=== PATIENT | female | born 1990 | race Caucasian/White ===

== ENCOUNTER → 2019-12-14 07:24 | Outpatient (CLI) | payer OTHER, SELFPAY ==
--- NOTE | ~2019-12-14 | MR_ITS ---
EXAMINATION: MR knee RT wo con DATE: 12/14/2019 08:23 INDICATION: Right knee pain. TECHNIQUE: Magnetic resonance imaging (MRI) of the right knee was performed without intravenous contr ast. Sequences included axial PD-weighted FS FSE, coronal PD-weighted FSE and PD-weighted FS FSE, sag ittal PD-weighted FSE, and sagittal T2-weighted FS FSE. COMPARISON: None. FINDINGS: Medial compartment: Medial meniscus is normal. Medial compartment cartilage is normal. Lateral compartment: Lateral meniscus is discoid. Lateral compartment cartilage is normal. Patellofemoral compartment: The patellar cartilage is normal. Trochlear cartilage is normal. Ligaments and tendons: The anterior and posterior cruciate ligaments are normal. Medial collateral ligament is normal. There is edema between the iliotibial band and the lateral femoral condyle, consistent with iliotibial ban d friction syndrome. The extensor mechanism is normal. Fluid: There is no knee joint effusion. IMPRESSION: 1. Iliotibial band friction syndrome. Reviewed, dictated and finalized at location A. 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
--- NOTE | ~2019-12-14 | MR_ITS ---
EXAMINATION: MR knee LT wo con DATE: 12/14/2019 08:23 INDICATION: Left knee pain. TECHNIQUE: Magnetic resonance imaging (MRI) of the left knee was performed without intravenous contra st. Sequences included axial PD-weighted FS FSE, coronal PD-weighted FSE and PD-weighted FS FSE, sagi ttal PD-weighted FSE, and sagittal T2-weighted FS FSE. COMPARISON: None. FINDINGS: Medial compartment: Medial meniscus is normal. Medial compartment cartilage is normal. Lateral compartment: Lateral meniscus is discoid. Lateral compartment cartilage is normal. Patellofemoral compartment: Patellar cartilage is normal. Trochlear cartilage is normal. Ligaments and tendons: The anterior and posterior cruciate ligaments are normal. Medial collateral ligament is normal. There is thickening of the iliotibial band with edema between the iliotibial band and lateral femoral cond yle, consistent with iliotibial band friction syndrome. The patellar tendon is normal. Fluid: There is no knee joint effusion. IMPRESSION: 1. Iliotibial band friction syndrome. Reviewed, dictated and finalized at location A. YIST
== END ==
PROVIDERS: PCP Orthopaedic Surgery; Visit Provider Orthopaedic Surgery
DX: M25.562 Pain in left knee (principal); M25.561 Pain in right knee; M76.31 Iliotibial band syndrome, right leg; M76.32 Iliotibial band syndrome, left leg
CPT/HCPCS: 73721

== ENCOUNTER 2020-01-17 13:55 | Outpatient (CLI) | payer OTHER, SELFPAY ==
--- NOTE | ~2020-01-17 | XR_ITS ---
EXAMINATION: XR chest 2V DATE: 01/17/2020 14:10 INDICATION: Fever, chills, and cough. TECHNIQUE: Frontal and lateral views of the chest were obtained. COMPARISON: Chest single view 02/26/2017 FINDINGS: There is mild scarring at the lung apices. No pleural effusion or pneumothorax. The heart s ize is normal. IMPRESSION: 1. Mild scarring at the lung apices. Reviewed, dictated and finalized at location A. 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
[2020-01-17 14:08] LABS: Basophils Absolute Auto 0.01 K/mm3 (0.00-0.10); Basophils Percent Auto 0.1 % (0.0-1.0); Eosinophils Absolute Auto 0.18 K/mm3 (0.02-0.50); Eosinophils Percent Auto 2.5 % (1.0-6.0); Hematocrit 34.8 % (35.0-49.0); Hemoglobin 11.4 g/dL (12.0-15.0); Immature Granulocyte Absolute 0.04 K/mm3 (0.00-0.00); Immature Granulocyte Percent A 0.6 % (0.0-0.0); Lymphocytes Absolute Auto 0.87 K/mm3 (1.10-4.50); Lymphocytes Percent Auto 12.2 % (18.0-42.0); Mean Corpuscular HGB Conc 32.8 g/dL (32.0-36.0); Mean Corpuscular Hemoglobin 29.8 pg (27.0-31.0); Mean Corpuscular Volume 91.1 fL (78.0-102.0); Mean Platelet Volume 8.5 fl (9.2-11.8); Monocytes Absolute Auto 0.57 K/mm3 (0.10-0.90); Neutrophils Absolute Auto 5.4 K/mm3 (1.7-7.2); Neutrophils Percent Auto 76.6 % (50.0-70.0); Platelet Count Result 306 K/mm3 (150-420); Red Blood Count 3.82 M/mm3 (4.20-5.40); Red Cell Distribution Width 14.5 % (11.6-14.4); White Blood Count 7.1 K/mm3 (4.8-10.8)
[2020-01-17 14:24] LABS: Alanine Aminotransferase 24 U/L (14-59); Albumin Level 3.5 g/dL (3.4-5.0); Alkaline Phosphatase 46 U/L (46-116); Anion Gap 16.1 mmol/L (7-16); Aspartate Amino Transferase 17 U/L (15-37); Bilirubin,Total 0.3 mg/dL (0.00-1.00); Blood Urea Nitrogen 9 mg/dL (7-18); Calcium 8.7 mg/dL (8.5-10.1); Carbon Dioxide 25 mmol/L (21-32); Chloride 104 mmol/L (98-108); Estimated Glomerular Filt Rate > 60; Glucose 127 mg/dL (70-99); Osmolality Calculated 292 mOsm/kg (285-295); Potassium 4.1 mmol/L (3.5-5.1); Sodium 141 mmol/L (136-145); Total Protein 7.2 g/dL (6.4-8.2)
[2020-01-17 14:28] LABS: Influenza Control Valid (Valid)
== END 2020-01-17 13:56 | disposition home or self-care (01) ==
LOC: CHSLAB 13:56
PROVIDERS: PCP Internal Medicine; Visit Provider Internal Medicine
DX: R50.9 Fever, unspecified (principal); R05 Cough
CPT/HCPCS: 36415; 71046; 80053; 85025; 87081; 87804; 87880

== ENCOUNTER 2020-01-21 16:39 | Outpatient (CLI) | payer OTHER, SELFPAY ==
[2020-01-21 16:50] LABS: Basophils Absolute Auto 0.03 K/mm3 (0.00-0.10); Basophils Percent Auto 0.4 % (0.0-1.0); Eosinophils Absolute Auto 0.12 K/mm3 (0.02-0.50); Eosinophils Percent Auto 1.7 % (1.0-6.0); Hematocrit 37.7 % (35.0-49.0); Hemoglobin 12.5 g/dL (12.0-15.0); Immature Granulocyte Absolute 0.03 K/mm3 (0.00-0.00); Immature Granulocyte Percent A 0.4 % (0.0-0.0); Lymphocytes Percent Auto 18.7 % (18.0-42.0); Mean Corpuscular HGB Conc 33.2 g/dL (32.0-36.0); Mean Corpuscular Hemoglobin 29.8 pg (27.0-31.0); Mean Platelet Volume 8.3 fl (9.2-11.8); Monocytes Absolute Auto 0.61 K/mm3 (0.10-0.90); Monocytes Percent Auto 8.8 % (2.0-11.0); Neutrophils Absolute Auto 4.9 K/mm3 (1.7-7.2); Platelet Count Result 400 K/mm3 (150-420); Red Blood Count 4.19 M/mm3 (4.20-5.40)
== END 2020-01-21 16:40 | disposition home or self-care (01) ==
LOC: CHSLAB 16:41
PROVIDERS: PCP Internal Medicine; Visit Provider Internal Medicine
DX: J02.9 Acute pharyngitis, unspecified (principal)
CPT/HCPCS: 36415; 85025

== ENCOUNTER 2020-02-04 11:46 | Outpatient (CLI) | payer OTHER, SELFPAY ==
--- NOTE | ~2020-02-04 | XR_ITS ---
EXAMINATION: XR chest 2V DATE: 02/04/2020 12:04 INDICATION: Cough TECHNIQUE: PA and lateral views of the chest were obtained. COMPARISON: Chest radiograph dated 01/17/2020 FINDINGS: Mild biapical pleural-parenchymal scarring. No other airspace opacities, pulmonary edema, pleural eff usion or pneumothorax. The cardiomediastinal silhouette is normal. Visualized bones and soft tissues are unremarkable. IMPRESSION: 1. No acute cardiopulmonary disease. Reviewed, dictated and finalized at location A.
== END 2020-02-04 11:47 | disposition home or self-care (01) ==
LOC: ANHIMG 11:52
PROVIDERS: PCP Internal Medicine; Visit Provider Internal Medicine
DX: R05 Cough (principal)
CPT/HCPCS: 71046

== ENCOUNTER 2020-02-04 14:29 | Outpatient (CLI) | payer OTHER, SELFPAY ==
--- NOTE | ~2020-02-04 | CT_ITS ---
EXAMINATION: CT soft tissue neck w con DATE: 02/04/2020 15:29 INDICATION: Lymphadenopathy with left-sided neck swelling TECHNIQUE: Computed tomography (CT) of the neck was performed with 100 mL Omnipaque-350 intravenous c ontrast. Automated exposure control and iterative reconstruction technique were employed. The dose-le ngth product was 376.89 mGy-cm. COMPARISON: 05/22/2019 FINDINGS: A benign 4 mm hypoenhancing nodule in the deep right thyroid. Submandibular and parotid glands are sy mmetric. There are scattered normal-sized lymph nodes in the neck, no lymphadenopathy. The 2 largest are seen deep to the left sternocleidomastoid muscle measuring 10 x 5 mm and 14 x 7 mm which are not clearly changed since earlier cervical spine MR dated 05/22/2019 at which time they measured 14 x 6 mm and 14 x 6 mm respectively. No abscess or abnormal masses identified. The vasculature is patent and normal in caliber with mixing artifact within the bilateral jugular veins. Airway and superior medias tinum are unremarkable. Mild biapical pleural-parenchymal scarring. Minimal cervical spondylosis with mild disc height loss and mild bilateral uncovertebral osteoarthritis at C5-C6. Orbits are unremark able. The callosal thickening the bilateral maxillary sinuses with prominent mucous retention cyst in the right maxillary sinus. IMPRESSION: 1. No abscess, masses or pathologically enlarged cervical lymphadenopathy. Reviewed, dictated and finalized at location A.
[2020-02-04 14:46] LABS: Basophils Absolute Auto 0.02 K/mm3 (0.00-0.10); Basophils Percent Auto 0.3 % (0.0-1.0); Eosinophils Absolute Auto 0.02 K/mm3 (0.02-0.50); Eosinophils Percent Auto 0.3 % (1.0-6.0); Hematocrit 32.5 % (35.0-49.0); Hemoglobin 10.5 g/dL (12.0-15.0); Immature Granulocyte Absolute 0.02 K/mm3 (0.00-0.00); Immature Granulocyte Percent A 0.3 % (0.0-0.0); Lymphocytes Absolute Auto 1.55 K/mm3 (1.10-4.50); Lymphocytes Percent Auto 22.7 % (18.0-42.0); Mean Corpuscular HGB Conc 32.3 g/dL (32.0-36.0); Mean Corpuscular Hemoglobin 29.2 pg (27.0-31.0); Mean Corpuscular Volume 90.5 fL (78.0-102.0); Mean Platelet Volume 8.4 fl (9.2-11.8); Monocytes Absolute Auto 0.44 K/mm3 (0.10-0.90); Monocytes Percent Auto 6.4 % (2.0-11.0); Neutrophils Absolute Auto 4.8 K/mm3 (1.7-7.2); Platelet Count Result 356 K/mm3 (150-420); Red Blood Count 3.59 M/mm3 (4.20-5.40); Red Cell Distribution Width 13.6 % (11.6-14.4); White Blood Count 6.8 K/mm3 (4.8-10.8)
[2020-02-04 15:20] LABS: Alanine Aminotransferase 23 U/L (14-59); Albumin Level 3.7 g/dL (3.4-5.0); Alkaline Phosphatase 46 U/L (46-116); Anion Gap 16.9 mmol/L (7-16); Aspartate Amino Transferase 21 U/L (15-37); Bilirubin,Total 0.3 mg/dL (0.00-1.00); Blood Urea Nitrogen 9 mg/dL (7-18); CRP 3.2 mg/dL (0.0-0.9); Calcium 9.3 mg/dL (8.5-10.1); Carbon Dioxide 25 mmol/L (21-32); Chloride 101 mmol/L (98-108); Estimated Glomerular Filt Rate > 60; Free T3 3.21 pg/mL (2.18-3.98); Free T4 Free Thyroxine 0.99 ng/dL (0.76-1.46); Glucose 84 mg/dL (70-99); Osmolality Calculated 285 mOsm/kg (285-295); Potassium 3.9 mmol/L (3.5-5.1); Sodium 139 mmol/L (136-145); Thyroid Stimulating Hormone 0.65 uIU/mL (0.36-3.74); Total Protein 7.2 g/dL (6.4-8.2)
[2020-02-04 16:01] LABS: Erythrocyte Sedimentation Rate 33 mm/hr (0-15)
[2020-02-04 16:40] LABS: Immature Reticulocyte Fraction 12.5 % (2.0-16.52); Reticulocyte Hemoglobin Conten 33.4 pg (28.0-35.0); Reticulocyte Percent 1.43 % (0.50-1.50); Reticulocytes Absolute 0.05 M/mm3 (0.02-0.1)
[2020-02-04 17:14] LABS: Ferritin 62 ng/mL (8-252); Iron 53 ug/dL (50-170); Percent Iron Saturation 11 % (12-57); Vitamin B12 817 pg/mL (193-986)
[2020-02-08 03:32] LABS: Red Blood Cell Folate 733 ng/mL RBC (>280)
== END 2020-02-04 14:30 | disposition home or self-care (01) ==
LOC: CHSLAB 14:32
PROVIDERS: PCP Internal Medicine; Visit Provider Internal Medicine
DX: R59.1 Generalized enlarged lymph nodes (principal); R53.83 Other fatigue; J02.9 Acute pharyngitis, unspecified; D84.9 Immunodeficiency, unspecified; D64.9 Anemia, unspecified
CPT/HCPCS: 36415; 70491; 80053; 82607; 82728; 82747; 83540; 83550; 84439; 84443; 84481; 85025; 85046; 85652; 86140; Q9965

== ENCOUNTER 2020-02-05 10:43 | Emergency (ER) | payer OTHER, SELFPAY ==
--- NOTE | ~2020-02-05 | CT_ITS ---
EXAMINATION: CTA chest PE protocol DATE: 02/05/2020 12:12 CDT INDICATION: Pleuritic chest pain and dyspnea TECHNIQUE: Computed tomographic angiography (CTA) of the chest was performed with 100 mL Omnipaque-35 0 intravenous contrast. The dose-length product was 183.91 mGy-cm. Maximum intensity projection 3D-re constructions of the aorta and other arteries were constructed by the technologist on a separate work station. Automated exposure control and iterative reconstruction technique were employed. COMPARISON: No prior studies for comparison. . FINDINGS: Study is technically adequate without evidence for pulmonary embolism. No significant pleur al or pericardial effusion. No thoracic lymphadenopathy. Heart size normal. Visualized aspects of the upper abdomen are unremarkable. No evidence for aortic aneurysm or dissection. No pneumothorax. 4 mm right lower lobe perifissural nodule, likely benign. No focal airspace consolidation. There is a 3 m m groundglass nodule right upper lobe, image 68. There are small left upper lobe nodules adjacent to the fissure measuring 3 mm. No focal airspace consolidation. IMPRESSION: 1. No evidence for pulmonary embolism. No acute cardiopulmonary disease. 2: Multiple small bilateral pulmonary nodules measuring 4 mm or less, likely benign. Reviewed, dictated and finalized at location A. IMPRESSION: 1. No evidence for pulmonary embolism. No acute cardiopulmonary disease. 2: Multiple small bilateral pulmonary nodules measuring 4 mm or less, likely b enign.
--- NOTE | 2020-02-05 10:54 | ECG_ITS ---
Measurements Intervals [place] Rate: 67 P: 51 UT: 128 QRS: 81 QRSD: 89 T: 63 QT: 381 QTc: 405 Interpretive Statements SINUS RHYTHM DELAYED PRECORDIAL R/S TRANSITION BASELINE ARTIFACT- II, III, AVL, AVF BORDERLINE ECG Electronically Signed On 02-05-2020 15:30:33 CDT by Vamsi Ramírez D.O.
[2020-02-05 11:11] VITALS: BP 111/65; PULSE 84; RESP 16; TEMP 36.7; O2SAT 98
--- NOTE | 2020-02-05 11:50 | ED.GENADULT ---
HPI - General Adult General Chief complaint: Upper Respiratory Infection Stated complaint: chest and back pain History of Present Illness HPI narrative: Lizy is a 29-year-old woman with a past medical history of RA /psoriatic arthritis that was referred to the emergency department for a CTA by her PCP. she has had 3 weeks of fever, sore throat, URI type symptoms and eye pain. She has undergone 3 courses of antibiotics and is not feeling any better. She saw an hand tube winder who reported she might have uveitis, started on steroid eyedrops. 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 She also had some lightheadedness and nausea. No syncope or near syncope. Because of this her PCP referred her to the emergency department. No vomiting or other GI symptoms or dysuria. Related Data Home Medications Medication Instructions Recorded Confirmed escitalopram oxalate 20 mg tablet 20 mg PO DAILY 10/21/19 02/05/20 methotrexate (PF) 25 mg/0.5 mL 25 mg SUB-Q WEEKLY 10/21/19 02/05/20 subcutaneous auto-injector montelukast 10 mg tablet 10 mg PO DAILY 10/21/19 02/05/20 tofacitinib 5 mg tablet 5 mg PO BID 10/21/19 02/05/20 pantoprazole 40 mg PO QAM 02/05/20 02/05/20 Allergies Allergy/AdvReac Type Severity Reaction Status Date / Time ciprofloxacin Allergy Unknown HIVES Verified 12/03/19 07:47 metronidazole Allergy Unknown HIVES Verified 12/03/19 07:47 Review of Systems Constitutional: Constitutional: Reports no additional constitutional complaints Eyes: Eyes: Reports as per HPI ENT: Reports as per HPI Cardiovascular: Cardiovascular: Reports chest pain and Denies radiating jaw, neck or arm pain Respiratory: Respiratory: Reports as per HPI Gastrointestinal: Gastrointestinal: Reports as per HPI Genitourinary: Genitourinary: Reports no additional female genitourinary complaints Musculoskeletal: Musculoskeletal: Reports no additional musculoskeletal complaints Integumentary/Breasts: Skin/Breast: Reports system reviewed and no additional complaints, except as docu Neurologic: Reports system reviewed and no additional complaints, except as documented Psychiatric: Psychiatric: Reports no additional psychiatric complaints Endocrine: Endocrine: Reports no additional endocrine complaints Hematologic/Lymphatic: Hematologic/Lymphatic: Reports no additional hematologic/lymphatic complaints Allergic/Immunologic: Allergic/Immunologic: Reports no additional allergic/immunologic complaints [facility] Past Medical History Medical History Anxiety Asthma Depression Endometriosis GERD (gastroesophageal reflux disease) Intrauterine adhesions Irritable bowel Panic disorder Rheumatoid arteritis Surgical History Surgical History H/O dilation and curettage H/O myringotomy Hx of cholecystectomy Hx of tonsillectomy Social History Social History Smoking status: Never smoker Alcohol intake: never Substance use: never Gender identity (if verbalized by the patient): Female Exam Const: General: no acute distress and alert Orientation/consciousness: patient oriented x3 Limitations: No altered mental status HENMT: Other: Normocephalic, atraumatic Eyes: Conjunctivae: conjunctivae normal Pupils: Equal, round and reactive pupils present Neck: Neck: normal visual inspection Chest: Chest palpation & inspection: normal inspection of the chest Other: tenderness palpation on the posterior side of the left upper back Resp: Effort & Inspection: normal respiratory effort, not labored, no retractions and no use of accessory muscles Auscultation: clear to auscultation bilaterally, no crackles, no wheezes and lung sounds not diminished Cardio: Rate: regular rate Rhyth
[2020-02-05 11:57] LABS: BNP 15.6 pg/mL (0-100); Troponin I < 0.02 ng/mL (0.00-0.056)
[2020-02-05 12:44] VITALS: BP 102/62; PULSE 68; O2SAT 100
== END 2020-02-05 12:45 | disposition home or self-care (01) ==
PROVIDERS: Emergency Provider Family Medicine; PCP Internal Medicine
DX: R07.81 Pleurodynia (principal); R06.02 Shortness of breath
CPT/HCPCS: 36415; 71275; 83880; 84484; 93005; 99284; Q9965

== ENCOUNTER 2020-04-03 11:16 | Outpatient (CLI) | payer OTHER, SELFPAY ==
--- NOTE | ~2020-04-03 | CT_ITS ---
EXAMINATION: CT abdomen w con DATE: 04/03/2020 15:44 INDICATION: Acute right upper quadrant abdominal pain. Nausea and vomiting. TECHNIQUE: Computed tomography (CT) of the abdomen was performed with 100 cc Omnipaque 350 intravenou s contrast. Automated exposure control and iterative reconstruction technique were employed. Exam dos e: 163.36 mGy-cm total exam DLP. COMPARISON: 11/08/2019 CT abdomen pelvis FINDINGS: The lung bases are clear. Normal heart size. No pericardial or pleural effusion. Right foramen of Bochdalek hernia containing fat and a little bit of the posterior aspect of the uppe r pole of the right kidney. The gallbladder is reportedly surgically absent. No bile duct or pancreatic duct dilatation. No hepat ic, splenic, pancreatic, adrenal space-occupying mass lesion. No left renal space occupying mass lesi on. There is an 8 mm cyst of the upper pole of the right kidney. At least one pinpoint lower pole rig ht renal calculus may be present. Noncontrast CT examination would be more accurate for detection of urinary tract calculi. The right kidney is otherwise unremarkable. No hydronephrosis or scarring of e ither kidney. Normal caliber of the abdominal aorta. No intraperitoneal or retroperitoneal mass lesion or adenopath y or ascites. There are several nonenlarged right lower quadrant mesenteric lymph nodes. No evidence of bowel obstr uction, bowel wall thickening, pneumatosis or intraperitoneal free air. Small fat-containing umbilical hernia. Included skeletal structures are unremarkable. IMPRESSION: History of cholecystectomy Reviewed, dictated and finalized at Location A. Reviewed, dictated and finalized at location A. IMPRESSION: History of cholecystectomy
[2020-04-03 11:27] LABS: Appearance Urine Clear (Clear); Bilirubin Urine Negative (Negative); Color Urine Yellow (Yellow); Glucose Urine UA Negative (Negative); Ketones Urine Negative (Negative); Leukocyte Esterase Ur Negative LEU/UL (Negative); Nitrate Urine Negative (Negative); Protein Urine Negative (Negative); Specific Grav Ur <= 1.005 (1.010-1.020); Urobilinogen Urine 0.2 mg/dL (0.2-1.0)
[2020-04-03 11:36] LABS: Add Urine Microscopic? YES; Bacteria Urine None seen /hpf; Blood Urine Trace-Intact (Negative); RBC Urine 0-2 /hpf (0-2); Squamous Epithelial Cell Urine Few /hpf (Few); WBC Urine 0-3 /hpf (0-3)
[2020-04-03 11:38] LABS: Alanine Aminotransferase 19 U/L (14-59); Alkaline Phosphatase 50 U/L (46-116); Amylase 58 U/L (25-115); Anion Gap 15.7 mmol/L (7-16); Aspartate Amino Transferase 15 U/L (15-37); Bilirubin,Total 0.3 mg/dL (0.00-1.00); Blood Urea Nitrogen 9 mg/dL (7-18); Calcium 8.8 mg/dL (8.5-10.1); Carbon Dioxide 24 mmol/L (21-32); Chloride 102 mmol/L (98-108); Estimated Glomerular Filt Rate > 60; Glucose 199 mg/dL (70-99); Lipase 173 U/L (73-393); Osmolality Calculated 290 mOsm/kg (285-295); Potassium 3.7 mmol/L (3.5-5.1); Sodium 138 mmol/L (136-145); Total Protein 6.8 g/dL (6.4-8.2)
[2020-04-03 11:47] LABS: Albumin Level 3.3 g/dL (3.4-5.0)
[2020-04-03 15:17] LABS: Basophils Absolute Auto 0.02 K/mm3 (0.00-0.10); Basophils Percent Auto 0.3 % (0.0-1.0); Eosinophils Absolute Auto 0.05 K/mm3 (0.02-0.50); Eosinophils Percent Auto 0.7 % (1.0-6.0); Hematocrit 33.8 % (35.0-49.0); Immature Granulocyte Absolute 0.03 K/mm3 (0.00-0.00); Immature Granulocyte Percent A 0.4 % (0.0-0.0); Lymphocytes Absolute Auto 1.55 K/mm3 (1.10-4.50); Lymphocytes Percent Auto 20.5 % (18.0-42.0); Mean Corpuscular HGB Conc 32.5 g/dL (32.0-36.0); Mean Corpuscular Hemoglobin 29.1 pg (27.0-31.0); Mean Corpuscular Volume 89.4 fL (78.0-102.0); Mean Platelet Volume 9.1 fl (9.2-11.8); Monocytes Absolute Auto 0.41 K/mm3 (0.10-0.90); Monocytes Percent Auto 5.4 % (2.0-11.0); Neutrophils Absolute Auto 5.5 K/mm3 (1.7-7.2); Neutrophils Percent Auto 72.7 % (50.0-70.0); Platelet Count Result 352 K/mm3 (150-420); Red Blood Count 3.78 M/mm3 (4.20-5.40); Red Cell Distribution Width 13.8 % (11.6-14.4); White Blood Count 7.6 K/mm3 (4.8-10.8)
== END 2020-04-03 11:17 | disposition home or self-care (01) ==
PROVIDERS: PCP Internal Medicine; Visit Provider Internal Medicine
DX: R10.11 Right upper quadrant pain (principal); R11.2 Nausea with vomiting, unspecified; Z90.49 Acquired absence of other specified parts of digestive tract
CPT/HCPCS: 36415; 74160; 80053; 81001; 82150; 83690; 85025; Q9965

== ENCOUNTER 2020-04-07 08:39 | Outpatient (CLI) | payer OTHER, SELFPAY ==
--- NOTE | ~2020-04-07 | MR_ITS ---
EXAMINATION: MR MRCP wo/w con/w 3D wo ind DATE: 04/07/2020 10:30 INDICATION: Right upper quadrant abdominal pain similar to prior biliary pain. TECHNIQUE: Magnetic resonance imaging (MRI) of the abdomen was performed without and with 13 mL Multi rafat intravenous contrast. Sequences included coronal T2-weighted SS-FSE, coronal T2-weighted FS SS- FSE, coronal T2-weighted FS FIESTA, axial T2-weighted FS FIESTA, axial T2-weighted FIESTA, sagittal T 2-weighted SS-FSE, axial T1-weighted dual-echo FSPGR, axial T2-weighted SS-FSE, axial T1-weighted LAV A, axial T2-weighted STIR FSE. Thick-slab T2-weighted FRFSE-XL images were obtained for magnetic reso nance cholangiopancreatography (MRCP). Rotating maximum intensity projection 3-D reconstructions of t he volumetric data were created by the technologist. Postcontrast sequences included a time course of axial T1-weighted LAVA. COMPARISON: None. FINDINGS: ABDOMEN MRI: Heart size is normal. No pericardial or pleural effusion. Ex millimeters T2 hyperintense nonenhancing cyst at the posterior right hepatic lobe. Spleen, pancreas, bilateral adrenal glands an d left kidney are normal. 8 mm T2 hyperintense nonenhancing cyst at the upper pole of the right kidne y. Gallbladder is not visualized consistent with provided history of prior cholecystectomy. Visualize d portion of the bowels appear normal. No pathologically enlarged abdominal lymphadenopathy. The abdo steve aorta, inferior vena cava and major branch vessels appear normal as does the portal venous syst em. Bones are unremarkable with normal marrow signal throughout. ABDOMEN MRCP: The MRCP portion of the study is limited by some motion artifact. There is however good visualization of the common bile duct and biliary tree on the axial, sagittal and coronal T2-weighted images. Norm al caliber common bile duct measuring up to 4 mm in maximal diameter with no strictures or intralumin al filling defects to suggest choledocholithiasis. Intrahepatic biliary tree is normal. The main panc reatic duct is also normal. IMPRESSION: 1. Status post cholecystectomy. No evident choledocholithiasis or intra or extra hepatic biliary duct al dilation. 2. No acute intra-abdominal/pelvic process. Reviewed, dictated and finalized at location A. IMPRESSION: 1. Status post cholecystectomy. No evident choledocholithiasis or intra or extr a hepatic biliary ductal dilation. 2. No acute intra-abdominal/pelvic process.
== END 2020-04-07 08:40 | disposition home or self-care (01) ==
LOC: ANHIMG 08:41
PROVIDERS: PCP Internal Medicine; Visit Provider Internal Medicine Gastroenterology
DX: R10.13 Epigastric pain (principal); R11.2 Nausea with vomiting, unspecified; R63.4 Abnormal weight loss; Z90.49 Acquired absence of other specified parts of digestive tract
CPT/HCPCS: 74183; 76376; A9577

== ENCOUNTER 2020-04-17 00:25 | Outpatient (CLI) | payer OTHER, SELFPAY ==
[2020-04-17 16:41] LABS: SARS-CoV-2 RNA PCR Negative
== END 2020-04-17 00:26 | disposition home or self-care (01) ==
LOC: ANHCOVIDDT 00:25
PROVIDERS: PCP Internal Medicine; Visit Provider Internal Medicine Gastroenterology
DX: Z01.818 Encounter for other preprocedural examination (principal); Z11.59 Encounter for screening for other viral diseases
CPT/HCPCS: 87635; C9803; U0003

== ENCOUNTER 2020-04-18 01:06 | Day surgery (SDC) | payer OTHER, SELFPAY ==
[2020-04-12 15:03] VITALS: BMI 24.2
[2020-04-18 07:20] VITALS: BP 96/69; PULSE 94; RESP 16; TEMP 37; O2SAT 100
[2020-04-18] MEDS: LACTATED RINGERS 1,000 ML 150 ML IV CONT (07:47)
--- NOTE | 2020-04-18 08:00 | WPDANESEPPF ---
Anes - Initial Pre Proc Eval Procedure: Operation Date: 04/18/20 08:30 Proposed Procedures p Esophagogastroduodenoscopy - Jonny Reynolds MD Date/Time: 04/18/20 08:00 Surgeon: Jonny Reynolds MD Pre Op Diagnosis: abd pain, vomiting Patient Data Age: 29 Gender: F Height: 5 ft 4 in Weight: 64.2 kg Last Vital Signs Temp 37.0 C 04/18/20 07:20 Pulse 94 04/18/20 07:20 Resp 16 04/18/20 07:20 BP 96/69 L 04/18/20 07:20 Pulse Ox 100 04/18/20 07:20 Allergies Allergy/AdvReac Type Severity Reaction Status Date / Time ciprofloxacin Allergy Unknown HIVES Verified 04/18/20 07:26 metronidazole Allergy Unknown HIVES Verified 04/18/20 07:26 Home Medications Medication Instructions Recorded Confirmed Type escitalopram oxalate 20 mg tablet 20 mg PO DAILY 10/21/19 04/18/20 History methotrexate (PF) 25 mg/0.5 mL 25 mg SUB-Q WEEKLY 10/21/19 04/18/20 History subcutaneous auto-injector montelukast 10 mg tablet 10 mg PO DAILY 10/21/19 04/18/20 History vits,calcium no.78-iron 1 tablet PO DAILY #90 tablet 10/21/19 04/18/20 Rx fumarate-folic acid 29 mg-1 mg tablet pantoprazole 40 mg PO QAM 02/05/20 04/18/20 History apremilast [Otezla Starter] 30 ea PO BID 04/12/20 04/18/20 History lifitegrast [Xiidra] 5 % OPHTHALMIC (EYE) BID 04/12/20 04/18/20 History norgestimate-ethinyl estradiol 1 tablet PO DAILY 04/12/20 04/18/20 History [Tri-Sprintec (28)] Patient hx anesthesia problems: none Family hx anesthesia problems: none PMFSH Past Medical History Medical History Anxiety Asthma Depression Endometriosis Epigastric pain GERD (gastroesophageal reflux disease) Intrauterine adhesions Irritable bowel Nausea & vomiting Panic disorder Rheumatoid arthritis Weight loss Surgical History Surgical History H/O dilation and curettage H/O myringotomy Hx of cholecystectomy Hx of tonsillectomy Social History Social History Smoking status: Never smoker Alcohol intake: never Substance use: never Gender identity (if verbalized by the patient): Female Anes - Eval Final PreProcedure Day of Procedure 04/18/20 08:00 Patient weight: normal Heart: regular rate and rhythm Lungs: clear to auscultation Airway: Mallampati scale class 1 Neurological: alert and oriented Last oral intake: >/= 8 hours ASA classification: II Emergent: no Anesthetic plan: proceed Anesthesia type and monitoring: general GIVS and standard monitoring Informed Consent: The patient's anesthetic plan and its attendant risks and benefits were discussed with the patient/family/POA. Questions were solicited and answers provided to the satisfaction of the patient/family/POA.
--- NOTE | 2020-04-18 08:37 | WPDHPUPDATE1 ---
History and Physical Update Update Date/Time: 04/18/20 08:37 History and Physical has been reviewed, including an updated exam of the patient. There are NO changes in the patient's condition. Risks, benefits, and alternatives have been discussed and questions answered. Patient agrees to proceed with procedure.
[2020-04-18 08:42] VITALS: BP 98/66; PULSE 65; RESP 20; O2SAT 96
[2020-04-18 08:52] VITALS: BP 113/79; PULSE 63; RESP 15; O2SAT 100
[2020-04-18 09:02] VITALS: BP 110/75; PULSE 68; RESP 20; O2SAT 100
== END 2020-04-18 09:19 | disposition home or self-care (01) ==
PROVIDERS: PCP Internal Medicine; Visit Provider Internal Medicine Gastroenterology
PROC: 0DJ08ZZ Inspection of Upper Intestinal Tract, Via Natural or Artificial Opening Endoscopic (ICD-10-PCS; CPT 43235; principal; 2020-04-18 08:30)
DX: K29.70 Gastritis, unspecified, without bleeding (principal); K44.9 Diaphragmatic hernia without obstruction or gangrene; K21.9 Gastro-esophageal reflux disease without esophagitis; J45.909 Unspecified asthma, uncomplicated; F41.8 Other specified anxiety disorders; M06.9 Rheumatoid arthritis, unspecified
CPT/HCPCS: 43239; 88305; J2704; J7120

== ENCOUNTER 2020-04-28 07:15 | Outpatient (CLI) | payer OTHER, SELFPAY ==
--- NOTE | ~2020-04-28 | NM_ITS ---
EXAM: NM gastric emptying study DATE: 04/28/2020 12:22 INDICATION: Abnormal weight loss. TECHNIQUE: A gastric emptying study was performed using the methodology of Manolo CAMP, et al. J Nucl Med 2007; 48:568-572. The patient was given a meal consisting of 2 scrambled eggs labeled with 1 mCi Tc-99m sulfur colloid, 2 slices of toast, two packages of jam, and approximately 120 mL of water. Si multaneous anterior and posterior 1-min images of the abdomen were obtained with the patient supine a t multiple time points over a total period of 4 hours. The geometric mean of anterior and posterior v iews was determined, and the percentage retention was calculated for each time point. COMPARISON: CT abdomen 04/03/2020 FINDINGS: Gastric retention of the radiotracer-labeled meal was 61%, 34%, and 8% at the 1-hour, 2-ho ur, and 4-hour time points, respectively. With this technique, apparent rapid gastric emptying is sug gested by <30% gastric retention at 1 hour. Delayed gastric emptying is defined by gastric retention of >90% at 1 hour, >60% retention at 2 hours, or >10% retention at 4 hours. IMPRESSION: 1. Normal gastric emptying. Reviewed, dictated and finalized at location E. IMPRESSION: 1. Normal gastric emptying.
== END 2020-04-28 07:16 | disposition home or self-care (01) ==
LOC: ANHIMG 07:18
PROVIDERS: PCP Internal Medicine; Visit Provider Internal Medicine Gastroenterology
DX: R63.4 Abnormal weight loss (principal); R11.2 Nausea with vomiting, unspecified; R10.13 Epigastric pain
CPT/HCPCS: 78264; A9541

== ENCOUNTER 2020-05-09 15:23 | Outpatient (RCR) | payer OTHER, SELFPAY ==
[2020-03-21 15:14] LABS: Add Urine Microscopic? NO; Appearance Urine Clear (Clear); Basophils Percent Auto 0.4 % (0.2-1.2); Bilirubin Urine Negative (Negative); Blood Urine Negative (Negative); Color Urine Yellow (Yellow); Eosinophils Absolute Auto 0.1 K/mm3 (0-0.3); Eosinophils Percent Auto 0.6 % (0-4.4); Glucose Urine UA Negative (Negative); Hematocrit 36.8 % (37.0-47.0); Hemoglobin 11.6 g/dL (12.0-15.0); Immature Granulocyte Absolute 0.04 K/mm3 (0.00-0.031); Immature Granulocyte Percent A 0.5 % (0-0.5); Ketones Urine Negative (Negative); Leukocyte Esterase Ur Negative LEU/UL (Negative); Lymphocytes Absolute Auto 1.51 K/mm3 (0.9-3.2); Lymphocytes Percent Auto 19.3 % (18.3-44.2); Mean Corpuscular HGB Conc 31.5 g/dl (32-36); Mean Corpuscular Hemoglobin 28.3 pg (26-34); Mean Corpuscular Volume 89.8 fl (80-100); Mean Platelet Volume 8.6 fl (7.4-10.4); Monocytes Absolute Auto 0.6 K/mm3 (0.1-0.6); Monocytes Percent Auto 7.3 % (2.6-8.5); Mucus Urine Rare /lpf; Neutrophils Absolute Auto 5.6 K/mm3 (1.3-6.7); Neutrophils Percent Auto 71.9 % (45.5-73.1); Nitrate Urine Negative (Negative); Platelet Count Result 393 k/mm3 (150-375); Protein Urine Negative (Negative); RBC Urine 0-2 /hpf (0-2); Red Cell Distribution Width 13.7 % (11.5-14.5); Specific Grav Ur 1.009 (1.001-1.035); Squamous Epithelial Cell Urine Occasional /hpf (Few); Urobilinogen Urine Negative mg/dL (<2.0); WBC Urine 0-3 /hpf; White Blood Count 7.8 K/mm3 (4.5-10.0)
[2020-03-21 15:23] LABS: Alanine Aminotransferase 16 U/L (4-35); Albumin Level 4.3 g/dL (3.5-5.1); Alkaline Phosphatase 51 U/L (38-126); Aspartate Amino Transferase 19 U/L (14-36); Bilirubin,Total 0.3 mg/dL (0.2-1.3); Blood Urea Nitrogen 15 mg/dL (7-17); CRP 1.6 mg/dL (<1.0); Calcium 9.5 mg/dL (8.4-10.2); Carbon Dioxide 28 mmol/L (22-30); Chloride 100 mmol/L (98-107); Estimated Glomerular Filt Rate > 60; Glucose 157 mg/dL (65-105); Potassium 3.6 mmol/L (3.4-5.0); Sodium 138 mmol/L (137-145)
[2020-03-21 15:38] LABS: Erythrocyte Sedimentation Rate 20 mm/hr (0-20)
[2020-05-09 16:17] LABS: Basophils Percent Auto 0.3 % (0.2-1.2); Eosinophils Absolute Auto 0.1 K/mm3 (0-0.3); Eosinophils Percent Auto 0.8 % (0-4.4); Hematocrit 36.3 % (37.0-47.0); Hemoglobin 11.4 g/dL (12.0-15.0); Immature Granulocyte Absolute 0.03 K/mm3 (0.00-0.031); Immature Granulocyte Percent A 0.4 % (0-0.5); Lymphocytes Absolute Auto 1.99 K/mm3 (0.9-3.2); Lymphocytes Percent Auto 27.1 % (18.3-44.2); Mean Corpuscular HGB Conc 31.4 g/dl (32-36); Mean Corpuscular Hemoglobin 27.5 pg (26-34); Mean Corpuscular Volume 87.5 fl (80-100); Mean Platelet Volume 9.2 fl (7.4-10.4); Monocytes Absolute Auto 0.5 K/mm3 (0.1-0.6); Monocytes Percent Auto 6.4 % (2.6-8.5); Neutrophils Absolute Auto 4.8 K/mm3 (1.3-6.7); Platelet Count Result 377 k/mm3 (150-375); Red Blood Count 4.15 M/mm3 (4.2-5.4); Red Cell Distribution Width 14.4 % (11.5-14.5); White Blood Count 7.4 K/mm3 (4.5-10.0)
[2020-05-09 16:30] LABS: Alanine Aminotransferase 17 U/L (4-35); Albumin Level 4.6 g/dL (3.5-5.1); Alkaline Phosphatase 54 U/L (38-126); Aspartate Amino Transferase 23 U/L (14-36); Bilirubin,Total < 0.1 mg/dL (0.2-1.3); Blood Urea Nitrogen 11 mg/dL (7-17); CRP 1.2 mg/dL (<1.0); Calcium 9.5 mg/dL (8.4-10.2); Carbon Dioxide 28 mmol/L (22-30); Chloride 100 mmol/L (98-107); Estimated Glomerular Filt Rate > 60; Glucose 113 mg/dL (65-105); Potassium 4.1 mmol/L (3.4-5.0); Sodium 138 mmol/L (137-145)
[2020-05-09 17:06] LABS: Erythrocyte Sedimentation Rate 20 mm/hr (0-20)
== END 2020-06-19 23:59 | disposition home or self-care (01) ==
LOC: ANHLAB 15:23
PROVIDERS: PCP Internal Medicine
DX: Z51.81 Encounter for therapeutic drug level monitoring (principal); M13.0 Polyarthritis, unspecified; Z79.899 Other long term (current) drug therapy
CPT/HCPCS: 36415; 80053; 81003; 85025; 85652; 86140

== ENCOUNTER 2020-08-01 12:53 | Outpatient (CLI) | payer OTHER, SELFPAY ==
[2020-08-01 14:17] LABS: Free T4 Free Thyroxine 0.99 ng/mL (0.78-2.19)
[2020-08-01 14:25] LABS: Thyroid Stimulating Hormone 0.404 uIU/mL (0.465-4.680)
== END 2020-08-01 12:54 | disposition home or self-care (01) ==
PROVIDERS: PCP Internal Medicine; Visit Provider Obstetrics & Gynecology
DX: N92.6 Irregular menstruation, unspecified (principal)
CPT/HCPCS: 36415; 84439; 84443

== ENCOUNTER 2020-08-01 12:55 | Outpatient (RCR) | payer OTHER, SELFPAY ==
[2020-06-23 07:40] LABS: Basophils Percent Auto 0.5 % (0.2-1.2); Eosinophils Absolute Auto 0.1 K/mm3 (0-0.3); Eosinophils Percent Auto 1.1 % (0-4.4); Hematocrit 34.2 % (37.0-47.0); Hemoglobin 11.1 g/dL (12.0-15.0); Immature Granulocyte Absolute 0.02 K/mm3 (0.00-0.031); Immature Granulocyte Percent A 0.3 % (0-0.5); Lymphocytes Absolute Auto 1.62 K/mm3 (0.9-3.2); Lymphocytes Percent Auto 25.6 % (18.3-44.2); Mean Corpuscular HGB Conc 32.5 g/dl (32-36); Mean Corpuscular Volume 86.4 fl (80-100); Mean Platelet Volume 8.7 fl (7.4-10.4); Monocytes Absolute Auto 0.5 K/mm3 (0.1-0.6); Monocytes Percent Auto 7.6 % (2.6-8.5); Neutrophils Absolute Auto 4.1 K/mm3 (1.3-6.7); Neutrophils Percent Auto 64.9 % (45.5-73.1); Platelet Count Result 381 k/mm3 (150-375); Red Blood Count 3.96 M/mm3 (4.2-5.4); Red Cell Distribution Width 14.8 % (11.5-14.5); White Blood Count 6.3 K/mm3 (4.5-10.0)
[2020-06-23 07:59] LABS: Alanine Aminotransferase 15 U/L (4-35); Albumin Level 4.4 g/dL (3.5-5.1); Alkaline Phosphatase 51 U/L (38-126); Anion Gap 12.1 mmol/L (7-16); Aspartate Amino Transferase 24 U/L (14-36); Bilirubin,Total < 0.1 mg/dL (0.2-1.3); Blood Urea Nitrogen 11 mg/dL (7-17); CRP 1.4 mg/dL (<1.0); Calcium 9.6 mg/dL (8.4-10.2); Carbon Dioxide 26 mmol/L (22-30); Chloride 103 mmol/L (98-107); Estimated Glomerular Filt Rate > 60; Glucose 89 mg/dL (65-105); Potassium 4.1 mmol/L (3.4-5.0); Sodium 137 mmol/L (137-145)
[2020-06-23 08:00] LABS: Add Urine Microscopic? YES; Appearance Urine Clear (Clear); Bacteria Urine Trace /hpf; Bilirubin Urine Negative (Negative); Blood Urine 1+ (Negative); Color Urine Straw (Yellow); Glucose Urine UA Negative (Negative); Ketones Urine Negative (Negative); Leukocyte Esterase Ur Negative LEU/UL (Negative); Mucus Urine Rare /lpf; Nitrate Urine Negative (Negative); Protein Urine Negative (Negative); RBC Urine 0-2 /hpf (0-2); Specific Grav Ur 1.015 (1.001-1.035); Squamous Epithelial Cell Urine Rare /hpf (Few); Urobilinogen Urine Negative mg/dL (<2.0); WBC Urine 0-3 /hpf
[2020-06-23 08:03] LABS: Hemoglobin A1C 5.1 % (<5.7)
[2020-06-23 08:34] LABS: Erythrocyte Sedimentation Rate 22 mm/hr (0-20)
[2020-08-01 13:38] LABS: Basophils Percent Auto 0.2 % (0.2-1.2); Eosinophils Percent Auto 0.3 % (0-4.4); Hemoglobin 11.2 g/dL (12.0-15.0); Immature Granulocyte Absolute 0.02 K/mm3 (0.00-0.031); Immature Granulocyte Percent A 0.3 % (0-0.5); Lymphocytes Absolute Auto 1.42 K/mm3 (0.9-3.2); Lymphocytes Percent Auto 24.5 % (18.3-44.2); Mean Corpuscular Hemoglobin 27.8 pg (26-34); Mean Corpuscular Volume 86.8 fl (80-100); Monocytes Absolute Auto 0.4 K/mm3 (0.1-0.6); Monocytes Percent Auto 6.6 % (2.6-8.5); Neutrophils Absolute Auto 3.9 K/mm3 (1.3-6.7); Neutrophils Percent Auto 68.1 % (45.5-73.1); Platelet Count Result 415 k/mm3 (150-375); Red Blood Count 4.03 M/mm3 (4.2-5.4); Red Cell Distribution Width 14.6 % (11.5-14.5); White Blood Count 5.8 K/mm3 (4.5-10.0)
[2020-08-01 13:43] LABS: Add Urine Microscopic? NO; Appearance Urine Clear (Clear); Bilirubin Urine Negative (Negative); Blood Urine Negative (Negative); Color Urine Straw (Yellow); Glucose Urine UA Negative (Negative); Ketones Urine Negative (Negative); Leukocyte Esterase Ur Negative LEU/UL (Negative); Nitrate Urine Negative (Negative); Protein Urine Negative (Negative); Specific Grav Ur 1.005 (1.001-1.035); Squamous Epithelial Cell Urine Rare /hpf (Few); Urobilinogen Urine Negative mg/dL (<2.0); WBC Urine 0-3 /hpf
[2020-08-01 13:57] LABS: Alanine Aminotransferase 19 U/L (4-35); Albumin Level 4.4 g/dL (3.5-5.1); Alkaline Phosphatase 50 U/L (38-126); Anion Gap 10 mmol/L (8-16); Aspartate Amino Transferase 29 U/L (14-36); Bilirubin,Total 0.3 mg/dL (0.2-1.3); Blood Urea Nitrogen 11 mg/dL (7-17); CRP 1.5 mg/dL (<1.0); Calcium 9.4 mg/dL (8.4-10.2); Carbon Dioxide 26 mmol/L (22-30); Chloride 102 mmol/L (98-107); Estimated Glomerular Filt Rate > 60; Glucose 153 mg/dL (65-105); Potassium 3.8 mmol/L (3.4-5.0); Sodium 138 mmol/L (137-145)
[2020-08-01 14:35] LABS: Erythrocyte Sedimentation Rate 22 mm/hr (0-20)
== END 2020-09-21 23:59 | disposition home or self-care (01) ==
LOC: ANHLAB 12:55
PROVIDERS: PCP Internal Medicine; Referring Provider Internal Medicine; Visit Provider Internal Medicine Rheumatology
DX: Z51.81 Encounter for therapeutic drug level monitoring (principal); M13.0 Polyarthritis, unspecified; R73.01 Impaired fasting glucose; Z79.899 Other long term (current) drug therapy
CPT/HCPCS: 36415; 80053; 81001; 81003; 83036; 85025; 85652; 86140

== ENCOUNTER 2020-09-12 10:08 | Outpatient (CLI) | payer OTHER, SELFPAY ==
[2020-09-12 10:24] LABS: Add Urine Microscopic? YES; Appearance Urine Clear (Clear); Basophils Absolute Auto 0.03 K/mm3 (0.00-0.10); Basophils Percent Auto 0.4 % (0.0-1.0); Bilirubin Urine Negative (Negative); Blood Urine Negative (Negative); Color Urine Yellow (Yellow); Eosinophils Absolute Auto 0.12 K/mm3 (0.02-0.50); Eosinophils Percent Auto 1.7 % (1.0-6.0); Glucose Urine UA 1+ (Negative); Hematocrit 35.7 % (35.0-49.0); Hemoglobin 11.5 g/dL (12.0-15.0); Immature Granulocyte Absolute 0.02 K/mm3 (0.00-0.00); Immature Granulocyte Percent A 0.3 % (0.0-0.0); Ketones Urine Trace (Negative); Leukocyte Esterase Ur Negative LEU/UL (Negative); Lymphocytes Absolute Auto 0.93 K/mm3 (1.10-4.50); Lymphocytes Percent Auto 13.5 % (18.0-42.0); Mean Corpuscular HGB Conc 32.2 g/dL (32.0-36.0); Mean Corpuscular Hemoglobin 28.3 pg (27.0-31.0); Mean Corpuscular Volume 87.7 fL (78.0-102.0); Monocytes Absolute Auto 0.51 K/mm3 (0.10-0.90); Monocytes Percent Auto 7.4 % (2.0-11.0); Neutrophils Absolute Auto 5.3 K/mm3 (1.7-7.2); Neutrophils Percent Auto 76.7 % (50.0-70.0); Nitrate Urine Negative (Negative); Platelet Count Result 349 K/mm3 (150-420); Protein Urine Negative (Negative); Red Blood Count 4.07 M/mm3 (4.20-5.40); Red Cell Distribution Width 13.7 % (11.6-14.4); Specific Grav Ur >= 1.030 (1.010-1.020); Urobilinogen Urine 0.2 mg/dL (0.2-1.0); White Blood Count 6.9 K/mm3 (4.8-10.8)
[2020-09-12 10:35] LABS: Bacteria Urine 1+ /hpf; RBC Urine 0-2 /hpf (0-2); Squamous Epithelial Cell Urine Moderate /hpf (Few); WBC Urine 0-3 /hpf (0-3)
[2020-09-12 10:36] LABS: Mucus Urine Moderate /lpf
[2020-09-12 11:25] LABS: Rheumatoid Factor Screen Negative (Negative)
[2020-09-12 11:27] LABS: Erythrocyte Sedimentation Rate 36 mm/hr (0-15)
[2020-09-12 12:03] LABS: Alanine Aminotransferase 73 U/L (14-59); Alkaline Phosphatase 55 U/L (46-116); Anion Gap 10 mmol/L (8-16); Aspartate Amino Transferase 46 U/L (15-37); Bilirubin,Total 0.2 mg/dL (0.00-1.00); Blood Urea Nitrogen 19 mg/dL (7-18); CRP 1.8 mg/dL (0.0-0.9); Calcium 9.4 mg/dL (8.5-10.1); Carbon Dioxide 27 mmol/L (21-32); Chloride 102 mmol/L (98-108); Estimated Glomerular Filt Rate > 60; Ferritin 99 ng/mL (8-252); Free T3 2.19 pg/mL (2.18-3.98); Free T4 Free Thyroxine 0.85 ng/dL (0.76-1.46); Glucose 152 mg/dL (70-99); Iron 71 ug/dL (50-170); Osmolality Calculated 293 mOsm/kg (285-295); Percent Iron Saturation 15 % (12-57); Potassium 4.3 mmol/L (3.5-5.1); Sodium 139 mmol/L (136-145); Thyroid Stimulating Hormone 0.43 uIU/mL (0.36-3.74); Total Protein 7.4 g/dL (6.4-8.2); Vitamin B12 1065 pg/mL (193-986)
[2020-09-15 14:37] LABS: Red Blood Cell Folate 817 ng/mL RBC (>280)
[2020-09-17 11:49] LABS: Anti Cyclic Citrullinated Pept <16 Units (<20)
== END 2020-09-12 10:09 | disposition home or self-care (01) ==
PROVIDERS: PCP Internal Medicine; Visit Provider Internal Medicine Rheumatology
DX: E05.90 Thyrotoxicosis, unspecified without thyrotoxic crisis or storm (principal); R63.4 Abnormal weight loss; D64.9 Anemia, unspecified; M06.9 Rheumatoid arthritis, unspecified; M13.0 Polyarthritis, unspecified
CPT/HCPCS: 36415; 80053; 81001; 82607; 82728; 82747; 83540; 83550; 84439; 84443; 84481; 85025; 85652; 86140; 86200; 86430

== ENCOUNTER 2020-09-19 12:03 | Outpatient (CLI) | payer OTHER, SELFPAY ==
--- NOTE | ~2020-09-19 | XR_ITS ---
EXAMINATION: XR chest 2V EXAM DATE: 09/19/2020 12:22 INDICATION: Medication monitoring. TECHNIQUE: Frontal and lateral projections of the chest obtained and reviewed. Comparison is made to prior examination from 02/04/2020. FINDINGS: The lungs are clear. There are no pleural effusions. The cardiomediastinal silhouette is within normal limits. There is no pneumothorax suspected. The bones and soft tissues are unremarkab le. IMPRESSION: Normal chest x-ray exam. Reviewed, dictated and finalized at location B. 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
[2020-09-19 12:19] LABS: Appearance Urine Clear (Clear); Basophils Absolute Auto 0.05 K/mm3 (0.00-0.10); Basophils Percent Auto 0.7 % (0.0-1.0); Bilirubin Urine Negative (Negative); Color Urine Yellow (Yellow); Eosinophils Percent Auto 1.4 % (1.0-6.0); Glucose Urine UA Negative (Negative); Hemoglobin 11.2 g/dL (12.0-15.0); Immature Granulocyte Absolute 0.02 K/mm3 (0.00-0.00); Immature Granulocyte Percent A 0.3 % (0.0-0.0); Ketones Urine Negative (Negative); Leukocyte Esterase Ur Negative (Negative); Lymphocytes Absolute Auto 1.88 K/mm3 (1.10-4.50); Lymphocytes Percent Auto 27.2 % (18.0-42.0); Mean Corpuscular Hemoglobin 27.9 pg (27.0-31.0); Mean Corpuscular Volume 87.1 fL (78.0-102.0); Mean Platelet Volume 8.6 fl (9.2-11.8); Monocytes Absolute Auto 0.58 K/mm3 (0.10-0.90); Monocytes Percent Auto 8.4 % (2.0-11.0); Neutrophils Absolute Auto 4.3 K/mm3 (1.7-7.2); Nitrate Urine Negative (Negative); Platelet Count Result 451 K/mm3 (150-420); Protein Urine Negative (Negative); Red Blood Count 4.02 M/mm3 (4.20-5.40); Red Cell Distribution Width 13.8 % (11.6-14.4); Specific Grav Ur <= 1.005 (1.010-1.020); Urobilinogen Urine 0.2 mg/dL (0.2-1.0); White Blood Count 6.9 K/mm3 (4.8-10.8); pH Urine 6.5 (5.0-8.0)
[2020-09-19 12:30] LABS: Add Urine Microscopic? YES; Bacteria Urine Trace /hpf; Blood Urine Trace-Intact (Negative); RBC Urine 0-2 /hpf (0-2); Squamous Epithelial Cell Urine Moderate /hpf (Few); WBC Urine None seen /hpf (0-3)
[2020-09-19 12:54] LABS: Alanine Aminotransferase 55 U/L (14-59); Albumin Level 3.8 g/dL (3.4-5.0); Alkaline Phosphatase 44 U/L (46-116); Anion Gap 11 mmol/L (8-16); Aspartate Amino Transferase 27 U/L (15-37); Bilirubin,Total 0.3 mg/dL (0.00-1.00); Blood Urea Nitrogen 15 mg/dL (7-18); CRP 1.1 mg/dL (0.0-0.9); Calcium 9.5 mg/dL (8.5-10.1); Carbon Dioxide 25 mmol/L (21-32); Chloride 103 mmol/L (98-108); Estimated Glomerular Filt Rate > 60; Glucose 80 mg/dL (70-99); Osmolality Calculated 287 mOsm/kg (285-295); Potassium 4.4 mmol/L (3.5-5.1); Sodium 139 mmol/L (136-145); Total Protein 7.1 g/dL (6.4-8.2)
[2020-09-19 13:18] LABS: Erythrocyte Sedimentation Rate 20 mm/hr (0-15)
[2020-09-25 16:41] LABS: NIL 0.02
[2020-09-25 16:43] LABS: Quantiferon TB Plus, 1T NEGATIVE
== END 2020-09-19 12:04 | disposition home or self-care (01) ==
LOC: CHSLAB 12:05
PROVIDERS: PCP Internal Medicine; Visit Provider Internal Medicine Rheumatology
DX: L40.50 Arthropathic psoriasis, unspecified (principal); Z51.81 Encounter for therapeutic drug level monitoring
CPT/HCPCS: 36415; 71046; 80053; 81001; 85025; 85652; 86140; 86480

== ENCOUNTER 2020-10-23 12:34 | Outpatient (CLI) | payer OTHER, SELFPAY ==
[2020-10-23 13:48] LABS: Influenza Control Valid (Valid); SARS-CoV-2 Ag Negative (Negative)
== END 2020-10-23 12:35 | disposition home or self-care (01) ==
LOC: CHSLAB 12:37
PROVIDERS: PCP Internal Medicine; Visit Provider Internal Medicine
DX: R51.9 Headache, unspecified (principal); Z20.828 Contact with and (suspected) exposure to other viral communicable diseases
CPT/HCPCS: 36415; 87426; 87804

== ENCOUNTER 2020-10-24 14:08 | Outpatient (CLI) | payer OTHER, SELFPAY ==
[2020-10-24 14:24] LABS: Basophils Absolute Auto 0.02 K/mm3 (0.00-0.10); Basophils Percent Auto 0.4 % (0.0-1.0); Eosinophils Absolute Auto 0.04 K/mm3 (0.02-0.50); Eosinophils Percent Auto 0.8 % (1.0-6.0); Hematocrit 38.6 % (35.0-49.0); Hemoglobin 12.1 g/dL (12.0-15.0); Immature Granulocyte Absolute 0.02 K/mm3 (0.00-0.00); Immature Granulocyte Percent A 0.4 % (0.0-0.0); Lymphocytes Absolute Auto 1.53 K/mm3 (1.10-4.50); Mean Corpuscular HGB Conc 31.3 g/dL (32.0-36.0); Mean Corpuscular Volume 89.4 fL (78.0-102.0); Mean Platelet Volume 8.7 fl (9.2-11.8); Monocytes Percent Auto 10.1 % (2.0-11.0); Neutrophils Absolute Auto 2.8 K/mm3 (1.7-7.2); Neutrophils Percent Auto 57.3 % (50.0-70.0); Platelet Count Result 346 K/mm3 (150-420); Red Blood Count 4.32 M/mm3 (4.20-5.40); Red Cell Distribution Width 14.4 % (11.6-14.4); White Blood Count 4.9 K/mm3 (4.8-10.8)
[2020-10-24 14:32] LABS: Add Urine Microscopic? YES; Appearance Urine Clear (Clear); Bilirubin Urine Negative (Negative); Blood Urine 3+ (Negative); Color Urine Yellow (Yellow); Glucose Urine UA Negative (Negative); Ketones Urine Negative (Negative); Leukocyte Esterase Ur Negative (Negative); Nitrate Urine Negative (Negative); Protein Urine Negative (Negative); Specific Grav Ur <= 1.005 (1.010-1.020); Urobilinogen Urine 0.2 mg/dL (0.2-1.0)
[2020-10-24 14:39] LABS: Bacteria Urine None seen /hpf; Transitional Epi Cells Urine Rare /hpf; WBC Urine None seen /hpf (0-3)
[2020-10-24 15:36] LABS: Erythrocyte Sedimentation Rate 16 mm/hr (0-15)
[2020-10-24 16:00] LABS: Alanine Aminotransferase 24 U/L (14-59); Alkaline Phosphatase 44 U/L (46-116); Anion Gap 9 mmol/L (8-16); Aspartate Amino Transferase 28 U/L (15-37); Bilirubin,Total 0.2 mg/dL (0.00-1.00); Blood Urea Nitrogen 8 mg/dL (7-18); CRP < 0.5 mg/dL (0.0-0.9); Calcium 9.4 mg/dL (8.5-10.1); Carbon Dioxide 28 mmol/L (21-32); Chloride 104 mmol/L (98-108); Estimated Glomerular Filt Rate > 60; Glucose 79 mg/dL (70-99); Osmolality Calculated 289 mOsm/kg (285-295); Potassium 4.2 mmol/L (3.5-5.1); Sodium 141 mmol/L (136-145); Total Protein 7.3 g/dL (6.4-8.2)
== END 2020-10-24 14:09 | disposition home or self-care (01) ==
LOC: CHSLAB 14:13
PROVIDERS: PCP Internal Medicine; Visit Provider Internal Medicine Rheumatology
DX: M06.9 Rheumatoid arthritis, unspecified (principal); L40.50 Arthropathic psoriasis, unspecified; Z51.81 Encounter for therapeutic drug level monitoring
CPT/HCPCS: 36415; 80053; 81001; 85025; 85380; 85652; 86140

== ENCOUNTER 2020-11-20 13:09 | Outpatient (CLI) | payer OTHER, SELFPAY ==
[2020-11-20 14:02] LABS: SARS-CoV-2 Ag Negative (Negative)
== END 2020-11-20 13:10 | disposition home or self-care (01) ==
LOC: CHSLAB 13:11
PROVIDERS: PCP Internal Medicine; Visit Provider Internal Medicine
DX: Z20.828 Contact with and (suspected) exposure to other viral communicable diseases (principal)
CPT/HCPCS: 87426; C9803

== ENCOUNTER 2020-11-29 10:26 | Outpatient (CLI) | payer OTHER, SELFPAY ==
[2020-11-29 11:13] LABS: SARS-CoV-2 Ag Positive (Negative)
== END 2020-11-29 10:27 | disposition home or self-care (01) ==
LOC: CHSLAB 10:28
PROVIDERS: PCP Internal Medicine; Visit Provider Internal Medicine
DX: U07.1 COVID-19 (principal)
CPT/HCPCS: 87426; C9803

== ENCOUNTER 2020-11-30 13:30 | Outpatient (RCR) | payer OTHER, SELFPAY ==
[2020-11-30] MEDS: FAMOTIDINE 20 MG TABLET PO (13:48)
[2020-11-30] MEDS: ACETAMINOPHEN 325 MG TABLET 650 MG PO (13:48)
[2020-11-30] MEDS: diphenhydrAMINE HCl CAP 25 MG CAPSULE PO (13:48)
[2020-11-30 14:09] VITALS: BP 109/70; PULSE 85; RESP 16; TEMP 37.1; O2SAT 100
[2020-11-30 15:25] VITALS: BP 121/71; PULSE 84; O2SAT 100
--- NOTE | 2020-12-01 12:40 | PC.NURSE ---
Spoke with patient. She states she feels about the same as she did yesterday. She stated she is fatigued. t
--- NOTE | 2020-12-04 11:53 | PHAR ---
Dr. Anaya is covering for Dr Edwin Siu and overseeing the patient?s treatment.
== END 2020-12-11 11:21 ==
LOC: AMCINF 13:30
PROVIDERS: PCP Internal Medicine; Visit Provider Internal Medicine
DX: Z23 Encounter for immunization (principal); U07.1 COVID-19; D89.9 Disorder involving the immune mechanism, unspecified
CPT/HCPCS: A9270; J7050; M0239; Q0239

== ENCOUNTER 2021-02-01 14:59 | Outpatient (CLI) | payer OTHER, SELFPAY ==
--- NOTE | ~2021-02-01 | XR_ITS ---
XR chest 2V DATE: 02/01/2021 15:51 INDICATION: Cough TECHNIQUE: PA and lateral views COMPARISON: 09/19/2020 PA and lateral chest FINDINGS: Normal heart size. No hilar or mediastinal enlargement. Mild bilateral apical scarring. No pulmonary infiltrate or consolidation, pleural effusion or pulmonary vascular congestion or pneumotho rax. Included skeletal structures are unremarkable. IMPRESSION: No active cardiopulmonary disease Reviewed, dictated and finalized at location A.
--- NOTE | ~2021-02-01 | US_ITS ---
EXAMINATION: US thyroid DATE: 02/01/2021 15:51 INDICATION: Thyromegaly TECHNIQUE: Multiple ultrasound images of the thyroid were obtained. COMPARISON: None. FINDINGS: The right thyroid lobe measures 5.1 x 1.7 x 1.3 cm. The left thyroid lobe measures 5.0 x 1.2 x 1.1 c m. The thyroid isthmus measures 2 mm in thickness. 7 mm predominantly anechoic cystic lesion in the r ight thyroid lobe. (TI-RADS 1, benign, no FNA recommended). There is normal echotexture, echogenicity and vascular flow throughout the remainder of the thyroid gland. IMPRESSION: 1. 7 mm TI RADS 1 cystic right thyroid nodule which requires no further follow-up. Otherwise normal t hyroid ultrasound. Reviewed, dictated and finalized at location B. IMPRESSION: 1. 7 mm TI RADS 1 cystic right thyroid nodule which requires no further follow- up. Otherwise normal thyroid ultrasound.
[2021-02-01 15:26] LABS: Basophils Absolute Auto 0.03 K/mm3 (0.00-0.10); Basophils Percent Auto 0.5 % (0.0-1.0); Eosinophils Absolute Auto 0.04 K/mm3 (0.02-0.50); Eosinophils Percent Auto 0.7 % (1.0-6.0); Hematocrit 37.6 % (35.0-49.0); Hemoglobin 12.2 g/dL (12.0-15.0); Immature Granulocyte Absolute 0.02 K/mm3 (0.00-0.00); Immature Granulocyte Percent A 0.3 % (0.0-0.0); Lymphocytes Absolute Auto 1.97 K/mm3 (1.10-4.50); Lymphocytes Percent Auto 32.7 % (18.0-42.0); Mean Corpuscular HGB Conc 32.4 g/dL (32.0-36.0); Mean Corpuscular Hemoglobin 28.7 pg (27.0-31.0); Mean Corpuscular Volume 88.5 fL (78.0-102.0); Mean Platelet Volume 9.1 fl (9.2-11.8); Monocytes Absolute Auto 0.72 K/mm3 (0.10-0.90); Monocytes Percent Auto 11.9 % (2.0-11.0); Neutrophils Absolute Auto 3.3 K/mm3 (1.7-7.2); Neutrophils Percent Auto 53.9 % (50.0-70.0); Platelet Count Result 320 K/mm3 (150-420); Red Blood Count 4.25 M/mm3 (4.20-5.40)
[2021-02-01 15:50] LABS: D Dimer 0.19 mg/L (0.19-0.50)
[2021-02-01 15:55] LABS: Alanine Aminotransferase 32 U/L (14-59); Albumin Level 3.7 g/dL (3.4-5.0); Alkaline Phosphatase 36 U/L (46-116); Anion Gap 8 mmol/L (8-16); Aspartate Amino Transferase 20 U/L (15-37); Bilirubin,Total 0.4 mg/dL (0.00-1.00); Blood Urea Nitrogen 13 mg/dL (7-18); Carbon Dioxide 28 mmol/L (21-32); Chloride 101 mmol/L (98-108); Estimated Glomerular Filt Rate > 60; Free T4 Free Thyroxine 0.97 ng/dL (0.76-1.46); Glucose 139 mg/dL (70-99); Osmolality Calculated 286 mOsm/kg (285-295); Sodium 137 mmol/L (136-145); Thyroid Stimulating Hormone 1.02 uIU/mL (0.36-3.74); Total Protein 7.3 g/dL (6.4-8.2)
[2021-02-01 16:01] LABS: Influenza Control Valid (Valid)
== END 2021-02-01 15:00 | disposition home or self-care (01) ==
LOC: CHSLAB 15:01
PROVIDERS: PCP Internal Medicine; Visit Provider Internal Medicine
DX: R06.00 Dyspnea, unspecified (principal); R05 Cough; R00.0 Tachycardia, unspecified; E01.0 Iodine-deficiency related diffuse (endemic) goiter
CPT/HCPCS: 36415; 71046; 76536; 80053; 84439; 84443; 84481; 85025; 85380; 87804

== ENCOUNTER 2021-02-06 16:02 | Outpatient (CLI) | payer OTHER, SELFPAY ==
[2021-02-06 16:46] LABS: D Dimer 0.19 mg/L (0.19-0.50)
--- NOTE | 2021-02-14 11:53 | WPDHOLTEREM ---
Holter/Event Monitor Holter/Event Monitor Date of procedure: 02/06/21 Procedure Type: event monitor Indications: Palpitations Conclusion: 1. 6 days event monitor between 02/06/21-02/14/21. There are 57 available transmissions for analysis. 2. Underlying rhythm is sinus rhythm. HR range 50-165 bpm; average HR 83 bpm. 3. There are occasional premature supraventricular complexes with total burden <1%. No supraventricular tachycardia. 4. Unable to calculate number of premature ventricular complexes due to excessive artifact. 5. No significant pauses greater than 2 seconds. 6. Patient reports 51 episodes of symptoms of shortness of breath, heart racing, lightheadedness, dizziness, chest pain and skipped beats which demonstrate sinus rhythm, HR range 65-165 bpm.
== END 2021-02-06 16:03 | disposition home or self-care (01) ==
LOC: CHSLAB 16:04
PROVIDERS: PCP Internal Medicine; Visit Provider Internal Medicine
DX: R06.00 Dyspnea, unspecified (principal); Z86.16 Personal history of COVID-19; R00.2 Palpitations
CPT/HCPCS: 36415; 85380

== ENCOUNTER 2021-02-20 10:03 | Outpatient (CLI) | payer OTHER, SELFPAY ==
[2021-02-20 16:18] LABS: INR 0.9; Prothrombin Time 10.1 Seconds (9.50-12.10)
[2021-02-20 17:28] LABS: Vitamin B12 768 pg/mL (193-986)
[2021-02-20 17:30] LABS: Folic Acid > 20.0 ng/mL (8.6->20)
[2021-02-23 11:59] LABS: Vitamin D 25 Hydroxy 36 ng/mL (30-100)
[2021-02-24 20:29] LABS: Prealbumin 33 mg/dL (17-34)
[2021-02-24 21:29] LABS: Adrenocorticotropic Hormone <5 pg/mL (6-50)
[2021-02-26 11:45] LABS: Metanephrine, Free 37 pg/mL (<=57); Normetanephrine, Free 68 pg/mL (<=148); Total, Free (MN + NMN) 105 pg/mL (<=205)
[2021-02-28 19:48] LABS: Gliadin AB, IgG 3 Units (<20); Reticulin IgA Negative (Negative); TTG IGA AB 1 U/mL (<4)
== END 2021-02-20 10:04 | disposition home or self-care (01) ==
PROVIDERS: PCP Internal Medicine; Visit Provider Internal Medicine
DX: E04.1 Nontoxic single thyroid nodule (principal); R63.4 Abnormal weight loss; R00.0 Tachycardia, unspecified; R61 Generalized hyperhidrosis; R06.00 Dyspnea, unspecified; Z86.16 Personal history of COVID-19; R00.2 Palpitations
CPT/HCPCS: 36415; 82024; 82306; 82533; 82607; 82746; 83516; 83835; 84134; 85610; 86255; 94060; 94726; 94729

== ENCOUNTER 2021-03-14 15:59 | Outpatient (RCR) | payer OTHER, SELFPAY ==
[2021-01-09 09:03] LABS: Appearance Urine Clear (Clear); Basophils Absolute Auto 0.03 K/mm3 (0.00-0.10); Basophils Percent Auto 0.5 % (0.0-1.0); Bilirubin Urine Negative (Negative); Color Urine Yellow (Yellow); Eosinophils Absolute Auto 0.12 K/mm3 (0.02-0.50); Eosinophils Percent Auto 2.2 % (1.0-6.0); Glucose Urine UA Negative (Negative); Hematocrit 36.4 % (35.0-49.0); Hemoglobin 11.7 g/dL (12.0-15.0); Immature Granulocyte Absolute 0.01 K/mm3 (0.00-0.00); Immature Granulocyte Percent A 0.2 % (0.0-0.0); Ketones Urine Negative (Negative); Leukocyte Esterase Ur Negative (Negative); Lymphocytes Absolute Auto 2.03 K/mm3 (1.10-4.50); Lymphocytes Percent Auto 36.5 % (18.0-42.0); Mean Corpuscular HGB Conc 32.1 g/dL (32.0-36.0); Mean Corpuscular Hemoglobin 28.3 pg (27.0-31.0); Mean Corpuscular Volume 88.1 fL (78.0-102.0); Mean Platelet Volume 8.7 fl (9.2-11.8); Monocytes Absolute Auto 0.54 K/mm3 (0.10-0.90); Monocytes Percent Auto 9.7 % (2.0-11.0); Neutrophils Absolute Auto 2.8 K/mm3 (1.7-7.2); Neutrophils Percent Auto 50.9 % (50.0-70.0); Nitrate Urine Negative (Negative); Platelet Count Result 385 K/mm3 (150-420); Protein Urine Negative (Negative); Red Blood Count 4.13 M/mm3 (4.20-5.40); Red Cell Distribution Width 14.6 % (11.6-14.4); Specific Grav Ur 1.025 (1.010-1.020); Urobilinogen Urine 0.2 mg/dL (0.2-1.0); White Blood Count 5.6 K/mm3 (4.8-10.8); pH Urine 5.5 (5.0-8.0)
[2021-01-09 09:09] LABS: Add Urine Microscopic? YES; Blood Urine Trace-Intact (Negative); RBC Urine 0-2 /hpf (0-2)
[2021-01-09 09:10] LABS: Bacteria Urine 1+ /hpf; Mucus Urine Few /lpf; Squamous Epithelial Cell Urine Few /hpf (Few); WBC Urine 0-3 /hpf (0-3)
[2021-01-09 09:38] LABS: Alanine Aminotransferase 25 U/L (14-59); Albumin Level 3.7 g/dL (3.4-5.0); Alkaline Phosphatase 32 U/L (46-116); Anion Gap 10 mmol/L (8-16); Aspartate Amino Transferase 14 U/L (15-37); Bilirubin,Total 0.3 mg/dL (0.00-1.00); Blood Urea Nitrogen 16 mg/dL (7-18); CRP < 0.5 mg/dL (0.0-0.9); Calcium 9.2 mg/dL (8.5-10.1); Carbon Dioxide 27 mmol/L (21-32); Chloride 102 mmol/L (98-108); Estimated Glomerular Filt Rate > 60; Glucose 88 mg/dL (70-99); Osmolality Calculated 288 mOsm/kg (285-295); Potassium 4.9 mmol/L (3.5-5.1); Sodium 139 mmol/L (136-145); Total Protein 6.7 g/dL (6.4-8.2)
[2021-01-09 10:03] LABS: Erythrocyte Sedimentation Rate 12 mm/hr (0-15)
[2021-03-14 16:13] LABS: Basophils Absolute Auto 0.03 K/mm3 (0.00-0.10); Basophils Percent Auto 0.6 % (0.0-1.0); Eosinophils Absolute Auto 0.07 K/mm3 (0.02-0.50); Eosinophils Percent Auto 1.3 % (1.0-6.0); Hemoglobin 11.5 g/dL (12.0-15.0); Immature Granulocyte Absolute 0.01 K/mm3 (0.00-0.00); Immature Granulocyte Percent A 0.2 % (0.0-0.0); Lymphocytes Absolute Auto 2.74 K/mm3 (1.10-4.50); Lymphocytes Percent Auto 50.8 % (18.0-42.0); Mean Corpuscular HGB Conc 31.9 g/dL (32.0-36.0); Mean Corpuscular Hemoglobin 28.8 pg (27.0-31.0); Mean Corpuscular Volume 90.2 fL (78.0-102.0); Mean Platelet Volume 8.8 fl (9.2-11.8); Monocytes Absolute Auto 0.48 K/mm3 (0.10-0.90); Monocytes Percent Auto 8.9 % (2.0-11.0); Neutrophils Absolute Auto 2.1 K/mm3 (1.7-7.2); Neutrophils Percent Auto 38.2 % (50.0-70.0); Platelet Count Result 328 K/mm3 (150-420); Red Blood Count 3.99 M/mm3 (4.20-5.40); Red Cell Distribution Width 13.2 % (11.6-14.4); White Blood Count 5.4 K/mm3 (4.8-10.8)
[2021-03-14 16:14] LABS: Add Urine Microscopic? YES; Appearance Urine Clear (Clear); Bilirubin Urine Negative (Negative); Blood Urine 2+ (Negative); Color Urine Yellow (Yellow); Glucose Urine UA Negative (Negative); Ketones Urine Negative (Negative); Leukocyte Esterase Ur Negative (Negative); Nitrate Urine Negative (Negative); Protein Urine Negative (Negative); Urobilinogen Urine 0.2 mg/dL (0.2-1.0)
[2021-03-14 16:20] LABS: Bacteria Urine Trace /hpf; RBC Urine 0-2 /hpf (0-2); Squamous Epithelial Cell Urine Rare /hpf (Few); WBC Urine 0-3 /hpf (0-3)
[2021-03-14 16:59] LABS: Alanine Aminotransferase 40 U/L (14-59); Albumin Level 3.8 g/dL (3.4-5.0); Alkaline Phosphatase 35 U/L (46-116); Anion Gap 7 mmol/L (8-16); Aspartate Amino Transferase 20 U/L (15-37); Bilirubin,Total 0.3 mg/dL (0.00-1.00); Blood Urea Nitrogen 17 mg/dL (7-18); CRP < 0.5 mg/dL (0.0-0.9); Calcium 9.2 mg/dL (8.5-10.1); Carbon Dioxide 29 mmol/L (21-32); Chloride 101 mmol/L (98-108); Estimated Glomerular Filt Rate > 60; Glucose 94 mg/dL (70-99); Osmolality Calculated 285 mOsm/kg (285-295); Sodium 137 mmol/L (136-145); Total Protein 6.9 g/dL (6.4-8.2)
[2021-03-14 17:24] LABS: Erythrocyte Sedimentation Rate 11 mm/hr (0-15)
== END 2021-04-09 23:59 | disposition home or self-care (01) ==
LOC: CHSLAB 15:59
PROVIDERS: PCP Internal Medicine; Visit Provider Internal Medicine Rheumatology
DX: L40.50 Arthropathic psoriasis, unspecified (principal); Z51.81 Encounter for therapeutic drug level monitoring
CPT/HCPCS: 36415; 80053; 81001; 85025; 85652; 86140

== ENCOUNTER 2021-05-02 13:32 | Outpatient (RCR) | payer OTHER, SELFPAY ==
[2021-05-02 13:44] LABS: Basophils Absolute Auto 0.04 K/mm3 (0.00-0.10); Basophils Percent Auto 0.5 % (0.0-1.0); Eosinophils Absolute Auto 0.09 K/mm3 (0.02-0.50); Eosinophils Percent Auto 1.2 % (1.0-6.0); Hematocrit 35.2 % (35.0-49.0); Hemoglobin 11.2 g/dL (12.0-15.0); Immature Granulocyte Absolute 0.02 K/mm3 (0.00-0.00); Immature Granulocyte Percent A 0.3 % (0.0-0.0); Lymphocytes Absolute Auto 2.72 K/mm3 (1.10-4.50); Lymphocytes Percent Auto 35.8 % (18.0-42.0); Mean Corpuscular HGB Conc 31.8 g/dL (32.0-36.0); Mean Corpuscular Hemoglobin 28.4 pg (27.0-31.0); Mean Corpuscular Volume 89.1 fL (78.0-102.0); Mean Platelet Volume 8.9 fl (9.2-11.8); Monocytes Absolute Auto 0.47 K/mm3 (0.10-0.90); Monocytes Percent Auto 6.2 % (2.0-11.0); Neutrophils Absolute Auto 4.3 K/mm3 (1.7-7.2); Platelet Count Result 296 K/mm3 (150-420); Red Blood Count 3.95 M/mm3 (4.20-5.40); Red Cell Distribution Width 13.1 % (11.6-14.4); White Blood Count 7.6 K/mm3 (4.8-10.8)
[2021-05-02 13:45] LABS: Appearance Urine Clear (Clear); Bilirubin Urine Negative (Negative); Color Urine Light Yellow (Yellow); Glucose Urine UA Negative (Negative); Ketones Urine Negative (Negative); Leukocyte Esterase Ur Negative (Negative); Nitrate Urine Negative (Negative); Protein Urine Negative (Negative); Urobilinogen Urine 0.2 mg/dL (0.2-1.0)
[2021-05-02 14:29] LABS: Alanine Aminotransferase 26 U/L (14-59); Albumin Level 3.5 g/dL (3.4-5.0); Alkaline Phosphatase 33 U/L (46-116); Anion Gap 10 mmol/L (8-16); Aspartate Amino Transferase 16 U/L (15-37); Bilirubin,Total 0.3 mg/dL (0.00-1.00); Blood Urea Nitrogen 16 mg/dL (7-18); CRP < 0.5 mg/dL (0.0-0.9); Calcium 8.7 mg/dL (8.5-10.1); Carbon Dioxide 25 mmol/L (21-32); Chloride 103 mmol/L (98-108); Estimated Glomerular Filt Rate > 60; Glucose 140 mg/dL (70-99); Osmolality Calculated 289 mOsm/kg (285-295); Potassium 4.1 mmol/L (3.5-5.1); Sodium 138 mmol/L (136-145); Total Protein 6.6 g/dL (6.4-8.2)
[2021-05-02 14:39] LABS: Add Urine Microscopic? YES; Blood Urine Trace (Negative); RBC Urine 0-2 /hpf (0-2); WBC Urine 0-3 /hpf (0-3)
[2021-05-02 14:54] LABS: Erythrocyte Sedimentation Rate 14 mm/hr (0-15)
== END 2021-07-31 23:59 | disposition home or self-care (01) ==
LOC: CHSLAB 13:32
PROVIDERS: PCP Internal Medicine; Visit Provider Internal Medicine Rheumatology
DX: L40.50 Arthropathic psoriasis, unspecified (principal); Z51.81 Encounter for therapeutic drug level monitoring
CPT/HCPCS: 36415; 80053; 81001; 85025; 85652; 86140

== ENCOUNTER 2021-06-15 15:42 | Outpatient (CLI) | payer OTHER, SELFPAY ==
[2021-06-15 16:01] LABS: Basophils Absolute Auto 0.03 K/mm3 (0.00-0.10); Basophils Percent Auto 0.5 % (0.0-1.0); Eosinophils Absolute Auto 0.04 K/mm3 (0.02-0.50); Eosinophils Percent Auto 0.6 % (1.0-6.0); Hematocrit 34.8 % (35.0-49.0); Hemoglobin 11.3 g/dL (12.0-15.0); Immature Granulocyte Absolute 0.02 K/mm3 (0.00-0.00); Immature Granulocyte Percent A 0.3 % (0.0-0.0); Lymphocytes Absolute Auto 2.49 K/mm3 (1.10-4.50); Lymphocytes Percent Auto 39.2 % (18.0-42.0); Mean Corpuscular HGB Conc 32.5 g/dL (32.0-36.0); Mean Corpuscular Hemoglobin 28.5 pg (27.0-31.0); Mean Corpuscular Volume 87.9 fL (78.0-102.0); Mean Platelet Volume 9.7 fl (9.2-11.8); Monocytes Absolute Auto 0.63 K/mm3 (0.10-0.90); Monocytes Percent Auto 9.9 % (2.0-11.0); Neutrophils Absolute Auto 3.2 K/mm3 (1.7-7.2); Neutrophils Percent Auto 49.5 % (50.0-70.0); Platelet Count Result 252 K/mm3 (150-420); Red Blood Count 3.96 M/mm3 (4.20-5.40); Red Cell Distribution Width 12.8 % (11.6-14.4); White Blood Count 6.4 K/mm3 (4.8-10.8)
[2021-06-15 16:21] LABS: Appearance Urine Clear (Clear); Bilirubin Urine Negative (Negative); Color Urine Light Yellow (Yellow); Glucose Urine UA Negative (Negative); Ketones Urine 1+ (Negative); Leukocyte Esterase Ur Negative (Negative); Nitrate Urine Negative (Negative); Protein Urine Negative (Negative); Specific Grav Ur >= 1.030 (1.010-1.020); Urobilinogen Urine 0.2 mg/dL (0.2-1.0)
[2021-06-15 16:45] LABS: Alanine Aminotransferase 20 U/L (14-59); Albumin Level 3.4 g/dL (3.4-5.0); Alkaline Phosphatase 28 U/L (46-116); Anion Gap 11 mmol/L (8-16); Aspartate Amino Transferase 14 U/L (15-37); Bilirubin,Total 0.2 mg/dL (0.00-1.00); Blood Urea Nitrogen 20 mg/dL (7-18); Calcium 8.9 mg/dL (8.5-10.1); Carbon Dioxide 27 mmol/L (21-32); Chloride 105 mmol/L (98-108); Estimated Glomerular Filt Rate > 60; Glucose 134 mg/dL (70-99); Osmolality Calculated 300 mOsm/kg (285-295); Potassium 3.9 mmol/L (3.5-5.1); Sodium 143 mmol/L (136-145); Total Protein 6.4 g/dL (6.4-8.2)
[2021-06-15 16:46] LABS: CRP < 0.2 mg/dL (0.0-0.9)
[2021-06-15 16:57] LABS: Add Urine Microscopic? YES; Blood Urine Trace-Intact (Negative); Erythrocyte Sedimentation Rate 7 mm/hr (0-15); RBC Urine 0-2 /hpf (0-2); WBC Urine None seen /hpf (0-3)
[2021-06-15 16:58] LABS: Bacteria Urine Trace /hpf; Mucus Urine Few /lpf; Squamous Epithelial Cell Urine Few /hpf (Few)
[2021-06-18 05:50] LABS: Valproic Acid 66.3 mg/L (50.0-100.0)
== END 2021-06-15 15:43 | disposition home or self-care (01) ==
LOC: CHSLAB 15:47
PROVIDERS: PCP Internal Medicine
DX: Z79.899 Other long term (current) drug therapy (principal); L40.50 Arthropathic psoriasis, unspecified; Z51.81 Encounter for therapeutic drug level monitoring
CPT/HCPCS: 36415; 80053; 80164; 81001; 85025; 85652; 86140

== ENCOUNTER 2021-07-05 08:07 | Outpatient (CLI) | payer OTHER, SELFPAY ==
[2021-07-05 08:20] LABS: Add Urine Microscopic? YES; Appearance Urine Clear (Clear); Bilirubin Urine Negative (Negative); Blood Urine 2+ (Negative); Color Urine Light Yellow (Yellow); Glucose Urine UA Negative (Negative); Ketones Urine Negative (Negative); Leukocyte Esterase Ur Negative (Negative); Nitrate Urine Negative (Negative); Protein Urine Negative (Negative); pH Urine 7.5 (5.0-8.0)
[2021-07-05 08:25] LABS: Squamous Epithelial Cell Urine Few /hpf (Few); WBC Urine 0-3 /hpf (0-3)
[2021-07-05 08:26] LABS: Bacteria Urine Trace /hpf
[2021-07-05 09:04] LABS: Anion Gap 13 mmol/L (8-16); Blood Urea Nitrogen 14 mg/dL (7-18); Calcium 9.2 mg/dL (8.5-10.1); Carbon Dioxide 25 mmol/L (21-32); Chloride 103 mmol/L (98-108); Estimated Glomerular Filt Rate > 60; Glucose 85 mg/dL (70-99); Osmolality Calculated 291 mOsm/kg (285-295); Potassium 4.8 mmol/L (3.5-5.1); Sodium 141 mmol/L (136-145)
== END 2021-07-05 08:08 | disposition home or self-care (01) ==
LOC: CHSLAB 08:10
PROVIDERS: PCP Internal Medicine; Visit Provider Internal Medicine
DX: R73.01 Impaired fasting glucose (principal)
CPT/HCPCS: 36415; 80048; 81001; 83036

== ENCOUNTER 2021-07-17 18:36 | Outpatient (CLI) | payer OTHER, SELFPAY ==
--- NOTE | ~2021-07-17 | XR_ITS ---
EXAMINATION: XR lumbar spine min 4V DATE: 07/17/2021 19:19 INDICATION: Low back pain radiating down both legs. TECHNIQUE: 5 views of lumbar spine were obtained. COMPARISON: Chest 2 views 02/01/2021 FINDINGS: There are hypoplastic ribs at L1. S1 is lumbarized. There is 3 degrees levocurvature of tho racolumbar spine. Vertebral body heights are normal. Intervertebral disc heights are normal. There ar e endplate osteophytes at multiple levels. The facet joints are normal. IMPRESSION: 1. Mild lumbar spondylosis. Reviewed, dictated and finalized at location A. IMPRESSION: 1. Mild lumbar spondylosis.
--- NOTE | ~2021-07-17 | XR_ITS ---
EXAMINATION: XR sacroiliac joints min 3V DATE: 07/17/2021 19:19 INDICATION: Low back pain radiating down both legs. TECHNIQUE: 3 views of the sacroiliac joints were obtained. COMPARISON: None. FINDINGS: Bone alignment is normal. No fracture. Joint spaces are well maintained. IMPRESSION: 1. Normal sacroiliac joints. Reviewed, dictated and finalized at location A.
[2021-07-17 19:00] LABS: Basophils Absolute Auto 0.03 K/mm3 (0.00-0.10); Basophils Percent Auto 0.4 % (0.0-1.0); Eosinophils Absolute Auto 0.11 K/mm3 (0.02-0.50); Eosinophils Percent Auto 1.4 % (1.0-6.0); Hematocrit 38.3 % (35.0-49.0); Hemoglobin 12.4 g/dL (12.0-15.0); Immature Granulocyte Absolute 0.02 K/mm3 (0.00-0.00); Immature Granulocyte Percent A 0.2 % (0.0-0.0); Lymphocytes Absolute Auto 3.53 K/mm3 (1.10-4.50); Lymphocytes Percent Auto 43.4 % (18.0-42.0); Mean Corpuscular HGB Conc 32.4 g/dL (32.0-36.0); Mean Corpuscular Hemoglobin 28.3 pg (27.0-31.0); Mean Corpuscular Volume 87.4 fL (78.0-102.0); Mean Platelet Volume 8.9 fl (9.2-11.8); Monocytes Absolute Auto 0.56 K/mm3 (0.10-0.90); Monocytes Percent Auto 6.9 % (2.0-11.0); Neutrophils Absolute Auto 3.9 K/mm3 (1.7-7.2); Neutrophils Percent Auto 47.7 % (50.0-70.0); Platelet Count Result 305 K/mm3 (150-420); Red Blood Count 4.38 M/mm3 (4.20-5.40); White Blood Count 8.1 K/mm3 (4.8-10.8)
[2021-07-17 19:07] LABS: Add Urine Microscopic? NO; Appearance Urine Clear (Clear); Bilirubin Urine Negative (Negative); Blood Urine Negative (Negative); Color Urine Light Yellow (Yellow); Glucose Urine UA Negative (Negative); Ketones Urine Negative (Negative); Leukocyte Esterase Ur Negative (Negative); Nitrate Urine Negative (Negative); Protein Urine Negative (Negative); Urobilinogen Urine 0.2 mg/dL (0.2-1.0)
[2021-07-17 19:47] LABS: Alanine Aminotransferase 26 U/L (14-59); Albumin Level 3.8 g/dL (3.4-5.0); Alkaline Phosphatase 34 U/L (46-116); Anion Gap 10 mmol/L (8-16); Aspartate Amino Transferase 14 U/L (15-37); Bilirubin,Total 0.3 mg/dL (0.00-1.00); Blood Urea Nitrogen 13 mg/dL (7-18); CRP < 0.5 mg/dL (0.0-0.9); Calcium 8.9 mg/dL (8.5-10.1); Carbon Dioxide 27 mmol/L (21-32); Chloride 101 mmol/L (98-108); Estimated Glomerular Filt Rate > 60; Glucose 95 mg/dL (70-99); Osmolality Calculated 286 mOsm/kg (285-295); Potassium 3.6 mmol/L (3.5-5.1); Sodium 138 mmol/L (136-145); Total Protein 7.3 g/dL (6.4-8.2)
[2021-07-17 20:00] LABS: Erythrocyte Sedimentation Rate 10 mm/hr (0-15)
== END 2021-07-17 18:37 | disposition home or self-care (01) ==
LOC: CHSLAB 18:38
PROVIDERS: PCP Internal Medicine Rheumatology; Visit Provider Internal Medicine Rheumatology
DX: L40.50 Arthropathic psoriasis, unspecified (principal); Z79.899 Other long term (current) drug therapy; M54.5 Low back pain
CPT/HCPCS: 36415; 72110; 72202; 80053; 81003; 85025; 85652; 86140; 86480

== ENCOUNTER 2021-07-24 11:15 | Outpatient (CLI) | payer OTHER, SELFPAY ==
--- NOTE | ~2021-07-24 | XR_ITS ---
EXAMINATION: XR chest 2V DATE: 07/24/2021 11:43 INDICATION: Shortness of breath, TB check TECHNIQUE: PA and lateral views of the chest are obtained. COMPARISON: 02/01/2021 FINDINGS: The lungs are free of acute opacities. There is mild scarring at the lung apices. There is no pleural effusion or pneumothorax. The cardiomediastinal silhouette is normal. The visualized bones and soft tissues are unremarkable. IMPRESSION: 1. No acute cardiopulmonary abnormality. Reviewed, dictated and finalized at location B.
[2021-07-27 09:27] LABS: NIL 0.02 IU/mL
[2021-07-27 09:29] LABS: Quantiferon TB Plus, 1T NEGATIVE
== END 2021-07-24 11:16 | disposition home or self-care (01) ==
LOC: CHSLAB 11:17
PROVIDERS: PCP Internal Medicine; Visit Provider Internal Medicine Rheumatology
DX: L40.50 Arthropathic psoriasis, unspecified (principal); M54.5 Low back pain
CPT/HCPCS: 36415; 71046; 86480

== ENCOUNTER 2021-08-02 08:06 | Outpatient (CLI) | payer OTHER, SELFPAY ==
--- NOTE | ~2021-08-02 | MR_ITS ---
EXAMINATION: MR orbits face neck wo/w con EXAM DATE: 08/02/2021 09:26 INDICATION: Optic neuritis. Bilateral pleural vision. Dry eyes. TECHNIQUE: Magnetic resonance imaging (MRI) of the brain/brain stem obtained without contrast. Sagit marcelino T1, axial diffusion, gradient echo (T2*), T1, T2, FLAIR sequences obtained. High resolution orbit al coronal T1, coronal T2 fat saturation, axial T1, axial T2 fat saturation sequences. Patient was th en injected with 12 cc intravenous Multihance contrast. Axial and coronal whole brain postcontrast T1 weighted sequences obtained. Axial and coronal orbital sequences obtained. There is no prior study f or comparison. FINDINGS: The optic nerves, tracts, chiasm symmetric and normal in signal intensity. The globes and o rbits are unremarkable, extraocular muscles are symmetric. There are no areas of restricted diffusion to suggest acute infarction. There is no acute hemorrhage seen on the T2*, a hemosiderin sensitive sequence. No intraparenchymal brain mass. The ventricles a re normal in size. There are no extra-axial collections. Flow voids are seen in the cerebral arteri es on the T2-weighted sequences consistent with their expected patency. Soft tissue is unremarkable. Right maxillary sinus mucous retention cyst filling the sinus. Incidental note made of nodule within the superficial lobe of the left parotid gland measuring 6 mm i n diameter. This is just anterior to the left ear, differential diagnosis including primary parotid n eoplasm and intraparotid lymph node. This appears to be enhancing. Recommend neck soft tissue ultraso und exam, may be able to distinguish morphologically normal lymph node from other histology. IMPRESSION: 1. Incidental left parotid superficial lobe nodule, intraparotid lymph node versus primary parotid m ass; recommend soft tissue neck ultrasound. 2. Unremarkable orbits, optic nerves and tracts. 3. Right maxillary sinus mucous retention cysts. Reviewed, dictated and finalized at location G. IMPRESSION: 1. Incidental left parotid superficial lobe nodule, intraparotid lymph node ve rsus primary parotid mass; recommend soft tissue neck ultrasound. 2. Unremarkable orbits, optic nerves and tracts. 3. Right maxillary sinus mucous retention cysts.
== END 2021-08-02 08:07 | disposition home or self-care (01) ==
PROVIDERS: PCP Internal Medicine; Visit Provider Ophthalmology
DX: H46.9 Unspecified optic neuritis (principal); J34.1 Cyst and mucocele of nose and nasal sinus
CPT/HCPCS: 70543; A9577

== ENCOUNTER 2021-08-03 14:43 | Outpatient (CLI) | payer OTHER, SELFPAY ==
--- NOTE | ~2021-08-03 | US_ITS ---
US soft tissue head and neck 08/03/2021 15:05 Indication: Parotid nodule seen on prior examination. Procedure: High-resolution ultrasound of the left parotid gland Comparison: MRI dated 08/02/2021 Findings: There is a small intraparotid lymph node measuring 8 mm in the left parotid gland respondin g to the finding seen on MRI. There is a similar-appearing right intraparotid lymph node measuring 6 mm. Impression: 1: Bilateral intraparotid lymph nodes corresponding to the MRI findings. Reviewed, dictated and finalized at location A. Impression: 1: Bilateral intraparotid lymph nodes corresponding to the MRI findings.
== END 2021-08-03 14:44 | disposition home or self-care (01) ==
LOC: CHSIMG 14:44
PROVIDERS: PCP Internal Medicine; Visit Provider Internal Medicine
DX: K11.9 Disease of salivary gland, unspecified (principal)
CPT/HCPCS: 76536

== ENCOUNTER 2021-08-22 10:48 | Outpatient (CLI) | payer OTHER, SELFPAY ==
[2021-08-22 11:52] LABS: SARS-CoV-2 RNA PCR Negative (Negative)
== END 2021-08-22 10:49 | disposition home or self-care (01) ==
LOC: CHSLAB 10:51
PROVIDERS: PCP Internal Medicine; Visit Provider Internal Medicine
DX: J06.9 Acute upper respiratory infection, unspecified (principal); Z20.822 Contact with and (suspected) exposure to COVID-19
CPT/HCPCS: C9803; U0003; U0005

== ENCOUNTER 2021-09-13 08:15 | Outpatient (RCR) | payer OTHER, SELFPAY ==
[2021-09-13 08:33] LABS: Basophils Absolute Auto 0.02 K/mm3 (0.00-0.10); Basophils Percent Auto 0.4 % (0.0-1.0); Eosinophils Absolute Auto 0.08 K/mm3 (0.02-0.50); Eosinophils Percent Auto 1.4 % (1.0-6.0); Hematocrit 37.1 % (35.0-49.0); Hemoglobin 12.2 g/dL (12.0-15.0); Immature Granulocyte Absolute 0.01 K/mm3 (0.00-0.00); Immature Granulocyte Percent A 0.2 % (0.0-0.0); Lymphocytes Absolute Auto 2.39 K/mm3 (1.10-4.50); Lymphocytes Percent Auto 42.8 % (18.0-42.0); Mean Corpuscular HGB Conc 32.9 g/dL (32.0-36.0); Mean Corpuscular Hemoglobin 28.6 pg (27.0-31.0); Mean Corpuscular Volume 86.9 fL (78.0-102.0); Monocytes Absolute Auto 0.49 K/mm3 (0.10-0.90); Monocytes Percent Auto 8.8 % (2.0-11.0); Neutrophils Absolute Auto 2.6 K/mm3 (1.7-7.2); Neutrophils Percent Auto 46.4 % (50.0-70.0); Platelet Count Result 321 K/mm3 (150-420); Red Blood Count 4.27 M/mm3 (4.20-5.40); Red Cell Distribution Width 12.8 % (11.6-14.4); White Blood Count 5.6 K/mm3 (4.8-10.8)
[2021-09-13 08:34] LABS: Appearance Urine Clear (Clear); Bilirubin Urine Negative (Negative); Color Urine Yellow (Yellow); Glucose Urine UA Negative (Negative); Ketones Urine Negative (Negative); Leukocyte Esterase Ur Negative (Negative); Nitrate Urine Negative (Negative); Protein Urine Negative (Negative); pH Urine 6.5 (5.0-8.0)
[2021-09-13 08:40] LABS: Add Urine Microscopic? YES; Blood Urine Trace-Intact (Negative); RBC Urine 0-2 /hpf (0-2)
[2021-09-13 08:41] LABS: Bacteria Urine 1+ /hpf; Mucus Urine Moderate /lpf; Squamous Epithelial Cell Urine Moderate /hpf (Few); WBC Urine None seen /hpf (0-3)
[2021-09-13 09:22] LABS: Alanine Aminotransferase 28 U/L (14-59); Albumin Level 3.7 g/dL (3.4-5.0); Alkaline Phosphatase 33 U/L (46-116); Anion Gap 11 mmol/L (8-16); Aspartate Amino Transferase 17 U/L (15-37); Bilirubin,Total 0.3 mg/dL (0.00-1.00); Blood Urea Nitrogen 17 mg/dL (7-18); CRP < 0.5 mg/dL (0.0-0.9); Calcium 8.8 mg/dL (8.5-10.1); Carbon Dioxide 26 mmol/L (21-32); Chloride 104 mmol/L (98-108); Estimated Glomerular Filt Rate > 60; Glucose 83 mg/dL (70-99); Osmolality Calculated 292 mOsm/kg (285-295); Potassium 4.6 mmol/L (3.5-5.1); Sodium 141 mmol/L (136-145); Total Protein 6.8 g/dL (6.4-8.2)
[2021-09-13 09:40] LABS: Erythrocyte Sedimentation Rate 12 mm/hr (0-15)
== END 2021-12-12 23:59 | disposition home or self-care (01) ==
LOC: CHSLAB 08:15
PROVIDERS: PCP Internal Medicine; Visit Provider Internal Medicine Rheumatology
DX: L40.50 Arthropathic psoriasis, unspecified (principal); Z51.81 Encounter for therapeutic drug level monitoring
CPT/HCPCS: 36415; 80053; 81001; 85025; 85652; 86140

== ENCOUNTER 2021-09-19 13:44 | Outpatient (CLI) | payer OTHER, SELFPAY ==
--- NOTE | ~2021-09-19 | XR_ITS ---
XR abdomen/kub 1V DATE: 09/19/2021 14:01 INDICATION: Left lower quadrant abdominal pain, constipation. Hematuria. TECHNIQUE: AP view COMPARISON: 04/03/2020 CT abdomen FINDINGS: The lower pelvic area is excluded. The lung bases appear clear. Impression no evidence of bowel obstruction. No visceromegaly or significant abnormal calcification i s detected. Included skeletal structures are unremarkable. IMPRESSION: Nonspecific abdomen Reviewed, dictated and finalized at Location A. Reviewed, dictated and finalized at location A. Impression no evidence of bowel obstruction. No visceromegaly or significant ab normal calcification is detected. Included skeletal structures are unremarkable . IMPRESSION: Nonspecific abdomen
== END 2021-09-19 13:45 | disposition home or self-care (01) ==
LOC: CHSIMG 13:46
PROVIDERS: PCP Internal Medicine; Visit Provider Internal Medicine
DX: R10.9 Unspecified abdominal pain (principal); K59.00 Constipation, unspecified
CPT/HCPCS: 74018

== ENCOUNTER 2021-10-02 16:01 | Outpatient (CLI) | payer OTHER, SELFPAY ==
--- NOTE | ~2021-10-02 | XR_ITS ---
EXAMINATION: XR TMJ BI DATE: 10/02/2021 16:48 INDICATION: Psoriatic arthritis. Bilateral jaw pain. TECHNIQUE: Open and closed mouth views of the bilateral temporomandibular joints for a total of 4 vie ws on 5 radiographs were obtained. COMPARISON: Neck CT 02/04/2020 FINDINGS: The mandibular condyles are normal in morphology. The temporomandibular joint spaces are no rmal on the closed mouth view. There is no anterior translation of mandibular condyles on the open mo uth view. IMPRESSION: 1. Lack of normal anterior translation of the mandibular condyles on the open-mouth view. Reviewed, dictated and finalized at location A. OSIVE TECHNICIAN IMPRESSION: 1. Lack of normal anterior translation of the mandibular condyles on the open-m outh view.
[2021-10-02 16:28] LABS: Basophils Absolute Auto 0.04 K/mm3 (0.00-0.10); Basophils Percent Auto 0.5 % (0.0-1.0); Eosinophils Absolute Auto 0.03 K/mm3 (0.02-0.50); Eosinophils Percent Auto 0.4 % (1.0-6.0); Hematocrit 36.8 % (35.0-49.0); Hemoglobin 12.2 g/dL (12.0-15.0); Immature Granulocyte Absolute 0.01 K/mm3 (0.00-0.00); Immature Granulocyte Percent A 0.1 % (0.0-0.0); Lymphocytes Absolute Auto 2.87 K/mm3 (1.10-4.50); Lymphocytes Percent Auto 38.5 % (18.0-42.0); Mean Corpuscular HGB Conc 33.2 g/dL (32.0-36.0); Mean Corpuscular Hemoglobin 28.9 pg (27.0-31.0); Mean Corpuscular Volume 87.2 fL (78.0-102.0); Mean Platelet Volume 9.2 fl (9.2-11.8); Neutrophils Absolute Auto 3.9 K/mm3 (1.7-7.2); Neutrophils Percent Auto 52.5 % (50.0-70.0); Platelet Count Result 314 K/mm3 (150-420); Red Blood Count 4.22 M/mm3 (4.20-5.40); Red Cell Distribution Width 12.1 % (11.6-14.4); White Blood Count 7.5 K/mm3 (4.8-10.8)
[2021-10-02 16:55] LABS: Appearance Urine Clear (Clear); Bilirubin Urine Negative (Negative); Color Urine Light Yellow (Yellow); Glucose Urine UA Negative (Negative); Ketones Urine Negative (Negative); Leukocyte Esterase Ur Negative LEU/UL (Negative); Nitrate Urine Negative (Negative); Protein Urine Negative (Negative); Urobilinogen Urine 0.2 mg/dL (0.2-1.0)
[2021-10-02 17:02] LABS: Add Urine Microscopic? YES; Bacteria Urine 1+ /hpf; Blood Urine Trace-Intact (Negative); Mucus Urine Few /lpf; Squamous Epithelial Cell Urine Occasional /hpf (Few); WBC Urine 0-3 /hpf (0-3)
[2021-10-02 17:31] LABS: Alanine Aminotransferase 26 U/L (14-59); Alkaline Phosphatase 37 U/L (46-116); Anion Gap 9 mmol/L (8-16); Aspartate Amino Transferase 17 U/L (15-37); Bilirubin,Total 0.3 mg/dL (0.00-1.00); Blood Urea Nitrogen 18 mg/dL (7-18); CRP < 0.5 mg/dL (0.0-0.9); Calcium 9.1 mg/dL (8.5-10.1); Carbon Dioxide 28 mmol/L (21-32); Chloride 97 mmol/L (98-108); Estimated Glomerular Filt Rate > 60; Glucose 93 mg/dL (70-99); Osmolality Calculated 279 mOsm/kg (285-295); Potassium 4.4 mmol/L (3.5-5.1); Sodium 134 mmol/L (136-145); Uric Acid 4.1 mg/dL (2.6-6.0)
[2021-10-02 17:51] LABS: Erythrocyte Sedimentation Rate 12 mm/hr (0-15)
[2021-10-04 23:24] LABS: HLA B27 Negative (Negative)
== END 2021-10-02 16:02 | disposition home or self-care (01) ==
LOC: CHSLAB 16:06
PROVIDERS: PCP Internal Medicine; Visit Provider Internal Medicine Rheumatology
DX: L40.50 Arthropathic psoriasis, unspecified (principal); Z51.81 Encounter for therapeutic drug level monitoring
CPT/HCPCS: 36415; 70330; 80053; 81001; 84550; 85025; 85652; 86140; 86812

== ENCOUNTER 2021-10-13 08:01 | Outpatient (CLI) | payer OTHER, SELFPAY ==
--- NOTE | ~2021-10-13 | MR_ITS ---
EXAMINATION: Lizy Hammer DATE: 10/13/2021 09:26 INDICATION: Bilateral temporomandibular joint pain. TECHNIQUE: Magnetic resonance imaging (MRI) of the temporomandibular joints was performed without int ravenous contrast. Sequences included closed-mouth sagittal T2-weighted FSE and PD-weighted FSE and c oronal T1-weighted SE and open-mouth sagittal T2-weighted FSE and PD-weighted FSE and coronal T1-weig hted SE. COMPARISON: Temporomandibular joint radiographs 10/02/2021, neck CT 02/04/2020 FINDINGS: The right temporomandibular joint demonstrates normal morphology of the mandibular condyle. The disc is normal in morphology. There is normal positioning of the disc with mouth closed. There is decreas ed anterior translation of the mandibular condyle with the mouth open. There is normal positioning of the disc with mouth open. The left temporomandibular joint demonstrates normal morphology of the mandibular condyle. The disc i s normal in morphology. There is normal positioning the disc with mouth closed. There is decreased an terior translation of the mandibular condyle with the mouth open. There is normal positioning of the disc with mouth open. IMPRESSION: 1. Decreased anterior translation of the mandibular condyles with the mouth open, but normal position ing of the discs with mouth closed and open. Reviewed, dictated and finalized at location A. TECHNICIAN IMPRESSION: 1. Decreased anterior translation of the mandibular condyles with the mouth ope n, but normal positioning of the discs with mouth closed and open.
[2021-10-13 08:27] LABS: Estimated Glomerular Filt Rate > 60
== END 2021-10-13 08:02 | disposition home or self-care (01) ==
PROVIDERS: PCP Internal Medicine; Visit Provider Internal Medicine Rheumatology
DX: L40.50 Arthropathic psoriasis, unspecified (principal)
CPT/HCPCS: 70336; A9577

== ENCOUNTER 2021-10-23 18:03 | Outpatient (CLI) | payer OTHER, SELFPAY ==
[2021-10-23 19:12] LABS: SARS-CoV-2 RNA PCR Negative (Negative)
== END 2021-10-23 18:04 | disposition home or self-care (01) ==
LOC: CHSLAB 18:05
PROVIDERS: PCP Internal Medicine; Visit Provider Internal Medicine
DX: J06.9 Acute upper respiratory infection, unspecified (principal); Z20.822 Contact with and (suspected) exposure to COVID-19
CPT/HCPCS: C9803; U0003; U0005

== ENCOUNTER 2021-11-15 16:58 | Outpatient (CLI) | payer OTHER, SELFPAY ==
[2021-11-15 19:30] LABS: Influenza A QL RT-PCR Negative (Negative); Influenza B QL RT-PCR Negative (Negative); SARS-CoV-2 RNA PCR Negative (Negative)
== END 2021-11-15 16:59 | disposition home or self-care (01) ==
LOC: CHSLAB 17:02
PROVIDERS: PCP Internal Medicine; Visit Provider Internal Medicine
DX: Z20.822 Contact with and (suspected) exposure to COVID-19 (principal)
CPT/HCPCS: 87502; C9803; U0003; U0005

== ENCOUNTER 2021-11-20 09:53 | Outpatient (CLI) | payer OTHER, SELFPAY ==
[2021-11-20 10:41] LABS: Influenza Control Valid (Valid)
[2021-11-20 10:57] LABS: SARS-CoV-2 Ag Negative (Negative)
== END 2021-11-20 09:54 | disposition home or self-care (01) ==
LOC: CHSLAB 09:56
PROVIDERS: PCP Internal Medicine; Visit Provider Internal Medicine
DX: J06.9 Acute upper respiratory infection, unspecified (principal); Z20.822 Contact with and (suspected) exposure to COVID-19
CPT/HCPCS: 36415; 87081; 87426; 87804; 87880; C9803

== ENCOUNTER 2021-12-14 09:19 | Outpatient (CLI) | payer OTHER, SELFPAY ==
--- NOTE | ~2021-12-14 | XR_ITS ---
EXAMINATION: XR chest 2V 12/14/2021 09:38 INDICATION: Upper respiratory symptoms PROCEDURE: 2 view chest COMPARISON: Comparison to multiple prior studies sequentially, with oldest reviewed study dated 02/03. FINDINGS: The lungs are clear. The cardiomediastinal silhouette is within normal limits. There are no pleural effusions. There is no pneumothorax suspected. IMPRESSION: 1: NO ACUTE CARDIOPULMONARY DISEASE. Reviewed, dictated and finalized at location B. HANGER
[2021-12-14 10:13] LABS: Basophils Absolute Auto 0.04 K/mm3 (0.00-0.10); Basophils Percent Auto 0.6 % (0.0-1.0); Eosinophils Absolute Auto 0.06 K/mm3 (0.02-0.50); Eosinophils Percent Auto 0.8 % (1.0-6.0); Hematocrit 36.9 % (35.0-49.0); Hemoglobin 11.9 g/dL (12.0-15.0); Immature Granulocyte Absolute 0.02 K/mm3 (0.00-0.00); Immature Granulocyte Percent A 0.3 % (0.0-0.0); Lymphocytes Absolute Auto 3.01 K/mm3 (1.10-4.50); Lymphocytes Percent Auto 41.5 % (18.0-42.0); Mean Corpuscular HGB Conc 32.2 g/dL (32.0-36.0); Mean Corpuscular Hemoglobin 27.7 pg (27.0-31.0); Monocytes Absolute Auto 0.49 K/mm3 (0.10-0.90); Monocytes Percent Auto 6.8 % (2.0-11.0); Neutrophils Absolute Auto 3.6 K/mm3 (1.7-7.2); Platelet Count Result 384 K/mm3 (150-420); Red Blood Count 4.29 M/mm3 (4.20-5.40); Red Cell Distribution Width 13.7 % (11.6-14.4); White Blood Count 7.3 K/mm3 (4.8-10.8)
[2021-12-14 10:39] LABS: Alanine Aminotransferase 16 U/L (14-59); Albumin Level 3.5 g/dL (3.4-5.0); Alkaline Phosphatase 34 U/L (46-116); Anion Gap 11 mmol/L (8-16); Aspartate Amino Transferase 13 U/L (15-37); Bilirubin,Total 0.4 mg/dL (0.00-1.00); Blood Urea Nitrogen 10 mg/dL (7-18); Calcium 8.7 mg/dL (8.5-10.1); Carbon Dioxide 24 mmol/L (21-32); Chloride 102 mmol/L (98-108); Estimated Glomerular Filt Rate > 60; Glucose 82 mg/dL (70-99); Osmolality Calculated 282 mOsm/kg (285-295); Potassium 3.9 mmol/L (3.5-5.1); Sodium 137 mmol/L (136-145); Total Protein 6.9 g/dL (6.4-8.2)
[2021-12-14 10:40] LABS: Influenza Control Valid (Valid); SARS-CoV-2 Ag Negative (Negative)
[2021-12-14 11:20] LABS: SARS-CoV-2 RNA PCR Negative (Negative)
== END 2021-12-14 09:20 | disposition home or self-care (01) ==
LOC: CHSLAB 09:21
PROVIDERS: PCP Internal Medicine; Visit Provider Internal Medicine
DX: J06.9 Acute upper respiratory infection, unspecified (principal); Z20.822 Contact with and (suspected) exposure to COVID-19
CPT/HCPCS: 71046; 80053; 85025; 87081; 87426; 87804; 87880; C9803; U0003; U0005

== ENCOUNTER 2021-12-24 14:19 | Outpatient (CLI) | payer OTHER, SELFPAY ==
[2021-12-24 15:15] LABS: SARS-CoV-2 Ag Negative (Negative)
[2021-12-24 15:52] LABS: SARS-CoV-2 RNA PCR Negative (Negative)
== END 2021-12-24 14:20 | disposition home or self-care (01) ==
LOC: CHSLAB 14:21
PROVIDERS: PCP Internal Medicine; Visit Provider Nurse Practitioner Family
DX: J02.9 Acute pharyngitis, unspecified (principal); Z20.822 Contact with and (suspected) exposure to COVID-19
CPT/HCPCS: 87081; 87426; 87880; C9803; U0003; U0005

== ENCOUNTER 2021-12-26 12:46 | Outpatient (CLI) | payer OTHER, SELFPAY ==
[2021-12-26 13:10] LABS: Basophils Absolute Auto 0.02 K/mm3 (0.00-0.10); Basophils Percent Auto 0.2 % (0.0-1.0); Eosinophils Absolute Auto 0.02 K/mm3 (0.02-0.50); Eosinophils Percent Auto 0.2 % (1.0-6.0); Hematocrit 38.4 % (35.0-49.0); Hemoglobin 12.5 g/dL (12.0-15.0); Immature Granulocyte Absolute 0.05 K/mm3 (0.00-0.00); Immature Granulocyte Percent A 0.6 % (0.0-0.0); Lymphocytes Absolute Auto 2.54 K/mm3 (1.10-4.50); Lymphocytes Percent Auto 27.9 % (18.0-42.0); Mean Corpuscular HGB Conc 32.6 g/dL (32.0-36.0); Mean Corpuscular Hemoglobin 28.1 pg (27.0-31.0); Mean Corpuscular Volume 86.3 fL (78.0-102.0); Monocytes Absolute Auto 0.47 K/mm3 (0.10-0.90); Monocytes Percent Auto 5.2 % (2.0-11.0); Neutrophils Percent Auto 65.9 % (50.0-70.0); Platelet Count Result 380 K/mm3 (150-420); Red Blood Count 4.45 M/mm3 (4.20-5.40); Red Cell Distribution Width 13.9 % (11.6-14.4); White Blood Count 9.1 K/mm3 (4.8-10.8)
[2021-12-26 13:14] LABS: Strep Group A RT-PCR Negative (Negative)
[2021-12-26 13:27] LABS: CRP 0.8 mg/dL (0.0-0.9)
[2021-12-26 14:11] LABS: Erythrocyte Sedimentation Rate 14 mm/hr (0-15)
[2022-01-01 11:18] LABS: ANCA Screen Negative (Negative)
== END 2021-12-26 12:47 | disposition home or self-care (01) ==
LOC: CHSLAB 12:48
PROVIDERS: PCP Internal Medicine; Visit Provider Internal Medicine
DX: J32.9 Chronic sinusitis, unspecified (principal); J02.9 Acute pharyngitis, unspecified
CPT/HCPCS: 36415; 85025; 85652; 86036; 86140; 87070; 87651

== ENCOUNTER 2021-12-31 10:37 | Outpatient (CLI) | payer OTHER, SELFPAY ==
--- NOTE | ~2021-12-31 | XR_ITS ---
XR hip RT min 2V DATE: 12/31/2021 11:20 INDICATION: Right hip pain for 2 months, leading to low back pain. No known injury. History of rheuma toid arthritis. TECHNIQUE: AP and lateral views COMPARISON: None FINDINGS: No fracture or dislocation, avascular necrosis or bone destruction. The right hip joint spa ce is well preserved. The pubic symphysis and right sacroiliac joint are intact. IMPRESSION: Negative right hip Reviewed, dictated and finalized at location B. NE DESIGN ENGINEER IMPRESSION: Negative right hip
--- NOTE | ~2021-12-31 | XR_ITS ---
XR lumbar spine 2-3V DATE: 12/31/2021 11:20 INDICATION: Right hip pain for 2 months, with associated low back pain. History of rheumatoid arthrit is. TECHNIQUE: AP, lateral, coned lateral lumbosacral views COMPARISON: None FINDINGS: Mild thoracolumbar levoscoliosis. There is normal alignment of the lumbar spine without rashad dence of fracture, bone destruction or spondylolisthesis. There is minimal degenerative disc disease. The lumbar pedicles are intact. The sacroiliac joints appear normal. IMPRESSION: Mild thoracolumbar levoscoliosis Minimal degenerative disc disease of the lumbar spine Reviewed, dictated and finalized at location B. STANT THERAPY AIDE
--- NOTE | ~2021-12-31 | CT_ITS ---
EXAMINATION: CT sinus wo con DATE: 12/31/2021 11:23 INDICATION: Chronic sinusitis. Right maxillary pressure/soreness TECHNIQUE: Computed tomography (CT) of the paranasal sinuses was performed without contrast. Iterativ e reconstruction technique was employed. Exam dose: 295.93 mGy-cm total exam DLP. COMPARISON: 02/19/2014 CT sinuses FINDINGS: There is leftward bowing of the nasal septum. The nasal turbinates are prominent but symmet corey in size. The ostiomeatal units are patent bilaterally. There is absence of a portion of the upper medial wall of the right maxillary sinus, apparently a tim gical nasal antral window. There is a very prominent soft tissue mass density in the right maxillary sinus, occupying the majori ty of the right maxillary sinus, measuring up to 2.7 cm vertical dimension and 2.3 cm transverse dime nsion. There is mild mucoperiosteal thickening of the lower left maxillary sinus. The paranasal sinuses are otherwise normally aerated. The mastoid air cells are normally developed and aerated bilaterally. Middle and inner ear apparatus appear normal bilaterally. IMPRESSION: Leftward bowing of nasal septum Symmetric but prominent nasal turbinates Right nasal antral window Large polypoid soft tissue mass in the right maxillary sinus Mildly comparison thickening of the lower left maxillary sinus Reviewed, dictated and finalized at Location A. Reviewed, dictated and finalized at location B. L SECRETARY RECEPTIONIST
== END 2021-12-31 10:38 | disposition home or self-care (01) ==
PROVIDERS: PCP Internal Medicine; Visit Provider Nurse Practitioner Family
DX: M25.551 Pain in right hip (principal); M54.50 Low back pain, unspecified; J32.9 Chronic sinusitis, unspecified
CPT/HCPCS: 70486; 72100; 73502

== ENCOUNTER 2022-01-02 10:37 | Outpatient (CLI) | payer OTHER, SELFPAY ==
[2022-01-02 11:42] LABS: SARS-CoV-2 RNA PCR Positive (Negative)
== END 2022-01-02 10:38 | disposition home or self-care (01) ==
LOC: CHSLAB 10:39
PROVIDERS: PCP Internal Medicine; Visit Provider Internal Medicine
DX: U07.1 COVID-19 (principal); J06.9 Acute upper respiratory infection, unspecified
CPT/HCPCS: C9803; U0003; U0005

== ENCOUNTER 2022-01-04 07:05 | Emergency (ER) | payer OTHER, SELFPAY ==
--- NOTE | ~2022-01-04 | XR_ITS ---
EXAMINATION: XR chest 1V portable INDICATION: Worsening shortness of breath, COVID 19 positive TECHNIQUE: Portable AP chest at 0746 hours COMPARISON: 12/14/2021 FINDINGS: There are minimal airspace opacities of the lung bases. No pleural effusion or pneumothorax is identified. The cardiomediastinal silhouette is normal. The visualized osseous structures are unr emarkable. IMPRESSION: 1. Minimal bibasilar airspace opacity, consistent with atelectasis versus pneumonia. Reviewed, dictated and finalized at location A. UNICATION ELECTRONIC TECHNICIAN IMPRESSION: 1. Minimal bibasilar airspace opacity, consistent with atelectasis versus pneum onia.
--- NOTE | 2022-01-04 07:19 | ECG_ITS ---
Measurements Intervals [place] Rate: 82 P: 46 TN: 112 QRS: 85 QRSD: 90 T: 13 QT: 375 QTc: 438 Interpretive Statements SINUS RHYTHM WITH SHORT TN INTERVAL DELAYED PRECORDIAL R/S TRANSITION MINIMAL Q WAVES- INFERIOR LEADS BORDERLINE T WAVE ABNORMALITY- INF/LAT LEADS BASELINE ARTIFACT- I, V4-V5 BORDERLINE ECG Electronically Signed On 01-04-2022 8:01:31 SOIL TECHNOLOGIST by Vamsi Ramírez D.O.
[2022-01-04 07:36] VITALS: BP 125/82; PULSE 74; RESP 20; TEMP 36.8; O2SAT 98
[2022-01-04 07:40] VITALS: PULSE 74
[2022-01-04 07:47] LABS: Basophils Absolute Auto 0.01 K/mm3 (0.00-0.10); Basophils Percent Auto 0.2 % (0.0-1.0); Hematocrit 37.2 % (35.0-49.0); Immature Granulocyte Absolute 0.03 K/mm3 (0.00-0.00); Immature Granulocyte Percent A 0.5 % (0.0-0.0); Lymphocytes Absolute Auto 1.69 K/mm3 (1.10-4.50); Lymphocytes Percent Auto 26.7 % (18.0-42.0); Mean Corpuscular HGB Conc 32.3 g/dL (32.0-36.0); Mean Corpuscular Hemoglobin 28.1 pg (27.0-31.0); Mean Corpuscular Volume 87.1 fL (78.0-102.0); Mean Platelet Volume 8.9 fl (9.2-11.8); Monocytes Absolute Auto 0.63 K/mm3 (0.10-0.90); Neutrophils Percent Auto 62.6 % (50.0-70.0); Platelet Count Result 386 K/mm3 (150-420); Red Blood Count 4.27 M/mm3 (4.20-5.40); Red Cell Distribution Width 14.3 % (11.6-14.4); White Blood Count 6.3 K/mm3 (4.8-10.8)
--- NOTE | 2022-01-04 07:53 | ED.GENADULT ---
HPI - General Adult General Chief complaint: Arrhythmia/Palpitations Stated complaint: COVID COUGH SOB Source: patient and family Mode of arrival: ambulatory History of Present Illness HPI narrative: Lizy is a 31F with a complex PMH of RA, GERD, anxiety, asthma, depression, and current covid infection that presented to the ED with palpitations and SOB. She started to feel ill a few days ago and developed body aches and a fever up to 101. Later she started to have some SOB and her HR went from 120 to 140. She has had inappropriate tachycardia since her last episode of COVID last year. She admits nausea but no vomiting. No lightheadedness or CP but there are palpitations. Related Data Home Medications Medication Instructions Recorded Confirmed methotrexate (PF) 25 mg/0.5 mL 25 mg SUB-Q WEEKLY 10/21/19 11/30/20 subcutaneous auto-injector montelukast 10 mg tablet 10 mg PO DAILY 10/21/19 11/30/20 duloxetine 60 mg capsule,delayed 60 mg PO DAILY 11/01/20 11/30/20 release adalimumab [Humira Pen] See Rx Instructions .ROUTE .COMPLEX 11/30/20 11/30/20 celecoxib 100 mg PO BID 01/04/22 01/04/22 hyoscyamine sulfate 0.375 mg PO BID 01/04/22 01/04/22 lamotrigine 100 mg PO DAILY 01/04/22 01/04/22 lorazepam 1 mg PO BID PRN 01/04/22 01/04/22 metoprolol succinate 25 mg PO DAILY 01/04/22 01/04/22 pantoprazole 40 mg PO BID 01/04/22 01/04/22 paroxetine HCl 30 mg PO BID 01/04/22 01/04/22 trazodone 150 mg PO DAILY 01/04/22 01/04/22 Allergies Allergy/AdvReac Type Severity Reaction Status Date / Time ciprofloxacin Allergy Unknown HIVES Verified 01/04/22 07:42 metronidazole Allergy Unknown HIVES Verified 01/04/22 07:42 Review of Systems Constitutional: Constitutional: Reports no additional constitutional complaints Eyes: Eyes: Reports no additional eye complaints ENT: Reports system reviewed and no additional complaints, except as documented Cardiovascular: Cardiovascular: Reports no additional cardiovascular complaints Respiratory: Respiratory: Reports no additional respiratory complaints Gastrointestinal: Gastrointestinal: Reports no additional gastrointestinal complaints Genitourinary: Genitourinary: Reports no additional female genitourinary complaints Musculoskeletal: Musculoskeletal: Reports no additional musculoskeletal complaints Integumentary/Breasts: Skin/Breast: Reports system reviewed and no additional complaints, except as docu Neurologic: Reports system reviewed and no additional complaints, except as documented Psychiatric: Psychiatric: Reports no additional psychiatric complaints Endocrine: Endocrine: Reports no additional endocrine complaints Hematologic/Lymphatic: Hematologic/Lymphatic: Reports no additional hematologic/lymphatic complaints Allergic/Immunologic: Allergic/Immunologic: Reports no additional allergic/immunologic complaints [facility] Past Medical History Medical History Anxiety Asthma Depression Endometriosis Epigastric pain GERD (gastroesophageal reflux disease) Intrauterine adhesions Irritable bowel Miscarriage Nausea & vomiting Panic disorder Rheumatoid arthritis Weight loss Surgical History Surgical History H/O dilation and curettage H/O myringotomy Hx of cholecystectomy Hx of tonsillectomy Previous section Social History Social History Smoking status: Never smoker Alcohol intake: never Substance use: never Gender identity (if verbalized by the patient): Female Spiritual care concerns: No Exam Const: General: no acute distress and alert Orientation/consciousness: patient oriented x3 Limitations: No altered mental status HENMT: Head: normal to inspection Other: dry mucous membranes Eyes: Conjunctivae: conjunctivae normal Pupils: Equal, round and reactive pupils present Neck: Neck: norm
[2022-01-04 08:01] LABS: D Dimer 0.19 mg/L (0.19-0.50)
[2022-01-04 08:07] LABS: Lactic Acid Reflex 2.3 mmol/L (0.4-2.0)
[2022-01-04 08:08] LABS: Pregnancy On Board Control Positive; Urine Pregnancy Test Negative
[2022-01-04 08:09] LABS: Alanine Aminotransferase 18 U/L (14-59); Albumin Level 3.7 g/dL (3.4-5.0); Alkaline Phosphatase 42 U/L (46-116); Anion Gap 12 mmol/L (8-16); Aspartate Amino Transferase 10 U/L (15-37); Bilirubin,Total 0.2 mg/dL (0.00-1.00); Blood Urea Nitrogen 9 mg/dL (7-18); Carbon Dioxide 23 mmol/L (21-32); Chloride 99 mmol/L (98-108); Estimated CRCL calculation 73 ml/min; Estimated Glomerular Filt Rate > 60; Glucose 131 mg/dL (70-99); Osmolality Calculated 278 mOsm/kg (285-295); Potassium 3.7 mmol/L (3.5-5.1); Sodium 134 mmol/L (136-145); Total Protein 7.7 g/dL (6.4-8.2)
[2022-01-04 08:10] LABS: CRP 1.1 mg/dL (0.0-0.9); Magnesium 2.2 mg/dL (1.8-2.4); Troponin I < 4.0 ng/L (0.00-60.4)
[2022-01-04] MEDS: SODIUM CHLORIDE 0.9% IV 1,000 ML 999 ML IV CONT (08:28)
[2022-01-04 09:35] VITALS: BP 119/80; PULSE 55; RESP 20; TEMP 37.1; O2SAT 98
[2022-01-04 10:43] LABS: Reflex Lactic Acid Yes or No Add Lactic
== END 2022-01-04 09:38 | disposition home or self-care (01) ==
PROVIDERS: Emergency Provider Family Medicine; PCP Internal Medicine
DX: U07.1 COVID-19 (principal)
CPT/HCPCS: 36415; 71045; 80053; 81025; 83605; 83735; 84484; 85025; 85380; 86140; 93005; 96360; 99284; J7030

== ENCOUNTER 2022-01-07 11:18 | Outpatient (CLI) | payer OTHER, SELFPAY ==
--- NOTE | ~2022-01-07 | XR_ITS ---
EXAMINATION: XR chest 2V 01/07/2022 12:18 INDICATION: Chest congestion. PROCEDURE: 2 view chest COMPARISON: Comparison to multiple prior studies sequentially, with oldest reviewed study dated 02/01. FINDINGS: The lungs are clear. The cardiomediastinal silhouette is within normal limits. There are no pleural effusions. There is no pneumothorax suspected. IMPRESSION: 1: NO ACUTE CARDIOPULMONARY DISEASE. Reviewed, dictated and finalized at location B. LE LOOM WEAVER
[2022-01-07 12:08] LABS: Basophils Absolute Auto 0.04 K/mm3 (0.00-0.10); Basophils Percent Auto 0.2 % (0.0-1.0); Hemoglobin 11.9 g/dL (12.0-15.0); Immature Granulocyte Absolute 0.55 K/mm3 (0.00-0.00); Immature Granulocyte Percent A 2.9 % (0.0-0.0); Lymphocytes Absolute Auto 3.09 K/mm3 (1.10-4.50); Lymphocytes Percent Auto 16.2 % (18.0-42.0); Mean Corpuscular HGB Conc 32.2 g/dL (32.0-36.0); Mean Corpuscular Hemoglobin 27.6 pg (27.0-31.0); Mean Corpuscular Volume 85.8 fL (78.0-102.0); Mean Platelet Volume 8.9 fl (9.2-11.8); Monocytes Absolute Auto 1.09 K/mm3 (0.10-0.90); Monocytes Percent Auto 5.7 % (2.0-11.0); Neutrophils Absolute Auto 14.3 K/mm3 (1.7-7.2); Platelet Count Result 470 K/mm3 (150-420); Red Blood Count 4.31 M/mm3 (4.20-5.40); Red Cell Distribution Width 14.3 % (11.6-14.4); White Blood Count 19.1 K/mm3 (4.8-10.8)
== END 2022-01-07 11:19 | disposition home or self-care (01) ==
LOC: CHSIMG 11:20
PROVIDERS: PCP Internal Medicine; Visit Provider Internal Medicine
DX: R09.89 Other specified symptoms and signs involving the circulatory and respiratory systems (principal); Z86.16 Personal history of COVID-19
CPT/HCPCS: 36415; 71046; 85025

== ENCOUNTER 2022-01-18 14:50 | Outpatient (CLI) | payer OTHER, SELFPAY ==
[2022-01-18 15:02] LABS: Basophils Absolute Auto 0.02 K/mm3 (0.00-0.10); Basophils Percent Auto 0.3 % (0.0-1.0); Eosinophils Absolute Auto 0.03 K/mm3 (0.02-0.50); Eosinophils Percent Auto 0.4 % (1.0-6.0); Hematocrit 37.5 % (35.0-49.0); Hemoglobin 11.9 g/dL (12.0-15.0); Immature Granulocyte Absolute 0.05 K/mm3 (0.00-0.00); Immature Granulocyte Percent A 0.7 % (0.0-0.0); Lymphocytes Absolute Auto 1.94 K/mm3 (1.10-4.50); Lymphocytes Percent Auto 28.4 % (18.0-42.0); Mean Corpuscular HGB Conc 31.7 g/dL (32.0-36.0); Mean Corpuscular Hemoglobin 27.9 pg (27.0-31.0); Mean Platelet Volume 8.3 fl (9.2-11.8); Monocytes Absolute Auto 0.71 K/mm3 (0.10-0.90); Monocytes Percent Auto 10.4 % (2.0-11.0); Neutrophils Absolute Auto 4.1 K/mm3 (1.7-7.2); Neutrophils Percent Auto 59.8 % (50.0-70.0); Platelet Count Result 326 K/mm3 (150-420); Red Blood Count 4.26 M/mm3 (4.20-5.40); Red Cell Distribution Width 14.1 % (11.6-14.4); White Blood Count 6.8 K/mm3 (4.8-10.8)
== END 2022-01-18 14:51 | disposition home or self-care (01) ==
LOC: CHSLAB 14:51
PROVIDERS: PCP Internal Medicine; Visit Provider Internal Medicine
DX: R21 Rash and other nonspecific skin eruption (principal)
CPT/HCPCS: 36415; 85025

== ENCOUNTER 2022-01-31 08:26 | Outpatient (CLI) | payer OTHER, SELFPAY ==
[2022-01-31 08:47] LABS: Hematocrit 35.9 % (35.0-49.0); Hemoglobin 11.6 g/dL (12.0-15.0); Mean Corpuscular HGB Conc 32.3 g/dL (32.0-36.0); Mean Corpuscular Hemoglobin 28.4 pg (27.0-31.0); Mean Platelet Volume 8.6 fl (9.2-11.8); Platelet Count Result 370 K/mm3 (150-420); Red Blood Count 4.08 M/mm3 (4.20-5.40); Red Cell Distribution Width 14.3 % (11.6-14.4); White Blood Count 5.7 K/mm3 (4.8-10.8)
[2022-01-31 09:46] LABS: Alanine Aminotransferase 22 U/L (14-59); Albumin Level 3.5 g/dL (3.4-5.0); Alkaline Phosphatase 34 U/L (46-116); Anion Gap 11 mmol/L (8-16); Aspartate Amino Transferase 15 U/L (15-37); Bilirubin,Total 0.2 mg/dL (0.00-1.00); Blood Urea Nitrogen 19 mg/dL (7-18); CRP < 0.5 mg/dL (0.0-0.9); Calcium 8.8 mg/dL (8.5-10.1); Carbon Dioxide 25 mmol/L (21-32); Chloride 104 mmol/L (98-108); Estimated Glomerular Filt Rate > 60; Glucose 87 mg/dL (70-99); Lactate Dehydrogenase 127 U/L (81-234); Osmolality Calculated 291 mOsm/kg (285-295); Potassium 4.4 mmol/L (3.5-5.1); Sodium 140 mmol/L (136-145); Total Protein 6.8 g/dL (6.4-8.2)
[2022-01-31 09:59] LABS: Erythrocyte Sedimentation Rate 18 mm/hr (0-15)
[2022-02-05 20:05] LABS: Aldolase 1.9 U/L (<=8.1)
== END 2022-01-31 08:27 | disposition home or self-care (01) ==
LOC: CHSLAB 08:28
PROVIDERS: PCP Internal Medicine; Visit Provider Internal Medicine Rheumatology
DX: M79.10 Myalgia, unspecified site (principal); L40.50 Arthropathic psoriasis, unspecified
CPT/HCPCS: 36415; 80053; 82085; 83615; 85027; 85652; 86140

== ENCOUNTER 2022-02-07 15:20 | Outpatient (CLI) | payer OTHER, SELFPAY ==
[2022-02-07 16:16] LABS: Thyroid Stimulating Hormone 0.96 uIU/mL (0.36-3.74)
== END 2022-02-07 15:21 | disposition home or self-care (01) ==
LOC: CHSLAB 15:23
PROVIDERS: PCP Internal Medicine
DX: E04.1 Nontoxic single thyroid nodule (principal)
CPT/HCPCS: 36415; 84443

== ENCOUNTER 2022-04-24 18:02 | Outpatient (CLI) | payer OTHER, SELFPAY ==
[2022-04-24 18:42] LABS: Influenza Control Valid (Valid)
[2022-04-24 18:49] LABS: SARS-CoV-2 Ag Negative (Negative)
[2022-04-24 19:28] LABS: SARS-CoV-2 RNA PCR Negative (Negative)
== END 2022-04-24 18:03 | disposition home or self-care (01) ==
LOC: CHSLAB 18:04
PROVIDERS: PCP Internal Medicine; Visit Provider Internal Medicine
DX: J06.9 Acute upper respiratory infection, unspecified (principal); Z20.822 Contact with and (suspected) exposure to COVID-19
CPT/HCPCS: 87081; 87426; 87804; 87880; C9803; U0003; U0005

== ENCOUNTER 2022-04-27 14:18 | Outpatient (CLI) | payer OTHER, SELFPAY ==
[2022-04-27 14:36] LABS: Appearance Urine Clear (Clear); Basophils Absolute Auto 0.04 K/mm3 (0.00-0.10); Basophils Percent Auto 0.4 % (0.0-1.0); Bilirubin Urine Negative (Negative); Color Urine Light Yellow (Yellow); Eosinophils Absolute Auto 0.05 K/mm3 (0.02-0.50); Eosinophils Percent Auto 0.6 % (1.0-6.0); Glucose Urine UA Negative (Negative); Hematocrit 36.4 % (35.0-49.0); Hemoglobin 11.5 g/dL (12.0-15.0); Immature Granulocyte Absolute 0.03 K/mm3 (0.00-0.00); Immature Granulocyte Percent A 0.3 % (0.0-0.0); Ketones Urine Negative (Negative); Leukocyte Esterase Ur Negative LEU/UL (Negative); Lymphocytes Absolute Auto 3.25 K/mm3 (1.10-4.50); Lymphocytes Percent Auto 36.4 % (18.0-42.0); Mean Corpuscular HGB Conc 31.6 g/dL (32.0-36.0); Mean Corpuscular Hemoglobin 27.5 pg (27.0-31.0); Mean Corpuscular Volume 87.1 fL (78.0-102.0); Mean Platelet Volume 8.8 fl (9.2-11.8); Monocytes Absolute Auto 0.56 K/mm3 (0.10-0.90); Monocytes Percent Auto 6.3 % (2.0-11.0); Nitrate Urine Negative (Negative); Platelet Count Result 385 K/mm3 (150-420); Protein Urine Negative (Negative); Red Blood Count 4.18 M/mm3 (4.20-5.40); Red Cell Distribution Width 13.3 % (11.6-14.4); Urobilinogen Urine 0.2 mg/dL (0.2-1.0); White Blood Count 8.9 K/mm3 (4.8-10.8); pH Urine 6.5 (5.0-8.0)
[2022-04-27 14:39] LABS: Add Urine Microscopic? YES; Bacteria Urine Trace /hpf; Blood Urine Trace (Negative); RBC Urine 0-2 /hpf (0-2); Squamous Epithelial Cell Urine Occasional /hpf (Few); WBC Urine 0-3 /hpf (0-3)
[2022-04-27 14:57] LABS: Alanine Aminotransferase 28 U/L (14-59); Albumin Level 3.5 g/dL (3.4-5.0); Alkaline Phosphatase 44 U/L (46-116); Anion Gap 11 mmol/L (8-16); Aspartate Amino Transferase 22 U/L (15-37); Bilirubin,Total 0.3 mg/dL (0.00-1.00); Blood Urea Nitrogen 13 mg/dL (7-18); CRP 1.6 mg/dL (0.0-0.9); Carbon Dioxide 22 mmol/L (21-32); Chloride 104 mmol/L (98-108); Estimated Glomerular Filt Rate > 60; Glucose 115 mg/dL (70-99); Osmolality Calculated 285 mOsm/kg (285-295); Potassium 4.1 mmol/L (3.5-5.1); Sodium 137 mmol/L (136-145); Total Protein 6.9 g/dL (6.4-8.2)
[2022-04-27 15:48] LABS: Erythrocyte Sedimentation Rate 15 mm/hr (0-15)
== END 2022-04-27 14:19 | disposition home or self-care (01) ==
LOC: CHSLAB 14:20
PROVIDERS: PCP Internal Medicine; Visit Provider Internal Medicine Rheumatology
DX: L40.50 Arthropathic psoriasis, unspecified (principal)
CPT/HCPCS: 36415; 80053; 81001; 85025; 85652; 86140

== ENCOUNTER 2022-06-07 10:29 | Outpatient (CLI) | payer OTHER, SELFPAY ==
[2022-06-07 10:43] LABS: Add Urine Microscopic? YES; Appearance Urine Clear (Clear); Basophils Absolute Auto 0.02 K/mm3 (0.00-0.10); Basophils Percent Auto 0.4 % (0.0-1.0); Bilirubin Urine Negative (Negative); Blood Urine 3+ (Negative); Color Urine Light Yellow (Yellow); Eosinophils Absolute Auto 0.08 K/mm3 (0.02-0.50); Eosinophils Percent Auto 1.5 % (1.0-6.0); Glucose Urine UA Negative (Negative); Hematocrit 35.6 % (35.0-49.0); Hemoglobin 11.4 g/dL (12.0-15.0); Immature Granulocyte Absolute 0.01 K/mm3 (0.00-0.00); Immature Granulocyte Percent A 0.2 % (0.0-0.0); Ketones Urine Negative (Negative); Leukocyte Esterase Ur Negative (Negative); Lymphocytes Absolute Auto 2.84 K/mm3 (1.10-4.50); Lymphocytes Percent Auto 54.9 % (18.0-42.0); Mean Corpuscular Hemoglobin 27.6 pg (27.0-31.0); Mean Corpuscular Volume 86.2 fL (78.0-102.0); Monocytes Percent Auto 7.7 % (2.0-11.0); Neutrophils Absolute Auto 1.8 K/mm3 (1.7-7.2); Neutrophils Percent Auto 35.3 % (50.0-70.0); Nitrate Urine Negative (Negative); Platelet Count Result 364 K/mm3 (150-420); Protein Urine Negative (Negative); Red Blood Count 4.13 M/mm3 (4.20-5.40); Red Cell Distribution Width 13.8 % (11.6-14.4); Specific Grav Ur >= 1.030 (1.010-1.020); Urobilinogen Urine 0.2 mg/dL (0.2-1.0); White Blood Count 5.2 K/mm3 (4.8-10.8)
[2022-06-07 10:49] LABS: Squamous Epithelial Cell Urine Few /hpf (Few); WBC Urine 0-3 /hpf (0-3)
[2022-06-07 10:50] LABS: Bacteria Urine None seen /hpf
[2022-06-07 11:12] LABS: Alanine Aminotransferase 27 U/L (14-59); Albumin Level 3.4 g/dL (3.4-5.0); Alkaline Phosphatase 45 U/L (46-116); Anion Gap 9 mmol/L (8-16); Aspartate Amino Transferase 16 U/L (15-37); Bilirubin,Total 0.2 mg/dL (0.00-1.00); Blood Urea Nitrogen 20 mg/dL (7-18); CRP 1.4 mg/dL (0.0-0.9); Calcium 9.5 mg/dL (8.5-10.1); Carbon Dioxide 26 mmol/L (21-32); Chloride 104 mmol/L (98-108); Estimated Glomerular Filt Rate > 60; Glucose 105 mg/dL (70-99); Osmolality Calculated 290 mOsm/kg (285-295); Potassium 4.3 mmol/L (3.5-5.1); Sodium 139 mmol/L (136-145); Total Protein 6.6 g/dL (6.4-8.2)
[2022-06-07 11:46] LABS: Erythrocyte Sedimentation Rate 14 mm/hr (0-15)
== END 2022-06-07 10:30 | disposition home or self-care (01) ==
LOC: CHSLAB 10:31
PROVIDERS: PCP Internal Medicine; Visit Provider Internal Medicine Rheumatology
DX: L40.50 Arthropathic psoriasis, unspecified (principal); Z51.81 Encounter for therapeutic drug level monitoring
CPT/HCPCS: 36415; 80053; 81001; 85025; 85652; 86140

== ENCOUNTER 2022-06-13 09:55 | Outpatient (CLI) | payer OTHER, SELFPAY | END 2022-06-13 09:56 | disposition home or self-care (01) | LOC: ANHAUDIO 09:57 | PROVIDERS: PCP Internal Medicine; Visit Provider Internal Medicine | DX: H91.93 Unspecified hearing loss, bilateral (principal) | CPT/HCPCS: 92557; 92567 ==

== ENCOUNTER 2022-07-08 13:22 | Outpatient (CLI) | payer OTHER, SELFPAY ==
[2022-07-08 14:28] LABS: Influenza A QL RT-PCR Negative (Negative); Influenza B QL RT-PCR Negative (Negative); SARS-CoV-2 RNA PCR Negative (Negative)
[2022-07-08 18:21] LABS: Hematocrit 38.3 % (35.0-49.0); Hemoglobin 12.2 g/dL (12.0-15.0); Mean Corpuscular HGB Conc 31.9 g/dL (32.0-36.0); Mean Corpuscular Hemoglobin 27.5 pg (27.0-31.0); Mean Corpuscular Volume 86.5 fL (78.0-102.0); Platelet Count Result 359 K/mm3 (150-420); Red Blood Count 4.43 M/mm3 (4.20-5.40); Red Cell Distribution Width 13.3 % (11.6-14.4); White Blood Count 8.2 K/mm3 (4.8-10.8)
[2022-07-08 18:31] LABS: Add Urine Microscopic? NO; Appearance Urine Clear (Clear); Bilirubin Urine Negative (Negative); Blood Urine Negative (Negative); Color Urine Light Yellow (Yellow); Glucose Urine UA Negative (Negative); Ketones Urine Negative (Negative); Leukocyte Esterase Ur Negative LEU/UL (Negative); Nitrate Urine Negative (Negative); Protein Urine Negative (Negative); Urobilinogen Urine 0.2 mg/dL (0.2-1.0); pH Urine 6.5 (5.0-8.0)
[2022-07-08 18:38] LABS: Alanine Aminotransferase 32 U/L (14-59); Albumin Level 3.6 g/dL (3.4-5.0); Alkaline Phosphatase 50 U/L (46-116); Anion Gap 7 mmol/L (8-16); Aspartate Amino Transferase 16 U/L (15-37); Bilirubin,Total 0.2 mg/dL (0.00-1.00); Blood Urea Nitrogen 14 mg/dL (7-18); CRP 0.5 mg/dL (0.0-0.9); Calcium 8.7 mg/dL (8.5-10.1); Carbon Dioxide 25 mmol/L (21-32); Chloride 104 mmol/L (98-108); Estimated Glomerular Filt Rate > 60; Glucose 93 mg/dL (70-99); Osmolality Calculated 282 mOsm/kg (285-295); Potassium 3.7 mmol/L (3.5-5.1); Sodium 136 mmol/L (136-145); Total Protein 7.1 g/dL (6.4-8.2)
[2022-07-08 19:22] LABS: Erythrocyte Sedimentation Rate 18 mm/hr (0-15)
== END 2022-07-08 13:23 | disposition home or self-care (01) ==
LOC: CHSLAB 13:26
PROVIDERS: PCP Internal Medicine; Visit Provider Nurse Practitioner Family
DX: Z20.822 Contact with and (suspected) exposure to COVID-19 (principal); J06.9 Acute upper respiratory infection, unspecified; R50.9 Fever, unspecified
CPT/HCPCS: 36415; 80053; 81003; 85027; 85652; 86140; 87502; C9803; U0003; U0005

== ENCOUNTER 2022-07-16 17:22 | Outpatient (CLI) | payer OTHER, SELFPAY ==
--- NOTE | ~2022-07-16 | XR_ITS ---
EXAM: XR hand RT 2V, XR hand LT 2V DATE: 07/16/2022 17:56 (accession [id number]), 07/16/2022 17:55 (accession [id number]) HISTORY: psoriatic arthritis . COMPARISON: None available. FINDINGS: Normal mineralization. No fracture or dislocation. No lytic or blastic lesion. Joint space s and physes are maintained. No erosion or periosteal change. Soft tissues within normal limits. IMPRESSION: Normal bilateral hand radiograph findings. Reviewed, dictated and finalized at location K. IMPRESSION: Normal bilateral hand radiograph findings.
--- NOTE | ~2022-07-16 | XR_ITS ---
EXAM: XR sacrum coccyx min 2V DATE: 07/16/2022 17:56 HISTORY: psoriatic arthritis . COMPARISON: 07/17/2021. FINDINGS: Normal mineralization. No fracture or dislocation. No lytic or blastic lesion. Joint space s and physes are maintained. No erosion or periosteal change. Soft tissues within normal limits. IMPRESSION: Normal sacrum and coccyx radiograph findings. Reviewed, dictated and finalized at location K.
--- NOTE | ~2022-07-16 | XR_ITS ---
EXAM: XR lumbar spine 2-3V DATE: 07/16/2022 17:56 HISTORY: psoriatic arthritis . COMPARISON: 12/31/2021. FINDINGS: Mild scoliosis. Vertebral body alignment intact. Vertebral body heights preserved. Mild mul tilevel disc space narrowing and marginal osteophytosis in the lower lumbar spine. No traumatic malal ignment or fracture. Visualized lung parenchyma is clear. IMPRESSION: Mild scoliosis and lower lumbar degenerative disc disease, unchanged. Reviewed, dictated and finalized at location K. IMPRESSION: Mild scoliosis and lower lumbar degenerative disc disease, unchange d.
--- NOTE | ~2022-07-16 | XR_ITS ---
EXAM: XR knee RT 2V, XR knee LT 2V DATE: 07/16/2022 17:56 HISTORY: psoriatic arthritis . COMPARISON: None available. FINDINGS: Normal mineralization. No fracture or dislocation. No lytic or blastic lesion. Joint space s and physes are maintained. No erosion or periosteal change. Soft tissues within normal limits. IMPRESSION: Bilateral knee radiograph findings. Reviewed, dictated and finalized at location K. IMPRESSION: Bilateral knee radiograph findings.
== END 2022-07-16 17:23 | disposition home or self-care (01) ==
PROVIDERS: PCP Internal Medicine; Visit Provider Internal Medicine Rheumatology
DX: L40.50 Arthropathic psoriasis, unspecified (principal)
CPT/HCPCS: 72100; 72220; 73120; 73560

== ENCOUNTER 2022-08-23 14:30 | Outpatient (RCR) | payer OTHER, SELFPAY | END 2022-08-23 23:59 | disposition home or self-care (01) | LOC: ANHAUDIO 14:30 | PROVIDERS: PCP Internal Medicine; Visit Provider Internal Medicine | DX: Z46.1 Encounter for fitting and adjustment of hearing aid (principal) | CPT/HCPCS: 99199; V5260; V5267 ==

== ENCOUNTER 2022-09-09 10:52 | Outpatient (NON) | payer OTHER, SELFPAY | END 2022-09-09 10:53 | disposition home or self-care (01) | PROVIDERS: PCP Internal Medicine; Visit Provider Obstetrics & Gynecology | DX: R39.9 Unspecified symptoms and signs involving the genitourinary system (principal) | CPT/HCPCS: 87086; 87088 ==

== ENCOUNTER 2022-09-11 16:01 | Outpatient (CLI) | payer OTHER, SELFPAY ==
[2022-09-11 16:27] LABS: Add Urine Microscopic? NO; Appearance Urine Clear (Clear); Bilirubin Urine Negative (Negative); Blood Urine Negative (Negative); Color Urine Yellow (Yellow); Glucose Urine UA Negative (Negative); Ketones Urine Negative (Negative); Leukocyte Esterase Ur Negative (Negative); Nitrate Urine Negative (Negative); Protein Urine Negative (Negative); Specific Grav Ur 1.015 (1.010-1.020); Urobilinogen Urine 0.2 mg/dL (0.2-1.0); pH Urine 6.5 (5.0-8.0)
[2022-09-11 16:56] LABS: Thyroid Stimulating Hormone 1.23 uIU/mL (0.36-3.74)
== END 2022-09-11 16:02 | disposition home or self-care (01) ==
LOC: CHSLAB 16:05
PROVIDERS: PCP Internal Medicine; Visit Provider Obstetrics & Gynecology
DX: E04.1 Nontoxic single thyroid nodule (principal); R39.9 Unspecified symptoms and signs involving the genitourinary system
CPT/HCPCS: 36415; 81003; 84443; 87077; 87086; 87088; 87186

== ENCOUNTER 2022-09-20 15:29 | Outpatient (RCR) | payer OTHER, SELFPAY ==
[2022-06-23 11:53] LABS: Appearance Urine Clear (Clear); Bilirubin Urine Negative (Negative); Color Urine Light Yellow (Yellow); Glucose Urine UA Negative (Negative); Ketones Urine Negative (Negative); Leukocyte Esterase Ur Negative (Negative); Nitrate Urine Negative (Negative); Protein Urine Negative (Negative); Urobilinogen Urine 0.2 mg/dL (0.2-1.0)
[2022-06-23 11:54] LABS: Hematocrit 35.7 % (35.0-49.0); Hemoglobin 11.4 g/dL (12.0-15.0); Mean Corpuscular HGB Conc 31.9 g/dL (32.0-36.0); Mean Corpuscular Hemoglobin 27.5 pg (27.0-31.0); Mean Corpuscular Volume 86.2 fL (78.0-102.0); Mean Platelet Volume 8.9 fl (9.2-11.8); Platelet Count Result 370 K/mm3 (150-420); Red Blood Count 4.14 M/mm3 (4.20-5.40); Red Cell Distribution Width 13.4 % (11.6-14.4); White Blood Count 9.7 K/mm3 (4.8-10.8)
[2022-06-23 12:13] LABS: Add Urine Microscopic? YES; Blood Urine Trace-Intact (Negative); RBC Urine 0-2 /hpf (0-2); Squamous Epithelial Cell Urine Few /hpf (Few)
[2022-06-23 12:22] LABS: Alanine Aminotransferase 26 U/L (14-59); Albumin Level 3.7 g/dL (3.4-5.0); Alkaline Phosphatase 41 U/L (46-116); Anion Gap 10 mmol/L (8-16); Aspartate Amino Transferase 20 U/L (15-37); Bilirubin,Total 0.5 mg/dL (0.00-1.00); Blood Urea Nitrogen 14 mg/dL (7-18); CRP 1.6 mg/dL (0.0-0.9); Calcium 9.5 mg/dL (8.5-10.1); Carbon Dioxide 27 mmol/L (21-32); Chloride 101 mmol/L (98-108); Estimated Glomerular Filt Rate > 60; Glucose 84 mg/dL (70-99); Osmolality Calculated 285 mOsm/kg (285-295); Potassium 3.9 mmol/L (3.5-5.1); Sodium 138 mmol/L (136-145); Total Protein 7.3 g/dL (6.4-8.2)
[2022-06-23 13:24] LABS: Erythrocyte Sedimentation Rate 17 mm/hr (0-15)
[2022-07-30 13:57] LABS: Basophils Absolute Auto 0.02 K/mm3 (0.00-0.10); Basophils Percent Auto 0.3 % (0.0-1.0); Eosinophils Absolute Auto 0.08 K/mm3 (0.02-0.50); Eosinophils Percent Auto 1.3 % (1.0-6.0); Hematocrit 37.1 % (35.0-49.0); Hemoglobin 11.8 g/dL (12.0-15.0); Immature Granulocyte Absolute 0.02 K/mm3 (0.00-0.00); Immature Granulocyte Percent A 0.3 % (0.0-0.0); Lymphocytes Absolute Auto 1.61 K/mm3 (1.10-4.50); Lymphocytes Percent Auto 26.9 % (18.0-42.0); Mean Corpuscular HGB Conc 31.8 g/dL (32.0-36.0); Mean Corpuscular Hemoglobin 27.8 pg (27.0-31.0); Mean Corpuscular Volume 87.3 fL (78.0-102.0); Mean Platelet Volume 9.4 fl (9.2-11.8); Monocytes Absolute Auto 0.67 K/mm3 (0.10-0.90); Monocytes Percent Auto 11.2 % (2.0-11.0); Neutrophils Absolute Auto 3.6 K/mm3 (1.7-7.2); Platelet Count Result 347 K/mm3 (150-420); Red Blood Count 4.25 M/mm3 (4.20-5.40); Red Cell Distribution Width 13.5 % (11.6-14.4)
[2022-07-30 13:58] LABS: Add Urine Microscopic? NO; Appearance Urine Clear (Clear); Bilirubin Urine Negative (Negative); Blood Urine Negative (Negative); Color Urine Light Yellow (Yellow); Glucose Urine UA Negative (Negative); Ketones Urine Negative (Negative); Leukocyte Esterase Ur Negative (Negative); Nitrate Urine Negative (Negative); Protein Urine Negative (Negative); Specific Grav Ur <= 1.005 (1.010-1.020); Urobilinogen Urine 0.2 mg/dL (0.2-1.0)
[2022-07-30 14:20] LABS: Alanine Aminotransferase 27 U/L (14-59); Albumin Level 3.6 g/dL (3.4-5.0); Alkaline Phosphatase 50 U/L (46-116); Anion Gap 9 mmol/L (8-16); Aspartate Amino Transferase 24 U/L (15-37); Bilirubin,Total 0.3 mg/dL (0.00-1.00); Blood Urea Nitrogen 13 mg/dL (7-18); CRP 1.3 mg/dL (0.0-0.9); Calcium 8.8 mg/dL (8.5-10.1); Carbon Dioxide 23 mmol/L (21-32); Chloride 104 mmol/L (98-108); Estimated Glomerular Filt Rate > 60; Glucose 104 mg/dL (70-99); Osmolality Calculated 282 mOsm/kg (285-295); Potassium 3.9 mmol/L (3.5-5.1); Sodium 136 mmol/L (136-145); Total Protein 6.9 g/dL (6.4-8.2)
[2022-07-30 15:00] LABS: Erythrocyte Sedimentation Rate 15 mm/hr (0-15)
[2022-08-26 16:03] LABS: Appearance Urine Clear (Clear); Basophils Absolute Auto 0.03 K/mm3 (0.00-0.10); Basophils Percent Auto 0.5 % (0.0-1.0); Bilirubin Urine Negative (Negative); Color Urine Yellow (Yellow); Eosinophils Absolute Auto 0.06 K/mm3 (0.02-0.50); Glucose Urine UA Negative (Negative); Hematocrit 36.1 % (35.0-49.0); Hemoglobin 11.5 g/dL (12.0-15.0); Immature Granulocyte Absolute 0.02 K/mm3 (0.00-0.00); Immature Granulocyte Percent A 0.3 % (0.0-0.0); Ketones Urine Negative (Negative); Leukocyte Esterase Ur Negative (Negative); Lymphocytes Absolute Auto 2.63 K/mm3 (1.10-4.50); Lymphocytes Percent Auto 43.1 % (18.0-42.0); Mean Corpuscular HGB Conc 31.9 g/dL (32.0-36.0); Mean Corpuscular Hemoglobin 27.2 pg (27.0-31.0); Mean Corpuscular Volume 85.3 fL (78.0-102.0); Mean Platelet Volume 9.7 fl (9.2-11.8); Monocytes Absolute Auto 0.75 K/mm3 (0.10-0.90); Monocytes Percent Auto 12.3 % (2.0-11.0); Neutrophils Absolute Auto 2.6 K/mm3 (1.7-7.2); Neutrophils Percent Auto 42.8 % (50.0-70.0); Nitrate Urine Negative (Negative); Platelet Count Result 338 K/mm3 (150-420); Protein Urine Negative (Negative); Red Blood Count 4.23 M/mm3 (4.20-5.40); Red Cell Distribution Width 13.2 % (11.6-14.4); Specific Grav Ur >= 1.030 (1.010-1.020); Urobilinogen Urine 0.2 mg/dL (0.2-1.0); White Blood Count 6.1 K/mm3 (4.8-10.8)
[2022-08-26 16:06] LABS: Add Urine Microscopic? YES; Blood Urine Trace-Intact (Negative); RBC Urine 0-2 /hpf (0-2); Squamous Epithelial Cell Urine Few /hpf (Few); WBC Urine None seen /hpf (0-3)
[2022-08-26 16:07] LABS: Bacteria Urine Trace /hpf; Mucus Urine Moderate /lpf
[2022-08-26 16:11] LABS: Alanine Aminotransferase 24 U/L (14-59); Albumin Level 3.5 g/dL (3.4-5.0); Alkaline Phosphatase 43 U/L (46-116); Anion Gap 6 mmol/L (8-16); Aspartate Amino Transferase 18 U/L (15-37); Bilirubin,Total 0.2 mg/dL (0.00-1.00); Blood Urea Nitrogen 15 mg/dL (7-18); CRP 0.6 mg/dL (0.0-0.9); Calcium 8.7 mg/dL (8.5-10.1); Carbon Dioxide 27 mmol/L (21-32); Chloride 105 mmol/L (98-108); Estimated Glomerular Filt Rate > 60; Glucose 77 mg/dL (70-99); Osmolality Calculated 285 mOsm/kg (285-295); Sodium 138 mmol/L (136-145); Total Protein 7.1 g/dL (6.4-8.2)
[2022-08-26 16:57] LABS: Erythrocyte Sedimentation Rate 16 mm/hr (0-15)
[2022-09-20 15:43] LABS: Appearance Urine Clear (Clear); Basophils Absolute Auto 0.03 K/mm3 (0.00-0.10); Basophils Percent Auto 0.5 % (0.0-1.0); Bilirubin Urine Negative (Negative); Blood Urine 1+ (Negative); Eosinophils Absolute Auto 0.06 K/mm3 (0.02-0.50); Eosinophils Percent Auto 0.9 % (1.0-6.0); Glucose Urine UA Negative (Negative); Hematocrit 33.9 % (35.0-49.0); Hemoglobin 10.9 g/dL (12.0-15.0); Immature Granulocyte Absolute 0.02 K/mm3 (0.00-0.00); Immature Granulocyte Percent A 0.3 % (0.0-0.0); Ketones Urine Negative (Negative); Leukocyte Esterase Ur Negative (Negative); Lymphocytes Percent Auto 39.5 % (18.0-42.0); Mean Corpuscular HGB Conc 32.2 g/dL (32.0-36.0); Mean Corpuscular Hemoglobin 27.1 pg (27.0-31.0); Mean Corpuscular Volume 84.3 fL (78.0-102.0); Mean Platelet Volume 9.5 fl (9.2-11.8); Monocytes Absolute Auto 0.64 K/mm3 (0.10-0.90); Monocytes Percent Auto 10.1 % (2.0-11.0); Neutrophils Absolute Auto 3.1 K/mm3 (1.7-7.2); Neutrophils Percent Auto 48.7 % (50.0-70.0); Nitrate Urine Negative (Negative); Platelet Count Result 328 K/mm3 (150-420); Protein Urine Negative (Negative); Red Blood Count 4.02 M/mm3 (4.20-5.40); Red Cell Distribution Width 13.2 % (11.6-14.4); Specific Grav Ur <= 1.005 (1.010-1.020); Urobilinogen Urine 0.2 mg/dL (0.2-1.0); White Blood Count 6.3 K/mm3 (4.8-10.8)
[2022-09-20 15:58] LABS: Add Urine Microscopic? YES; Color Urine Light Yellow (Yellow); RBC Urine 0-2 /hpf (0-2); Squamous Epithelial Cell Urine Few /hpf (Few); WBC Urine None seen /hpf (0-3)
[2022-09-20 15:59] LABS: Bacteria Urine Trace /hpf
[2022-09-20 16:06] LABS: Alanine Aminotransferase 24 U/L (14-59); Albumin Level 3.4 g/dL (3.4-5.0); Alkaline Phosphatase 42 U/L (46-116); Anion Gap 7 mmol/L (8-16); Aspartate Amino Transferase 16 U/L (15-37); Bilirubin,Total 0.2 mg/dL (0.00-1.00); Blood Urea Nitrogen 16 mg/dL (7-18); Calcium 8.6 mg/dL (8.5-10.1); Carbon Dioxide 25 mmol/L (21-32); Chloride 107 mmol/L (98-108); Estimated Glomerular Filt Rate > 60; Glucose 152 mg/dL (70-99); Osmolality Calculated 292 mOsm/kg (285-295); Potassium 3.7 mmol/L (3.5-5.1); Sodium 139 mmol/L (136-145); Total Protein 7.1 g/dL (6.4-8.2)
[2022-09-20 16:44] LABS: Erythrocyte Sedimentation Rate 17 mm/hr (0-15)
== END 2022-09-21 23:59 | disposition home or self-care (01) ==
LOC: CHSLAB 15:29
PROVIDERS: PCP Internal Medicine; Visit Provider Internal Medicine Rheumatology
DX: L40.50 Arthropathic psoriasis, unspecified (principal); Z51.81 Encounter for therapeutic drug level monitoring
CPT/HCPCS: 36415; 80053; 81001; 81003; 85025; 85027; 85652; 86140

== ENCOUNTER → 2022-10-22 08:55 | Outpatient (CLI) | payer OTHER, SELFPAY ==
--- NOTE | ~2022-10-22 | US_ITS ---
EXAMINATION: US pelvic complete w TV DATE: 10/22/2022 09:22 INDICATION: Excessive and frequent menstruation Comparison:Ultrasound dated 07/20/2020 sixth TECHNIQUE: Multiple transabdominal and endovaginal sonographic images of the pelvis performed. FINDINGS: The uterus measures 6.7 x 4 x 4.9 cm. Uterine myometrium is somewhat heterogeneous, althoug h mass identified. The endometrial complex measures 5 mm. Possible septate uterus. The endometrium ap pears to divide on axial images. The right ovary measures 2.8 x 2.1 x 1.9 cm and the left ovary measures 2.4 x 1.6 x 1.3 cm. There ar e small follicles in each ovary. Normal doppler signal in both ovaries. There is no free fluid in the pelvis. There are no abnormal masses seen on either side. IMPRESSION: 1. Possible septate uterus. Otherwise, unremarkable pelvic ultrasound. Myometrium slightly heterogene ous, although no discrete fibroids are identified. Reviewed, dictated and finalized at location A. NG AND WINDING SUPERVISOR IMPRESSION: 1. Possible septate uterus. Otherwise, unremarkable pelvic ultrasound. Myometri um slightly heterogeneous, although no discrete fibroids are identified.
== END ==
PROVIDERS: PCP Obstetrics & Gynecology; Visit Provider Obstetrics & Gynecology
DX: N92.0 Excessive and frequent menstruation with regular cycle (principal)
CPT/HCPCS: 76830; 76856

== ENCOUNTER 2022-11-05 16:31 | Outpatient (CLI) | payer OTHER, SELFPAY ==
[2022-11-05 16:45] LABS: Add Urine Microscopic? NO; Appearance Urine Clear (Clear); Bilirubin Urine Negative (Negative); Blood Urine Negative (Negative); Color Urine Yellow (Yellow); Glucose Urine UA Negative (Negative); Ketones Urine Negative (Negative); Leukocyte Esterase Ur Negative LEU/UL (NEGATIVE); Nitrate Urine Negative (Negative); Protein Urine Negative (Negative); Specific Grav Ur >= 1.030 (1.001-1.035); Urobilinogen Urine 0.2 mg/dL (<2.0); pH Urine 5.5 (5.0-9.0)
[2022-11-05 16:57] LABS: Mucus Urine Rare /lpf; RBC Urine 0-2 /hpf (0-2); Squamous Epithelial Cell Urine Rare /hpf (Few); WBC Urine 0-3 /hpf (0-3)
== END 2022-11-05 16:32 | disposition home or self-care (01) ==
PROVIDERS: PCP Internal Medicine; Visit Provider Obstetrics & Gynecology
DX: R39.9 Unspecified symptoms and signs involving the genitourinary system (principal)
CPT/HCPCS: 81003; 87086

== ENCOUNTER 2022-11-08 12:48 | Outpatient (CLI) | payer OTHER, SELFPAY ==
--- NOTE | ~2022-11-08 | US_ITS ---
EXAMINATION: US renal BI DATE: 11/08/2022 14:58 INDICATION: Recurrent urinary tract infection TECHNIQUE: Multiple ultrasound grayscale images of the kidneys were obtained. COMPARISON: None. FINDINGS: The right kidney measures 11.3 x 6.6 x 4.3 cm. The left kidney measures 13.4 x 4.6 x 5.2 cm. The kidn eys demonstrate normal echogenicity. There is no hydronephrosis in either kidney. No stones identif ied. The bladder is normal with bilateral ureteral jets visualized on color Doppler. IMPRESSION: 1. Normal kidneys without hydronephrosis. Reviewed, dictated and finalized at location A. ECTIONAL TREATMENT SPECIALIST
== END 2022-11-08 12:49 | disposition home or self-care (01) ==
LOC: ANHIMG 12:52
PROVIDERS: PCP Internal Medicine; Visit Provider Urology
DX: N39.0 Urinary tract infection, site not specified (principal)
CPT/HCPCS: 76775

== ENCOUNTER 2022-11-15 12:46 | Outpatient (CLI) | payer OTHER, SELFPAY ==
--- NOTE | ~2022-11-15 | XR_ITS ---
EXAMINATION: XR abdomen/kub 1V INDICATION: Flank pain TECHNIQUE: Supine views of the abdomen were obtained on 2 radiographs. COMPARISON: 09/19/2021 FINDINGS: The bowel gas pattern is normal. No urolithiasis is identified. The visualized osseous stru ctures are unremarkable. IMPRESSION: 1. No urolithiasis identified. Reviewed, dictated and finalized at location B. INE DYER
== END 2022-11-15 12:47 | disposition home or self-care (01) ==
LOC: ANHIMG 12:50
PROVIDERS: PCP Internal Medicine; Visit Provider Urology
DX: R10.9 Unspecified abdominal pain (principal)
CPT/HCPCS: 74018

== ENCOUNTER 2023-01-14 15:58 | Outpatient (RCR) | payer OTHER, SELFPAY ==
[2022-10-22 17:49] LABS: Basophils Absolute Auto 0.03 K/mm3 (0.00-0.10); Basophils Percent Auto 0.6 % (0.0-1.0); Eosinophils Absolute Auto 0.11 K/mm3 (0.02-0.50); Hematocrit 35.5 % (35.0-49.0); Hemoglobin 11.2 g/dL (12.0-15.0); Immature Granulocyte Absolute 0.02 K/mm3 (0.00-0.00); Immature Granulocyte Percent A 0.4 % (0.0-0.0); Lymphocytes Absolute Auto 2.24 K/mm3 (1.10-4.50); Lymphocytes Percent Auto 41.6 % (18.0-42.0); Mean Corpuscular HGB Conc 31.5 g/dL (32.0-36.0); Mean Corpuscular Hemoglobin 27.1 pg (27.0-31.0); Mean Platelet Volume 9.6 fl (9.2-11.8); Monocytes Absolute Auto 0.66 K/mm3 (0.10-0.90); Monocytes Percent Auto 12.2 % (2.0-11.0); Neutrophils Absolute Auto 2.3 K/mm3 (1.7-7.2); Neutrophils Percent Auto 43.2 % (50.0-70.0); Platelet Count Result 304 K/mm3 (150-420); Red Blood Count 4.13 M/mm3 (4.20-5.40); Red Cell Distribution Width 13.3 % (11.6-14.4); White Blood Count 5.4 K/mm3 (4.8-10.8)
[2022-10-22 17:53] LABS: Appearance Urine Clear (Clear); Bilirubin Urine Negative (Negative); Blood Urine 3+ (Negative); Glucose Urine UA Negative (Negative); Ketones Urine Negative (Negative); Leukocyte Esterase Ur Negative (Negative); Nitrate Urine Negative (Negative); Protein Urine Negative (Negative); Urobilinogen Urine 0.2 mg/dL (0.2-1.0)
[2022-10-22 17:58] LABS: Add Urine Microscopic? YES; Color Urine Light Yellow (Yellow); Squamous Epithelial Cell Urine Rare /hpf (Few); WBC Urine 0-3 /hpf (0-3)
[2022-10-22 17:59] LABS: Bacteria Urine Trace /hpf; RBC Urine 51-75 /hpf (0-2)
[2022-10-22 18:05] LABS: Alanine Aminotransferase 20 U/L (14-59); Albumin Level 3.3 g/dL (3.4-5.0); Alkaline Phosphatase 46 U/L (46-116); Anion Gap 9 mmol/L (8-16); Aspartate Amino Transferase 20 U/L (15-37); Bilirubin,Total 0.1 mg/dL (0.00-1.00); Blood Urea Nitrogen 11 mg/dL (7-18); CRP 0.9 mg/dL (0.0-0.9); Calcium 8.4 mg/dL (8.5-10.1); Carbon Dioxide 25 mmol/L (21-32); Chloride 107 mmol/L (98-108); Estimated Glomerular Filt Rate > 60; Glucose 109 mg/dL (70-99); Osmolality Calculated 292 mOsm/kg (285-295); Potassium 3.9 mmol/L (3.5-5.1); Sodium 141 mmol/L (136-145); Total Protein 6.9 g/dL (6.4-8.2)
[2022-10-22 18:52] LABS: Erythrocyte Sedimentation Rate 20 mm/hr (0-15)
[2022-11-14 14:41] LABS: Hematocrit 36.5 % (35.0-49.0); Hemoglobin 11.8 g/dL (12.0-15.0); Mean Corpuscular HGB Conc 32.3 g/dL (32.0-36.0); Mean Corpuscular Hemoglobin 26.9 pg (27.0-31.0); Mean Corpuscular Volume 83.1 fL (78.0-102.0); Mean Platelet Volume 9.3 fl (9.2-11.8); Platelet Count Result 368 K/mm3 (150-420); Red Blood Count 4.39 M/mm3 (4.20-5.40); Red Cell Distribution Width 13.2 % (11.6-14.4); White Blood Count 7.6 K/mm3 (4.8-10.8)
[2022-11-14 14:43] LABS: Add Urine Microscopic? YES; Appearance Urine Clear (Clear); Bilirubin Urine Negative (Negative); Blood Urine Trace-Intact (Negative); Color Urine Yellow (Yellow); Glucose Urine UA Negative (Negative); Ketones Urine Negative (Negative); Leukocyte Esterase Ur Negative (Negative); Nitrate Urine Negative (Negative); Protein Urine Negative (Negative); Urobilinogen Urine 0.2 mg/dL (0.2-1.0)
[2022-11-14 15:12] LABS: Alanine Aminotransferase 18 U/L (14-59); Albumin Level 3.6 g/dL (3.4-5.0); Alkaline Phosphatase 45 U/L (46-116); Anion Gap 10 mmol/L (8-16); Aspartate Amino Transferase 14 U/L (15-37); Bilirubin,Total 0.4 mg/dL (0.00-1.00); Blood Urea Nitrogen 17 mg/dL (7-18); CRP 1.2 mg/dL (0.0-0.9); Carbon Dioxide 25 mmol/L (21-32); Chloride 102 mmol/L (98-108); Estimated Glomerular Filt Rate > 60; Glucose 101 mg/dL (70-99); Osmolality Calculated 285 mOsm/kg (285-295); Potassium 4.3 mmol/L (3.5-5.1); Sodium 137 mmol/L (136-145); Total Protein 7.2 g/dL (6.4-8.2)
[2022-11-14 15:45] LABS: RBC Urine 0-2 /hpf (0-2); WBC Urine None seen /hpf (0-3)
[2022-11-14 15:46] LABS: Bacteria Urine Trace /hpf; Squamous Epithelial Cell Urine Moderate /hpf (Few)
[2022-11-14 16:09] LABS: Erythrocyte Sedimentation Rate 19 mm/hr (0-15)
[2022-12-13 16:09] LABS: Basophils Absolute Auto 0.02 K/mm3 (0.00-0.10); Basophils Percent Auto 0.4 % (0.0-1.0); Eosinophils Absolute Auto 0.07 K/mm3 (0.02-0.50); Eosinophils Percent Auto 1.3 % (1.0-6.0); Hematocrit 32.1 % (35.0-49.0); Hemoglobin 10.2 g/dL (12.0-15.0); Immature Granulocyte Absolute 0.01 K/mm3 (0.00-0.00); Immature Granulocyte Percent A 0.2 % (0.0-0.0); Lymphocytes Absolute Auto 2.11 K/mm3 (1.10-4.50); Lymphocytes Percent Auto 37.9 % (18.0-42.0); Mean Corpuscular HGB Conc 31.8 g/dL (32.0-36.0); Mean Corpuscular Hemoglobin 26.5 pg (27.0-31.0); Mean Corpuscular Volume 83.4 fL (78.0-102.0); Mean Platelet Volume 9.5 fl (9.2-11.8); Monocytes Absolute Auto 0.64 K/mm3 (0.10-0.90); Monocytes Percent Auto 11.5 % (2.0-11.0); Neutrophils Absolute Auto 2.7 K/mm3 (1.7-7.2); Neutrophils Percent Auto 48.7 % (50.0-70.0); Platelet Count Result 330 K/mm3 (150-420); Red Blood Count 3.85 M/mm3 (4.20-5.40); Red Cell Distribution Width 12.6 % (11.6-14.4); White Blood Count 5.6 K/mm3 (4.8-10.8)
[2022-12-13 16:10] LABS: Add Urine Microscopic? NO; Appearance Urine Clear (Clear); Bilirubin Urine Negative (Negative); Blood Urine Negative (Negative); Color Urine Light Yellow (Yellow); Glucose Urine UA Negative (Negative); Ketones Urine Negative (Negative); Leukocyte Esterase Ur Negative (Negative); Nitrate Urine Negative (Negative); Protein Urine Negative (Negative); Urobilinogen Urine 0.2 mg/dL (0.2-1.0); pH Urine 5.5 (5.0-8.0)
[2022-12-13 16:23] LABS: Alanine Aminotransferase 15 U/L (14-59); Albumin Level 3.4 g/dL (3.4-5.0); Alkaline Phosphatase 44 U/L (46-116); Anion Gap 11 mmol/L (8-16); Aspartate Amino Transferase 12 U/L (15-37); Bilirubin,Total 0.1 mg/dL (0.00-1.00); Blood Urea Nitrogen 13 mg/dL (7-18); CRP 1.4 mg/dL (0.0-0.9); Calcium 8.3 mg/dL (8.5-10.1); Carbon Dioxide 25 mmol/L (21-32); Chloride 104 mmol/L (98-108); Estimated Glomerular Filt Rate > 60; Glucose 86 mg/dL (70-99); Osmolality Calculated 289 mOsm/kg (285-295); Potassium 4.1 mmol/L (3.5-5.1); Sodium 140 mmol/L (136-145); Total Protein 6.7 g/dL (6.4-8.2)
[2022-12-13 17:06] LABS: Erythrocyte Sedimentation Rate 22 mm/hr (0-15)
[2023-01-14 16:12] LABS: Appearance Urine Clear (Clear); Basophils Absolute Auto 0.03 K/mm3 (0.00-0.10); Basophils Percent Auto 0.5 % (0.0-1.0); Bilirubin Urine Negative (Negative); Blood Urine 3+ (Negative); Color Urine Light Yellow (Yellow); Eosinophils Absolute Auto 0.06 K/mm3 (0.02-0.50); Eosinophils Percent Auto 0.9 % (1.0-6.0); Glucose Urine UA Negative (Negative); Hematocrit 33.8 % (35.0-49.0); Hemoglobin 10.7 g/dL (12.0-15.0); Immature Granulocyte Absolute 0.03 K/mm3 (0.00-0.00); Immature Granulocyte Percent A 0.5 % (0.0-0.0); Ketones Urine Negative (Negative); Leukocyte Esterase Ur Negative (Negative); Lymphocytes Absolute Auto 2.42 K/mm3 (1.10-4.50); Lymphocytes Percent Auto 37.6 % (18.0-42.0); Mean Corpuscular HGB Conc 31.7 g/dL (32.0-36.0); Mean Corpuscular Hemoglobin 26.3 pg (27.0-31.0); Mean Platelet Volume 9.4 fl (9.2-11.8); Monocytes Absolute Auto 0.64 K/mm3 (0.10-0.90); Neutrophils Absolute Auto 3.3 K/mm3 (1.7-7.2); Neutrophils Percent Auto 50.5 % (50.0-70.0); Nitrate Urine Negative (Negative); Platelet Count Result 358 K/mm3 (150-420); Protein Urine Negative (Negative); Red Blood Count 4.07 M/mm3 (4.20-5.40); Red Cell Distribution Width 13.1 % (11.6-14.4); Specific Grav Ur 1.015 (1.010-1.020); Urobilinogen Urine 0.2 mg/dL (0.2-1.0); White Blood Count 6.4 K/mm3 (4.8-10.8)
[2023-01-14 16:21] LABS: Add Urine Microscopic? YES; RBC Urine >75 /hpf (0-2); WBC Urine None seen /hpf (0-3)
[2023-01-14 16:22] LABS: Bacteria Urine Trace /hpf; Squamous Epithelial Cell Urine Rare /hpf (Few)
[2023-01-14 16:35] LABS: Alanine Aminotransferase 19 U/L (14-59); Albumin Level 3.5 g/dL (3.4-5.0); Alkaline Phosphatase 50 U/L (46-116); Anion Gap 9 mmol/L (8-16); Aspartate Amino Transferase 17 U/L (15-37); Bilirubin,Total 0.2 mg/dL (0.00-1.00); Blood Urea Nitrogen 18 mg/dL (7-18); CRP 1.2 mg/dL (0.0-0.9); Calcium 9.1 mg/dL (8.5-10.1); Carbon Dioxide 28 mmol/L (21-32); Chloride 102 mmol/L (98-108); Estimated Glomerular Filt Rate > 60; Glucose 81 mg/dL (70-99); Osmolality Calculated 288 mOsm/kg (285-295); Potassium 4.1 mmol/L (3.5-5.1); Sodium 139 mmol/L (136-145); Total Protein 6.8 g/dL (6.4-8.2)
[2023-01-14 17:08] LABS: Erythrocyte Sedimentation Rate 14 mm/hr (0-15)
== END 2023-01-20 23:59 | disposition home or self-care (01) ==
LOC: CHSLAB 15:58
PROVIDERS: PCP Internal Medicine; Visit Provider Internal Medicine Rheumatology
DX: Z51.81 Encounter for therapeutic drug level monitoring (principal); L40.50 Arthropathic psoriasis, unspecified; Z79.899 Other long term (current) drug therapy
CPT/HCPCS: 36415; 80053; 81001; 81003; 85025; 85027; 85652; 86140

== ENCOUNTER 2023-01-31 14:44 | Outpatient (CLI) | payer OTHER, SELFPAY ==
--- NOTE | ~2023-01-31 | XR_ITS ---
EXAMINATION: XR sacroiliac joints min 3V DATE: 01/31/2023 15:13 INDICATION: Low back and pelvic pain. TECHNIQUE: AP and left and right oblique views of the sacroiliac joints were obtained. COMPARISON: 07/17/2021 FINDINGS: Bone alignment is normal. Sacral arches are intact. No fracture. Bilateral hip and sacroiliac joint s paces are normal. No joint space widening, erosions or subarticular sclerosis to suggest inflammatory sacroiliitis. IMPRESSION: 1. Negative bilateral sacroiliac joint radiographs. Reviewed, dictated and finalized at location B.
== END 2023-01-31 14:45 | disposition home or self-care (01) ==
LOC: CHSIMG 14:46
PROVIDERS: PCP Internal Medicine; Visit Provider Internal Medicine Rheumatology
DX: L40.50 Arthropathic psoriasis, unspecified (principal); M54.50 Low back pain, unspecified; G89.29 Other chronic pain
CPT/HCPCS: 72202

== ENCOUNTER 2023-02-25 14:52 | Outpatient (CLI) | payer OTHER, SELFPAY ==
[2023-02-25 15:12] LABS: Basophils Absolute Auto 0.03 K/mm3 (0.00-0.10); Basophils Percent Auto 0.5 % (0.0-1.0); Eosinophils Absolute Auto 0.06 K/mm3 (0.02-0.50); Eosinophils Percent Auto 0.9 % (1.0-6.0); Hematocrit 32.7 % (35.0-49.0); Hemoglobin 10.3 g/dL (12.0-15.0); Immature Granulocyte Absolute 0.01 K/mm3 (0.00-0.00); Immature Granulocyte Percent A 0.2 % (0.0-0.0); Lymphocytes Absolute Auto 1.77 K/mm3 (1.10-4.50); Lymphocytes Percent Auto 27.2 % (18.0-42.0); Mean Corpuscular HGB Conc 31.5 g/dL (32.0-36.0); Mean Corpuscular Hemoglobin 26.2 pg (27.0-31.0); Mean Corpuscular Volume 83.2 fL (78.0-102.0); Mean Platelet Volume 9.1 fl (9.2-11.8); Monocytes Absolute Auto 0.54 K/mm3 (0.10-0.90); Monocytes Percent Auto 8.3 % (2.0-11.0); Neutrophils Absolute Auto 4.1 K/mm3 (1.7-7.2); Neutrophils Percent Auto 62.9 % (50.0-70.0); Platelet Count Result 295 K/mm3 (150-420); Red Blood Count 3.93 M/mm3 (4.20-5.40); Red Cell Distribution Width 13.8 % (11.6-14.4); White Blood Count 6.5 K/mm3 (4.8-10.8)
[2023-02-25 15:34] LABS: Alanine Aminotransferase 18 U/L (14-59); Albumin Level 3.3 g/dL (3.4-5.0); Alkaline Phosphatase 45 U/L (46-116); Anion Gap 8 mmol/L (8-16); Aspartate Amino Transferase 14 U/L (15-37); Bilirubin,Total 0.2 mg/dL (0.00-1.00); Blood Urea Nitrogen 14 mg/dL (7-18); CRP 0.9 mg/dL (0.0-0.9); Calcium 8.6 mg/dL (8.5-10.1); Carbon Dioxide 27 mmol/L (21-32); Chloride 106 mmol/L (98-108); Estimated Glomerular Filt Rate > 60; Glucose 104 mg/dL (70-99); Osmolality Calculated 292 mOsm/kg (285-295); Sodium 141 mmol/L (136-145); Total Protein 6.7 g/dL (6.4-8.2)
[2023-02-25 16:16] LABS: Erythrocyte Sedimentation Rate 20 mm/hr (0-15)
[2023-02-27 18:03] LABS: NIL 0.01 IU/mL; Quantiferon TB Plus, 1T NEGATIVE (NEGATIVE)
[2023-02-28 12:04] LABS: Hepatitis B Core Ab Total Nonreactive (Nonreactive)
[2023-02-28 12:06] LABS: Hepatitis B Core Antibody Nonreactive (Nonreactive); Hepatitis B Surface Antibody Reactive (Nonreactive); Hepatitis B Surface Antigen Nonreactive (Nonreactive); Hepatitis C Signal to Cutoff 0.01 ratio (<1.00); Hepatitis C Virus Antibody Nonreactive (Nonreactive)
== END 2023-02-25 14:53 | disposition home or self-care (01) ==
LOC: CHSLAB 14:55
PROVIDERS: PCP Internal Medicine; Visit Provider Internal Medicine Rheumatology
DX: D84.9 Immunodeficiency, unspecified (principal)
CPT/HCPCS: 36415; 80053; 85025; 85652; 86140; 86480; 86704; 86705; 86706; 86803; 87340

== ENCOUNTER 2023-03-03 13:38 | Outpatient (CLI) | payer OTHER, SELFPAY ==
[2023-03-03 14:06] LABS: Basophils Absolute Auto 0.03 K/mm3 (0.00-0.10); Basophils Percent Auto 0.5 % (0.0-1.0); Eosinophils Absolute Auto 0.05 K/mm3 (0.02-0.50); Eosinophils Percent Auto 0.8 % (1.0-6.0); Hematocrit 32.7 % (35.0-49.0); Hemoglobin 10.2 g/dL (12.0-15.0); Immature Granulocyte Absolute 0.02 K/mm3 (0.00-0.00); Immature Granulocyte Percent A 0.3 % (0.0-0.0); Lymphocytes Absolute Auto 1.55 K/mm3 (1.10-4.50); Lymphocytes Percent Auto 23.5 % (18.0-42.0); Mean Corpuscular HGB Conc 31.2 g/dL (32.0-36.0); Mean Corpuscular Volume 83.2 fL (78.0-102.0); Mean Platelet Volume 9.3 fl (9.2-11.8); Monocytes Absolute Auto 0.59 K/mm3 (0.10-0.90); Monocytes Percent Auto 8.9 % (2.0-11.0); Neutrophils Absolute Auto 4.4 K/mm3 (1.7-7.2); Platelet Count Result 347 K/mm3 (150-420); Red Blood Count 3.93 M/mm3 (4.20-5.40); Red Cell Distribution Width 13.8 % (11.6-14.4); White Blood Count 6.6 K/mm3 (4.8-10.8)
[2023-03-03 14:50] LABS: Ferritin 12 ng/mL (8-252); Free T3 2.52 pg/mL (2.18-3.98); Free T4 Free Thyroxine 0.98 ng/dL (0.76-1.46); Iron 48 ug/dL (50-170); Percent Iron Saturation 8 % (12-57); Thyroid Stimulating Hormone 0.85 uIU/mL (0.36-3.74); Vitamin B12 446 pg/mL (193-986)
[2023-03-06 11:32] LABS: Red Blood Cell Folate 720 ng/mL RBC (>280)
[2023-03-08 12:57] LABS: ANCA Screen Negative (Negative); Myeloperoxidase Ab <1.0 AI (<1.0); Proteinase-3 Ab <1.0 AI (<1.0); S cerevisiae Ab (IgA) 3.3 U (<=20.0); S cerevisiae Ab (IgG) 4.9 U (<=20.0)
[2023-03-08 16:10] LABS: Gliadin AB, IgG <1.0 U/mL (<15.0); TTG IGA AB <1.0 U/mL (<15.0)
== END 2023-03-03 13:39 | disposition home or self-care (01) ==
PROVIDERS: PCP Internal Medicine; Visit Provider Internal Medicine Rheumatology
DX: D64.9 Anemia, unspecified (principal); K52.9 Noninfective gastroenteritis and colitis, unspecified; D84.9 Immunodeficiency, unspecified; Z79.899 Other long term (current) drug therapy
CPT/HCPCS: 36415; 82607; 82728; 82747; 83516; 83540; 83550; 84439; 84443; 84481; 85025; 86036; 86255; 86671; 86753

== ENCOUNTER 2023-03-05 15:51 | Outpatient (CLI) | payer OTHER, SELFPAY ==
[2023-03-14 11:15] LABS: Fecal Fat, Ql Normal
== END 2023-03-05 15:52 | disposition home or self-care (01) ==
LOC: CHSLAB 15:53
PROVIDERS: PCP Internal Medicine; Visit Provider Internal Medicine
DX: R19.7 Diarrhea, unspecified (principal); D64.9 Anemia, unspecified
CPT/HCPCS: 36415; 82705; 87045; 87269; 87272; 87324; 87337; 87427

== ENCOUNTER 2023-03-12 08:29 | Outpatient (CLI) | payer OTHER, SELFPAY ==
--- NOTE | ~2023-03-12 | MR_ITS ---
EXAMINATION: 1. MR sacroiliac jts wo/w con, MR pelvis wo/w con DATE: 03/12/2023 10:25 INDICATION: Psoriatic arthritis with chronic bilateral low back and pelvic pain. TECHNIQUE: 1. Magnetic resonance imaging (MRI) of the pelvis hip was performed without and with 14 mL Multihance intravenous contrast. Sequences included axial, sagittal and coronal T1-weighted FSE and T2-weighted FS FSE, axial T1-weighted FS FSE and postcontrast axial, sagittal and coronal T2-weighted FS FSE. 2. MRI of the bilateral sacroiliac joints was performed without and with 14 mL Multihance Intravenous contrast utilizing the same contrast bolus. Sequences included sagittal PD-weighted FS FSE, and obli que coronal T2-weighted FS FSE, T1-weighted FSE and T2-weighted FSE and oblique axial T2-weighted FS FSE, T1-weighted FSE and T1-weighted FS FSE and postcontrast oblique axial and oblique coronal T1-mary ghted FS FSE. COMPARISON: None FINDINGS: Bone alignment is normal. No fracture or pathologic marrow replacing process. There is a region of o steonecrosis characterized by peripheral double line sign underlying the articular cortex at the apex of the right humeral head. The region of necrosis measures 2.2 cm anteroposteriorly and 1.7 cm media l to lateral. The overlying articular cortex appears intact with no evident collapse or findings to s uggest an unstable fragment. Similar region of osteonecrosis at the apex of the left femoral head ext ending 3.6 cm AP and 1.7 cm medial to lateral also without evident collapse or instability. Hip joint space, cartilage and labrum appears normal on both the left and right low sensitivity is lower than for a small [id number] dedicated hip MRI. No hip joint effusions or abnormal enhancing synovitis. Bilateral sacroiliac joint spaces also appear normal with no erosions or enhancing synovitis. Small S chmorl's node along the superior endplate of L5. Minimal lumbar spondylosis with annular fissure and minimal disc bulge without associated central canal stenosis at L4-L5. Minimal bilateral lower lumbar facet osteoarthritis. Cleft extending anteriorly from the endometrial canal and the anterior wall of the lower uterine segment consistent with sequela of prior section. Bladder and bilateral a dnexa are unremarkable. Visualized portions of the bowels are unremarkable. Postoperative changes wit h small foci of susceptibility artifact at the umbilicus which could represent either prior trocar ac cess site or sequela of umbilical hernia repair. No pathologically enlarged pelvic or inguinal lympha denopathy. IMPRESSION: 1. 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 2. Joint spaces appear normal at the bilateral hip and sacral iliac joints with no erosions or enhanc ing synovitis to suggest an inflammatory arthritis. Reviewed, dictated and finalized at location A. IMPRESSION: 1. Relatively symmetric osteonecrosis at the apices of the bilateral femoral he ads without evident articular surface collapse or findings to suggest unstable fragments. 2. Joint spaces appear normal at the bilateral hip and sacral iliac joints with no erosions or enhancing synovitis to suggest an inflammatory arthritis.
== END 2023-03-12 08:30 | disposition home or self-care (01) ==
PROVIDERS: PCP Internal Medicine; Visit Provider Internal Medicine Rheumatology
DX: L40.50 Arthropathic psoriasis, unspecified (principal); M54.50 Low back pain, unspecified; G89.29 Other chronic pain; M87.9 Osteonecrosis, unspecified
CPT/HCPCS: 72197; A9577

== ENCOUNTER 2023-03-27 17:40 | Outpatient (CLI) | payer OTHER, SELFPAY ==
[2023-04-02 20:52] LABS: Lupus dRVVT Screen 33 sec (<=45); PTT-LA Screen 32 sec (<=40)
== END 2023-03-27 17:41 | disposition home or self-care (01) ==
LOC: CHSLAB 17:43
PROVIDERS: PCP Internal Medicine; Visit Provider Internal Medicine Rheumatology
DX: M87.059 Idiopathic aseptic necrosis of unspecified femur (principal)
CPT/HCPCS: 36415; 85613; 85730; 86146; 86147

== ENCOUNTER 2023-04-05 11:52 | Outpatient (RCR) | payer OTHER, SELFPAY ==
[2023-04-05 12:20] LABS: Appearance Urine Cloudy (Clear); Basophils Absolute Auto 0.04 K/mm3 (0.00-0.10); Basophils Percent Auto 0.6 % (0.0-1.0); Bilirubin Urine Negative (Negative); Blood Urine 1+ (Negative); Color Urine Light Yellow (Yellow); Eosinophils Absolute Auto 0.07 K/mm3 (0.02-0.50); Glucose Urine UA Negative (Negative); Hematocrit 34.2 % (35.0-49.0); Hemoglobin 10.7 g/dL (12.0-15.0); Immature Granulocyte Absolute 0.03 K/mm3 (0.00-0.00); Immature Granulocyte Percent A 0.4 % (0.0-0.0); Ketones Urine Negative (Negative); Leukocyte Esterase Ur Negative (Negative); Lymphocytes Absolute Auto 1.99 K/mm3 (1.10-4.50); Mean Corpuscular HGB Conc 31.3 g/dL (32.0-36.0); Mean Platelet Volume 9.6 fl (9.2-11.8); Monocytes Absolute Auto 0.59 K/mm3 (0.10-0.90); Monocytes Percent Auto 8.3 % (2.0-11.0); Neutrophils Absolute Auto 4.4 K/mm3 (1.7-7.2); Neutrophils Percent Auto 61.7 % (50.0-70.0); Nitrate Urine Negative (Negative); Platelet Count Result 363 K/mm3 (150-420); Protein Urine Negative (Negative); Red Blood Count 4.12 M/mm3 (4.20-5.40); Red Cell Distribution Width 14.2 % (11.6-14.4); Specific Grav Ur <= 1.005 (1.010-1.020); Urobilinogen Urine 0.2 mg/dL (0.2-1.0); White Blood Count 7.1 K/mm3 (4.8-10.8); pH Urine 5.5 (5.0-8.0)
[2023-04-05 12:23] LABS: Add Urine Microscopic? YES; Squamous Epithelial Cell Urine Moderate /hpf (Few); WBC Urine None seen /hpf (0-3)
[2023-04-05 12:24] LABS: Bacteria Urine 1+ /hpf
[2023-04-05 12:29] LABS: Alanine Aminotransferase 21 U/L (14-59); Albumin Level 3.5 g/dL (3.4-5.0); Alkaline Phosphatase 46 U/L (46-116); Anion Gap 11 mmol/L (8-16); Aspartate Amino Transferase 16 U/L (15-37); Bilirubin,Total 0.5 mg/dL (0.00-1.00); Blood Urea Nitrogen 13 mg/dL (7-18); CRP 1.5 mg/dL (0.0-0.9); Calcium 9.1 mg/dL (8.5-10.1); Carbon Dioxide 24 mmol/L (21-32); Chloride 100 mmol/L (98-108); Estimated Glomerular Filt Rate > 60; Glucose 91 mg/dL (70-99); Osmolality Calculated 280 mOsm/kg (285-295); Potassium 4.2 mmol/L (3.5-5.1); Sodium 135 mmol/L (136-145)
[2023-04-05 13:13] LABS: Erythrocyte Sedimentation Rate 19 mm/hr (0-15)
== END 2023-07-04 23:59 | disposition home or self-care (01) ==
LOC: CHSLAB 11:52
PROVIDERS: PCP Internal Medicine; Visit Provider Internal Medicine Rheumatology
DX: Z51.81 Encounter for therapeutic drug level monitoring (principal); L40.50 Arthropathic psoriasis, unspecified; Z79.899 Other long term (current) drug therapy
CPT/HCPCS: 36415; 80053; 81001; 85025; 85652; 86140

== ENCOUNTER 2023-04-10 18:04 | Emergency (ER) | payer OTHER, SELFPAY ==
[2023-04-10 18:10] VITALS: BP 108/76; PULSE 57; TEMP 36.6; O2SAT 100
--- NOTE | 2023-04-10 18:31 | ED.CHESTPAIN ---
HPI - Chest Pain General Chief Complaint: Chest Pain Stated Complaint: iron reaction Time Seen by Provider: 04/10/23 18:16 Source: patient Mode of arrival: ambulatory Limitations: no limitations History of Present Illness HPI narrative: Patient having some chest tightness and itchy rash on lower extremities after she had an iron infusion earlier today otherwise there is no shortness of breath no audible wheezing no fever chills. complaint: chest discomfort Related Data Home Medications Medication Instructions Recorded Confirmed celecoxib 100 mg capsule 100 mg PO BID 01/04/22 04/08/23 lamotrigine 100 mg tablet 100 mg PO DAILY 01/04/22 04/08/23 metoprolol succinate 25 mg 25 mg PO DAILY 01/04/22 04/08/23 tablet,extended release 24 hr pantoprazole 40 mg tablet,delayed 40 mg PO BID 01/04/22 04/08/23 release paroxetine HCl 30 mg tablet 30 mg PO BID 01/04/22 04/08/23 trazodone 150 mg tablet 150 mg PO DAILY 01/04/22 04/08/23 ustekinumab 45 mg/0.5 mL 45 mg subcut ONCE 03/19/22 04/08/23 subcutaneous syringe (Impulsivlara) hyoscyamine sulfate 0.125 mg tablet 0.125 mg PO QID 04/08/23 04/08/23 leflunomide 10 mg tablet 10 mg PO DAILY 04/08/23 04/08/23 Allergies Allergy/AdvReac Type Severity Reaction Status Date / Time ciprofloxacin Allergy Unknown HIVES Verified 04/10/23 18:15 metronidazole Allergy Unknown HIVES Verified 04/10/23 18:15 Review of Systems Review of Systems: All systems reviewed & are unremarkable except as noted in HPI and below PMFSH Past Medical History Medical History Anxiety Asthma Depression Endometriosis Epigastric pain GERD (gastroesophageal reflux disease) Intrauterine adhesions Irritable bowel Miscarriage Nausea & vomiting Panic disorder Rheumatoid arthritis Weight loss Surgical History Surgical History H/O dilation and curettage H/O myringotomy Hx of cholecystectomy Hx of tonsillectomy Previous section S/P Adama fundoplication (with gastrostomy tube placement) Social History Social History Smoking status: Never smoker Alcohol intake: never Substance use: never Lack of Transportation: No Lack of Food: Never True Current Housing: I Have Housing Concerned About Future Housing: No Difficulty Paying Gas/Electric Bills: No Difficulty Paying for Meds: No Currently Unemployed: No Education: Bachelor's Degree Difficulty w/ Childcare or Family Care: No Gender identity (if verbalized by the patient): Female Spiritual care concerns: No Exam Const: General: cooperative, healthy appearing and comfortable HENMT: Head: normal to inspection Ears: hearing grossly normal bilaterally Face/Nose/Sinus: Normal external nose present Face and sinus: normal facial exam Mouth: Yes Normal oral and palatal mucosa present Throat: posterior oropharynx normal Eyes: General: appearance normal, both eyes and all related structures Visual Cooley: normal visual cooley by confrontation Neck: Neck: normal visual inspection Chest: Chest palpation & inspection: normal inspection of the chest Resp: Effort & Inspection: normal respiratory effort and able to speak in complete sentences Auscultation: clear to auscultation bilaterally Cardio: Jugular venous distension: no JVD Palpation: normal PMI Rate: regular rate Rhythm: regular rhythm GI: Inspection: normal to inspection : General: Yes bimanual renal exam normal bilaterally Back/Spine/Pelvis: Back: no CVA tenderness Cervical Spine: normal cervical lordosis Skin: General skin exam: normal color and no rashes or lesions noted Lesions: no lesions Rashes: no rashes Neuro: General: oriented to person, oriented to place and oriented to time Extrem: General: normal to inspection, full ROM and capillary refill normal Right lower extremity: lalo
[2023-04-10] MEDS: methylPREDNISolone ACETATE 40 MG/ML VIAL 80 MG IM (18:32)
== END 2023-04-10 18:51 | disposition home or self-care (01) ==
PROVIDERS: Emergency Provider Emergency Medicine; PCP Internal Medicine
DX: T78.40XA Allergy, unspecified, initial encounter (principal); M06.9 Rheumatoid arthritis, unspecified; K21.9 Gastro-esophageal reflux disease without esophagitis; F41.9 Anxiety disorder, unspecified; F32.A Depression, unspecified
CPT/HCPCS: 96372; 99283; J1030

== ENCOUNTER 2023-05-10 12:37 | Outpatient (CLI) | payer OTHER, SELFPAY ==
[2023-05-10 12:54] LABS: Hematocrit 38.2 % (35.0-49.0); Hemoglobin 12.1 g/dL (12.0-15.0); Mean Corpuscular HGB Conc 31.7 g/dL (32.0-36.0); Mean Corpuscular Hemoglobin 26.7 pg (27.0-31.0); Mean Corpuscular Volume 84.3 fL (78.0-102.0); Platelet Count Result 357 K/mm3 (150-420); Red Blood Count 4.53 M/mm3 (4.20-5.40); Red Cell Distribution Width 14.9 % (11.6-14.4)
[2023-05-10 13:41] LABS: Ferritin 221 ng/mL (8-252); Iron 72 ug/dL (50-170); Percent Iron Saturation 14 % (12-57)
== END 2023-05-10 12:38 | disposition home or self-care (01) ==
LOC: CHSLAB 12:39
PROVIDERS: PCP Internal Medicine; Visit Provider Internal Medicine Rheumatology
DX: D50.0 Iron deficiency anemia secondary to blood loss (chronic) (principal)
CPT/HCPCS: 36415; 82728; 83540; 83550; 85027

== ENCOUNTER 2023-05-12 10:55 | Outpatient (CLI) | payer OTHER, SELFPAY ==
[2023-05-12 11:29] LABS: Basophils Absolute Auto 0.04 K/mm3 (0.00-0.10); Basophils Percent Auto 0.8 % (0.0-1.0); Eosinophils Absolute Auto 0.08 K/mm3 (0.02-0.50); Eosinophils Percent Auto 1.6 % (1.0-6.0); Hematocrit 38.8 % (35.0-49.0); Hemoglobin 12.3 g/dL (12.0-15.0); Immature Granulocyte Absolute 0.02 K/mm3 (0.00-0.00); Immature Granulocyte Percent A 0.4 % (0.0-0.0); Lymphocytes Absolute Auto 1.54 K/mm3 (1.10-4.50); Lymphocytes Percent Auto 29.9 % (18.0-42.0); Mean Corpuscular HGB Conc 31.7 g/dL (32.0-36.0); Mean Corpuscular Hemoglobin 26.9 pg (27.0-31.0); Mean Corpuscular Volume 84.7 fL (78.0-102.0); Mean Platelet Volume 9.1 fl (9.2-11.8); Monocytes Absolute Auto 0.47 K/mm3 (0.10-0.90); Monocytes Percent Auto 9.1 % (2.0-11.0); Neutrophils Percent Auto 58.2 % (50.0-70.0); Platelet Count Result 373 K/mm3 (150-420); Red Blood Count 4.58 M/mm3 (4.20-5.40); Red Cell Distribution Width 14.9 % (11.6-14.4); White Blood Count 5.2 K/mm3 (4.8-10.8)
[2023-05-12 11:30] LABS: Appearance Urine Clear (Clear); Bilirubin Urine Negative (Negative); Blood Urine Negative (Negative); Color Urine Light Yellow (Yellow); Glucose Urine UA Negative (Negative); Ketones Urine Negative (Negative); Leukocyte Esterase Ur Negative (Negative); Nitrate Urine Negative (Negative); Protein Urine Negative (Negative); Specific Grav Ur <= 1.005 (1.010-1.020); Urobilinogen Urine 0.2 mg/dL (0.2-1.0)
[2023-05-12 11:53] LABS: Add Urine Microscopic? NO
[2023-05-12 12:27] LABS: Alanine Aminotransferase 24 U/L (14-59); Albumin Level 3.9 g/dL (3.4-5.0); Alkaline Phosphatase 59 U/L (46-116); Anion Gap 10 mmol/L (8-16); Aspartate Amino Transferase 12 U/L (15-37); Bilirubin,Total 0.2 mg/dL (0.00-1.00); Blood Urea Nitrogen 14 mg/dL (7-18); Calcium 9.5 mg/dL (8.5-10.1); Carbon Dioxide 27 mmol/L (21-32); Chloride 101 mmol/L (98-108); Estimated Glomerular Filt Rate > 60; Glucose 87 mg/dL (70-99); Osmolality Calculated 285 mOsm/kg (285-295); Potassium 4.6 mmol/L (3.5-5.1); Sodium 138 mmol/L (136-145); Total Protein 7.4 g/dL (6.4-8.2)
[2023-05-12 12:30] LABS: Erythrocyte Sedimentation Rate 10 mm/hr (0-15)
[2023-05-14 18:12] LABS: Complement Total CH50 >60 U/mL (31-60)
[2023-05-15 11:00] LABS: Complement C3 178 mg/dL (83-193)
[2023-05-15 21:42] LABS: Immunoglobulin E 28 kU/L (<=114)
[2023-05-16 09:36] LABS: Reference Lab Test Name TRYPTASE
[2023-05-16 10:29] LABS: Immunoglobulin A 84 mg/dL (47-310)
[2023-05-16 10:38] LABS: Immunoglobulin A 84 mg/dL (47-310); TTG IGA AB <1.0 U/mL (<15.0)
== END 2023-05-12 10:56 | disposition home or self-care (01) ==
LOC: CHSLAB 10:58
PROVIDERS: PCP Internal Medicine; Visit Provider Internal Medicine
DX: R21 Rash and other nonspecific skin eruption (principal); R09.89 Other specified symptoms and signs involving the circulatory and respiratory systems; N39.0 Urinary tract infection, site not specified; R82.90 Unspecified abnormal findings in urine
CPT/HCPCS: 36415; 80053; 81003; 82784; 82785; 83516; 83520; 85025; 85652; 86140; 86160; 86162; 87086

== ENCOUNTER 2023-05-14 18:35 | Outpatient (CLI) | payer OTHER, SELFPAY ==
[2023-05-14 19:32] LABS: Basophils Absolute Auto 0.02 K/mm3 (0.00-0.10); Basophils Percent Auto 0.1 % (0.0-1.0); Hematocrit 36.8 % (35.0-49.0); Hemoglobin 11.6 g/dL (12.0-15.0); Immature Granulocyte Percent A 0.7 % (0.0-0.0); Lymphocytes Absolute Auto 0.89 K/mm3 (1.10-4.50); Lymphocytes Percent Auto 6.1 % (18.0-42.0); Mean Corpuscular HGB Conc 31.5 g/dL (32.0-36.0); Mean Corpuscular Hemoglobin 26.7 pg (27.0-31.0); Mean Corpuscular Volume 84.8 fL (78.0-102.0); Mean Platelet Volume 9.3 fl (9.2-11.8); Monocytes Absolute Auto 0.18 K/mm3 (0.10-0.90); Monocytes Percent Auto 1.2 % (2.0-11.0); Neutrophils Absolute Auto 13.3 K/mm3 (1.7-7.2); Neutrophils Percent Auto 91.9 % (50.0-70.0); Platelet Count Result 410 K/mm3 (150-420); Red Blood Count 4.34 M/mm3 (4.20-5.40); Red Cell Distribution Width 15.1 % (11.6-14.4); White Blood Count 14.5 K/mm3 (4.8-10.8)
[2023-05-14 19:50] LABS: Alanine Aminotransferase 19 U/L (14-59); Albumin Level 3.6 g/dL (3.4-5.0); Alkaline Phosphatase 60 U/L (46-116); Anion Gap 12 mmol/L (8-16); Aspartate Amino Transferase 13 U/L (15-37); Bilirubin,Total 0.2 mg/dL (0.00-1.00); Blood Urea Nitrogen 18 mg/dL (7-18); Calcium 9.1 mg/dL (8.5-10.1); Carbon Dioxide 25 mmol/L (21-32); Chloride 99 mmol/L (98-108); Estimated Glomerular Filt Rate > 60; Free T3 1.39 pg/mL (2.18-3.98); Free T4 Free Thyroxine 0.81 ng/dL (0.76-1.46); Glucose 125 mg/dL (70-99); Osmolality Calculated 284 mOsm/kg (285-295); Potassium 4.5 mmol/L (3.5-5.1); Sodium 136 mmol/L (136-145); Thyroid Stimulating Hormone 0.16 uIU/mL (0.36-3.74); Total Protein 7.1 g/dL (6.4-8.2)
[2023-05-14 19:51] LABS: Appearance Urine Clear (Clear); Bilirubin Urine Negative (Negative); Blood Urine Negative (Negative); Color Urine Light Yellow (Yellow); Glucose Urine UA Negative (Negative); Ketones Urine Negative (Negative); Leukocyte Esterase Ur Negative (Negative); Nitrate Urine Negative (Negative); Protein Urine Negative (Negative); Specific Grav Ur <= 1.005 (1.010-1.020); Urobilinogen Urine 0.2 mg/dL (0.2-1.0)
[2023-05-14 19:52] LABS: CRP 12.8 mg/dL (0.0-0.9)
[2023-05-14 19:59] LABS: Add Urine Microscopic? NO
[2023-05-14 20:34] LABS: Erythrocyte Sedimentation Rate 26 mm/hr (0-15)
[2023-05-19 15:53] LABS: Immunoglobulin G 624 mg/dL (600-1640); Immunoglobulin M 33 mg/dL (50-300)
[2023-05-22 14:04] LABS: ANCA Screen Negative (Negative)
== END 2023-05-14 18:36 | disposition home or self-care (01) ==
LOC: CHSLAB 18:37
PROVIDERS: PCP Internal Medicine; Visit Provider Internal Medicine
DX: R21 Rash and other nonspecific skin eruption (principal); R50.9 Fever, unspecified
CPT/HCPCS: 36415; 80053; 81003; 82784; 84439; 84443; 84481; 85025; 85652; 86036; 86038; 86140; 87040; 87086

== ENCOUNTER 2023-05-15 13:27 | Outpatient (CLI) | payer OTHER, SELFPAY ==
[2023-05-15 14:13] LABS: Strep Group A RT-PCR NOT DETECTED (Negative)
[2023-05-15 14:14] LABS: Influenza A QL RT-PCR Negative (Negative); Influenza B QL RT-PCR Negative (Negative); SARS-CoV-2 RNA PCR Negative (Negative)
[2023-05-15 14:17] LABS: RSV RNA, RT-PCR Negative (Negative)
== END 2023-05-15 13:28 | disposition home or self-care (01) ==
LOC: CHSLAB 13:27
PROVIDERS: PCP Internal Medicine; Visit Provider Internal Medicine
DX: R50.9 Fever, unspecified (principal); Z20.822 Contact with and (suspected) exposure to COVID-19
CPT/HCPCS: 87637; 87651

== ENCOUNTER 2023-06-08 09:05 | Outpatient (CLI) | payer OTHER, SELFPAY ==
[2023-06-08 10:54] LABS: Basophils Absolute Auto 0.02 K/mm3 (0.00-0.10); Basophils Percent Auto 0.4 % (0.0-1.0); Eosinophils Absolute Auto 0.07 K/mm3 (0.02-0.50); Eosinophils Percent Auto 1.4 % (1.0-6.0); Hematocrit 35.7 % (35.0-49.0); Hemoglobin 11.4 g/dL (12.0-15.0); Immature Granulocyte Absolute 0.02 K/mm3 (0.00-0.00); Immature Granulocyte Percent A 0.4 % (0.0-0.0); Lymphocytes Absolute Auto 1.64 K/mm3 (1.10-4.50); Lymphocytes Percent Auto 33.3 % (18.0-42.0); Mean Corpuscular HGB Conc 31.9 g/dL (32.0-36.0); Mean Corpuscular Hemoglobin 27.3 pg (27.0-31.0); Mean Corpuscular Volume 85.6 fL (78.0-102.0); Mean Platelet Volume 8.5 fl (9.2-11.8); Monocytes Absolute Auto 0.57 K/mm3 (0.10-0.90); Monocytes Percent Auto 11.6 % (2.0-11.0); Neutrophils Absolute Auto 2.6 K/mm3 (1.7-7.2); Neutrophils Percent Auto 52.9 % (50.0-70.0); Platelet Count Result 341 K/mm3 (150-420); Red Blood Count 4.17 M/mm3 (4.20-5.40); White Blood Count 4.9 K/mm3 (4.8-10.8)
[2023-06-08 11:19] LABS: Ferritin 200 ng/mL (8-252); Iron 81 ug/dL (50-170); Thyroid Stimulating Hormone 0.93 uIU/mL (0.36-3.74)
== END 2023-06-08 09:06 | disposition home or self-care (01) ==
LOC: CHSLAB 09:09
PROVIDERS: PCP Internal Medicine
DX: E04.1 Nontoxic single thyroid nodule (principal); D50.9 Iron deficiency anemia, unspecified
CPT/HCPCS: 36415; 82728; 83540; 84443; 85025

== ENCOUNTER 2023-06-12 15:03 | Outpatient (CLI) | payer OTHER, SELFPAY ==
[2023-06-12 15:20] LABS: Hematocrit 29.4 % (35.0-49.0); Hemoglobin 9.4 g/dL (12.0-15.0); Mean Corpuscular Hemoglobin 27.6 pg (27.0-31.0); Mean Corpuscular Volume 86.5 fL (78.0-102.0); Mean Platelet Volume 8.7 fl (9.2-11.8); Platelet Count Result 345 K/mm3 (150-420); Red Cell Distribution Width 14.3 % (11.6-14.4); White Blood Count 7.9 K/mm3 (4.8-10.8)
== END 2023-06-12 15:04 | disposition home or self-care (01) ==
LOC: CHSLAB 15:04
PROVIDERS: PCP Internal Medicine; Visit Provider Obstetrics & Gynecology
DX: N92.0 Excessive and frequent menstruation with regular cycle (principal)
CPT/HCPCS: 36415; 85027

== ENCOUNTER 2023-06-24 15:35 | Outpatient (CLI) | payer OTHER, SELFPAY ==
[2023-06-24 15:52] LABS: Basophils Absolute Auto 0.09 K/mm3 (0.00-0.10); Eosinophils Absolute Auto 0.26 K/mm3 (0.02-0.50); Eosinophils Percent Auto 2.9 % (1.0-6.0); Hemoglobin 10.7 g/dL (12.0-15.0); Immature Granulocyte Absolute 0.06 K/mm3 (0.00-0.00); Immature Granulocyte Percent A 0.7 % (0.0-0.0); Lymphocytes Absolute Auto 2.35 K/mm3 (1.10-4.50); Lymphocytes Percent Auto 26.2 % (18.0-42.0); Mean Corpuscular HGB Conc 31.5 g/dL (32.0-36.0); Mean Corpuscular Hemoglobin 27.8 pg (27.0-31.0); Mean Corpuscular Volume 88.3 fL (78.0-102.0); Mean Platelet Volume 8.5 fl (9.2-11.8); Monocytes Percent Auto 7.8 % (2.0-11.0); Neutrophils Absolute Auto 5.5 K/mm3 (1.7-7.2); Neutrophils Percent Auto 61.4 % (50.0-70.0); Platelet Count Result 456 K/mm3 (150-420); Red Blood Count 3.85 M/mm3 (4.20-5.40); Red Cell Distribution Width 14.8 % (11.6-14.4)
== END 2023-06-24 15:36 | disposition home or self-care (01) ==
LOC: CHSIMG 15:38 → CHSLAB 15:42
PROVIDERS: PCP Internal Medicine; Visit Provider Internal Medicine
DX: D64.9 Anemia, unspecified (principal)
CPT/HCPCS: 36415; 85025

== ENCOUNTER 2023-08-11 15:01 | Outpatient (CLI) | payer OTHER, SELFPAY ==
[2023-08-11 15:44] LABS: Appearance Urine Clear (Clear); Bilirubin Urine Negative (Negative); Blood Urine Negative (Negative); Color Urine Yellow (Yellow); Glucose Urine UA Negative (Negative); Ketones Urine Negative (Negative); Leukocyte Esterase Ur Negative LEU/UL (NEGATIVE); Nitrate Urine Negative (Negative); Protein Urine Negative (Negative); Specific Grav Ur 1.008 (1.001-1.035); Urobilinogen Urine 0.2 mg/dL (<2.0); pH Urine 5.5 (5.0-9.0)
[2023-08-11 15:52] LABS: Add Urine Microscopic? NO
== END 2023-08-11 15:02 | disposition home or self-care (01) ==
LOC: ANHLAB 15:03
PROVIDERS: PCP Internal Medicine; Visit Provider Urology
DX: R82.90 Unspecified abnormal findings in urine (principal)
CPT/HCPCS: 81003; 87086

== ENCOUNTER 2023-10-02 17:23 | Emergency (ER) | payer OTHER, SELFPAY ==
[2023-10-02 17:32] VITALS: BP 101/59; PULSE 61; RESP 18; TEMP 36.3; O2SAT 98
--- NOTE | 2023-10-02 17:38 | ED.URI ---
HPI - URI/Sore Throat General Chief Complaint: Upper Respiratory Infection Stated Complaint: bilateral ear pain,congestion Time Seen by Provider: 10/02/23 17:35 Source: patient Mode of arrival: ambulatory Limitations: no limitations History of Present Illness HPI Narrative: Lizy is a 32-year-old female patient presenting to the clinic today with complaints of nasal congestion, postnasal drip, and bilateral ear pain. She denies sore throat. Reports symptoms started about 5 days ago. Denies any fever or chills. States she is concerned as she takes medicines for rheumatoid arthritis and states she is immunocompromised MD elicited complaint: sore throat and nasal congestion Related Data Home Medications Medication Instructions Recorded Confirmed celecoxib 100 mg capsule 100 mg PO BID 01/04/22 10/02/23 lamotrigine 100 mg tablet 100 mg PO DAILY 01/04/22 10/02/23 metoprolol succinate 25 mg 25 mg PO DAILY 01/04/22 10/02/23 tablet,extended release 24 hr pantoprazole 40 mg tablet,delayed 40 mg PO BID 01/04/22 10/02/23 release trazodone 150 mg tablet 150 mg PO DAILY 01/04/22 10/02/23 ustekinumab 45 mg/0.5 mL 45 mg subcut ONCE 03/19/22 10/02/23 subcutaneous syringe (Stelara) hyoscyamine sulfate 0.125 mg tablet 0.125 mg PO QID 04/08/23 10/02/23 leflunomide 10 mg tablet 10 mg PO DAILY 04/08/23 10/02/23 levonorgestrel 21 mcg/24 hours (8 1 device intrauterine ONCE 07/10/23 10/02/23 yrs) 52 mg intrauterine device (Mirena) Allergies Allergy/AdvReac Type Severity Reaction Status Date / Time ciprofloxacin Allergy Unknown HIVES Verified 07/10/23 13:41 metronidazole Allergy Unknown HIVES Verified 07/10/23 13:41 Review of Systems Review of Systems: Pertinent positives per HPI. Patient denies any fever, chills, rash, headache, visual changes, dizziness, shortness of breath, chest pain, palpitations, nausea, vomiting, diarrhea, constipation, abdominal pain, or any urinary issues. PMFSH Past Medical History Medical History Anxiety Asthma Depression Endometriosis Epigastric pain GERD (gastroesophageal reflux disease) Intrauterine adhesions Irritable bowel Miscarriage Nausea & vomiting Panic disorder Rheumatoid arthritis Weight loss Surgical History Surgical History H/O dilation and curettage H/O myringotomy Hx of cholecystectomy Hx of tonsillectomy Previous section S/P Adama fundoplication (with gastrostomy tube placement) Social History Social History Smoking status: Never smoker Alcohol intake: never Substance use: never Lack of Transportation: No Lack of Food: Never True Current Housing: I Have Housing Concerned About Future Housing: No Difficulty Paying Gas/Electric Bills: No Difficulty Paying for Meds: No Currently Unemployed: No Education: Bachelor's Degree Difficulty w/ Childcare or Family Care: No Gender identity (if verbalized by the patient): Female Spiritual care concerns: No Comments At the time of my signature, I reviewed and agree with the nursing past medical, surgical, social, and family history. There is no relevant family history pertinent to the patient complaint. Exam Narrative: General: Well-developed, well nourished, in no apparent distress Head: Normocephalic, atraumatic Eyes: Pupils equally round and reactive to light bilaterally, EOM intact, sclera and conjunctive clear, no discharge, lids normal Ears: TMs intact and congested with fluids noted behind bilateral TM, ear canals clear, no drainage, grossly hearing normal. Nose: Nares patent, clear nasal discharge, moderate inflammation, no sinus tenderness. Mouth: Oral pharynx without lesions or masses, good dentition, MMM. PND Neck: Supple, trachea midline, no enlargement of anterior or posterior cervical nodes, no
== END 2023-10-02 17:49 | disposition home or self-care (01) ==
PROVIDERS: Emergency Provider Nurse Practitioner Family; PCP Internal Medicine
DX: H65.93 Unspecified nonsuppurative otitis media, bilateral (principal); J06.9 Acute upper respiratory infection, unspecified; R09.82 Postnasal drip; N80.9 Endometriosis, unspecified; K21.9 Gastro-esophageal reflux disease without esophagitis; M06.9 Rheumatoid arthritis, unspecified; F41.9 Anxiety disorder, unspecified; F32.A Depression, unspecified
CPT/HCPCS: 99213; G0463

== ENCOUNTER 2023-10-14 10:39 | Outpatient (CLI) | payer OTHER, SELFPAY ==
--- NOTE | ~2023-10-14 | XR_ITS ---
EXAMINATION: XR chest 2V DATE: 12/05/2023 10:46 INDICATION: Worsening cough. Influenza. TECHNIQUE: PA and lateral views of the chest were obtained. COMPARISON: Chest radiograph dated 01/07/2022 FINDINGS: The lungs remain clear with no focal airspace opacities, pulmonary edema, pleural effusion or pneumot horax. The cardiomediastinal silhouette is normal. Visualized bones and soft tissues are unremarkable . IMPRESSION: 1. No acute cardiopulmonary disease. Reviewed, dictated and finalized at location A. GHT FORWARDER
[2023-10-14 11:27] LABS: Basophils Absolute Auto 0.03 K/mm3 (0.00-0.10); Basophils Percent Auto 0.5 % (0.0-1.0); Eosinophils Absolute Auto 0.09 K/mm3 (0.02-0.50); Eosinophils Percent Auto 1.4 % (1.0-6.0); Hematocrit 37.1 % (35.0-49.0); Hemoglobin 11.5 g/dL (12.0-15.0); Immature Granulocyte Absolute 0.02 K/mm3 (0.00-0.00); Immature Granulocyte Percent A 0.3 % (0.0-0.0); Lymphocytes Absolute Auto 1.91 K/mm3 (1.10-4.50); Lymphocytes Percent Auto 29.1 % (18.0-42.0); Mean Corpuscular Hemoglobin 24.7 pg (27.0-31.0); Mean Corpuscular Volume 79.6 fL (78.0-102.0); Monocytes Absolute Auto 0.48 K/mm3 (0.10-0.90); Monocytes Percent Auto 7.3 % (2.0-11.0); Neutrophils Percent Auto 61.4 % (50.0-70.0); Platelet Count Result 336 K/mm3 (150-420); Red Blood Count 4.66 M/mm3 (4.20-5.40); Red Cell Distribution Width 15.9 % (11.6-14.4); White Blood Count 6.6 K/mm3 (4.8-10.8)
[2023-10-14 11:31] LABS: Add Urine Microscopic? NO; Appearance Urine Clear (Clear); Bilirubin Urine Negative (Negative); Blood Urine Negative (Negative); Color Urine Light Yellow (Yellow); Glucose Urine UA Negative (Negative); Ketones Urine Negative (Negative); Leukocyte Esterase Ur Negative LEU/UL (Negative); Nitrate Urine Negative (Negative); Protein Urine Negative (Negative); Urobilinogen Urine 0.2 mg/dL (0.2-1.0); pH Urine 6.5 (5.0-8.0)
[2023-10-14 12:12] LABS: Alanine Aminotransferase 32 U/L (14-59); Albumin Level 3.7 g/dL (3.4-5.0); Alkaline Phosphatase 74 U/L (46-116); Anion Gap 9 mmol/L (8-16); Aspartate Amino Transferase 18 U/L (15-37); Bilirubin,Total 0.4 mg/dL (0.00-1.00); Blood Urea Nitrogen 19 mg/dL (7-18); Calcium 9.1 mg/dL (8.5-10.1); Carbon Dioxide 29 mmol/L (21-32); Chloride 101 mmol/L (98-108); Cholesterol 212 mg/dL (0-200); Estimated Glomerular Filt Rate > 60; Free T4 Free Thyroxine 0.85 ng/dL (0.76-1.46); Glucose 85 mg/dL (70-99); HDL Direct 63 mg/dL (40-60); LDL Cholesterol Calculated 119 mg/dL (<130); Osmolality Calculated 289 mOsm/kg (285-295); Potassium 4.5 mmol/L (3.5-5.1); Sodium 139 mmol/L (136-145); Thyroid Stimulating Hormone 1.03 uIU/mL (0.36-3.74); Total Protein 7.6 g/dL (6.4-8.2); Triglycerides 149 mg/dL (0-150)
[2023-10-15 12:16] LABS: Bilirubin Direct 0.1 mg/dL (0-0.2); Ferritin 35 ng/mL (8-252); Iron 124 ug/dL (50-170); Percent Iron Saturation 27 % (12-57)
== END 2023-10-14 10:40 | disposition home or self-care (01) ==
PROVIDERS: PCP Nurse Practitioner Family; Visit Provider Internal Medicine Rheumatology
DX: Z00.00 Encounter for general adult medical examination without abnormal findings (principal); F34.1 Dysthymic disorder; Z79.899 Other long term (current) drug therapy; D50.0 Iron deficiency anemia secondary to blood loss (chronic)
CPT/HCPCS: 36415; 80053; 80061; 81003; 82248; 82728; 83036; 83540; 83550; 84439; 84443; 85025

== ENCOUNTER 2023-11-05 08:42 | Outpatient (CLI) | payer OTHER, SELFPAY ==
--- NOTE | ~2023-11-05 | MR_ITS ---
MRI of the right hip Clinical history: Pain Technique: Coronal T1-weighted, T2-weighted, and proton-density fat-sat images, and axial T1-weighted and proton-density fat-sat images were acquired through the pelvis. Coronal T2-weighted images and c oronal, axial, and sagittal proton-density fat-sat images were acquired through the right hip. Findings: There is no fracture or transient suppresses of either hip. There is geographic signal real ity of the right femoral head, compatible small to very small area of avascular necrosis. There is tr act from prior screw placement in the right femoral neck. There is also small area of avascular necro sis at the superior left femoral head, with orthopedic screw versus tract in the left femoral neck. N o evidence of subchondral fracture articular surface collapse. No significant degenerative change of either hip joint. No joint effusion. No acetabular labral tear evident. Visualized musculature about the pelvis and right hip is unremarkable. No muscle atrophy or edema. Vi sualized tendons are intact. No bursitis. No soft tissue mass or fluid collection. 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 Evidence of prior presumed core decompr ession surgery bilaterally. Correlate with cervical history. No secondary osteoarthritis or subchondr al fracture. Reviewed, dictated and finalized at location M. 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 Evidence of prior presumed core decompression surgery bilaterally. Correlate with cervical histo ry. No secondary osteoarthritis or subchondral fracture.
--- NOTE | ~2023-11-05 | MR_ITS ---
MRI of the left hip Clinical history: Pain Technique: Coronal T1-weighted, T2-weighted, and proton-density fat-sat images, and axial T1-weighted and proton-density fat-sat images were acquired through the pelvis. Coronal T2-weighted images and c oronal, axial, and sagittal proton-density fat-sat images were acquired through the left hip. Findings: There is no fracture or transient suppresses of either hip. There is geographic signal abno rmality of the right femoral head, compatible small to very small area of avascular necrosis. There i s tract from prior screw placement in the right femoral neck. There is also small area of avascular n ecrosis at the superior left femoral head, with orthopedic screw versus tract in the left femoral nec k. No evidence of subchondral fracture articular surface collapse. No significant degenerative change of either hip joint. No joint effusion. No acetabular labral tear evident. Visualized musculature about the pelvis and left hip is unremarkable. No muscle atrophy or edema. Vis ualized tendons are intact. No bursitis. No soft tissue mass or fluid collection. 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 Evidence of prior presumed core decompr ession surgery bilaterally. Correlate with cervical history. No secondary osteoarthritis or subchondr al fracture. Reviewed, dictated and finalized at location M. 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 Evidence of prior presumed core decompression surgery bilaterally. Correlate with cervical histo ry. No secondary osteoarthritis or subchondral fracture.
== END 2023-11-05 08:43 | disposition home or self-care (01) ==
PROVIDERS: PCP Internal Medicine
DX: M87.051 Idiopathic aseptic necrosis of right femur (principal); M87.052 Idiopathic aseptic necrosis of left femur; Z47.89 Encounter for other orthopedic aftercare
CPT/HCPCS: 73721

== ENCOUNTER 2023-11-06 06:59 | Observation (INO) | payer OTHER, SELFPAY ==
[2023-11-06] VITALS (37 sets, daily range): BP systolic 100–130; BP diastolic 60–89; PULSE 45–115; RESP 11–20; TEMP 36.6–36.9; O2SAT 96–100; BMI 29.0
--- NOTE | ~2023-11-06 | MR_ITS ---
EXAMINATION: MR brain/brain stem wo/w con DATE: 11/06/2023 14:16 INDICATION: Vertigo TECHNIQUE: Magnetic resonance imaging (MRI) of the brain and brainstem was performed without and with 15 mL Multihance intravenous contrast. Sequences included sagittal and axial T1-weighted SE, axial d iffusion-weighted FS SE, axial 3D SWAN, axial T2-weighted FLAIR, and axial T2-weighted FSE. Postcontr ast axial and coronal T1-weighted SE was obtained. Apparent diffusion coefficient (ADC) maps were cre ated. COMPARISON: 11/06/2023 FINDINGS: There are no areas of restricted diffusion to suggest acute infarction. No intracranial hemorrhage or abnormal intracranial mass lesion. There are no intraparenchymal signal abnormalities seen on the ot her pulse sequences. The ventricles are symmetric and normal in size. There are no abnormal extra-axi al fluid collections. Flow voids are seen in the cerebral arteries on the T2-weighted sequences consi stent with their expected patency. Mild mucosal thickening bilateral ethmoid sinuses and mucous reten tion cyst at the base of the bilateral maxillary sinuses. Visualized orbits and soft tissues are unre markable. There are no areas of abnormal enhancement on the post contrast images. IMPRESSION: 1. Normal brain. No acute intracranial process. Reviewed, dictated and finalized at location A. 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
--- NOTE | ~2023-11-06 | CT_ITS ---
CT ANGIOGRAM NECK AND HEAD History: Dizziness, gait irregularity. Technique: Axial noncontrast imaging of the brain was performed. Serial spiral axial images through t he head and neck were then obtained during arterial phase IV injection of 100 cc of Omnipaque 350. 3- D postprocessing and MIP images were then reconstructed on the remote workstation. Dose reduction bettina hnique was used on this scan by utilizing automated exposure control and iterative reconstruction bettina hnique. The dose-length product (DLP) was 1638.14 mGy-cm. CTA neck findings: Bilateral vertebral arteries are patent. Bilateral common carotid, internal carot id, and external carotid arteries are patent. No large vessel occlusion. No stenosis or aneurysm. The proximal right internal carotid artery demonstrates 0% stenosis relative to the normal distal artery lumen diameter. The proximal left internal carotid artery demonstrates 0% stenosis relative to the n ormal distal artery lumen diameter. CTA head findings: Distal vertebral arteries, basilar artery, and posterior cerebral arteries are pat ent. Distal internal carotid arteries, middle cerebral arteries, and anterior cerebral arteries are p atent. No large vessel occlusion. No stenosis or aneurysm. Axial noncontrast imaging of the brain is unremarkable. No acute infarct, intracranial hemorrhage, ma ss lesion identified. Barragan-white differential preserved. Ventricles and subarachnoid spaces are unrem arkable. No midline shift. Paranasal sinuses and mastoid air cells are clear. Impression: Unremarkable exam. Reviewed, dictated and finalized at location . CIL MAKER Impression: Unremarkable exam.
--- NOTE | 2023-11-06 07:07 | ECG_ITS ---
Measurements Intervals [place] Rate: 72 P: 48 MO: 148 QRS: 36 QRSD: 87 T: 38 QT: 417 QTc: 458 Interpretive Statements SINUS RHYTHM LOW QRS VOLTAGE IN THE LIMB LEADS BORDERLINE ECG COMPARED TO ECG 01/04/2022 07:49:27 NO SIGNIFICANT CHANGES Electronically Signed On 11-06-2023 17:41:27 [employer] by Duy Del Rosario M.D.
--- NOTE | 2023-11-06 07:13 | ED.DIZZY ---
HPI - Dizziness General Chief Complaint: Dizziness Stated Complaint: dizzy Time Seen by Provider: 11/06/23 07:10 Source: patient Mode of arrival: ambulatory Limitations: no limitations History of Present Illness HPI Narrative: 33 yo presents with dizziness and lightheadedness. 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 Her chest was tight and she had blurred vision. She called her sister and let her know she was not feeling well but thought she could make the drive. Upon arrival to work, she felt very unsteady on her feet, with an abnormal gait causing her to nearly run into garcia. She felt like she was drunk; denies alcohol last night or this morning. Near syncope, chest pain/tightness, palpitations, and some slight shortness of breath as well as a headache. No tinnitus. [place] clammy. She feels dehydrated. She states intermittently she has been feeling strangely for the past several days with nausea but no vomiting. She notes she had a Gi Bug a few weeks ago. She underwent a cardiac work up previously. Has an IUD in place. Related Data Home Medications Medication Instructions Recorded Confirmed celecoxib 100 mg capsule 200 mg PO BID 01/04/22 11/06/23 metoprolol succinate 25 mg 12.5 mg PO DAILY 01/04/22 11/06/23 tablet,extended release 24 hr pantoprazole 40 mg tablet,delayed 40 mg PO BID 01/04/22 11/06/23 release trazodone 150 mg tablet 300 mg PO HS 01/04/22 11/06/23 ustekinumab 45 mg/0.5 mL 45 mg subcut ONCE 03/19/22 11/06/23 subcutaneous syringe (Stelara) leflunomide 10 mg tablet 10 mg PO DAILY 04/08/23 11/06/23 levonorgestrel 21 mcg/24 hours (8 1 device intrauterine ONCE 07/10/23 11/06/23 yrs) 52 mg intrauterine device (Mirena) cetirizine 10 mg tablet (Zyrtec) 10 mg PO DAILY 11/06/23 11/06/23 clonazepam 1 mg tablet 1 mg PO BID 11/06/23 11/06/23 lamotrigine 200 mg tablet 200 mg PO DAILY 11/06/23 11/06/23 sertraline 100 mg tablet 100 mg PO DAILY 11/06/23 11/06/23 Allergies Allergy/AdvReac Type Severity Reaction Status Date / Time ciprofloxacin Allergy Unknown HIVES Verified 11/06/23 07:15 metronidazole Allergy Unknown HIVES Verified 11/06/23 07:15 [facility] Past Medical History Medical History (Updated 11/17/23 @ 20:55 by Abigail Guillen MD) Anxiety Asthma Depression Endometriosis Epigastric pain GERD (gastroesophageal reflux disease) Inappropriate sinus tachycardia Intrauterine adhesions Irritable bowel Miscarriage Nausea & vomiting Panic disorder Rheumatoid arthritis Weight loss Surgical History Surgical History H/O dilation and curettage H/O myringotomy Hx of cholecystectomy Hx of tonsillectomy Previous section S/P Adama fundoplication (with gastrostomy tube placement) Social History Social History (Updated 11/17/23 @ 20:46 by Abigail Guillen MD) Smoking status: Never smoker Alcohol intake: never Substance use: never Substance use type: does not use Do You Feel Safe in your Home?: Yes Lack of Transportation: No Lack of Food: Never True Current Housing: I Have Housing Concerned About Future Housing: No Difficulty Paying Gas/Electric Bills: No Difficulty Paying for Meds: No Currently Unemployed: No Education: Bachelor's Degree Difficulty w/ Childcare or Family Care: No Living arrangements: with family Additional living arrangements comments: Occupation/Education: occupation 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 Gender identity (if verbalized by the patient): Female Spiritual care concerns: No Exam Const: General: healthy appearing, no acute distress and alert; No diaphoretic Nutritional Appearance: well nourished Orientation/consciousness: patient oriented x3 Limitations: no limitations HENMT: Head: normal to inspection and no contusions Ears: TM abnormal with fluid beh
[2023-11-06 07:31] LABS: Basophils Percent Auto 0.4 % (0.2-1.2); Eosinophils Absolute Auto 0.1 K/mm3 (0-0.3); Eosinophils Percent Auto 1.5 % (0-4.4); Hematocrit 38.1 % (37.0-47.0); Hemoglobin 11.4 g/dL (12.0-15.0); Immature Granulocyte Absolute 0.01 K/mm3 (0.00-0.031); Immature Granulocyte Percent A 0.1 % (0-0.5); Lymphocytes Absolute Auto 2.51 K/mm3 (0.9-3.2); Lymphocytes Percent Auto 37.3 % (18.3-44.2); Mean Corpuscular HGB Conc 29.9 g/dl (32-36); Mean Corpuscular Hemoglobin 24.7 pg (26-34); Mean Corpuscular Volume 82.5 fl (80-100); Mean Platelet Volume 9.6 fl (7.4-10.4); Monocytes Absolute Auto 0.6 K/mm3 (0.1-0.6); Monocytes Percent Auto 9.2 % (2.6-8.5); Neutrophils Absolute Auto 3.5 K/mm3 (1.3-6.7); Neutrophils Percent Auto 51.5 % (45.5-73.1); Platelet Count Result 390 k/mm3 (150-375); Red Blood Count 4.62 M/mm3 (4.2-5.4); Red Cell Distribution Width 16.9 % (11.5-14.5); White Blood Count 6.7 K/mm3 (4.5-10.0)
[2023-11-06 07:39] LABS: Alanine Aminotransferase 20 U/L (6-35); Albumin Level 4.6 g/dL (3.5-5.1); Alkaline Phosphatase 71 U/L (38-126); Anion Gap 10 mmol/L (8-16); Aspartate Amino Transferase 23 U/L (14-36); Bilirubin,Total 0.5 mg/dL (0.2-1.3); Blood Urea Nitrogen 12 mg/dL (7-17); Calcium 9.7 mg/dL (8.4-10.2); Carbon Dioxide 23 mmol/L (22-30); Chloride 105 mmol/L (98-107); Estimated CRCL calculation 114 ml/min; Estimated Glomerular Filt Rate > 60; Glucose 102 mg/dL (65-110); Potassium 3.9 mmol/L (3.4-5.0); Sodium 138 mmol/L (137-145)
[2023-11-06 08:04] LABS: Anisocytosis 1+ (NORMAL); Hypochromasia 1+ (NORMAL); Ovalocytes 1+ (NORMAL); Platelet Estimate Increased (Adequate); Schistocytes None Seen (NORMAL)
[2023-11-06] MEDS: SODIUM CHLORIDE 0.9% IV 1,000 ML 999 ML IV CONT (08:24)
[2023-11-06 09:38] LABS: Add Urine Microscopic? YES; Appearance Urine Clear (Clear); Bacteria Urine None Seen /hpf; Bilirubin Urine Negative (Negative); Blood Urine 1+ (Negative); Color Urine Yellow (Yellow); Glucose Urine UA Negative (Negative); Ketones Urine Negative (Negative); Leukocyte Esterase Ur Negative LEU/UL (Negative); Nitrate Urine Negative (Negative); Non Pathogenic Casts 0-2; Protein Urine Negative (Negative); RBC Urine 0-2 /hpf (0-2); Specific Grav Ur 1.017 (1.001-1.035); Squamous Epithelial Cell Urine None seen /hpf (Few); Urobilinogen Urine 0.2 mg/dL (<2.0); WBC Urine 0-5 /hpf; pH Urine 7.5 (5.0-9.0)
[2023-11-06 10:25] LABS: Influenza A QL RT-PCR Negative (Negative); Influenza B QL RT-PCR Negative (Negative); SARS-CoV-2 RNA PCR Negative (Negative)
--- NOTE | 2023-11-06 11:28 | PC.NURSE ---
pt tolerating po fluids and crackers.
[2023-11-06] MEDS: LACTATED RINGERS 1,000 ML 125 ML IV CONT ×2 (11:45→20:21)
--- NOTE | 2023-11-06 12:20 | PM.CNCAR ---
Assessment and Plan Assessment and plan (1) Bradycardia: Code(s): R00.1 - Bradycardia, unspecified Status: Acute Assessment and Plan: While intermittent bradycardia may potentially contribute to her symptoms given variability and the fact that her symptoms are persistent and affect made worse with turning her head or looking up in light of her description for having congestion and left ear fullness for least the past 2 weeks for which she was taking antihistamines more likely inner ear/vestibular dysfunction explanation for her symptoms. In other words, it is more likely her intermittent bradycardia is incidental and a function of metoprolol 12.5 mg twice daily utilized to treat her highly symptomatic inappropriate sinus tachycardia. Thus far other secondary treatable or reversible causes have not identified side from potential sinus/vestibular contribution. Given her intolerance off beta-josseline therapy plan to discontinue metoprolol moving forward is not likely to be reasonable or relevant to her presentation. However, given her presentation with near syncope while driving the prudent thing would be hold her evening dose to observe response and her symptom complex and to ensure she does not have symptomatic Bradycardiac and/or pathologic pauses that have yet to be identified. Continue telemetry monitoring for now. 2D echocardiogram to assess LV function, valve pathology, pulmonary pressures, chamber size LV wall thickness. I do not strongly feel that her current medical therapy is additionally contributing to symptomatic bradycardia and or arrhythmias which prompted her presentation. Nonetheless, ongoing observation is warranted. I would recommend a 30 day groundwater monitoring technician as an outpatient upon discharge for more complete evaluation in this regard nonetheless. If she is stable without prolonged pauses, high-grade AV blocks or pathologic/symptomatic bradycardia and her echocardiogram is unremarkable disposition will be per hospitalist service. She will follow-up with us in the office in the next 2-4 weeks with a 30 day groundwater monitoring technician in the interval. Patient verbalized understanding of the above recommendations and agreed with plan of care. (2) Near syncope: Code(s): R55 - Syncope and collapse Status: Acute Assessment and Plan: As above, symptoms most likely secondary to inner ear/vestibular dysfunction and/or inflammation as opposed to symptomatic bradycardia with pathologic pauses and/or high-grade AV block. She did not lose consciousness yet concerning as she was seated while driving with near-syncope yet given exacerbation of these symptoms with head movement more suggestion of inner ear process particular as she is hemodynamically stable and her symptoms unchanged despite fluctuations in her heart rate. (3) Vestibular dysfunction: Qualifiers: Laterality: unspecified laterality Qualified Code(s): H81.90 - Unspecified disorder of vestibular function, unspecified ear Code(s): H81.90 - Unspecified disorder of vestibular function, unspecified ear Status: Acute Assessment and Plan: As above. Most likely explanation for her presentation. defer further workup per primary service and or Neurology. MRI brain pending. CTA head and neck unremarkable thus far. (4) Inappropriate sinus tachycardia: Code(s): I47.11 - Inappropriate sinus tachycardia, so stated Status: Acute Assessment and Plan: She has a history of inappropriate sinus tachycardia necessitating use of beta-josseline therapy albeit low dose for control of her symptoms. This has been working well and recently she has noted with discontinuation metoprolol within 2 days her tachycardia became intolerable necessitating resumption of metoprolol 12.5 mg twice daily. Per discussion above, may hold this evening's dose to observe changes and tolerance yet I highly suspect this will need to be restarted. Discussed at l
--- NOTE | 2023-11-06 12:42 | ECHO_ITS ---
Patient Info Name: Lizy Hammer Age: 32 years : 1990 Gender: Female Ht: 64 in Wt: 169 lbs BSA: 1.88 m2 HR: 49 bpm BP: 118 / 74 mmHg Heart Rhythm: Bradycardia, Sinus Rhythm Technical Quality: Good Exam Date: 11/06/2023 2:47 PM Exam Location: Echo Lab Patient Status: Inpatient Admit Date: 11/06/2023 Staff Ordering Physician: Karthik Gastelum MD Attending Provider: Maurilio Titus MD Referring Physician: Nirav KIM; Exam Type: CA echo doppler color flow Study Info Indications R55 - Syncope and collapse R00.1 - Bradycardia, unspecified Complete two-dimensional, color flow and Doppler transthoracic echocardiogram is performed. Summary 1. Complete two-dimensional, color flow and Doppler transthoracic echocardiogram is performed. 2. Unremarkable 2D/Doppler echocardiogram. 3. Trivial amount of tricuspid regurgitation is within physiologic normal limits. Left Ventricle Left ventricular chamber dimension is normal. Left ventricular systolic function is normal, estimated at 55-60%. The left ventricular diastolic function is normal. Right Ventricle Right ventricular chamber dimension is normal. Left Atria Left atrial chamber dimension is normal. Right Atria Right atrial chamber dimension is normal. Aortic Valve The aortic valve is normal. Pulmonic Valve The pulmonic valve is normal. Mitral Valve The mitral valve has normal leaflets. Tricuspid Valve The tricuspid valve leaflets are normal. There is trace tricuspid valve regurgitation. Pericardium/Pleural The pericardium appears normal. Aorta The aortic root size at the sinus of Valsalva is normal. Left Ventricular Outflow Tract Name Value Normal LVOT 2D LVOT Diameter 2.0 cm LVOT Doppler LVOT Peak Gradient 5 mmHg LVOT Mean Gradient 2 mmHg LVOT VTI 27 cm LVOT VTI/AV VTI Ratio 0.6 LVOT Stroke Volume 84 ml LVOT CO 5.0 l/min LVOT CI 2.7 l/min/m2 Pulmonic Valve Name Value Normal PV Doppler PV Peak Gradient 4 mmHg Mitral Valve Name Value Normal MV Doppler MV Peak Gradient 3 mmHg MV Mean Gradient 1 mmHg MV Decel [place] 446 cm/s2 MV PHT 58 ms MV Area (PHT) 3.8 cm2 4.0-5.0 MV Area (Cont Eq VTI) 2.7 cm2 MV Diastolic Function MV E Peak Ed
--- NOTE | 2023-11-06 14:01 | PM.IMHP ---
H&P: HPI History of Present Illness Date/Time: 11/06/23 14:01 Chief Complaint: Dizziness, Pre-syncope Narrative: 32 y/o F presents here with dizziness and pre-syncope with PMH of inappropriate sinus tachycardia post-COVID, myringotomy placement (most recent in [facility]), avascular necrosis of bilateral hips, RA, endometriosis, anx/depression, and GERD. Patient reports ear fullness/pressure w/o pain intermittently for the last month. Was seen on 10/02 for these symptoms and diagnosed with URI and bilateral serous otitis media bilaterally. Given prednisone script, unable to take due to RA. Also recently treated with Augmentin BID x10 days which was completed. Has been taking Zyrtec at home for these symptoms without resolution ofg symptoms. Today while driving into work patient became acutely dizzy and had pre-syncopal feeling. Described it as self-spinning v room spinning, generalized weakness, and unsteadiness. Dizziness reproducible with far lateral gaze and then bringing gaze back to midline or changes in head position. Newly bradycardiac, currently on metoprolol for inappropriate sinus tachycardia (symptomatic). Recent titration of medication from 25 mg to 12.5, takes once daily, and has been on script since 2020. She currently denies focal weakness, changes in speech, current chest pain/pressure, or SOB. After arrival, HR was noted to be in the 40-70's. Lab work showed stable anemia (hgb 11.4), no electrolyte disturbances, no UTI, and viral PCR negative for COVID/flu/RSV. Head CT was unremarkable. Reported improvement with 1L of IVF. Review of Systems Review of Systems: All systems reviewed & are unremarkable except as noted in HPI and below PMFSH Past Medical History Medical History Anxiety Asthma Depression Endometriosis Epigastric pain GERD (gastroesophageal reflux disease) Inappropriate sinus tachycardia Intrauterine adhesions Irritable bowel Miscarriage Nausea & vomiting Panic disorder Rheumatoid arthritis Weight loss Surgical History Surgical History H/O dilation and curettage H/O myringotomy Hx of cholecystectomy Hx of tonsillectomy Previous section S/P Adama fundoplication (with gastrostomy tube placement) Social History Social History Smoking status: Never smoker Alcohol intake: never Substance use: never Substance use type: does not use Do You Feel Safe in your Home?: Yes Lack of Transportation: No Lack of Food: Never True Current Housing: I Have Housing Concerned About Future Housing: No Difficulty Paying Gas/Electric Bills: No Difficulty Paying for Meds: No Currently Unemployed: No Education: Bachelor's Degree Difficulty w/ Childcare or Family Care: No Gender identity (if verbalized by the patient): Female Spiritual care concerns: No Meds Home Medications and Allergies Home Medications Medication Instructions Recorded Confirmed Type celecoxib 100 mg capsule 200 mg PO BID 01/04/22 11/06/23 History metoprolol succinate 25 mg 12.5 mg PO DAILY 01/04/22 11/06/23 History tablet,extended release 24 hr pantoprazole 40 mg tablet,delayed 40 mg PO BID 01/04/22 11/06/23 History release trazodone 150 mg tablet 300 mg PO HS 01/04/22 11/06/23 History ustekinumab 45 mg/0.5 mL 45 mg subcut ONCE 03/19/22 11/06/23 History subcutaneous syringe (Stelara) leflunomide 10 mg tablet 10 mg PO DAILY 04/08/23 11/06/23 History levonorgestrel 21 mcg/24 hours (8 1 device intrauterine ONCE 07/10/23 11/06/23 History yrs) 52 mg intrauterine device (Mirena) cetirizine 10 mg tablet (Zyrtec) 10 mg PO DAILY 11/06/23 11/06/23 History clonazepam 1 mg tablet 1 mg PO BID 11/06/23 11/06/23 History lamotrigine 200 mg tablet 200 mg PO DAILY 11/06/23 11/06/23 History sertraline 100 mg tablet 100 mg PO DAILY
[2023-11-06 17:04] LABS: Magnesium 2.1 mg/dL (1.6-2.3); Phosphorus 3.5 mg/dL (2.5-4.5)
[2023-11-06] MEDS: PANTOPRAZOLE 40 MG TABLET PO (17:33)
[2023-11-06] MEDS: CELECOXIB 100 MG CAPSULE 200 MG PO (17:33)
[2023-11-06] MEDS: clonazePAM (*CRX) 0.5 MG TABLET 1 MG PO (17:33)
[2023-11-06] MEDS: PHARMACIST COMMUNICATION ORDER 1 EACH XX (20:21)
[2023-11-06] MEDS: lamoTRIgine 100 MG TABLET 200 MG PO (20:21)
[2023-11-06] MEDS: traZODone HCL 50 MG TABLET 300 MG PO (20:22)
[2023-11-06] MEDS: FLUTICASONE PROPIONATE 0.05% NA SPR 16 GM BTL (*BKC) 2 SPRAY NASAL (20:23)
[2023-11-07] VITALS (7 sets, daily range): BP systolic 117–121; BP diastolic 69–78; PULSE 50–96; RESP 16–20; TEMP 36.4; O2SAT 99–100
[2023-11-07] MEDS: LACTATED RINGERS 1,000 ML 125 ML IV CONT (03:57)
--- NOTE | 2023-11-07 09:20 | WPDNEURCNPN ---
Assessment and Plan Assessment and plan (1) Vestibular dysfunction: Qualifiers: Laterality: unspecified laterality Qualified Code(s): H81.90 - Unspecified disorder of vestibular function, unspecified ear Code(s): H81.90 - Unspecified disorder of vestibular function, unspecified ear Status: Acute Plan Ms. Hammer is a 32 year old female presenting with acute dizziness/vertigo in the setting of one month history of ear fullness. MRI brain negative for central cause of vertigo. Seems likely related to vestibular dysfunction. No further neurological work-up needed at this point. Recommend vestibular therapy as outpatient if symptoms recur. Consult date: 11/07/23 Reason for consult: Dizziness HPI: Lizy Hammer is a 32 year old female with a history of rheumatoid arthritis, endometritis, inappropriate sinus tachycardia presenting due to dizziness. Patient initially developed ear fullness/pressure about a month ago. She was given prednisone but was unable to take it. She was treated with Augmentin and Zyrtec, but this did not help her symptoms. Yesterday while driving to work she because acutely dizzy and felt lightheaded well. She described symptoms as room spinning, generalized weakness, and unsteadiness. The dizziness is worse with lateral gaze and changing head position. Patient was found to be bradycardic at [facility]. She is on metoprolol for inappropriate sinus tachycardia. Cardiology has been consulted for the bradycardia. MRI brain already done which was normal. CTA brain/carotid normal as well. Review of Systems Review of Systems: All systems reviewed & are unremarkable except as noted in HPI and below PMFSH Past Medical History Medical History Anxiety Asthma Depression Endometriosis Epigastric pain GERD (gastroesophageal reflux disease) Inappropriate sinus tachycardia Intrauterine adhesions Irritable bowel Miscarriage Nausea & vomiting Panic disorder Rheumatoid arthritis Weight loss Surgical History Surgical History H/O dilation and curettage H/O myringotomy Hx of cholecystectomy Hx of tonsillectomy Previous section S/P Adama fundoplication (with gastrostomy tube placement) Social History Social History Smoking status: Never smoker Alcohol intake: never Substance use: never Substance use type: does not use Do You Feel Safe in your Home?: Yes Lack of Transportation: No Lack of Food: Never True Current Housing: I Have Housing Concerned About Future Housing: No Difficulty Paying Gas/Electric Bills: No Difficulty Paying for Meds: No Currently Unemployed: No Education: Bachelor's Degree Difficulty w/ Childcare or Family Care: No Gender identity (if verbalized by the patient): Female Spiritual care concerns: No Meds Home Medications and Allergies Home Medications Medication Instructions Recorded Confirmed Type celecoxib 100 mg capsule 200 mg PO BID 01/04/22 11/06/23 History metoprolol succinate 25 mg 12.5 mg PO DAILY 01/04/22 11/06/23 History tablet,extended release 24 hr pantoprazole 40 mg tablet,delayed 40 mg PO BID 01/04/22 11/06/23 History release trazodone 150 mg tablet 300 mg PO HS 01/04/22 11/06/23 History ustekinumab 45 mg/0.5 mL 45 mg subcut ONCE 03/19/22 11/06/23 History subcutaneous syringe (Stelara) leflunomide 10 mg tablet 10 mg PO DAILY 04/08/23 11/06/23 History levonorgestrel 21 mcg/24 hours (8 1 device intrauterine ONCE 07/10/23 11/06/23 History yrs) 52 mg intrauterine device (Mirena) cetirizine 10 mg tablet (Zyrtec) 10 mg PO DAILY 11/06/23 11/06/23 History clonazepam 1 mg tablet 1 mg PO BID 11/06/23 11/06/23 History lamotrigine 200 mg tablet 200 mg PO DAILY 11/06/23 11/06/23 History sertraline 100 mg tablet 100 mg PO DAILY 11/06/23 11/06/23 History
[2023-11-07] MEDS: LORATADINE 10 MG TABLET PO (09:43)
[2023-11-07] MEDS: PANTOPRAZOLE 40 MG TABLET PO (09:43)
[2023-11-07] MEDS: LEFLUNOMIDE 10 MG TABLET PO (09:43)
[2023-11-07] MEDS: SERTRALINE HCL 50 MG TABLET 100 MG PO (09:43)
[2023-11-07] MEDS: clonazePAM (*CRX) 0.5 MG TABLET 1 MG PO (09:43)
[2023-11-07] MEDS: CELECOXIB 100 MG CAPSULE 200 MG PO (09:43)
[2023-11-07] MEDS: FLUTICASONE PROPIONATE 0.05% NA SPR 16 GM BTL (*BKC) 2 SPRAY NASAL (09:44)
--- NOTE | 2023-11-07 13:11 | PM.PNCARD ---
Progress Note: A&P Assessment and Plan (1) Bradycardia: Code(s): R00.1 - Bradycardia, unspecified Status: Acute Assessment and Plan: While intermittent bradycardia may potentially contribute to her symptoms given variability and the fact that her symptoms are persistent and affect made worse with turning her head or looking up in light of her description for having congestion and left ear fullness for least the past 2 weeks for which she was taking antihistamines more likely inner ear/vestibular dysfunction explanation for her symptoms. In other words, it is more likely her intermittent bradycardia is incidental and a function of metoprolol 12.5 mg twice daily utilized to treat her highly symptomatic inappropriate sinus tachycardia. Thus far other secondary treatable or reversible causes have not identified side from potential sinus/vestibular contribution. Given her intolerance off beta-josseline therapy plan to discontinue metoprolol moving forward is not likely to be reasonable or relevant to her presentation. However, given her presentation with near syncope while driving the prudent thing would be hold her evening dose to observe response and her symptom complex and to ensure she does not have symptomatic Bradycardiac and/or pathologic pauses that have yet to be identified. Echocardiogram reviewed and is unremarkable. Normal left ventricular systolic function, normal diastolic function, no valvular abnormalities. Continue current medical therapy. Thirty day outpatient library monitor ordered. Okay for discharge today from cardiac standpoint. (2) Near syncope: Code(s): R55 - Syncope and collapse Status: Acute Assessment and Plan: As above, symptoms most likely secondary to inner ear/vestibular dysfunction and/or inflammation as opposed to symptomatic bradycardia with pathologic pauses and/or high-grade AV block. (3) Vestibular dysfunction: Qualifiers: Laterality: unspecified laterality Qualified Code(s): H81.90 - Unspecified disorder of vestibular function, unspecified ear Code(s): H81.90 - Unspecified disorder of vestibular function, unspecified ear Status: Acute Assessment and Plan: As above. Most likely explanation for her presentation. defer further workup per primary service and or Neurology. (4) Inappropriate sinus tachycardia: Code(s): I47.11 - Inappropriate sinus tachycardia, so stated Status: Acute Assessment and Plan: She has a history of inappropriate sinus tachycardia necessitating use of beta-josseline therapy albeit low dose for control of her symptoms. This has been working well and recently she has noted with discontinuation metoprolol within 2 days her tachycardia became intolerable necessitating resumption of metoprolol 12.5 mg twice daily. Per discussion above, may hold this evening's dose to observe changes and tolerance yet I highly suspect this will need to be restarted. (5) Rheumatoid arthritis: Qualifiers: Rheumatoid arthritis location: multiple sites Rheumatoid factor presence: with rheumatoid factor Qualified Code(s): M05.79 - Rheumatoid arthritis with rheumatoid factor of multiple sites without organ or systems involvement Code(s): M06.9 - Rheumatoid arthritis, unspecified Status: Acute Assessment and Plan: Management per primary service. She was on leflunomide 10 mg daily, lamotrigine 100 mg daily, ustekinumab as an outpatient. He does feel her medication regimen is significantly contributing to her bradycardia and from a cardiac perspective may be continued at this time. Subjective Date/time seen: 11/07/23 13:11 Interval history: cardiology follow-up for presyncope she is feeling much better today. Physical therapy has worked with her today and performed Joaquim maneuvers for BPPV. She has not had any dizziness since then. Her telemetry does not reveal any pauses, av blocks,
--- NOTE | 2023-11-07 15:14 | PM.DS ---
DS: Admitting Diagnosis Discharge Date 11/07/2023 Admitting Diagnosis near syncope, bradycardia, vestibular dysfunction, inappropriate sinus tachycardia DS: Discharge Diagnosis Discharge Diagnosis (1) Near syncope: Code(s): R55 - Syncope and collapse Status: Acute (2) Bradycardia: Code(s): R00.1 - Bradycardia, unspecified Status: Acute (3) Vestibular dysfunction: Qualifiers: Laterality: unspecified laterality Qualified Code(s): H81.90 - Unspecified disorder of vestibular function, unspecified ear Code(s): H81.90 - Unspecified disorder of vestibular function, unspecified ear Status: Acute Assessment and Plan: labyrinthitis verses BPPV (4) Inappropriate sinus tachycardia: Code(s): I47.11 - Inappropriate sinus tachycardia, so stated Status: Chronic (5) Rheumatoid arthritis: Qualifiers: Rheumatoid arthritis location: multiple sites Rheumatoid factor presence: with rheumatoid factor Qualified Code(s): M05.79 - Rheumatoid arthritis with rheumatoid factor of multiple sites without organ or systems involvement Code(s): M06.9 - Rheumatoid arthritis, unspecified Status: Chronic (6) Anxiety and depression: Code(s): F41.9 - Anxiety disorder, unspecified; F32.A - Depression, unspecified Status: Chronic (7) Sinusitis: Code(s): J32.9 - Chronic sinusitis, unspecified Status: Acute DS: Summary Hospital Course Reason for hospitalization: patient had near syncopal event while driving with symptoms of vertigo and findings of bradycardia Hospital Course: This is a very pleasant 32-year-old female patient with a past history of rheumatoid arthritis, anxiety and depression, inappropriate sinus tachycardia who was driving to work when she felt like she was about to pass out. On ER evaluation she was found to be significantly bradycardic. She takes low-dose beta-josseline due to inappropriate sinus tachycardia she denies any known extra doses of medication. Patient has never had bradycardia before. Her symptoms do seem to be exacerbated by turning her head leading to suspicion of vestibular dysfunction / BPPV. patient had thorough workup including MRI the brain, CTA of the head neck, transthoracic echocardiogram monitored on telemetry with episodes of both tachycardia and bradycardia all sinus in nature. Cardiology and Neurology both saw patient believe she is stable for discharge home. Patient will wear a 30 day heart rate monitor and follow-up with Cardiology for results. This monitor will be able to be placed this afternoon immediately after discharge. Physical therapy saw patient and did some vestibular maneuvers which patient reports did seem to help. Return precautions discussed. Status at Discharge Cognitive/behavioral status at discharge: Awake alert oriented and very pleasant Functional status at discharge: independent ambulation Overall status at discharge: patient is progressing back to baseline Time Spent with Patient Time attestation: Total time spent providing and/or coordinating discharge services: 40 minutes Time spent: Greater than 30 minutes Exam Narrative: GENERAL: Well-appearing, well-nourished, and in no acute distress. HEAD: Normocephalic, atraumatic. ENT:? Mucous membranes moist. CHEST: Clear to auscultation.? No respiratory distress. HEART: Heart sounds without murmur, click or rub. Irregular rhythm, regular rate, showing sinus arrhythmia on telemetry monitoring rate of 64 by my interpretation. Normal peripheral pulses. ABDOMEN: Soft, nontender, nondistended. EXTREMITIES: Normal range of motion. No peripheral edema. SKIN: Warm dry normal color NEURO: Alert and oriented x3. PSYCH: Normal mood and affect DS: Data Data Completed and Pending Completed studies during hospitalization: MRI brain, head neck CTA, echocardiogram Pending studies at discharge: 30 day event monitor ord
== END 2023-11-07 15:12 | disposition home or self-care (01) ==
LOC: ANHED 08:02 → ANH2MED 11:59
PROVIDERS: Nurse Practitioner; Admitting Provider Internal Medicine; Emergency Provider Student in an Organized Health Care Education/Training Program; PCP Internal Medicine; Visit Provider Internal Medicine
DX: R55 Syncope and collapse (principal); R00.1 Bradycardia, unspecified; H81.90 Unspecified disorder of vestibular function, unspecified ear; I47.11 Inappropriate sinus tachycardia, so stated; M05.79 Rheumatoid arthritis with rheumatoid factor of multiple sites without organ or systems involvement; M87.9 Osteonecrosis, unspecified; F41.9 Anxiety disorder, unspecified; F32.A Depression, unspecified; J32.9 Chronic sinusitis, unspecified; J45.909 Unspecified asthma, uncomplicated; N80.9 Endometriosis, unspecified; K21.9 Gastro-esophageal reflux disease without esophagitis; K58.9 Irritable bowel syndrome, unspecified; Z97.5 Presence of (intrauterine) contraceptive device; Z20.822 Contact with and (suspected) exposure to COVID-19; Z79.52 Long term (current) use of systemic steroids; Z79.2 Long term (current) use of antibiotics; Z79.899 Other long term (current) drug therapy
CPT/HCPCS: 36415; 70496; 70498; 70553; 80053; 81001; 81025; 83735; 84100; 85025; 87636; 93005; 93306; 96360; 96361; 97112; 97161; 99285; A9270; A9577; G0378; J7030; J7120; Q9967

== ENCOUNTER 2023-12-05 10:09 | Outpatient (CLI) | payer BC, SELFPAY ==
--- NOTE | ~2023-12-05 | XR_ITS ---
EXAMINATION: XR chest 2V DATE: 12/05/2023 10:46 INDICATION: Worsening cough. Influenza. TECHNIQUE: PA and lateral views of the chest were obtained. COMPARISON: Chest radiograph dated 01/07/2022 FINDINGS: The lungs remain clear with no focal airspace opacities, pulmonary edema, pleural effusion or pneumot horax. The cardiomediastinal silhouette is normal. Visualized bones and soft tissues are unremarkable . IMPRESSION: 1. No acute cardiopulmonary disease. Reviewed, dictated and finalized at location A. AL PHOTOGRAPH INTERPRETER
[2023-12-05 11:34] LABS: Alanine Aminotransferase 25 U/L (14-59); Albumin Level 3.3 g/dL (3.4-5.0); Alkaline Phosphatase 61 U/L (46-116); Anion Gap 12 mmol/L (8-16); Aspartate Amino Transferase 17 U/L (15-37); Basophils Absolute Auto 0.01 K/mm3 (0.00-0.10); Basophils Percent Auto 0.3 % (0.0-1.0); Bilirubin,Total 0.3 mg/dL (0.00-1.00); Blood Urea Nitrogen 14 mg/dL (7-18); Calcium 8.8 mg/dL (8.5-10.1); Carbon Dioxide 25 mmol/L (21-32); Chloride 99 mmol/L (98-108); Eosinophils Absolute Auto 0.15 K/mm3 (0.02-0.50); Eosinophils Percent Auto 3.8 % (1.0-6.0); Estimated Glomerular Filt Rate > 60; Glucose 99 mg/dL (70-99); Hematocrit 35.4 % (35.0-49.0); Immature Granulocyte Absolute 0.01 K/mm3 (0.00-0.00); Immature Granulocyte Percent A 0.3 % (0.0-0.0); Lymphocytes Absolute Auto 1.34 K/mm3 (1.10-4.50); Lymphocytes Percent Auto 33.8 % (18.0-42.0); Mean Corpuscular HGB Conc 31.1 g/dL (32.0-36.0); Mean Corpuscular Hemoglobin 25.3 pg (27.0-31.0); Mean Corpuscular Volume 81.6 fL (78.0-102.0); Mean Platelet Volume 8.7 fl (9.2-11.8); Monocytes Absolute Auto 0.45 K/mm3 (0.10-0.90); Monocytes Percent Auto 11.4 % (2.0-11.0); Neutrophils Percent Auto 50.4 % (50.0-70.0); Osmolality Calculated 282 mOsm/kg (285-295); Platelet Count Result 298 K/mm3 (150-420); Red Blood Count 4.34 M/mm3 (4.20-5.40); Red Cell Distribution Width 15.5 % (11.6-14.4); Sodium 136 mmol/L (136-145); Total Protein 7.3 g/dL (6.4-8.2)
== END 2023-12-05 10:10 | disposition home or self-care (01) ==
LOC: CHSLAB 11:22
PROVIDERS: PCP Internal Medicine; Visit Provider Internal Medicine
DX: R05.9 Cough, unspecified (principal); R50.9 Fever, unspecified
CPT/HCPCS: 36415; 71046; 80053; 85025

== ENCOUNTER 2024-01-23 09:06 | Outpatient (CLI) | payer BC, SELFPAY ==
[2024-01-23 09:26] LABS: Basophils Absolute Auto 0.02 K/mm3 (0.00-0.10); Basophils Percent Auto 0.4 % (0.0-1.0); Eosinophils Absolute Auto 0.07 K/mm3 (0.02-0.50); Eosinophils Percent Auto 1.3 % (1.0-6.0); Hemoglobin 10.5 g/dL (12.0-15.0); Immature Granulocyte Absolute 0.02 K/mm3 (0.00-0.00); Immature Granulocyte Percent A 0.4 % (0.0-0.0); Lymphocytes Absolute Auto 1.63 K/mm3 (1.10-4.50); Lymphocytes Percent Auto 29.9 % (18.0-42.0); Mean Corpuscular HGB Conc 30.9 g/dL (32.0-36.0); Mean Corpuscular Hemoglobin 25.1 pg (27.0-31.0); Mean Corpuscular Volume 81.3 fL (78.0-102.0); Mean Platelet Volume 9.1 fl (9.2-11.8); Monocytes Absolute Auto 0.43 K/mm3 (0.10-0.90); Monocytes Percent Auto 7.9 % (2.0-11.0); Neutrophils Absolute Auto 3.3 K/mm3 (1.7-7.2); Neutrophils Percent Auto 60.1 % (50.0-70.0); Platelet Count Result 358 K/mm3 (150-420); Red Blood Count 4.18 M/mm3 (4.20-5.40); Red Cell Distribution Width 13.8 % (11.6-14.4); White Blood Count 5.5 K/mm3 (4.8-10.8)
[2024-01-23 10:29] LABS: Alanine Aminotransferase 19 U/L (14-59); Albumin Level 3.7 g/dL (3.4-5.0); Alkaline Phosphatase 62 U/L (46-116); Anion Gap 10 mmol/L (8-16); Aspartate Amino Transferase 12 U/L (15-37); Bilirubin,Total 0.2 mg/dL (0.00-1.00); Blood Urea Nitrogen 14 mg/dL (7-18); Calcium 8.7 mg/dL (8.5-10.1); Carbon Dioxide 26 mmol/L (21-32); Chloride 102 mmol/L (98-108); Estimated Glomerular Filt Rate > 60; Glucose 157 mg/dL (70-99); Osmolality Calculated 289 mOsm/kg (285-295); Potassium 4.4 mmol/L (3.5-5.1); Sodium 138 mmol/L (136-145); Total Protein 6.8 g/dL (6.4-8.2)
== END 2024-01-23 09:07 | disposition home or self-care (01) ==
PROVIDERS: PCP Internal Medicine; Visit Provider Internal Medicine Rheumatology
DX: Z79.899 Other long term (current) drug therapy (principal)
CPT/HCPCS: 36415; 80053; 85025

== ENCOUNTER 2024-02-19 14:15 | Outpatient (CLI) | payer BC, SELFPAY ==
--- NOTE | ~2024-02-19 | XR_ITS ---
XR hand RT min 3V DATE: 02/19/2024 14:28 INDICATION: Right hand pain, involving proximal fourth digit. Bruising. TECHNIQUE: 3 views COMPARISON: None FINDINGS: No fracture or dislocation, periosteal reaction or bone destruction, joint space narrowing, erosive change or chondrocalcinosis. IMPRESSION: Negative Reviewed, dictated and finalized at location B. IMPRESSION: Negative
== END 2024-02-19 14:16 | disposition home or self-care (01) ==
PROVIDERS: PCP Internal Medicine; Visit Provider Internal Medicine
DX: M79.641 Pain in right hand (principal)
CPT/HCPCS: 73130

== ENCOUNTER 2024-02-28 08:10 | Outpatient (CLI) | payer BC, SELFPAY ==
[2024-02-28 08:55] LABS: Hematocrit 34.2 % (35.0-49.0); Hemoglobin 10.6 g/dL (12.0-15.0); Mean Corpuscular Hemoglobin 24.9 pg (27.0-31.0); Mean Corpuscular Volume 80.3 fL (78.0-102.0); Mean Platelet Volume 9.2 fl (9.2-11.8); Platelet Count Result 344 K/mm3 (150-420); Red Blood Count 4.26 M/mm3 (4.20-5.40); Red Cell Distribution Width 14.8 % (11.6-14.4); White Blood Count 7.3 K/mm3 (4.8-10.8)
[2024-02-28 09:57] LABS: Ferritin 16 ng/mL (8-252); Iron 28 ug/dL (50-170); Percent Iron Saturation 7 % (12-57)
== END 2024-02-28 08:11 | disposition home or self-care (01) ==
PROVIDERS: PCP Internal Medicine; Visit Provider Internal Medicine Rheumatology
DX: L40.50 Arthropathic psoriasis, unspecified (principal); Z79.899 Other long term (current) drug therapy; D64.9 Anemia, unspecified
CPT/HCPCS: 36415; 82728; 83540; 83550; 85027

== ENCOUNTER 2024-05-03 10:50 | Outpatient (CLI) | payer BC, SELFPAY ==
[2024-05-03 11:08] LABS: Basophils Absolute Auto 0.04 K/mm3 (0.00-0.10); Basophils Percent Auto 0.8 % (0.0-1.0); Eosinophils Absolute Auto 0.05 K/mm3 (0.02-0.50); Eosinophils Percent Auto 0.9 % (1.0-6.0); Hematocrit 35.2 % (35.0-49.0); Immature Granulocyte Absolute 0.01 K/mm3 (0.00-0.00); Immature Granulocyte Percent A 0.2 % (0.0-0.0); Immature Reticulocyte Fraction 14.5 % (2.0-16.52); Lymphocytes Absolute Auto 1.62 K/mm3 (1.10-4.50); Lymphocytes Percent Auto 30.7 % (18.0-42.0); Mean Corpuscular HGB Conc 31.3 g/dL (32-36); Mean Corpuscular Hemoglobin 24.6 pg (27.0-31.0); Mean Corpuscular Volume 78.7 fL (78.0-102.0); Mean Platelet Volume 9.3 fl (9.2-11.8); Monocytes Absolute Auto 0.43 K/mm3 (0.10-0.90); Monocytes Percent Auto 8.1 % (2.0-11.0); Neutrophils Absolute Auto 3.13 K/mm3 (1.70-7.20); Neutrophils Percent Auto 59.3 % (50.0-70.0); Platelet Count Result 354 K/mm3 (150-420); Red Blood Count 4.47 M/mm3 (4.20-5.40); Red Cell Distribution Width 15.4 % (11.6-14.4); Reticulocyte Hemoglobin Conten 28.6 pg (28.0-35.0); Reticulocyte Percent 0.71 % (0.50-1.50); Reticulocytes Absolute 0.03 M/mm3 (0.02-0.10); White Blood Count 5.3 K/mm3 (4.8-10.8)
[2024-05-03 11:58] LABS: Alanine Aminotransferase 20 U/L (14-59); Albumin Level 3.9 g/dL (3.4-5.0); Alkaline Phosphatase 66 U/L (46-116); Anion Gap 11 mmol/L (4-12); Aspartate Amino Transferase 14 U/L (15-37); Bilirubin,Total 0.2 mg/dL (0.00-1.00); Blood Urea Nitrogen 13 mg/dL (7-18); Calcium 9.2 mg/dL (8.5-10.1); Carbon Dioxide 25 mmol/L (21-32); Chloride 103 mmol/L (98-108); Estimated Glomerular Filt Rate > 60; Folic Acid 14.5 ng/mL (8.6->20); Glucose 99 mg/dL (70-99); Lactate Dehydrogenase 141 U/L (81-234); Osmolality Calculated 288 mOsm/kg (285-295); Potassium 4.1 mmol/L (3.5-5.1); Sodium 139 mmol/L (136-145); Total Protein 7.2 g/dL (6.4-8.2); Vitamin B12 1236 pg/mL (193-986)
[2024-05-05 02:29] LABS: Protein, Total 6.8 g/dL (6.1-8.1)
[2024-05-05 10:39] LABS: Haptoglobin 212 mg/dL (43-212)
[2024-05-05 15:09] LABS: Albumin 4.2 g/dL (3.8-4.8); Alpha 1 Globulin 0.3 g/dL (0.2-0.3); Alpha 2 Globulin 0.9 g/dL (0.5-0.9); Beta 1 Globulin 0.5 g/dL (0.4-0.6); Gamma Globulin 0.6 g/dL (0.8-1.7)
== END 2024-05-03 10:51 | disposition home or self-care (01) ==
LOC: CHSLAB 10:54
PROVIDERS: PCP Internal Medicine; Visit Provider Internal Medicine Rheumatology
DX: L40.50 Arthropathic psoriasis, unspecified (principal); Z79.899 Other long term (current) drug therapy
CPT/HCPCS: 36415; 80053; 82607; 82746; 83010; 83615; 84155; 84165; 85025; 85046

== ENCOUNTER 2024-09-07 13:15 | Outpatient (CLI) | payer BC, SELFPAY ==
[2024-09-07 13:32] LABS: Basophils Absolute Auto 0.03 K/mm3 (0.00-0.10); Basophils Percent Auto 0.3 % (0.0-1.0); Eosinophils Absolute Auto 0.05 K/mm3 (0.02-0.50); Eosinophils Percent Auto 0.6 % (1.0-6.0); Hematocrit 33.6 % (35.0-49.0); Hemoglobin 10.9 g/dL (12.0-15.0); Immature Granulocyte Absolute 0.05 K/mm3 (0.00-0.00); Immature Granulocyte Percent A 0.6 % (0.0-0.0); Lymphocytes Absolute Auto 2.01 K/mm3 (1.10-4.50); Lymphocytes Percent Auto 22.1 % (18.0-42.0); Mean Corpuscular HGB Conc 32.4 g/dL (32-36); Mean Corpuscular Hemoglobin 26.3 pg (27.0-31.0); Mean Platelet Volume 9.2 fl (9.2-11.8); Monocytes Absolute Auto 0.57 K/mm3 (0.10-0.90); Monocytes Percent Auto 6.3 % (2.0-11.0); Neutrophils Absolute Auto 6.38 K/mm3 (1.70-7.20); Neutrophils Percent Auto 70.1 % (50.0-70.0); Platelet Count Result 354 K/mm3 (150-420); Red Blood Count 4.15 M/mm3 (4.20-5.40); White Blood Count 9.1 K/mm3 (4.8-10.8)
[2024-09-07 14:11] LABS: Alanine Aminotransferase 18 U/L (14-59); Albumin Level 3.8 g/dL (3.4-5.0); Alkaline Phosphatase 80 U/L (46-116); Anion Gap 15 mmol/L (4-12); Aspartate Amino Transferase 11 U/L (15-37); Bilirubin,Total 0.4 mg/dL (0.00-1.00); Blood Urea Nitrogen 18 mg/dL (7-18); CRP 0.8 mg/dL (0.0-0.9); Carbon Dioxide 24 mmol/L (21-32); Chloride 99 mmol/L (98-108); Estimated Glomerular Filt Rate > 60; Glucose 190 mg/dL (70-99); Osmolality Calculated 292 mOsm/kg (285-295); Potassium 4.1 mmol/L (3.5-5.1); Sodium 138 mmol/L (136-145); Total Protein 6.9 g/dL (6.4-8.2)
[2024-09-07 14:31] LABS: Erythrocyte Sedimentation Rate 28 mm/hr (0-15)
== END 2024-09-07 13:16 | disposition home or self-care (01) ==
LOC: CHSLAB 13:17
PROVIDERS: PCP Internal Medicine; Visit Provider Internal Medicine Rheumatology
DX: Z79.899 Other long term (current) drug therapy (principal); L40.50 Arthropathic psoriasis, unspecified
CPT/HCPCS: 36415; 80053; 85025; 85652; 86140

== ENCOUNTER 2024-09-09 17:13 | Outpatient (CLI) | payer BC, SELFPAY ==
--- NOTE | ~2024-09-09 | XR_ITS ---
CHEST RADIOGRAPH, PA AND LATERAL CLINICAL HISTORY: COUGH, FEVER, CHILLS . COMPARISON: 12/05/2023 TECHNIQUE: PA and lateral views of the chest. FINDINGS The cardiomediastinal silhouette is unremarkable. The lungs are clear. Visualized osseous structures and soft tissues are unremarkable. IMPRESSION: No focal infiltrate or effusion. Reviewed, dictated and finalized at location A.
[2024-09-09 17:33] LABS: Add Urine Microscopic? NO; Appearance Urine Clear (Clear); Bilirubin Urine Negative (Negative); Blood Urine Trace-intact (Negative); Color Urine Light Yellow (Yellow); Glucose Urine UA Negative (Negative); Ketones Urine 1+ (Negative); Leukocyte Esterase Ur Negative (Negative); Nitrate Urine Negative (Negative); Protein Urine Negative (Negative); Specific Grav Ur <= 1.005 (1.010-1.020); Urobilinogen Urine 0.2 mg/dL (0.2-1.0)
[2024-09-09 17:34] LABS: Basophils Absolute Auto 0.03 K/mm3 (0.00-0.10); Basophils Percent Auto 0.3 % (0.0-1.0); Eosinophils Absolute Auto 0.03 K/mm3 (0.02-0.50); Eosinophils Percent Auto 0.3 % (1.0-6.0); Hematocrit 32.5 % (35.0-49.0); Hemoglobin 10.5 g/dL (12.0-15.0); Immature Granulocyte Absolute 0.04 K/mm3 (0.00-0.00); Immature Granulocyte Percent A 0.4 % (0.0-0.0); Lymphocytes Absolute Auto 0.91 K/mm3 (1.10-4.50); Lymphocytes Percent Auto 9.3 % (18.0-42.0); Mean Corpuscular HGB Conc 32.3 g/dL (32-36); Mean Corpuscular Hemoglobin 25.8 pg (27.0-31.0); Mean Corpuscular Volume 79.9 fL (78.0-102.0); Mean Platelet Volume 9.2 fl (9.2-11.8); Monocytes Absolute Auto 0.81 K/mm3 (0.10-0.90); Monocytes Percent Auto 8.3 % (2.0-11.0); Neutrophils Absolute Auto 7.92 K/mm3 (1.70-7.20); Neutrophils Percent Auto 81.4 % (50.0-70.0); Platelet Count Result 295 K/mm3 (150-420); Red Blood Count 4.07 M/mm3 (4.20-5.40); Red Cell Distribution Width 14.2 % (11.6-14.4); White Blood Count 9.7 K/mm3 (4.8-10.8)
[2024-09-09 17:51] LABS: Alanine Aminotransferase 21 U/L (14-59); Albumin Level 3.8 g/dL (3.4-5.0); Alkaline Phosphatase 64 U/L (46-116); Anion Gap 14 mmol/L (4-12); Aspartate Amino Transferase 14 U/L (15-37); Bilirubin,Total 0.4 mg/dL (0.00-1.00); Blood Urea Nitrogen 11 mg/dL (7-18); Calcium 9.5 mg/dL (8.5-10.1); Carbon Dioxide 25 mmol/L (21-32); Chloride 100 mmol/L (98-108); Estimated Glomerular Filt Rate > 60; Glucose 92 mg/dL (70-99); Osmolality Calculated 287 mOsm/kg (285-295); Potassium 3.9 mmol/L (3.5-5.1); Sodium 139 mmol/L (136-145); Total Protein 7.8 g/dL (6.4-8.2)
[2024-09-09 18:05] LABS: Strep Group A RT-PCR NOT DETECTED (Negative)
[2024-09-09 18:10] LABS: SARS-CoV-2 RNA PCR Negative (Negative)
[2024-09-09 18:17] LABS: Influenza A QL RT-PCR Negative (Negative); Influenza B QL RT-PCR Negative (Negative); RSV RNA, RT-PCR Negative (Negative)
== END 2024-09-09 17:14 | disposition home or self-care (01) ==
LOC: CHSLAB 17:15
PROVIDERS: PCP Internal Medicine; Visit Provider Internal Medicine
DX: R05.9 Cough, unspecified (principal); R50.9 Fever, unspecified
CPT/HCPCS: 36415; 71046; 80053; 81003; 85025; 87086; 87637; 87651

== ENCOUNTER 2025-02-11 10:57 | Outpatient (CLI) | payer BC, SELFPAY ==
[2025-02-11 11:21] LABS: Hematocrit 34.3 % (37.0-47.0); Hemoglobin 10.8 g/dL (12.0-15.0); Mean Corpuscular HGB Conc 31.5 g/dl (32-36); Mean Corpuscular Hemoglobin 24.8 pg (26-34); Mean Corpuscular Volume 78.7 fl (80-100); Mean Platelet Volume 9.4 fl (7.4-10.4); Platelet Count Result 310 k/mm3 (150-375); Red Blood Count 4.36 M/mm3 (4.2-5.4); Red Cell Distribution Width 17.7 % (11.5-14.5); White Blood Count 5.9 K/mm3 (4.5-10.0)
[2025-02-11 11:48] LABS: Alanine Aminotransferase 18 U/L (6-35); Albumin Level 4.7 g/dL (3.5-5.1); Alkaline Phosphatase 59 U/L (38-126); Anion Gap 13 mmol/L (4-12); Aspartate Amino Transferase 23 U/L (14-36); Bilirubin,Total 0.4 mg/dL (0.2-1.3); Blood Urea Nitrogen 16 mg/dL (7-17); Calcium 9.5 mg/dL (8.4-10.2); Carbon Dioxide 22 mmol/L (22-30); Chloride 103 mmol/L (98-107); Estimated Glomerular Filt Rate > 60; Glucose 84 mg/dL (65-110); Potassium 4.4 mmol/L (3.4-5.0); Sodium 138 mmol/L (137-145)
--- OUTSIDE RECORDS SUMMARY | 2025-02-11 12:01 | XMS_ITS | Encounter Summary ---
Author Organization [facility] Address [address] [place] [address] Care Team Providers Care Drivematic Machine Operator Name Role Phone Edwin Siu MD Primary Care Provider [phone] Reason for Visit * Reason Onset Date Comments MEDICATION REFILL 04/01/2022 Encounter Details Date Type Department Care Team (Late Contact Info) Description 04/01/2022 Refill [facility] Rheumatology [address] [place] [address] Gerson Guajardo MD [facility] [place] [id number] MEDICATION REFILL Social History Tobacco Use Types Packs/Day Years Used Date Smoking Tobacco: Never Smokeless Tobacco: Never Alcohol Use Standard Drinks/Week Comments Not Currently 0 (1 standard drink = 0.6 oz pur e alcohol) PHQ-2 Answer Date Recorded PHQ2 TOTAL SCORE 0 03/26/2022 Sex and Gender Information Value Date Recorded Sex Assigned at Female 03/02/2024 7:17 AM CDT Gender Identity Female 03/02/2024 7:17 AM CDT Sexual Orientation Straight 03/02/2024 7: 17 AM CDT documented as of this encounter Plan of Treatment Upcoming Encounters Date Type Department Care Team (Late Contact Info) Description 02/25/2025 1:40 PM CDT Office Visit [facility] [address] [place] [address] Rima Siu MD [address] [place] [address] documented as of this encounter Visit Diagnoses Not on filedocumented in this encounter Care Teams Drivematic Machine Operator Relationship Specialty Start Date End Date Edwin Siu MD PCP - General 02/25/12 documented as of this encounter
--- OUTSIDE RECORDS SUMMARY | 2025-02-11 12:01 | XMS_ITS | Encounter Summary ---
Author Organization [facility] Address [address] [place] [address] Phone Care Team Providers Care Network Infrastructure Architect Name Role Phone Edwin Siu MD Primary Care Provider [phone] Alicia Ramos MD Unavailable [phone] Encounter Details Date Type Department Care Team (Late st Contact Info) Description 03/27/2023 Orders Only [facility] Scanning, Provider Social History Tobacco Use Types Packs/Day Years Used Date Smoking Tobacco: Never Smokeless Tobacco: Never Alcohol Use Standard Drinks/Week Comments Not Currently 0 (1 standard drink = 0.6 oz pur e alcohol) AUDIT-C Answer Date Recorded Q1: How often do you have a drink containing alc ohol? 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 Gender Identity Not on file Sexual Orientation Straight 05/15/2020 12 :32 PM CDT documented as of this encounter Plan of Treatment Not on file documented as of this encounter Procedures Procedure Name Priority Date/Time Associated Diagnosis Comments SCAN - LABS 03/27/2023 documented in this encounter Results * SCAN - LABS (03/27/2023) us Provider Scanning Final Result documented in this encounter Visit Diagnoses Not on filedocumented in this encounter Care Teams Network Infrastructure Architect Relationship Specialty Start Date End Date Edwin Siu MD [address] [place] [address] PCP - General 09/11/12 Alicia Ramos MD [address] [place] [address] Consulting Physician Internal Medicine 05/01/23 documented as of this encounter
--- OUTSIDE RECORDS SUMMARY | 2025-02-11 12:01 | XMS_ITS | Encounter Summary ---
Author Organization [facility] Address [address] [place] [address] Phone Care Team Providers Care Digital Watch Assembler Name Role Phone Edwin Siu MD Primary Care Provider + [phone] Alicia Ramos MD Unavailable [phone] Encounter Details Date Type Department Care Team (Late st Contact Info) Description 09/07/2024 Orders Only [facility] Scanning, Provider Social History Tobacco Use Types Packs/Day Years Used Date Smoking Tobacco: Never Passive Smoke Exposure: Never Smokeless Tobacco: Never Alcohol Use Standard Drinks/Week Comments Not Currently 0 (1 standard drink = 0.6 oz pur e alcohol) AUDIT-C Answer Date Recorded Q1: How often do you have a drink containing alcohol? Never 07/07/2023 Q2: How many drinks containi ng alcohol do you have on a typical day when you are drinking? Patient does not drink Q3: How often do you have si x or more drinks on one occasion? Never 07/07/2023 Personal Safety Answer Date Recorded Have you ever been in or are you currently in a harmful physical or emotional relationship or is someone making you feel afraid or unsafe? 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 Gender Identity Not on file Sexual Orientation Straight 05/15/2020 12 :32 PM CDT documented as of this encounter Plan of Treatment Not on file documented as of this encounter Procedures Procedure Name Priority Date/Time Associated Diagnosis Comments SCAN - LABS 09/07/2024 documented in this encounter Results * SCAN - LABS (09/07/2024) us Provider Scanning Final Result documented in this encounter Visit Diagnoses Not on filedocumented in this encounter Care Teams Digital Watch Assembler Relationship Specialty Start Date End Date Edwin Siu MD [address] [place], [place] [address] PCP - General 09/11/12 Alicia Ramos MD [address] [place], [place] [id number] Consulting Physician Internal Medicine 05/01/23 documented as of this encounter
--- OUTSIDE RECORDS SUMMARY | 2025-02-11 12:01 | XMS_ITS | Encounter Summary ---
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 Gender Identity Not on file Sexual Orientation Straight 05/15/2020 12 :32 PM CDT documented as of this encounter Plan of Treatment Not on file documented as of this encounter Procedures Procedure Name Priority Date/Time Associated Diagnosis Comments SCAN - LABS 05/10/2023 documented in this encounter Results * SCAN - LABS (05/10/2023) us Provider Scanning Final Result documented in this encounter Visit Diagnoses Not on filedocumented in this encounter Care Teams Product/Device Technologist Relationship Specialty Start Date End Date Edwin Siu MD [address] [place] [address] PCP - General 09/11/12 Alicia Ramos MD [address] [place] [address] Consulting Physician Internal Medicine 05/01/23 documented as of this encounter
--- OUTSIDE RECORDS SUMMARY | 2025-02-11 12:01 | XMS_ITS | Clinical Summary ---
Author Organization [employer] [address] [facility] [address] [place] [address] Phone Care Team Providers Care Stacker Attendant Name Role Phone Edwin Siu MD Primary Care Provider + Social History Tobacco Use Types Packs/Day Years Used Date Smoking Tobacco: Never Assessed Comments Unknown Sex and Gender Information Value Date Recorded Sex Assigned at Not on file Legal Sex Female 11:12 AM CDT Gender Identity Not on file Sexual Orientation Not on file Plan of Treatment Health Maintenance Due Date Last Done Comments DTAP/TDAP/TD VACCINES (1 - Tdap) 2008 HEPATITIS B VACCINES (1 of 3 - 19+ 3-dose series) 2008 PAP SMEAR 2010 CERVICAL CANCER SCREENING 2019 HPV/Cotest (30-65) 2019 PAP SMEAR 2019 INFLUENZA VACCINE (#1) 2024 HPV VACCINES Aged Out No longer eligi ble based on patient's age to complete this topic PNEUMOCOCCAL VACCINE 0-49 YEARS Aged Out No longer eligible based on patient's age to complete this topic Care Teams Stacker Attendant Relationship Specialty Start Date End Date Edwin Siu MD [address] [place] [address] PCP - General Internal Medicine 09/18/15
--- OUTSIDE RECORDS SUMMARY | 2025-02-11 12:01 | XMS_ITS | Encounter Summary ---
Author Organization [facility] Address [address] [place] [address] Phone Care Team Providers Care Commercial Plumber Name Role Phone Edwin Siu MD Primary Care Provider + [phone] Alicia Ramos MD Unavailable [phone] Encounter Details Date Type Department Care Team [...] on file Legal Sex Female 1:19 AM LCSW Gender Identity Not on file Sexual Orientation [...] on filedocumented in this encounter Care Teams Commercial Plumber Relationship Specialty Start Date End Date Edwin Siu MD [address] [place] [address] PCP - General 09/11/12 Alicia Ramos MD [address] [place] [address] Consulting Physician Internal Medicine 05/01/23 documented as of this encounter
--- OUTSIDE RECORDS SUMMARY | 2025-02-11 12:02 | XMS_ITS ---
Author Organization [facility] [employer] Address [address] [facility] [address] [place] [address] Care Team Providers Care Top Inventory Control Executive Name Role Phone Salbador PEREZ, Edwin Primary Care Provider UnavailRedd Wheeler Unavailable [phone] REASON FOR VISIT Clonazepam Medications Medication SIG (Take, Route, Fr equency, Duration) Notes Start Date End Date Status clonazePAM 0.5 MG 0.5 tablet Oral Twic e a day for 30 days 09/23/2024 Active Social History Sex Assigned At : Social History Observation Description Sex Assigned At Female Encounters Encounter Location Date Provider Diagnosis [facility] [address] [facility] [address] [facility] [address] [place] [address] 09/22/2024 Redd Canales Generalized anxiety disorder F41.1 Assessments Encounter Date Diagnosis (ICD Code) Assessment Notes Treatment Notes Treatment Clinical Notes Section Notes 09/22/2024 Generalized anxiety disorder (ICD-10 - F41.1) Plan Of Treatment Medication Medication Name Sig Start Date Stop Date Notes clonazePAM 0.5 MG 0.5 tablet Oral Twice a day for 30 days 09/23/2024 Progress Notes * ARELY FRIASOB:1990 ( 33 yo F)Acc No.[id number]:09/22/2024 Patient: ALYSON CARDONA :1990 A ge:33 Y S ex:Female Address:[facility] [place], [address] * Refills Refill clonazePAM Tablet, 0.5 MG, Oral, 30 Tablet, 0.5 tablet, Twice a day, 30 days, Refills=1 Subjective: * Chief Complaints: * C lonazepam * Medical History: * Surgical History: * Hospitalization/Major Diagno stic Procedure: * Medications: Objective: * Vitals: * Physical Examination: Assessment: * Assessment: 1. G eneralized anxiety disorder - F41.1 Plan: * Treatment: * Procedure Codes: * true * Date: Generated for Taye rivas/Ronald/Vipin on: 0 02/11/2025 12:02 PM CDT
--- OUTSIDE RECORDS SUMMARY | 2025-02-11 12:02 | XMS_ITS | Encounter Summary ---
Author Organization [facility] Address [address] [place] [address] Phone Care Team Providers Care Snuff Maker Name Role Phone Edwin Siu MD Primary Care Provider + [phone] Alicia Ramos MD Unavailable [phone] Encounter Details Date Type Department Care Team (Late st Contact Info) Description 03/12/2023 Orders Only [facility] Scanning, Provider Social History Tobacco Use Types Packs/Day Years Used Date Smoking Tobacco: Never Smokeless Tobacco: Never Alcohol Use Standard Drinks/Week Comments Not Currently 0 (1 standard drink = 0.6 oz pur e alcohol) Comments No Sex and Gender Information Value Date Recorded Sex Assigned at Not on file Legal Sex Female 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 Gender Identity Not on file Sexual Orientation Straight 05/15/2020 12 :32 PM CDT documented as of this encounter Plan of Treatment Not on file documented as of this encounter Procedures Procedure Name Priority Date/Time Associated Diagnosis Comments SCAN - RADIOLOGY/IMAGING 03/12/2023 documented in this encounter Results * SCAN - RADIOLOGY/IMAGING (03/12/2023) Anatomical Region Laterality Modality Other us Provider Scanning Final Result documented in this encounter Visit Diagnoses Not on filedocumented in this encounter Care Teams Snuff Maker Relationship Specialty Start Date End Date Edwin Siu MD [address] [place] [address] PCP - General 09/11/12 Alicia Ramos MD [address] [place] [address] Consulting Physician Internal Medicine 05/01/23 documented as of this encounter
--- OUTSIDE RECORDS SUMMARY | 2025-02-11 12:02 | XMS_ITS | Clinical Summary ---
Author Organization [facility] [employer] Address [address] [place] [address] Care Team Providers Care Boiler Inspector Name Role Phone Edwin Siu MD Primary Care Provider [phone] Source Comments [facility],non-owned Affiliates and Associated Physician Practices is amultiple site organization consisting of ambulatory clinics and hospital sitesin [place], [place], [place] and [place]. This disclosure is being madepursuant to the Care Everywhere program and may not contain all information available regarding this patient. Last updated 18.[facility] Allergies Active Allergy Reactions Criticality Noted Date Comments Ciprofloxacin Urticaria Medium 10/07/2019 Metronidazole Urticaria Medium 10/07/2019 Na Ferric Gluc Cplx In Sucrose Urticaria Medium 06/16/2023 Nitrofurantoin Urticaria,Rash Medium 05/15/2023 Pollen Extract Other Low 02/20/2021 Reaction: OTHER REACTION, Medications * Be aware that medications may not be up to date on this document. Alwaysverify current medications with the patient. Medication Sig Dispensed Refills Start Date End Date Status traZODone (DESYREL) 50 MG tablet Take 3 (three) tablets by mouth at bedtime 09/29/2019 Active pantoprazole EC (PROTONIX) 40 MG tablet Take 1 (one) tablet by mouth daily before breakfast 09/26/2019 Active lamoTRIgine (LAMICTAL) 100 MG tablet 07/27/2021 Active clonazePAM (KLONOPIN) 0.5 MG tablet Take 2 (two) tablets by mouth 2 times daily 03/19/2022 Active celecoxib (CeleBREX) 100 MG capsule TAKE 2 (TWO) CAPSULES BY MOUTH 2 TIMES DAILY 120 capsule 5 09/23/2022 Active leflunomide (Arava) 10 MG tablet TAKE 1 TABLET BY MOUTH EVERY DAY 30 tablet 5 10/07/2022 Active Stelara 45 MG/0.5ML prefilled syringe INJECT 1 SYRINGE SUBCUTANEOUSLY EVERY 12 WEEKS 0.5 mL 4 12/09/2022 Active sertraline (Zoloft) 50 MG tablet 08/18/2023 Active norethindrone (Aygestin) 5 MG tablet Take 2 (two) tablets by mouth once daily 180 tablet 2 10/13/2024 Active lisinopril (Prinivil; Zestril) 10 MG tablet Take 1 (one) tablet by mouth once daily Active metoprolol succinate XL 24hr (Toprol XL) 25 MG tablet Take 1 (one) tablet by mouth once daily Active cetirizine (ZyrTEC) 10 MG tablet Take 1 (one) tablet by mouth once daily Active ibuprofen (Motrin) 600 MG tablet Take 1 (one) tablet by mouth every 6 hours 20 tablet 10/20/2024 Active acetaminophen (Tylenol) 500 MG tablet Take 2 (two) tablets by mouth every 6 hours Maximum allowable Acetaminophen amount = 4 Grams (4000 mg) / 24 hours. 40 tablet 10/20/2024 Active Active Problems Problem Noted Date Diagnosed Date Avascular necrosis 04/03/2023 05/30/2023 Iron deficiency anemia 03/11/2023 3 Sacroiliitis 10/03/2022 05/30/2023 History of 2019 novel coronavirus disease (COVID -19) 08/03/2021 Inappropriate sinus tachycardia 08/03/2021 Low serum adrenocorticotropic hormone (ACTH) Anxiety 09/05/2020 RA (rheumatoid arthritis) 09/05/2020 Colitis 08/23/2020 Overview (02/20/2021): Added automatically from request for surgery [id number] Gastroesophageal reflux disease without esophagi tis 08/02/2020 Overview (02/20/2021): Added automatically from request for surgery [id number] Uveitis 02/07/2020 Dysuria 05/27/2016 Habitual aborter, antepartum 05/27/2016 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 [place] [address] Rima Siu MD Future Appointment from Last 3 Months Immunizations Name Administration Dates Next Due Covid Pfizer primary monoval ent 12+ yr 0.3mL Purple cap 07/10/2021,11/24/2020,11/03/2020 INFLUENZA VACCINE 08/29/2020,09/05/2019 PNEUMOCOCCAL PPSV23 12/03/2018 Family History Medical History Relation Name Comments Hyperlipidemia Father Hypertension Father Hypertension Mother Other Mother Endometriosis Cancer - Breast Neg Hx Cancer - Colon Neg Hx Cancer - Ovarian Neg Hx Cancer - Uterine Neg Hx DVT - Deep Vein Thrombosis Neg Hx Thyroid Disease Neg Hx Relation Name Status Comments Father Alive Mother Alive Sister Alive Social History Tobacco Use Types Packs/Day Years Used Date Smoking Tobacco: Never Smokeless Tobacco: Never Tobacco Cessation:Counseling Given: Not Answered Alcohol Use Standard Drinks/Week Comments Not Currently 0 (1 standard drink = 0.6 oz pur e alcohol) PHQ-2 Answer Date Recorded Patient Health Questionnaire-2 Score 0 11/15/2024 Sex and Gender Information Value Date Recorded Sex Assigned at Female 03/02/2024 7:17 AM CDT Gender Identity Female 03/02/2024 7:17 AM CDT Sexual Orientation Straight 03/02/2024 7: 17 AM CDT Last Filed Vital Signs Vital Sign Reading Time Taken Comments Blood Pressure 104/70 11/04/2024 4:16 PM PARAEDUCATOR Pulse 91 10/20/2024 11:24 AM PARAEDUCATOR Temperature 36.9 C (98.4 F) 10/20/2024 10:54 AM PARAEDUCATOR Respiratory Rate 16 10/20/2024 11:24 AM PARAEDUCATOR Oxygen Saturation 96% 10/20/2024 11:24 AM PARAEDUCATOR Inhaled Oxygen Concentration - - Weight 78.6 kg (173 lb 3.2 oz) 11/04/2024 4:16 P M PARAEDUCATOR Height 165.1 cm (5' 5 ) 11/04/2024 4:16 PM PARAEDUCATOR Body Mass Index 28.82 11/04/2024 4:16 PM PARAEDUCATOR Plan of Treatment Upcoming Encounters Date Type Department Care Team (Late st Contact Info) Description 02/25/2025 1:40 PM CDT Office Visit [facility] [address] [place] [address] Rima Siu MD [address] [place] [address] Health Maintenance Due Date Last Done Comments PAP SMEAR 1989 HIV SCREENING 2004 HEPATITIS C SCREENING 11/09/2007 DTAP/TDAP/TD VACCINES (1 - Tdap) 2008 HEPATITIS B VACCINE (1 of 3 - 19+ 3-dose series) 2008 COVID-19 VACCINE ( season) 2024 09/17/2023, 03/31/2023, 08/02/2022, Additional history exists INFLUENZA VACCINE (#1) 2024 08/29/2020, 2018 DEPRESSION SCREENING 11/17/2024 10/12/2024, 07/16/20 22 ZOSTER VACCINE (1 of 2) 2039 PNEUMOCOCCAL VACCINE Aged Out 12/03/2018 No long er eligible based on patient's age to complete this topic HIB VACCINE Aged Out No longer eligi ble based on patient's age to complete this topic HPV VACCINE Aged Out No longer eligi ble based on patient's age to complete this topic MENINGOCOCCAL (Group B) VACCINE SHARED DECISION-MAKING Aged Out No longer eligible based on patient's age to complete this topic MENINGOCOCCAL GROUPS A/C/Y/W VACCINE Aged Out No longer eligible based on patient's age to complete this topic Medical Devices Implanted Type Area [employer] Firer Device Identifier Shelf Expiration Date Model / Serial / Lot Mirena Levonorgestrel- Releasing Intrauterine System Implanted:Qty: 1 on 10/20/2024 by Yajaira Man MD at [facility] N/A: Nino Joseph 01/14/2027 [id number] / [id number] / [id number] Care Teams Boiler Inspector Relationship Specialty Start Date End Date Edwin Siu MD PCP - General 02/25/12
--- OUTSIDE RECORDS SUMMARY | 2025-02-11 12:02 | XMS_ITS | Clinical Summary ---
Author Organization [facility] Address [address] [place] [address] Care Team Providers Care Manufacturing Quality Inspector Name Role Phone Edwin Siu MD Primary Care Provider + [phone] Alicia Ramos MD Unavailable [phone] Allergies Active Allergy Reactions Criticality Noted Date Comments Ciprofloxacin Hives Medium Sodium Ferric Gluconat-Sucrose Hives Medium 06/16 Metronidazole Hives Medium Nitrofurantoin Hives,Rash,Urticaria Medium 05/15/2023 Medications traZODone (DESYREL) 150 mg tabletIndications:in somnia associated with depression Take 1 tablet (150 mg total) by mouth nightly 020 Active lamoTRIgine (LaMICtal) 200 mg tabletIndications:sl eep Take 1 tablet (200 mg total) by mouth nightly 023 Active sertraline (ZOLOFT) 100 mg tablet 023 Active drospirenone, contraceptive, (SLYND) tablet tablet Take 1 each (4 mg total) by mouth daily control Active cetirizine (ZyrTEC) 5 mg tablet Take 1 tablet (5 mg total) by mouth daily Active acetaminophen-codein e (TYLENOL with CODEINE #3) 300-30 mg per tablet Take 1 tablet by mouth every 4 (four) hours as needed for pain 30 tablet 024 Active celecoxib (CeleBREX) 100 mg capsuleIndications:N 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 TAKE 2 CAPSULES (200 MG TOTAL) BY MOUTH 2 (TWO) TIMES A DAY NEEDED FOR PAIN 120 capsule [address] (PROTONIX) 40 mg EC tablet TAKE 1 TABLET BY MOUTH TWICE DAILY ON AN EMPTY STOMACH AND EAT 30-60 MINUTES LATER 180 tablet 1 024 Active Stelara injection INJECT 0.5 ML (45 MG TOTAL) UNDER THE SKIN EVERY 3 (THREE) MONTHS 0.5 mL 1 024 Active metoprolol XL (TOPROL-XL) 25 mg extended release tabletIndications:Si nus tachycardia Take 0.5 tablets (12.5 mg total) by mouth every morning 90 tablet 025 Active leflunomide (ARAVA) 10 mg tabletIndications:Ar thropathic psoriasis, unspecified (HCC),Psoriasis, unspecified TAKE 1 TABLET BY MOUTH EVERY DAY 30 tablet 025 Active leflunomide (ARAVA) 10 mg tabletIndications:Ar thropathic psoriasis, unspecified (HCC),Psoriasis, unspecified TAKE 1 TABLET BY MOUTH EVERY DAY 30 tablet 025 2024 Discontinued Active Problems Problem Noted Date Diagnosed Date 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 Hiatal hernia 06/03/2023 Thyroid nodule 04/30/2023 04/30/2023 Avascular necrosis 04/03/2023 Iron deficiency anemia 03/11/2023 Sacroiliitis 10/03/2022 04/30/2023 Sinusitis, chronic 01/08/2022 Dysphagia 09/05/2021 Overview (09/05/2021): Added automatically from request for surgery [id number] Parotid mass 08/14/2021 Sinus tachycardia 08/03/2021 Palpitations 08/03/2021 History of 2019 novel coronavirus disease (COVID -19) 08/03/2021 Low serum adrenocorticotropic hormone (ACTH) 04/30/2023 RA (rheumatoid arthritis) 09/05/2020 Anxiety 09/05/2020 Colitis 08/23/2020 Overview (08/23/2020): Added automatically from request for surgery [id number] Gastroesophageal reflux disease 08/16/2020 Overview (08/16/2020): Added automatically from request for surgery [id number] Gastroesophageal reflux disease without esophagi tis 08/02/2020 Other chest pain 08/02/2020 Uveitis 02/07/2020 Dysuria 05/27/2016 Habitual aborter, antepartum 05/27/2016 Threatened miscarriage 05/27/2016 Possible , not yet confirmed 05/21/2016 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 12/28/2015 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 Immunizations Immunization Administration Dates Next Due Influenza, Unspecified 08/29/2020 ZOSTER Recombinant 12/29/2023 Surgical History Surgery Date Site/Laterality Comments CHOLECYSTECTOMY 11/17/2013 - 11/16/2014 MYRINGOTOMY W/ TUBES Bilateral x3- last one 1995 SINUS SURGERY 11/17/2007 - 11/16/2008 HYSTEROSCOPY 11/17/2015 - 11/16/2016 ROGER FUNDOPLICATION 09/04/2020 TONSILLECTOMY 11/17/2004 - 11/16/2005 SECTION 11/17/2016 - 11/16/2017 ESOPHAGEAL DILATION 10/17/2020 - 11/16/2020 COLONOSCOPY 08/17/2020 - 09/16/2020 FLUORO GUIDED ASPIRATION OR INJECTION LARGE JOINT BILATERAL 09/17/2024 Bilateral Medical History Medical History Date Comments Recurrent loss Recurre nt loss without current - (Added by TW Conv) Non-cardiac chest pain Rheumatoid arthritis (HCC) GERD (gastroesophageal reflux disease) Hiatal hernia Gastritis PONV (postoperative nausea a nd vomiting) Avascular necrosis (HCC) Anemia Anxiety Autoimmune disease Colitis 08/23/2020 Tachycardia-bradycardia syndrome (HCC) 12/29/2023 Family History Medical History Relation Name Comments Hyperlipidemia Father Ryland Soni Hypertension Father Ryland Soni Diabetes Mother Yajaira Soni Hearing loss Mother Yajaira Soni Hypertension Mother Yajaira Soni Cancer Other 1 Reported Family History Of Cancer - Maternal Grandfather (Added by TW Conv) Diabetes Other 2 Diabetes Mellit us - Maternal Grandmother (Added by TW Conv) Hearing loss Other 3 Hearing Loss - Mother (Added by TW Conv) No Known Problems Sister Anesthesia problems Neg Hx Relation Name Status Comments Father Ryland Soni Alive Mother Yajaira Soni Alive Other 1 Other 2 Other 3 Sister Alive Social History Tobacco Use Types Packs/Day Years Used Date Smoking Tobacco: Never Passive Smoke Exposure: Never Smokeless Tobacco: Never Tobacco Cessation:Counseling Given: [...] on file Legal Sex Female 1:19 AM 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 Gender Identity Not on file Sexual Orientation Straight 05/15/2020 12 :32 PM CDT Obstetrics History Last Filed Vital Signs Vital Sign Reading Time Taken Comments Blood Pressure 131/78 09/17/2024 1:40 PM CDT Pulse 84 09/17/2024 1:40 PM CDT Temperature 36.9 C (98.4 F) 09/17/2024 1:40 PM CDT Respiratory Rate 16 09/17/2024 1:40 PM CDT Oxygen Saturation 98% 09/17/2024 1:40 PM CDT Inhaled Oxygen Concentration - - Weight 74.6 kg (164 lb 6.4 oz) 08/02/2024 9:15 A M CDT Height 162.6 cm (5' 4 ) 08/02/2024 9:15 AM CDT Body Mass Index 28.22 08/02/2024 9:15 AM CDT Plan of Treatment Health Maintenance Due Date Last Done Comments Cervical Cancer Screening 1989 Depression Screening 1989 DTaP/Tdap/Td Vaccine (1 - Tdap) 2000 Varicella Vaccines (1 of 2 - 13+ 2-dose series) 2002 Regular Well Visit/Exam 18-64 2007 Covid-19 Vaccine (4 - 2023-2 5 season) 2024 07/10/2021, 11/24/2020, 11/03/2020 Influenza Vaccine (#1) 2024 08/29/2020 Hepatitis B Screening Completed 02/25/2023 Hepatitis C Screening Completed 02/25/2023 HPV Vaccines Aged Out No longer eligi ble based on patient's age to complete this topic Pneumococcal vaccine <65 Aged Out No longer eligible based on patient's age to complete this topic Medical Devices Implanted Type Area Desktop Analyst Device Identifier Shelf Expiration Date Model / Serial / Lot [employer] Substitute Bone Graft Tactoset Kit Prefilled Mix Syringe [place] [id number] - [id number] Implanted:Qty: 1 on 06/09/2023 by Yolande Rubio MD at [facility] Right: Hip [employer] 03/17/2025 [id number] / / [id number] Description:Times are estima keven [employer] Substitute Bone Graft Tactoset Kit Prefilled Mix Syringe [id number] - [id number] Implanted:Qty: 1 on 06/09/2023 by Yolande Rubio MD at [facility] Left: Hip [employer] 03/17/2025 [id number] / / [id number] Description:Times are estima keven Procedures Procedure Name Priority Date/Time Associated Diagnosis Comments HEPATITIS C ANTIBODY Routine 02/25/2023 Immunosuppression from Last 3 Months or Most Recently Relevant to Health Maintenance Results * Hepatitis C antibody (02/25/2023) SCRIBED HCV ab Nonreactive EXTERNAL LAB Blood 02/25/2023 us Alicia Ramos MD LAB MICROBIOLOGY - GENERAL O RDERABLES Final Result EXTERNAL LAB from Last 3 Months or Most Recently Relevant to Health Maintenance Insurance [facility] Advance Directives For more information, please contact: [phone] * Full Code (Latest Code Status on File) Date Activated Date Inactivated Comments 11/09/2020 10:46 AM 11/09/2020 6:17 PM * Full Code Date Activated Date Inactivated Comments 09/04/2020 1:08 PM 09/05/2020 5:23 PM * Full Code Date Activated Date Inactivated Comments 08/30/2020 11:18 AM 08/30/2020 5:39 PM Care Teams Manufacturing Quality Inspector Relationship Specialty Start Date End Date Edwin Siu MD [address] [place] [address] PCP - General 09/11/12 Alicia Ramos MD [address], [place] [id number] Consulting Physician Internal Medicine 05/01/23
--- OUTSIDE RECORDS SUMMARY | 2025-02-11 12:02 | XMS_ITS | Encounter Summary ---
Author Organization [facility] Address [address] [place] [address] Care Team Providers Care Pie Baker Name Role Phone Edwin Siu MD Primary Care Provider [phone] Encounter Details Date Type Department Care Team (Late st Contact Info) Description 09/20/2024 Telephone [facility] [address] [place] [address] Rima Siu MD [address] [facility] [address] [place] [address] Social History Tobacco Use Types Packs/Day Years [...] AM CDT documented as of this encounter Miscellaneous Notes * Telephone Encounter - James Pradhan - 09/20/2024 1:27 PM CST Patient would like to schedule her yearly WWE and her TVUS for the same day. 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
--- OUTSIDE RECORDS SUMMARY | 2025-02-11 12:02 | XMS_ITS | Referral Summary ---
Author Organization [facility] Address [address] [place] [address] Care Team Providers Care Time Study Technician Name Role Phone Edwin Siu MD Primary Care Provider + [phone] Alicia Ramos MD Unavailable Allergies Active Allergy Reactions Criticality Noted Date [...] (09/05/2021): Added automatically from request for surgery [id number] Parotid mass 08/14/2021 Sinus tachycardia 08/03/2021 Palpitations 08/03/2021 History of 2019 novel coronavirus disease (COVID -19) 08/03/2021 Low serum adrenocorticotropic hormone (ACTH) 04/30/2023 RA (rheumatoid arthritis) 09/05/2020 Anxiety 09/05/2020 Colitis 08/23/2020 Overview (08/23/2020): Added automatically from request for surgery [id number] Gastroesophageal reflux disease 08/16/2020 Overview (08/16/2020): Added automatically from request for surgery [id number] Gastroesophageal reflux disease without esophagi tis 08/02/2020 Other chest pain 08/02/2020 Uveitis 02/07/2020 Dysuria 05/27/2016 Habitual aborter, antepartum 05/27/2016 Threatened miscarriage 05/27/2016 Possible , not yet confirmed 05/21/2016 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 12/28/2015 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 Immunizations Immunization Administration Dates Next Due Influenza, Unspecified 08/29/2020 ZOSTER Recombinant 12/29/2023 Social History Tobacco Use Types Packs/Day Years [...] on file 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 Gender Identity Not on file Sexual Orientation Straight 05/15/2020 12 :32 PM CDT Last Filed Vital Signs Vital Sign [...] 08/02/2024 9:15 AM CDT Plan of Treatment Not on file Medical Devices Implanted Type Area Fiberglass Finisher Device Identifier Shelf Expiration Date Model / Serial / Lot [employer] Substitute Bone Graft Tactoset Kit Prefilled Mix Syringe [place] [id number] - [id number] Implanted:Qty: 1 on 06/09/2023 by Yolande Rubio MD at [facility] Right: Hip [employer] 03/17/2025 [id number] / / [id number] Description:Times are estima keven [employer] Substitute Bone Graft Tactoset Kit Prefilled Mix Syringe Ll [id number] - [id number] Implanted:Qty: 1 on 06/09/2023 by Yolande Rubio MD at [facility] Left: Hip [employer] 03/17/2025 [id number] / / [id number] Description:Times are estima keven Procedures Procedure Name [...] Most Recently Relevant to Health Maintenance Insurance [facility] Advance Directives For more information, please contact: [phone] * Full Code (Latest Code Status on File) Date Activated Date Inactivated Comments 11/09/2020 10:46 AM 11/09/2020 6:17 PM * Full Code Date Activated Date Inactivated Comments 09/04/2020 1:08 PM 09/05/2020 5:23 PM * Full Code Date Activated Date Inactivated Comments 08/30/2020 11:18 AM 08/30/2020 5:39 PM Care Teams Time Study Technician Relationship Specialty Start Date End Date Edwin Siu MD [address] [place] [address] PCP - General 09/11/12 Alicia Ramos MD [address] [place] [address] Consulting Physician Internal Medicine 05/01/23
--- OUTSIDE RECORDS SUMMARY | 2025-02-11 12:02 | XMS_ITS ---
Author Organization [facility] [employer] Address [address] [place] [address] Care Team Providers Care Logging Tractor Operator Name Role Phone Salbador PEREZ, Edwin Primary Care Provider UnavailRedd Wheeler Unavailable [phone] Allergies Allergen (clinical drug ingredient) Drug/Non Drug Allergy documented on EMR Reaction Allergy Type Onset Date Status Ciprofloxacin Unknown Drug Allergy 02/18/2024 Ac tive metronidazole Flagyl Unknown Drug Allergy 02/18/2024 Ac tive Results Component Value Reference Range Notes UDT Reviewed date:01/10/2025 04:37:18 PM Interpretation: Performing Lab: Notes/Report: THC N 0 - 50 ng/ml Cocaine N 0 - 300 ng/ml Amphetamine N 0 - 1000 ng/ml Buprenorphine (BUP) N 0 - 10 ng/ml Secobarbital (Bar) N 0 - 300 ng/ml Oxazepam (BZO) N 0 - 300 ng/ml 0-meiatoiuuu-3,7-lnliwwtm-4,3-diphenylpyrrolidine (SERGIO P) N 0 - 300 ng/ml Methamphetamine (MET) N 0 - 1000 ng/ml Methylenedioxymethamphetamine (MDMA) N 0 - 500 ng/ml Morphine (MOP 300/[id number]) N 0 - 300 ng/ml Methadone (MTD) N 0 - 300 ng/ml Phencyclidine (PCP) N 0 - 25 ng/ml Nortriptyline (TCA) N 0 - 1000 ng/ml Oxycodone N 0 - 300 ng/ml x N 0 - 300 ng/ml REASON FOR VISIT Established follow up visit, Depression screening negative, UDT Visit, UDT done Medications Medication SIG (Take, Route, Frequency, Duration) Notes Start Date End Date Status traZODone HCl 150 MG 2 tablet every nigh t Oral Once a day for 90 days Active Sertraline HCl 100 MG TAKE 1.5 TABLETS B Y MOUTH ONCE A DAY 30 DAYS for 30 Active clonazePAM 0.5 MG 0.5 tablet Oral Twic e a day for 30 days 09/23/2024 Active traZODone HCl 150 MG 2 TABLET EVERY NIGH T ORAL ONCE A DAY 90 DAYS for 90 Active Stelara 45 MG/0.5ML Subcutaneous for 84 Days Active Slynd 4 MG TAKE 1 TABLET BY SILVERIO TH EVERY DAY Oral for 84 Days Activ e Metoprolol Succinate ER 25 MG TAKE 1 TABLET BY MOUTH EVERY DAY IN THE MORNING Oral for 30 Days Active Celecoxib 100 MG TAKE 2 CAPSULES (200 MG TOTAL) BY MOUTH 2 (TWO) TIMES A DAY NEEDED FOR PAIN Oral for 30 Days Active Leflunomide 10 MG TAKE 1 TABLET BY SILVERIO TH EVERY DAY Oral for 30 Days Activ e Pantoprazole Sodium 40 MG TAKE 1 TABLET BY MOUTH TWICE DAILY ON AN EMPTY STOMACH AND EAT 30-60 MINUTES LATER Oral for 30 Days Active Sertraline HCl 100 MG 2 tablet every mor miranda Orally Once a day for 90 days Active lamoTRIgine 100 MG 1.5 tablet Oral Once a day for 90 days Active Social History Tobacco Use: Social History Observation Description Date Details (start date - stop date) Never Smoker NA - NA Sex Assigned At : Social History Observation Description Sex Assigned At Female Tobacco Control (Standard) Question Answer Notes Tobacco use: Nonsmoker AUDIT-C (Standard) Question Answer Notes Did you have a drink containing alcohol in the p ast year? No Vital Signs Blood pressure systolic 112 mm Hg 01/10/20 25 Blood pressure diastolic 74 mm Hg 025 Heart Rate 77 /min 01/10/2025 Height 65.00 in 01/10/2025 Weight 167 lbs 01/10/2025 BMI 27.79 kg/m2 01/10/2025 Height-cm 165.10 cm 01/10/2025 Weight-kg 75.75 kg 01/10/2025 Encounters Encounter Location Date Provider Diagnosis [facility] [employer] [address] [address] 01/10/2025 Redd Zepeda Generalized anxiety disorder F41.1 ; Major depression in remission F32.5 and Primary insomnia F51.01 Assessments Encounter Date Diagnosis (ICD Code) Assessment Notes Treatment Notes Treatment Clinical Notes Section Notes 01/10/2025 Generalized anxiety disorder (ICD-10 - F41.1) Learning About Generalized Anxiety Disorder material was published 01/10/2025 Major depression in remission (ICD-10 - F32.5) 01/10/2025 Primary insomnia (ICD-10 - F51.01) 01/10/2025 Other Pneumonia (resolved) - Assessment: Patient reports having been sick for 2 weeks with pneumonia, but is now recovering. 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 - Plan: - No further intervention needed at this time. Depression (in remission) - Assessment: Patient's depression score is 1, indicating remission. - Plan: - Continue current treatment plan: - Sertraline 200 mg daily (2 tablets) - Trazodone 150 mg nightly (2 tablets) Anxiety (improved) - Assessment: Patient reports occasional anxiety, managed with Klonopin, taken once or twice a month, but overall improvement. - Plan: - Continue current treatment plan: - Clonazepam as needed (last filled in November, no refill needed at this time) Bipolar disorder (stable) - Assessment: Patient reports no significant mood shifts or swings. Lamotrigine appears to be helping. - Plan: - Continue current treatment plan: - Lamotrigine 150 mg daily (1.5 tablets) Follow-up and Medication Management - Plan: - Continue current medications as prescribed. - Schedule follow-up appointment in 5 months. Patient prefers this timeline and will call if any concerns or changes in symptoms arise before the next appointment. - Send prescriptions to [facility] in [place]. Plan Of Treatment Medication Medication Name Sig Start Date Stop Date Notes traZODone HCl 150 MG 2 tablet every nigh t Oral Once a day for 90 days Sertraline HCl 100 MG 2 tablet every mor miranda Orally Once a day for 90 days lamoTRIgine 100 MG 1.5 tablet Oral Once a day for 90 days Treatment Notes Assessment Notes Generalized anxiety disorder Learning Ab out Generalized Anxiety Disorder material was published Next Appt Details Follow Up: 5 month, Reason: Progress Notes * ARELY FRIASOB:1990 ( 34 yo F)Acc No.[id number]:01/10/2025 Patient: Ace FRANCOISReggieALYSON Provider: Jazmine ZEPEDA MD :1990 A ge:34 Y S ex:Female Date:01/10/2025 Address:[facility] [address] [facility] Pcp:Edwin Siu MD Subjective: * Chief Complaints: * E stablished follow up visitDepression screening negativeUDT VisitUDT done * HPI: D epression Screening: The note is transcribed using speech recognition software. It is a reflection of a visit with the patient. It might have some inaccuracy, including medication names and transcribing errors, though efforts have been made to correct them. Chief Complaint: Recent pneumonia, recovering The patient reports a recent episode of pneumonia lasting for 2 weeks, from which she is now recovering. She denies any COVID-19 infection. Her depression is well-controlled, with a depression score of one, indicating remission. The patient states that her anxiety and panic symptoms have significantly improved since increasing the sertraline dosage. 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 Mental Health: The patient experiences 'a little anxiety here or there' and uses Klonopin (clonazepam) approximately once or twice a month. She denies any significant mood swings or shifts. Her depression is in remission, and anxiety and panic symptoms have significantly improved. Review of Systems: - Psychiatric: Little anxiety here and there, no major anxiety, no mood shifts or mood swings - Respiratory: Had pneumonia for 2 weeks (now resolving) Follow-up: The patient agreed to extend the follow-up period to 5 months. ESTELLA-7 (2018 Edition) F eeling nervous, anxious, or on edge N ot at all N ot being able to stop or control worrying?Not at all W orrying too much about different things N ot at all T rouble relaxing S everal days B eing so restless that it is hard to sit still N ot at all B ecoming easily annoyed or irritable S everal days F eeling afraid as if something awful might happen N ot at all I f you checked any problems, how difficult have they made it for you to do your work, take care of things at home, or get along with other people? N ot difficult at all [place]-Suicide Severity Rating Scale: Suicide Risk (CSRS-screener) i n the past one month Have you wished you were or wished you could go to sleep and not wake up? N o i n the past one month Have you actually had any thoughts of killing yourself? N o D epression screening: PHQ-9 L ittle interest or pleasure in doing things?Not at all F eeling down, depressed, or hopeless N ot at all T rouble falling or staying asleep, or sleeping too much S everal days F eeling tired or having little energy N ot at all P oor appetite or overeating N ot at all F eeling bad about yourself or that you are a failure, or have let yourself or your family down N ot at all T rouble concentrating on things, such as reading the newspaper or watching television N ot at all M oving or speaking so slowly that other people could have noticed; or the opposite, being so fidgety or restless that you have been moving around a lot more than usual N ot at all T houghts that you would be better off or of hurting yourself in some way N ot at all T otal Score 1 I nterpretation M inimal Depression Intervention D epression Screening Findings N egative S uicide Risk Assessment Performed 0 01/10/2025 H istory of Presenting Problem: Pt was seen today and Urine drug screen was done. * ROS: P erformance Met: N ormal blood pressure reading documented, follow-up not required ( G8783). * Medical History: * Surgical History: * Hospitalization/Major Diagno stic Procedure: * Social History: T obacco Use: T obacco Control (Standard) T obacco use: N onsmoker M igrated Social History: M igrated Social History: Alcohol Intake: None 12/25/2023,Tobacco Years: Never smoker 12/25/2023. D rug/Alcohol: A ARY-C (Standard) D id you have a drink containing alcohol in the past year? N o M iscellaneous: A dvance Care Planning A re you your own decision-maker Y es D o you have Power of Medication Aid for Health or Medical? N o * Medications: T akingtraZODone HCl 150 MG Tablet 2 tablet every night Oral Once a day lamoTRIgine 100 MG Tablet 1.5 tablet Oral Once a day Pantoprazole Sodium 40 MG Tablet Delayed Release TAKE 1 TABLET BY MOUTH TWICE DAILY ON AN EMPTY STOMACH AND EAT 30-60 MINUTES LATER Oral Leflunomide 10 MG Tablet TAKE 1 TABLET BY MOUTH EVERY DAY Oral Celecoxib 100 MG Capsule TAKE 2 CAPSULES (200 MG TOTAL) BY MOUTH 2 (TWO) TIMES A DAY NEEDED FOR PAIN Oral Metoprolol Succinate ER 25 MG Tablet Extended Release 24 Hour TAKE 1 TABLET BY MOUTH EVERY DAY IN THE MORNING Oral Slynd 4 MG Tablet TAKE 1 TABLET BY MOUTH EVERY DAY Oral Stelara 45 MG/0.5ML Solution Prefilled Syringe Subcutaneous traZODone HCl 150 MG Tablet 2 TABLET EVERY NIGHT ORAL ONCE A DAY 90 DAYS clonazePAM 0.5 MG Tablet 0.5 tablet Oral Twice a day Sertraline HCl 100 MG Tablet TAKE 1.5 TABLETS BY MOUTH ONCE A DAY 30 DAYS Medication List reviewed and reconciled with the patientTaking traZODone HCl 150 MG Tablet 2 tablet every night Oral Once a day Taking lamoTRIgine 100 MG Tablet 1.5 tablet Oral Once a day Taking Pantoprazole Sodium 40 MG Tablet Delayed Release TAKE 1 TABLET BY MOUTH TWICE DAILY ON AN EMPTY STOMACH AND EAT 30-60 MINUTES LATER Oral Taking Leflunomide 10 MG Tablet TAKE 1 TABLET BY MOUTH EVERY DAY Oral Taking Celecoxib 100 MG Capsule TAKE 2 CAPSULES (200 MG TOTAL) BY MOUTH 2 (TWO) TIMES A DAY NEEDED FOR PAIN Oral Taking Metoprolol Succinate ER 25 MG Tablet Extended Release 24 Hour TAKE 1 TABLET BY MOUTH EVERY DAY IN THE MORNING Oral Taking Slynd 4 MG Tablet TAKE 1 TABLET BY MOUTH EVERY DAY Oral Taking Stelara 45 MG/0.5ML Solution Prefilled Syringe Subcutaneous Taking traZODone HCl 150 MG Tablet 2 TABLET EVERY NIGHT ORAL ONCE A DAY 90 DAYS Taking clonazePAM 0.5 MG Tablet 0.5 tablet Oral Twice a day Taking Sertraline HCl 100 MG Tablet TAKE 1.5 TABLETS BY MOUTH ONCE A DAY 30 DAYS Medication List reviewed and reconciled with the patient * Allergies: C iprofloxacin: Allergy - Onset Date 02/18/2024Flagyl: Allergy - Onset Date 02/18/2024no[Allergies Verified] Objective: * Vitals: B P:112/74mm Hg, HR:77/min, Wt:167lbs, Wt-k.75 kg, Ht: 65.00 in, Ht-cm: 165.10 cm, BMI:27.79Index, Body Surface Area: 1.86. * Examination: G eneral Examination: M ental Status Examination: Patient reported mild anxiety, managed with intermittent use of clonazepam, approximately once or twice a month. No significant mood swings or depressive symptoms were noted. The patient's depression score was reported as one, indicating minimal depressive symptoms. The patient denied experiencing significant anxiety or panic symptoms, noting an improvement following an increase in sertraline dosage. Vital Signs: review the notes for vitals Physical Examination: The patient reported recent illness described as pneumonia, but confirmed it was not COVID-19. No other physical complaints or abnormalities were discussed. Medication trials and adjustments: - The patient is taking 200 mg of sertraline, 150 mg of trazodone, and 1.5 tablets of lamotrigine. - Prescriptions are sent to [facility] in [place]. 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 Assessment: * Assessment: 1. M jesseor depression in remission - F32.5 (Primary) 2 . G eneralized anxiety disorder - F41.1 3 . P rimary insomnia - F51.01 Plan: * Treatment: 2. G eneralized anxiety disorder Notes: Learning About Generalized Anxiety Disorder material was published 3. P rimary insomnia Refill traZODone HCl Tablet, 150 MG, 2 tablet every night, Oral, Once a day, 90 days, 180 Tablet, Refills 1. 4. O thers Clinical Notes: Pneumonia (resolved) - Assessment: Patient reports having been sick for 2 weeks with pneumonia, but is now recovering. 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 - Plan: - No further intervention needed at this time. Depression (in remission) - Assessment: Patient's depression score is 1, indicating remission. - Plan: - Continue current treatment plan: - Sertraline 200 mg daily (2 tablets) - Trazodone 150 mg nightly (2 tablets) Anxiety (improved) - Assessment: Patient reports occasional anxiety, managed with Klonopin, taken once or twice a month, but overall improvement. - Plan: - Continue current treatment plan: - Clonazepam as needed (last filled in November, no refill needed at this time) Bipolar disorder (stable) - Assessment: Patient reports no significant mood shifts or swings. Lamotrigine appears to be helping. - Plan: - Continue current treatment plan: - Lamotrigine 150 mg daily (1.5 tablets) Follow-up and Medication Management - Plan: - Continue current medications as prescribed. - Schedule follow-up appointment in 5 months. Patient prefers this timeline and will call if any concerns or changes in symptoms arise before the next appointment. - Send prescriptions to [facility] in [place]. * Labs: * L ab: UDT (Collection Date & Time - 01/10/2025) Value Reference Range T HC N 0 - 50 ng/ml * C ocaine N 0 - 300 ng/ml * A mphetamine N 0 - 1000 ng/ml * B uprenorphine (BUP) N 0 - 10 ng/ml * S ecobarbital (Bar) N 0 - 300 ng/ml * O xazepam (BZO) N 0 - 300 ng/ml * 2 -ethylidene-1,0-xwrhzeqv-4,3-diphenylpyrrolidine (EDDP) N 0 - 300 ng/ml * M ethamphetamine (MET) N 0 - 1000 ng/ml * M ethylenedioxymethamphetamine (MDMA) N 0 - 500 ng/ml * M orphine (MOP 300/[id number]) N 0 - 300 ng/ml * M ethadone (MTD) N 0 - 300 ng/ml * P hencyclidine (PCP) N 0 - 25 ng/ml * P ropoxyphene (PPX) N 0 - 300 ng/ml * N ortriptyline (TCA) N 0 - 1000 ng/ml * O xycodone N 0 - 300 ng/ml * Procedure Codes: 9 6127 BEHAV ASSMT W/SCORE & DOCD/STAND [id number] NORMAL BP READING DOC F/U NOT [id number] DRUG TST PRSMV READ INSTRMNT ASSTD DIR OPT [id number] MOST RECENT SYSTOLIC BP < 140MM [id number] MOST RECENT DIASTOLIC BP < 90MM HG * Follow Up: 5 month * Billing Information: * Visit Code: 10699 OFFICE OUTPATIENT VISIT 25 MINUTES DETAILED HISTORY AND EXAM/MODERATE MEDICAL DECISION MAKING. * Procedure Codes: 80077 BEHAV ASSMT W/SCORE & DOCD/STAND INSTRUMENT. G8783 NORMAL BP READING DOC F/U NOT RQR. 57309 DRUG TST PRSMV READ INSTRMNT ASSTD DIR OPT OBS. G8752 MOST RECENT SYSTOLIC BP < 140MM HG. G8754 MOST RECENT DIASTOLIC BP < 90MM HG. * H SHRINKING TESTER Sign off status: Completed true * Provider: Jazmine ZEPEDA MD Date: 01/10/2025 Generated for Taye rivas/Ronald/eTransmitting on: 0 02/11/2025 12:02 PM CDT History and Physical Notes * HPI (History of Present Illness) Category Sub-Category Detail Notes Category Not es History of Presenting Problem Pt was seen today and Urine drug screen was done Depression screening PHQ-9 Little inte rest or pleasure in doing things: Not at all Feeling down, depressed, or hopeless: No t at all Trouble falling or staying asleep, or sl eeping too much: Several days Feeling tired or having little energy: N ot at all Poor appetite or overeating: Not at all Feeling bad about yourself o r that you are a failure, or have let yourself or your family down: Not at all Trouble concentrating on thi ngs, such as reading the newspaper or watching television: Not at all Moving or speaking so slowly that other people could have noticed; or the opposite, being so fidgety or restless that you have been moving around a lot more than usual: Not at all Thoughts that you would be b waylon off or of hurting yourself in some way: Not at all Total Score: 1 Interpretation: Minimal Depression Intervention Depression Screening Findings: N egative Suicide Risk Assessment Performed: 01/10 Depression Screening ESTELLA-7 (2018 Edition) Feelin g nervous, anxious, or on edge: Not at all Not being able to stop or control worryi ng: Not at all Worrying too much about different things : Not at all Trouble relaxing: Several days Being so restless that it is hard to sit still: Not at all Becoming easily annoyed or irritable: Se veral days Feeling afraid as if something awful karime ht happen: Not at all If you checked any problems, how difficult have they made it for you to do your work, take care of things at home, or get along with other people?: Not difficult at all Wallace-Suicide Severity Rating Scale Suicide Risk (CSRS-screener) in the past one month Have you wished you were or wished you could go to sleep and not wake up?: No in the past one month Have y ou actually had any thoughts of killing yourself?: No Examination Category Sub-Category Detail Notes Category Not es General Examination Mental Status Examination: Patient reported mild anxiety, managed with intermittent use of clonazepam, approximately once or twice a month. No significant mood swings or depressive symptoms were noted. The patient's depression score was reported as one, indicating minimal depressive symptoms. The patient denied experiencing significant anxiety or panic symptoms, noting an improvement following an increase in sertraline dosage. Vital Signs: review the notes for vitals Physical Examination: The patient reported recent illness described as pneumonia, but confirmed it was not COVID-19. No other physical complaints or abnormalities were discussed. Medication trials and adjustments: - The patient is taking 200 mg of sertraline, 150 mg of trazodone, and 1.5 tablets of lamotrigine. - Prescriptions are sent to [facility] in [place]. 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
--- OUTSIDE RECORDS SUMMARY | 2025-02-11 12:02 | XMS_ITS | Encounter Summary ---
Author Organization [facility] Address [address] [place] [address] Care Team Providers Care Manager Bridge Name Role Phone Edwin Siu MD Primary Care Provider [phone] Reason for Visit * Reason Onset Date Comments MEDICATION REFILL 10/13/2024 Encounter Details Date Type Department Care Team (Late Contact Info) Description 10/13/2024 Refill [facility] [address] [facility] [address] [place] [address] Rima Siu MD [address] [facility] [address] [place], [place] [id number] MEDICATION REFILL Social History Tobacco Use Types Packs/Day Years Used Date Smoking Tobacco: Never Smokeless Tobacco: Never Alcohol Use Standard Drinks/Week Comments Not Currently 0 (1 standard drink = 0.6 oz pur e alcohol) PHQ-2 Answer Date Recorded Patient Health Questionnaire-2 Score 0 10/12/2024 Sex and Gender Information Value Date Recorded Sex Assigned at Female 03/02/2024 7:17 AM CDT Gender Identity Female 03/02/2024 7:17 AM CDT Sexual Orientation Straight 03/02/2024 7: 17 AM CDT documented as of this encounter Plan of Treatment Upcoming Encounters Date Type Department Care Team (Late Contact Info) Description 02/25/2025 1:40 PM CDT Office Visit [facility] [address] [place] [address] Rima Siu MD [address] [place] [address] documented as of this encounter Visit Diagnoses Not on filedocumented in this encounter Care Teams Manager Bridge Relationship Specialty Start Date End Date Edwin Siu MD PCP - General 02/25/12 documented as of this encounter
--- OUTSIDE RECORDS SUMMARY | 2025-02-11 12:02 | XMS_ITS ---
Author Organization [facility] [employer] Address [address] [place] [address] Care Team Providers Care Forensic Dna Analyst Name Role Phone Salbador PEREZ, Edwin Primary Care Provider UnavailRedd Wheeler Unavailable [phone] Allergies Allergen (clinical drug ingredient) Drug/Non Drug Allergy documented on EMR Reaction Allergy Type Onset Date Status Ciprofloxacin Unknown Drug Allergy 02/18/2024 Ac tive metronidazole Flagyl Unknown Drug Allergy 02/18/2024 Ac tive Results Component Value Reference Range Notes UDT Reviewed date:09/17/2024 10:22:41 AM Interpretation: Performing Lab: Notes/Report: THC N 0 - 50 ng/ml Cocaine N 0 - 300 ng/ml Amphetamine N 0 - 1000 ng/ml Buprenorphine (BUP) N 0 - 10 ng/ml Secobarbital (Bar) N 0 - 300 ng/ml Oxazepam (BZO) N 0 - 300 ng/ml 2-shzmcnhbsz-3,6-jvkgifdu-0,3-diphenylpyrrolidine (SERGIO P) N 0 - 300 ng/ml Methamphetamine (MET) N 0 - 1000 ng/ml Methylenedioxymethamphetamine (MDMA) N 0 - 500 ng/ml Morphine (MOP 300/[id number]) N 0 - 300 ng/ml Methadone (MTD) N 0 - 300 ng/ml Phencyclidine (PCP) N 0 - 25 ng/ml Nortriptyline (TCA) N 0 - 1000 ng/ml Oxycodone N 0 - 300 ng/ml x N 0 - 300 ng/ml REASON FOR VISIT Follow Up Visit, UDT Visit, UDT done, phq less than 5 Medications Medication SIG (Take, Route, Frequency, Duration) Notes Start Date End Date Status traZODone HCl 150 MG 2 TABLET EVERY NIGH T ORAL ONCE A DAY 90 DAYS for 90 Active Metoprolol Succinate ER 25 MG TAKE 1 TABLET BY MOUTH EVERY DAY IN THE MORNING Oral for 30 Days Active Celecoxib 100 MG TAKE 2 CAPSULES (200 MG TOTAL) BY MOUTH 2 (TWO) TIMES A DAY NEEDED FOR PAIN Oral for 30 Days Active Stelara 45 MG/0.5ML Subcutaneous for 84 Days Active Slynd 4 MG TAKE 1 TABLET BY SILVERIO TH EVERY DAY Oral for 84 Days Activ e Sertraline HCl 100 MG 1.5 tablet Oral On ce a day for 30 days Active Leflunomide 10 MG TAKE 1 TABLET BY SILVERIO TH EVERY DAY Oral for 30 Days Activ e Pantoprazole Sodium 40 MG TAKE 1 TABLET BY MOUTH TWICE DAILY ON AN EMPTY STOMACH AND EAT 30-60 MINUTES LATER Oral for 30 Days Active lamoTRIgine 100 MG 1.5 tablet Oral Once a day for 90 days Active traZODone HCl 150 MG 2 tablet every nigh t Oral Once a day for 90 days Active Sertraline HCl 100 MG 2 tablet every mor miranda Oral Once a day for 90 days [...] Signs Blood pressure systolic 112 mm Hg 09/17/20 24 Blood pressure diastolic 75 mm Hg 024 Heart Rate 71 /min 09/17/2024 Height 65.00 in 09/17/2024 Weight 162 lbs 09/17/2024 BMI 26.96 kg/m2 09/17/2024 Height-cm 165.10 cm 09/17/2024 Weight-kg 73.48 kg 09/17/2024 Encounters Encounter Location Date Provider Diagnosis [facility] [address] [facility] [address] [place] [address] 09/17/2024 Redd Zepeda Generalized anxiety disorder F41.1 ; Major depression in remission F32.5 and Primary insomnia F51.01 Assessments Encounter Date Diagnosis (ICD Code) Assessment Notes Treatment Notes Treatment Clinical Notes Section Notes 09/17/2024 Generalized anxiety disorder (ICD-10 - F41.1) Learning About Generalized Anxiety Disorder material was published Anxiety - Assessment: Patient reports increased anxiety, feeling on edge, and easily startled. Currently on sertraline 150 mg, lamotrigine, trazodone, and metoprolol. - Plan: - Increase sertraline dose to 200 mg. - Monitor for signs of serotonin syndrome (palpitations, heart rate increase, facial flushing, fever). - Patient to wait one week after finishing antibiotics (cephalexin) before increasing the dose. - Consider discussing with travel administrator or primary care physician about increasing metoprolol dose if needed. Insomnia - Assessment: Patient reports difficulty falling asleep and waking up due to pain from rheumatoid arthritis. Currently on trazodone 300 mg for sleep. - Plan: - Continue trazodone 300 mg for sleep. - Monitor sleep quality and adjust medication as needed. Rheumatoid Arthritis and Avascular Necrosis - Assessment: Patient reports pain from rheumatoid arthritis and avascular necrosis, may need hip replacements soon. Currently on leflunomide, celecoxib, Tylenol, and Stelara for management. Patient is scheduled for injections today. - Plan: - Continue current medications for rheumatoid arthritis and avascular necrosis management. - Encourage patient to follow up with data processing operator for further evaluation and management of hip replacements. Pneumonia - Assessment: Patient is currently recovering from pneumonia and taking cephalexin until Friday. Previously completed a course of Z-Clifford. - Plan: - Monitor recovery and ensure completion of antibiotic course. - Instruct patient to wait until recovery before increasing sertraline dose. Coordination of Care - Assessment: Patient inquires about communication with Dr. Hopper. Dr. Hopper is aware of patient's psychiatric care but does not prescribe psychiatric medications. - Plan: - No need to send a note to Dr. Hopper at this time. Follow-up - Plan: - Schedule a 3-month follow-up appointment to monitor medication changes and overall progress. 09/17/2024 Major depression in remission (ICD-10 - F32.5) Anxiety - Assessment: Patient reports increased anxiety, feeling on edge, and easily startled. Currently on sertraline 150 mg, lamotrigine, trazodone, and metoprolol. - Plan: - Increase sertraline dose to 200 mg. - Monitor for signs of serotonin syndrome (palpitations, heart rate increase, facial flushing, fever). - Patient to wait one week after finishing antibiotics (cephalexin) before increasing the dose. - Consider discussing with travel administrator or primary care physician about increasing metoprolol dose if needed. Insomnia - Assessment: Patient reports difficulty falling asleep and waking up due to pain from rheumatoid arthritis. Currently on trazodone 300 mg for sleep. - Plan: - Continue trazodone 300 mg for sleep. - Monitor sleep quality and adjust medication as needed. Rheumatoid Arthritis and Avascular Necrosis - Assessment: Patient reports pain from rheumatoid arthritis and avascular necrosis, may need hip replacements soon. Currently on leflunomide, celecoxib, Tylenol, and Stelara for management. Patient is scheduled for injections today. - Plan: - Continue current medications for rheumatoid arthritis and avascular necrosis management. - Encourage patient to follow up with data processing operator for further evaluation and management of hip replacements. Pneumonia - Assessment: Patient is currently recovering from pneumonia and taking cephalexin until Friday. Previously completed a course of Z-Clifford. - Plan: - Monitor recovery and ensure completion of antibiotic course. - Instruct patient to wait until recovery before increasing sertraline dose. Coordination of Care - Assessment: Patient inquires about communication with Dr. Hopper. Dr. Hopper is aware of patient's psychiatric care but does not prescribe psychiatric medications. - Plan: - No need to send a note to Dr. Hopper at this time. Follow-up - Plan: - Schedule a 3-month follow-up appointment to monitor medication changes and overall progress. 09/17/2024 Primary insomnia (ICD-10 - F51.01) Anxiety - Assessment: Patient reports increased anxiety, feeling on edge, and easily startled. Currently on sertraline 150 mg, lamotrigine, trazodone, and metoprolol. - Plan: - Increase sertraline dose to 200 mg. - Monitor for signs of serotonin syndrome (palpitations, heart rate increase, facial flushing, fever). - Patient to wait one week after finishing antibiotics (cephalexin) before increasing the dose. - Consider discussing with travel administrator or primary care physician about increasing metoprolol dose if needed. Insomnia - Assessment: Patient reports difficulty falling asleep and waking up due to pain from rheumatoid arthritis. Currently on trazodone 300 mg for sleep. - Plan: - Continue trazodone 300 mg for sleep. - Monitor sleep quality and adjust medication as needed. Rheumatoid Arthritis and Avascular Necrosis - Assessment: Patient reports pain from rheumatoid arthritis and avascular necrosis, may need hip replacements soon. Currently on leflunomide, celecoxib, Tylenol, and Stelara for management. Patient is scheduled for injections today. - Plan: - Continue current medications for rheumatoid arthritis and avascular necrosis management. - Encourage patient to follow up with data processing operator for further evaluation and management of hip replacements. Pneumonia - Assessment: Patient is currently recovering from pneumonia and taking cephalexin until Friday. Previously completed a course of Z-Clifford. - Plan: - Monitor recovery and ensure completion of antibiotic course. - Instruct patient to wait until recovery before increasing sertraline dose. Coordination of Care - Assessment: Patient inquires about communication with Dr. Hopper. Dr. Hopper is aware of patient's psychiatric care but does not prescribe psychiatric medications. - Plan: - No need to send a note to Dr. Hopper at this time. Follow-up - Plan: - Schedule a 3-month follow-up appointment to monitor medication changes and overall progress. Plan Of Treatment Medication Medication Name Sig Start Date Stop Date Notes lamoTRIgine 100 MG 1.5 tablet Oral Once a day for 90 days traZODone HCl 150 MG 2 tablet every nigh t Oral Once a day for 90 days Sertraline HCl 100 MG 2 tablet every mor miranda Oral Once a day for 90 days Treatment Notes Assessment Notes Generalized anxiety disorder Learning Ab out Generalized Anxiety Disorder material was published Progress Notes * ALTAGRACIA ALLIEDOB:1990 ( 33 yo F)Acc No.[id number]:09/17/2024 Patient: ALYSON CARDONA Provider: Jazmine ZEPEDA MD :1990 A ge:33 Y S ex:Female Date:09/17/2024 Address:[address] [place] [address] Pcp:Edwin Siu MD Subjective: * Chief Complaints: * F ollow Up VisitUDT VisitUDT donePhq less than 5 * HPI: D epression Screening: Chief Complaint: Increased anxiety and feeling on edge The note is transcribed using speech recognition software. It is a reflection of a visit with the patient. It might have some inaccuracy, including medication names and transcribing errors, though efforts have been made to correct them. The patient reports experiencing increased anxiety, feeling on edge, and being easily startled, but not having full panic attacks. They describe feeling hyper attuned to their surroundings and have difficulty relaxing. The patient expresses a desire to increase their sertraline dosage and avoid going back on Klonopin. Mental Health: The patient reports difficulty relaxing, stating they can't sit down and watch TV without checking their phone or thinking about tasks they need to do. They describe their mood as more positive than negative but note a sense of urgency when getting home from work, feeling the need to immediately address various tasks. Sleep: The patient's sleep is affected by their rheumatoid arthritis pain, which causes them to wake up around 2 or 3 AM. Medical Conditions: The patient has rheumatoid arthritis and avascular necrosis, potentially requiring hip replacements in the near future. They are also recovering from pneumonia. Medication Management: Current medications include: - Sertraline 150 mg - Lamotrigine - Trazodone 300 mg - Pantoprazole - Leflunomide - Celecoxib (twice daily) - Metoprolol - Oral control - Stelara - Tylenol (for pain management) - Cephalexin (antibiotic, until Friday) The patient reports no side effects from their medications, except for the mentioned difficulty relaxing and being unable to sit still. They recently finished a Z- Clifford before starting cephalexin. Stressors: The patient's main stressors appear to be their anxiety symptoms and managing their medical conditions, particularly rheumatoid arthritis pain and recovery from pneumonia. The note is transcribed using speech recognition software. It is a reflection of a visit with the patient. It might have some inaccuracy, including medication names and transcribing errors, though efforts have been made to correct them. ESTELLA-7 (2018 Edition) F eeling nervous, anxious, or on edge?Several days, N ot being able to stop or control worrying S everal days, W orrying too much about different things S everal days, T rouble relaxing S everal days, B eing so restless that it is hard to sit still S everal days, B ecoming easily annoyed or irritable M ore than half the days, F eeling afraid as if something awful might happen N ot at all, I f you checked any problems, how difficult have they made it for you to do your work, take care of things at home, or get along with other people? S omewhat difficult. C [place]-Suicide Severity Rating Scale: Suicide Risk (CSRS-screener) i n the past one month Have you wished you were or wished you could go to sleep and not wake up? N o, i n the past one month Have you actually had any thoughts of killing yourself? N o, H ave you ever done anything, started to do anything, or prepared to do anything to end your life? N o. D epression screening: PHQ-9 L ittle interest or pleasure in doing things N ot at all, F eeling down, depressed, or hopeless N ot at all, T rouble falling or staying asleep, or sleeping too much S everal days, F eeling tired or having little energy N ot at all, P oor appetite or overeating N ot at all, F eeling bad about yourself or that you are a failure, or have let yourself or your family down N ot at all, T rouble concentrating on things, such as reading the newspaper or watching television N ot at all, M oving or speaking so slowly that other people could have noticed; or the opposite, being so fidgety or restless that you have been moving around a lot more than usual N ot at all, T houghts that you would be better off or of hurting yourself in some way N ot at all, T otal Score 1 , Interpretation M inimal Depression. I ntervention D epression Screening Findings N egative, F ollow-Up for Depression M ental health care management, S uicide Risk Assessment Performed , A dditional Evaluation for Depression P sychiatric interview and evaluation, N diego of the standardized tool used for adult depression screening: P atient Health Questionnaire (PHQ-9). H istory of Presenting Problem: Pt was seen today and Urine drug screen was done. * Medical History: * Surgical History: * Hospitalization/Major Diagno stic Procedure: * Social History: T obacco Use: T obacco Control (Standard) T obacco use: N onsmoker. M igrated Social History: M igrated Social History: Alcohol Intake: None 12/25/2023,Tobacco Years: Never smoker 12/25/2023. D rug/Alcohol: A ARY-C (Standard) D id you have a drink containing alcohol in the past year? N o.? M iscellaneous: A dvance Care Planning A re you your own decision-maker Y es, D o you have Power of Territory Manager General Sales for Health or Medical? N o. * Medications: T akingSertraline HCl 100 MG Tablet 1.5 tablet Oral Once a day lamoTRIgine 100 MG [...] ORAL ONCE A DAY 90 DAYS Taking Sertraline HCl 100 MG Tablet 1.5 tablet Oral Once a day Taking lamoTRIgine 100 [...] NIGHT ORAL ONCE A DAY 90 DAYS DiscontinuedclonazePAM 0.5 MG Tablet 0.5 tablet Oral Twice a day Fluconazole 150 MG Tablet Oral clonazePAM 1 MG Tablet Oral Medication List reviewed and reconciled with the patientDiscontinued clonazePAM 0.5 MG Tablet 0.5 tablet Oral Twice a day Discontinued Fluconazole 150 MG Tablet Oral Discontinued clonazePAM 1 MG Tablet Oral Medication List reviewed and reconciled with the patient * Allergies: C iprofloxacin: Allergy - Onset Date 02/18/2024Flagyl: Allergy - Onset Date 02/18/2024no[Allergies Verified] Objective: * Vitals: B P:112/75mm Hg, HR:71/min, Wt:162lbs, Wt-k.48 kg, Ht: 65.00 in, Ht-cm: 165.10 cm, BMI:26.96Index, Body Surface Area: 1.83. * Examination: G eneral Examination: M ental Status Examination: Patient reports increased anxiety, feeling on edge, and being easily startled. Mood is described as more positive than negative, but patient experiences difficulty relaxing and cannot engage in leisure activities without distraction. No reported palpitations or flu-like symptoms. Patient reports being able to fall asleep but waking up during pipelaying fitter hours due to pain. Vital Signs: review the notes for vitals Physical Examination: Patient is currently recovering from pneumonia and is on antibiotics (cephalexin) until Friday. Previously completed a course of Z-Clifford. Reports waking during pipelaying fitter hours due to pain from rheumatoid arthritis, specifically mentioning avascular necrosis with potential need for hip replacements. No other physical symptoms related to current psychiatric medications were reported. Patient mentions needing to get injections for rheumatoid arthritis. Diagnostic Test Results and Labs: No recent test results or labs mentioned in the transcript. Assessment: * Assessment: 1. M ajor depression in remission - F32.5 (Primary) 2 . G eneralized anxiety disorder - F41.1 3 . P rimary insomnia - F51.01 Anxiety - Assessment: Patient reports increased anxiety, feeling on edge, and easily startled. Currently on sertraline 150 mg, lamotrigine, trazodone, and metoprolol. - Plan: - Increase sertraline dose to 200 mg. - Monitor for signs of serotonin syndrome (palpitations, heart rate increase, facial flushing, fever). - Patient to wait one week after finishing antibiotics (cephalexin) before increasing the dose. - Consider discussing with travel administrator or primary care physician about increasing metoprolol dose if needed. Insomnia - Assessment: Patient reports difficulty falling asleep and waking up due to pain from rheumatoid arthritis. Currently on trazodone 300 mg for sleep. - Plan: - Continue trazodone 300 mg for sleep. - Monitor sleep quality and adjust medication as needed. Rheumatoid Arthritis and Avascular Necrosis - Assessment: Patient reports pain from rheumatoid arthritis and avascular necrosis, may need hip replacements soon. Currently on leflunomide, celecoxib, Tylenol, and Stelara for management. Patient is scheduled for injections today. - Plan: - Continue current medications for rheumatoid arthritis and avascular necrosis management. - Encourage patient to follow up with data processing operator for further evaluation and management of hip replacements. Pneumonia - Assessment: Patient is currently recovering from pneumonia and taking cephalexin until Friday. Previously completed a course of Z-Clifford. - Plan: - Monitor recovery and ensure completion of antibiotic course. - Instruct patient to wait until recovery before increasing sertraline dose. Coordination of Care - Assessment: Patient inquires about communication with Dr. Hopper. Dr. Hopper is aware of patient's psychiatric care but does not prescribe psychiatric medications. - Plan: - No need to send a note to Dr. Hopper at this time. Follow-up - Plan: - Schedule a 3-month follow-up appointment to monitor medication changes and overall progress. Plan: * Treatment: 2. G eneralized anxiety disorder Notes: Learning About Generalized Anxiety Disorder material was published 3. P rimary insomnia Refill traZODone HCl Tablet, 150 MG, 2 tablet every night, Oral, Once a day, 90 days, 180 Tablet, Refills 0. * Labs: * L ab: UDT (Collection Date & Time - 09/17/2024) Value Reference Range T HC N 0 - 50 ng/ml * C ocaine N 0 - 300 ng/ml * A mphetamine N 0 - 1000 ng/ml * B uprenorphine (BUP) N 0 - 10 ng/ml * S ecobarbital (Bar) N 0 - 300 ng/ml * O xazepam (BZO) N 0 - 300 ng/ml * 2 -ethylidene-1,4-xuezdsrb-1,3-diphenylpyrrolidine (EDDP) N 0 - 300 ng/ml * M ethamphetamine (MET) N 0 - 1000 ng/ml * M ethylenedioxymethamphetamine (MDMA) N 0 - 500 ng/ml * M orphine (MOP 300/[id number]) N 0 - 300 ng/ml * M ethadone (MTD) N 0 - 300 ng/ml * P hencyclidine (PCP) N 0 - 25 ng/ml * P ropoxyphene (PPX) N 0 - 300 ng/ml * N ortriptyline (TCA) N 0 - 1000 ng/ml * O xycodone N 0 - 300 ng/ml * Procedure Codes: 8 0306 DRUG TST PRSMV READ INSTRMNT ASSTD DIR OPT [id number] BEHAV ASSMT W/SCORE & DOCD/STAND INSTRUMENT * Billing Information: * Visit Code: * Procedure Codes: 20422 DRUG TST PRSMV READ INSTRMNT ASSTD DIR OPT OBS. 75288 BEHAV ASSMT W/SCORE & DOCD/STAND INSTRUMENT. * Sign off status: Completed true * Provider: Jazmine ZEPEDA MD Date: 1 11/17/2023 Generated for Printi ng/Faxing/eTransmitting on: 0 02/11/2025 12:01 PM CDT History and Physical Notes * [...] Depression Intervention Depression Screening Findings: N egative Follow-Up for Depression: Mental health care management Suicide Risk Assessment Performed: ____ Additional Evaluation for Depression: Ps ychiatric interview and evaluation Name of the standardized too l used for adult depression screening:: Patient Health Questionnaire (PHQ-9) Depression Screening ESTELLA-7 (2018 Edition) Feelin g nervous, anxious, or on edge: Several days Not being able to stop or control worryi ng: Several days Worrying too much about different things : Several days Trouble relaxing: Several days Being so restless that it is hard to sit still: Several days Becoming easily annoyed or irritable: Mo re than half the days Feeling afraid as if something awful karime ht happen: Not at all If you checked any problems, how difficult have they made it for you to do your work, take care of things at home, or get along with other people?: Somewhat difficult [place]-Suicide Severity Rating Scale Suicide Risk (CSRS-screener) in the past one month Have you wished you were or wished you could go to sleep and not wake up?: No in the past one month Have y ou actually had any thoughts of killing yourself?: No Have you ever done anything, started to do anything, or prepared to do anything to end your life?: No Examination Category Sub-Category Detail Notes Category Not es General Examination Mental Status Examination: Patient reports increased anxiety, feeling on edge, and being easily startled. Mood is described as more positive than negative, but patient experiences difficulty relaxing and cannot engage in leisure activities without distraction. No reported palpitations or flu-like symptoms. Patient reports being able to fall asleep but waking up during pipelaying fitter hours due to pain. Vital Signs: review the notes for vitals Physical Examination: Patient is currently recovering from pneumonia and is on antibiotics (cephalexin) until Friday. Previously completed a course of Z-Clifford. Reports waking during pipelaying fitter hours due to pain from rheumatoid arthritis, specifically mentioning avascular necrosis with potential need for hip replacements. No other physical symptoms related to current psychiatric medications were reported. Patient mentions needing to get injections for rheumatoid arthritis. Diagnostic Test Results and Labs: No recent test results or labs mentioned in the transcript.
== END 2025-02-11 10:58 | disposition home or self-care (01) ==
PROVIDERS: PCP Internal Medicine; Visit Provider Internal Medicine Rheumatology
DX: D50.0 Iron deficiency anemia secondary to blood loss (chronic) (principal); L40.50 Arthropathic psoriasis, unspecified; Z79.899 Other long term (current) drug therapy
CPT/HCPCS: 36415; 80053; 85027

== ENCOUNTER 2025-05-19 10:54 | Outpatient (CLI) | payer BC, SELFPAY ==
--- OUTSIDE RECORDS SUMMARY | 2025-05-19 10:59 | XMS_ITS | Encounter Summary ---
Author Organization 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
--- OUTSIDE RECORDS SUMMARY | 2025-05-19 10:59 | XMS_ITS | Clinical Summary ---
Author Organization [employer] [address] - [address] [facility] [address] [place] [address] Phone Care Team Providers Care Medical Recruiter Name Role Phone Edwin Siu MD Primary [...] of 3 - 19+ 3-dose series) 2008 HPV/Cotest (21-29) 2010 CERVICAL CANCER SCREENING 2019 HPV/Cotest (30-65) 2019 PAP SMEAR 2019 INFLUENZA VACCINE (#1) 2025 HPV VACCINES Aged Out No longer eligi ble based on patient's age to complete this topic Care Teams Medical Recruiter Relationship Specialty Start Date End Date Edwin Siu MD [address] [place] [address] PCP - General Internal Medicine 09/18/15
--- OUTSIDE RECORDS SUMMARY | 2025-05-19 10:59 | XMS_ITS | Encounter Summary ---
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
--- OUTSIDE RECORDS SUMMARY | 2025-05-19 10:59 | XMS_ITS | Encounter Summary ---
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
--- OUTSIDE RECORDS SUMMARY | 2025-05-19 10:59 | XMS_ITS | Clinical Summary ---
Author Organization [facility] Address [address] [place] [address] Care Team Providers Care Laundry Presser Name Role Phone Edwin Siu MD Primary Care Provider [phone] Social History Tobacco Use Types Packs/Day Years Used Date Smoking Tobacco: Never Assessed Comments Unknown Sex and Gender Information Value Date Recorded Sex Assigned at Not on file Legal Sex Female 9:11 PM LINOLEUM PRINTER Gender Identity Not on file Sexual Orientation Not on file Plan of Treatment Health Maintenance Due Date Last Done Comments Cervical Cancer Screening Pa p Smear (Age 30 to 64) Every 3 Years 1989 Annual Physical 1992 Hepatitis C 2007 DTaP, Tdap and Td Vaccines ( 1 - Tdap) 2008 Hepatitis B Vaccines (1 of 3 - 19+ 3-dose series) 2008 Cervical Cancer Screening Pa p with HPV Testing (Age 30 to 64) Every 5 Years 2019 Cervical Cancer Screening with HPV 2019 COVID-19 Vaccine (2023-2 5 season) 2024 HPV Vaccines Aged Out No longer eligi ble based on patient's age to complete this topic Meningococcal B Vaccine Aged Out No l onger eligible based on patient's age to complete this topic Meningococcal Vaccine Aged Out No glen eduardo eligible based on patient's age to complete this topic Pneumococcal Vaccine: Pediat rics (0 to 5 Years) and At-Risk Patients (6 to 49 Years) Aged Out No longer eligible b ased on patient's age to complete this topic RSV Immunizations Under 20 Months Aged Out No longer eligible based on patient's age to complete this topic Care Teams Laundry Presser Relationship Specialty Start Date End Date Edwin Siu MD PCP - General INTERNAL MEDICINE 03/23/21
--- OUTSIDE RECORDS SUMMARY | 2025-05-19 10:59 | XMS_ITS | Encounter Summary ---
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
--- OUTSIDE RECORDS SUMMARY | 2025-05-19 10:59 | XMS_ITS | Patient Health Record ---
Author Organization [facility] [employer] Address [address] [place] [address] Care Team Providers Care Wardrobe Specialist Name Role Phone Edwin Siu MD Primary Care Provider Unavaila Redd Chacon Unavailable [phone] hSarla Newby Unavailable [phone] Allergies Allergen (clinical drug ingredient) Drug/Non Drug [...] Oxazepam (BZO) N 0 - 300 ng/ml 4-tdqvtzgzgu-4,7-nsdwgvvc-8, 3-diphen ylpyrrolidine (EDDP) N 0 - 300 ng/ml Methamphetamine (MET) N 0 - 1000 ng/ml Methylenedioxymethamphetamine (MDMA) N 0 - 500 ng/ml Morphine (MOP 300/[id number]) N 0 - 300 ng/ml Methadone (MTD) N 0 - 300 ng/ml Phencyclidine (PCP) N 0 - 25 ng/ml Nortriptyline (TCA) N 0 - 1000 ng/ml Oxycodone N 0 - 300 ng/ml x N 0 - 300 ng/ml PRESCRIBED DRUGS, medMATCH(R ) (82630) Reviewed date:01/19/2025 08:17:59 AM Interpretation: Performing Lab:KS, [id number] [facility], [id number] Jose Manuel Aguiar MD Notes/Report: FASTING: NO medMATCH Summary Prescribed Prescribed Not Prescribed Consistent Inconsistent Inconsistent Clonazepam Prescribed Drug 1 Clonazepam DRUG MONITOR, [place] ([address]) Reviewed date:01/19/2025 08:17:58 AM Interpretation: Performing Lab:SHA [facility]-Aki [id number] Mitte Rashad, Aki [id number] Sánchez Berry, Director - [address] Rowe OpezBTR-[place] Notes/Report: FASTING: NO Alphahydroxyalprazolam NEGATIVE <25 ng/mL Alphahydroxymidazolam NEGATIVE <50 ng/mL Alphahydroxytriazolam NEGATIVE <50 ng/mL Aminoclonazepam NEGATIVE <25 ng/mL medMATCH Aminoclonazepam INCONSISTENT Hydroxyethylflurazepam NEGATIVE <50 ng/mL Lorazepam NEGATIVE <50 ng/mL Nordiazepam NEGATIVE <50 ng/mL Oxazepam NEGATIVE <50 ng/mL Temazepam NEGATIVE <50 ng/mL Benzodiazepines Comments See LDT Notes Notes and Comments This drug testing is for medical treatment only. Analysis was performed as non-forensic testing and these results should be used only by healthcare providers to render diagnosis or treatment, or to monitor progress of medical conditions. LDT Notes: Confirmation tests were developed and their analytical performance characteristics have been determined by [facility]. It has not been cleared or approved by the FDA. This assay has been validated pursuant to the CLIA regulations and is used for clinical purposes. medMATCH(R) enables providers to identify if drug use is consistent or inconsistent with a corresponding prescribed medication(s) list. Healthcare Providers needing Interpretation assistance, please contact us at [phone] ( ) M-F, 8am to 10pm EST UDT Reviewed date:01/10/2025 04:37:18 PM Interpretation: Performing Lab: Notes/Report: THC N 0 - 50 ng/ml Cocaine N 0 - 300 ng/ml Amphetamine N 0 - 1000 ng/ml Buprenorphine (BUP) N 0 - 10 ng/ml Secobarbital (Bar) N 0 - 300 ng/ml Oxazepam (BZO) N 0 - 300 ng/ml 7-nlnknqftiw-7,9-heujeuwa-0, 3-diphen ylpyrrolidine (EDDP) N 0 - 300 ng/ml Methamphetamine (MET) N 0 - 1000 ng/ml Methylenedioxymethamphetamine (MDMA) N 0 - 500 ng/ml Morphine (MOP 300/BIO8504) N 0 - 300 ng/ml Methadone (MTD) N 0 - 300 ng/ml Phencyclidine (PCP) N 0 - 25 ng/ml Nortriptyline (TCA) N 0 - 1000 ng/ml Oxycodone N 0 - 300 ng/ml x N 0 - 300 ng/ml Reason For Referral No Information Medications Medication SIG (Take, Route, Frequency, Duration) Notes Start Date End Date Status Sertraline HCl 100 MG TAKE 1.5 TABLETS B Y MOUTH ONCE A DAY 30 DAYS; Duration: 90 Active Slynd 4 MG TAKE 1 TABLET BY SILVERIO TH EVERY DAY Oral; Duration: 84 Days Active Metoprolol Succinate ER 25 MG TAKE 1 TABLET BY MOUTH EVERY DAY IN THE MORNING Oral; Duration: 30 Days Active lamoTRIgine 100 MG 1.5 tablet Oral Once a day; Duration: 90 days Active traZODone HCl 150 MG 2 tablet every nigh t Oral Once a day; Duration: 90 days Active Celecoxib 100 MG TAKE 2 CAPSULES (200 MG TOTAL) BY MOUTH 2 (TWO) TIMES A DAY NEEDED FOR PAIN Oral; Duration: 30 Days Active Leflunomide 10 MG TAKE 1 TABLET BY SILVERIO TH EVERY DAY Oral; Duration: 30 Days Active Pantoprazole Sodium 40 MG TAKE 1 TABLET BY MOUTH TWICE DAILY ON AN EMPTY STOMACH AND EAT 30-60 MINUTES LATER Oral; Duration: 30 Days Active clonazePAM 0.5 MG 0.5 tablet Oral Twic e a day; Duration: 30 days 09/23/2024 Active traZODone HCl 150 MG 2 TABLET EVERY NIGH T ORAL ONCE A DAY 90 DAYS; Duration: 90 Active Stelara 45 MG/0.5ML Subcutaneous; Durati on: 84 Days Active Social History Tobacco Use: Social History Observation Description Date Details (start date - stop date) Never Smoker NA - NA Sex Assigned At : Social History Observation Description Sex Assigned At Female Tobacco Control (Standard) Question Answer Notes Tobacco use: Nonsmoker AUDIT-C (Standard) Question Answer Notes Did you have a drink containing alcohol in the p ast year? No Problems Problem Type SNOMED Code ICD Code Onset Dates Problem Status W/U Status Risk Notes Problem Generalized anxiety disorder (44001917) Generalized anxiety disorder (F41.1) 02/18/20 24 Active confirmed Problem Anxiety disorder (751120491) Other specified anxiety disorders (F41.8) 02/18/20 24 Active confirmed Problem Primary insomnia (6268203) Primary insomnia (F51.01) 02/18/20 24 Active confirmed Problem Major depression in remission (93596687) Major depression in remission (F32.5) Active confirmed Problem Iron deficiency anemia (24320191) Iron deficiency anemia (D50.9) 05/30/20 23 Active confirmed Problem Gastroesophageal reflux disease (653228743) GERD (gastroesophag eal reflux disease) (K21.9) 02/21/20 21 Active confirmed Problem Rheumatoid arthritis (27243495) RA (rheumatoid arthritis) (M06.9) 02/21/20 21 Active confirmed Problem Avascular necrosis (00316067) Avascular necrosis (M87.00) 05/30/20 23 Active confirmed Problem Sinus node dysfunction (02463328) 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) 12/29/19 24 Active confirmed Vital Signs Heart Rate 77 /min 01/10/2025 Height-cm 165.10 cm 01/10/2025 Blood pressure diastolic 74 mm Hg 01/10/2025 Weight-kg 75.75 kg 01/10/2025 Height 65.00 in 01/10/2025 Blood pressure systolic 112 mm Hg 01/10/2025 Weight 167 lbs 01/10/2025 BMI 27.79 kg/m2 01/10/2025 Encounters Encounter Location Date Provider Diagnosis [facility] [employer] [facility] [address] [facility] [address] [place] [address] 09/09/2024 Redd Canales [facility] [employer] [facility] [address] [facility] [address] [place] [address] 09/17/2024 Redd Canales Generalized anxiety disorder F41.1 ; Major depression in remission F32.5 and Primary insomnia F51.01 [facility] [address] [place] [address] 01/10/2025 Redd Canales Generalized anxiety disorder F41.1 ; Major depression in remission F32.5 and Primary insomnia F51.01 [facility] [address] [place] [address] 08/29/2024 Redd Canales Major depression in remission F32.5 [place] [address] [place] [address] 09/22/2024 Redd Canales Generalized anxiety disorder F41.1 Assessments Encounter Date Diagnosis (ICD Code) Assessment Notes Treatment Notes Treatment Clinical Notes Section Notes 09/17/2024 Major depression in remission (ICD-10 - [...] increasing the dose. - Consider discussing with communications intern or primary care physician about increasing metoprolol [...] - Encourage patient to follow up with stripping machine operator for further evaluation and management of hip replacements. Pneumonia - Assessment: Patient is currently recovering from pneumonia and taking cephalexin until Friday. Previously completed a course of Z-Clifford. - Plan: - Monitor recovery and ensure completion of antibiotic course. - Instruct patient to wait until recovery before increasing sertraline dose. Coordination of Care - Assessment: Patient inquires about communication with Dr. Lakhani Dr. Hopper is aware of patient's psychiatric care but does not prescribe psychiatric medications. - Plan: - No need to send a note to Dr. Hopper at this time. Follow-up - Plan: - Schedule a 3-month follow-up appointment to monitor medication changes and overall progress. 09/22/2024 Generalized anxiety disorder (ICD-10 - F41.1) 01/10/2025 Generalized anxiety disorder (ICD-10 - F41.1) Learning About Generalized Anxiety Disorder material was published 08/29/2024 Major depression in remission (ICD-10 - F32.5) 09/17/2024 Generalized anxiety disorder (ICD-10 - F41.1) [...] increasing the dose. - Consider discussing with communications intern or primary care physician about increasing metoprolol [...] - Encourage patient to follow up with stripping machine operator for further evaluation and management of [...] increasing the dose. - Consider discussing with communications intern or primary care physician about increasing metoprolol [...] - Encourage patient to follow up with stripping machine operator for further evaluation and management of [...] to monitor medication changes and overall progress. 01/10/2025 Major depression in remission (ICD-10 - [...] the next appointment. - Send prescriptions to [facility] in [place]. Plan Of Treatment No Information Insurance Providers Payer Name Payer Address Payer Phone Subscriber Number Group Number Insured Name Patient Relationship to Insured Coverage Start Date Coverage End Date [employer] [address] [place] [address] [id number] ALYSON FRIAS Self - patient is the insured Medical (General) History Medical History History ICD Code Problems: Bipolar affective disorder, cu rrent episode mixed Generalized anxiety disorder Mixed anxiety and depressive disorder Primary insomnia , Surgical History Surgery Date(Month/Year) Myringotomy tube placement 11/17/1992 Tonsilectomy/adenoids 11/17/2000 Sinus surgery 11/17/2006 Removal of gallbladder (83718) 6
--- OUTSIDE RECORDS SUMMARY | 2025-05-19 10:59 | XMS_ITS | Encounter Summary ---
Author Organization [facility] Address [address] [place] [address] Care Team Providers Care Crane Hooker Name Role Phone Edwin Siu MD Primary Care Provider [phone] Reason for Visit * Reason Onset Date Comments MEDICATION REFILL 04/01/2022 Encounter Details Date Type Department Care Team (Late st Contact Info) Description 04/01/2022 Refill [facility] [address] [place] [address] Gerson Guajardo MD [address] [address] MEDICATION REFILL Social History Tobacco Use Types Packs/Day Years Used Date Smoking Tobacco: Never Smokeless Tobacco: Never Alcohol Use Standard Drinks/Week Comments Not Currently 0 (1 standard drink = 0.6 oz pur e alcohol) PHQ-2 Answer Date Recorded PHQ2 TOTAL SCORE 0 03/26/2022 Comments No Sex and Gender Information Value Date Recorded Sex Assigned at Female 03/02/2024 7:17 AM CDT Legal Sex Female 5:34 AM RECRUITMENT MANAGER Gender Identity Female 03/02/2024 7:17 AM CDT Sexual Orientation Straight 03/02/2024 7: 17 AM CDT documented as of this encounter Plan of Treatment Not on file documented as of this encounter Visit Diagnoses Not on filedocumented in this encounter Care Teams Crane Hooker Relationship Specialty Start Date End Date Edwin Siu MD PCP - General 02/25/12 documented as of this encounter
--- OUTSIDE RECORDS SUMMARY | 2025-05-19 11:00 | XMS_ITS | Clinical Summary ---
Author Organization [facility] Address [address] [place] [address] Care Team Providers Care Desktop Operator Name Role Phone Edwin Siu MD Primary Care Provider [phone] Source Comments [facility],non-owned Affiliates and Associated Physician Practices is amultiple site organization consisting of ambulatory clinics and hospital sitesin [place], [place], [place]. This disclosure is being madepursuant to the Care Everywhere program and may not contain all information available regarding this patient. Last updated 18.[facility] Allergies Active Allergy Reactions Criticality Noted Date Comments Ciprofloxacin Urticaria Medium 10/07/2019 Metronidazole Urticaria Medium 10/07/2019 Na Ferric Gluc Cplx In Sucrose Urticaria Medium 06/16/2023 Nitrofurantoin Urticaria,Rash Medium 05/15/2023 Pollen Extract Other Low 02/20/2021 Reaction: OTHER REACTION, Medications * Be aware that medications may not be up to date on this document. Alwaysverify current medications with the patient. traZODone (DESYREL) 50 MG tablet Take 3 (three) tablets by mouth at bedtime 9 Active pantoprazole EC (PROTONIX) 40 MG tablet Take 1 (one) tablet by mouth daily before breakfast 9 Active lamoTRIgine (LAMICTAL) 100 MG tablet 1 Active clonazePAM (KLONOPIN) 0.5 MG tablet Take 2 (two) tablets by mouth 2 times daily 2 Active celecoxib (CeleBREX) 100 MG capsule TAKE 2 (TWO) CAPSULES BY MOUTH 2 TIMES DAILY 120 capsule 5 2 Active leflunomide (Arava) 10 MG tablet TAKE 1 TABLET BY MOUTH EVERY DAY 30 tablet 5 2 Active Stelara 45 MG/0.5ML prefilled syringe INJECT 1 SYRINGE SUBCUTANEOUSLY EVERY 12 WEEKS 0.5 mL 4 3 Active sertraline (Zoloft) 50 MG tablet 3 Active norethindrone (Aygestin) 5 MG tablet Take 2 (two) tablets by mouth once daily 180 tablet 2 4 025 Active lisinopril (Prinivil; Zestril) 10 MG tablet [...] by mouth every 6 hours 20 tablet 4 Active acetaminophen (Tylenol) 500 MG tablet Take 2 (two) tablets by mouth every 6 hours Maximum allowable Acetaminophen amount = 4 Grams (4000 mg) / 24 hours. 40 tablet 4 Active Active Problems Problem Noted Date Diagnosed Date Avascular necrosis 04/03/2023 05/30/2023 Iron deficiency anemia 03/11/2023 3 Sacroiliitis 10/03/2022 05/30/2023 History of 2019 novel coronavirus disease (COVID -19) 08/03/2021 Inappropriate sinus tachycardia 08/03/2021 Low serum adrenocorticotropic hormone (ACTH) Anxiety 09/05/2020 RA (rheumatoid arthritis) 09/05/2020 Colitis 08/23/2020 Overview (02/20/2021): Added automatically from request for surgery [id number] Gastroesophageal reflux disease without esophagi tis 08/02/2020 Overview (02/20/2021): Added automatically from request for surgery [id number] Uveitis 02/07/2020 Dysuria 05/27/2016 Habitual aborter, antepartum 05/27/2016 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 Thyroid nodule GERD (gastroesophageal reflux disease) Encounters Date Type Department Care Team Description 05/18/2025 Orders Only [facility] - WARE[facility]SER [address] [place] [address] Rima Siu MD Adnexal mass 05/12/2025 Telephone [facility] - Centralized Scheduling [address] [place] [address] Rima Siu MD Appointment 02/25/2025 1:40 PM CDT Office Visit [facility] - WAREHOUSER [address] [place] [address] Rima Siu MD Well woman exam with routine gynecological exam (Primary Dx) from Last 3 Months Immunizations Immunization Administration Dates Next Due CovHeadstrong primary monoval ent 12+ yr 0.3mL Purple [...] Date Recorded Patient Health Questionnaire-2 Score 0 02/18/2025 Comments No Sex and Gender Information Value Date Recorded Sex Assigned at Female 03/02/2024 7:17 AM CDT Legal Sex Female 5:34 AM ANTIQUE AUTOMOBILES REPAIRER Gender Identity Female 03/02/2024 7:17 AM CDT Sexual Orientation Straight 03/02/2024 7: 17 AM CDT Last Filed Vital Signs Vital Sign Reading Time Taken Comments Blood Pressure 112/70 02/25/2025 1:39 PM CDT Pulse 91 10/20/2024 11:24 AM ANTIQUE AUTOMOBILES REPAIRER Temperature 36.9 C (98.4 F) 10/20/2024 10:54 AM ANTIQUE AUTOMOBILES REPAIRER Respiratory Rate 16 10/20/2024 11:2 4 AM ANTIQUE AUTOMOBILES REPAIRER Oxygen Saturation 96% 10/20/2024 11: 24 AM ANTIQUE AUTOMOBILES REPAIRER Inhaled Oxygen Concentration - - Weight 75.7 kg (166 lb 12.8 oz) 02/25/2025 1:39 PM CDT Height 165.1 cm (5' 5) 02/25/2025 1:39 PM CDT Body Mass Index 27.76 02/25/2025 1:39 PM CDT Plan of Treatment Health Maintenance Due Date Last Done Comments HIV SCREENING 2004 HEPATITIS C SCREENING 11/09/2007 DTAP/TDAP/TD VACCINES (1 - Tdap) 2008 HEPATITIS B VACCINE (1 of 3 - 19+ 3-dose series) 2008 PAP SMEAR 2010 COVID-19 VACCINE ( season) 2024 09/17/2023, 03/31/2023, 08/02/2022, Additional history exists INFLUENZA VACCINE (#1) 2025 08/29/2020, 2018 ZOSTER VACCINE (1 of 2) 2039 PNEUMOCOCCAL VACCINE Aged Out 12/03/2018 No long er eligible based on patient's age to complete this topic DEPRESSION SCREENING Completed 02/25/2025, 10/12/2024, 07/16/2022 HIB VACCINE Aged Out No longer eligi [...] this topic Medical Devices Implanted Type Area Station Attendant Device Identifier Shelf Expiration Date Model / Serial / Lot Mirena Levonorgestrel- Releasing Intrauterine System Implanted:Qty: 1 on 10/20/2024 by Yajaira Man MD at [facility] N/A: Uterus Cory Jake 01/14/2027 [id number] / [id number] / [id number] Insurance ANTHEM Care Teams Desktop Operator Relationship Specialty Start Date End Date Edwin Siu MD PCP - General 02/25/12
--- OUTSIDE RECORDS SUMMARY | 2025-05-19 11:00 | XMS_ITS | Encounter Summary ---
Author Organization [facility] Address [address] [facility] [place] [address] Care Team Providers Care Wharf Attendant Name Role Phone Edwin Siu MD Primary Care Provider [phone] Encounter Details Date Type Department Care Team (Late st Contact Info) Description 05/18/2025 Orders Only [facility] - FINANCE ADMINISTRATOR [address] [facility] [address] [place] [address] Rima Siu MD [address] [facility] [address] [place] [address] Adnexal mass Social History Tobacco Use Types Packs/Day Years [...] AM CDT Legal Sex Female 5:34 AM DIRECTOR OF FLIGHT OPERATIONS Gender Identity Female 03/02/2024 7:17 AM CDT Sexual Orientation Straight 03/02/2024 7: 17 AM CDT documented as of this encounter Progress Notes * Rima Siu MD - 05/18/2025 10:34 AM CDT Received call from patient that she had an MRI for her hip and a 4cm adnexal mass was incidentally found. She is asymptomatic. Will plan on TVUS in 3 months from MRI (July 2025) to assess for resolution/interval growth. Rima Siu MD documented in this encounter Plan of Treatment Scheduled Orders Name Type Priority Associated Diagnoses Orde r Schedule Non-OB Pelvic Sonogram [facility] Routine Adnexal mass 1 Occurrences starting 05/18/2025 until 05/18/2026 documented as of this encounter Visit Diagnoses Diagnosis Adnexal mass- Primary Other specified symptom associated with female genital organs documented in this encounter Care Teams Wharf Attendant Relationship Specialty Start Date End Date Edwin Siu MD PCP - General 02/25/12 documented as of this encounter
--- OUTSIDE RECORDS SUMMARY | 2025-05-19 11:00 | XMS_ITS | Encounter Summary ---
Author Organization [facility] Address [address] [facility] [place] [address] Care Team Providers Care Copy Room Technician Name Role Phone Edwin Siu MD Primary Care Provider [phone] Reason for Visit * Reason Onset Date Comments MEDICATION REFILL 10/13/2024 Encounter Details Date Type Department Care Team (Late st Contact Info) Description 10/13/2024 Refill [facility] [address] [facility] [address] [place] [address] Rima Siu MD [address] [facility] [address] [place], [place] [id number] MEDICATION REFILL Social History Tobacco Use Types Packs/Day Years Used Date Smoking Tobacco: Never Smokeless Tobacco: Never Alcohol Use Standard Drinks/Week Comments Not Currently 0 (1 standard drink = 0.6 oz pur e alcohol) PHQ-2 Answer Date Recorded Patient Health Questionnaire-2 Score 0 10/12/2024 Comments No Sex and Gender Information Value Date Recorded Sex Assigned at Female 03/02/2024 7:17 AM CDT Legal Sex Female 5:34 AM PRIVATE DUTY NURSE Gender Identity Female 03/02/2024 7:17 AM CDT Sexual Orientation Straight 03/02/2024 7: 17 AM CDT documented as of this encounter Plan of Treatment Not on file documented as of this encounter Visit Diagnoses Not on filedocumented in this encounter Care Teams Copy Room Technician Relationship Specialty Start Date End Date Edwin Siu MD PCP - General 02/25/12 documented as of this encounter
--- OUTSIDE RECORDS SUMMARY | 2025-05-19 11:00 | XMS_ITS | Encounter Summary ---
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 Gender Identity Not on file Sexual Orientation Straight 05/15/2020 12 :32 PM CDT documented as of this encounter Plan of Treatment Not on file documented as of this encounter Procedures Procedure Name Priority Date/Time Associated Diagnosis Comments SCAN - LABS 02/11/2025 documented in this encounter Results * SCAN - LABS (02/11/2025) us Provider Scanning Final Result documented in this encounter Visit Diagnoses Not on filedocumented in this encounter Care Teams Slope Tender Relationship Specialty Start Date End Date Edwin Siu MD [address] [place], [place] [id number] PCP - General 09/11/12 Alicia Ramos MD [address] [place], [place] [id number] Consulting Physician Internal Medicine 05/01/23 documented as of this encounter
--- OUTSIDE RECORDS SUMMARY | 2025-05-19 11:00 | XMS_ITS | Referral Summary ---
Author Organization [facility] Address [address] [place] [address] Care Team Providers Care Whipped Topping Supervisor Name Role Phone Edwin Siu MD Primary Care Provider Alicia Ramos MD Unavailable [phone] Encounters Date Type Department Care Team Description 04/25/2025 Telephone [facility] Cardiology [address] [facility] [address] [place] [address] Mani Mayorga MD Med Refill 04/23/2025 6:51 AM CDT - 04/23/2025 11:59 PM CDT Hospital Encounter [facility] Radiology [address] [place] [address] Arthropathic psoriasis, unspecified (HCC) Discharge Disposition: Discharge to home or self care 04/04/2025 9:00 AM CDT Office Visit [facility] Rheumatology [facility] [facility] 5th [place] [address] [place] [address] Alicia Ramos MD High risk medication use (Primary Dx); Arthropathic psoriasis, unspecified (HCC); Psoriasis; Immunosuppression 03/30/2025 3:15 PM CDT Office Visit [facility] Cardiology [address] [facility] [address] [place] [phone] Mani Mayorga MD Lipid screening (Primary Dx); Sinus tachycardia; Palpitations; Mixed hyperlipidemia; Rheumatoid arthritis, involving unspecified site, unspecified whether rheumatoid factor present (HCC) from Last 3 Months Allergies Active Allergy Reactions Criticality Noted Date Comments Ciprofloxacin Hives Medium Sodium Ferric Gluconat-Sucrose Hives Medium 06/16 Metronidazole Hives Medium Nitrofurantoin Hives,Rash,Urticaria Medium 05/15/2023 Medications traZODone (DESYREL) 150 mg tabletIndications:ins omnia associated with depression Take 1 tablet (150 mg total) by mouth nightly 05/10/20 20 Active sertraline (ZOLOFT) 100 mg tablet 09/17/20 23 Active cetirizine (ZyrTEC) 5 mg tablet Take 1 tablet (5 mg total) by mouth daily Active pantoprazole DR (PROTONIX) 40 mg EC tablet TAKE 1 TABLET BY MOUTH TWICE DAILY ON AN EMPTY STOMACH AND EAT 30-60 MINUTES LATER 180 tablet 1 11/01/20 24 Active leflunomide (ARAVA) 10 mg tabletIndications:Art hropathic psoriasis, unspecified (HCC),Psoriasis, unspecified TAKE 1 TABLET BY MOUTH EVERY DAY 90 tablet 03/07/20 25 Active celecoxib (CeleBREX) 100 mg capsuleIndications:No n-Radiographic Axial Spondyloarthritis TAKE 2 CAPSULES (200 MG TOTAL) BY MOUTH 2 (TWO) TIMES A DAY NEEDED FOR PAIN 120 capsule 5 04/01/20 25 Active lamoTRIgine (LaMICtal) 100 mg tablet TAKE 1 AND 1/2 TABLETS BY MOUTH EVERY DAY AT BEDTIME 03/11/20 25 Active Stelara injection INJECT 0.5 ML (45 MG TOTAL) UNDER THE SKIN EVERY 3 (THREE) MONTHS 0.5 mL 1 04/12/20 25 Active metoprolol XL (TOPROL-XL) 25 mg extended release tabletIndications:Sin us tachycardia Take 1 tablet (25 mg total) by mouth every morning 90 tablet 3 04/26/20 25 Active metoprolol XL (TOPROL-XL) 25 mg extended release tabletIndications:Sin us tachycardia Take 0.5 tablets (12.5 mg total) by mouth every morning 90 tablet 01/04/20 25 025 Discontin ued(Reord er) Active Problems Problem Noted Date Diagnosed Date Mixed hyperlipidemia 03/30/2025 Lipid screening 03/30/2025 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 Hiatal hernia 06/03/2023 Thyroid nodule 04/30/2023 04/30/2023 Avascular necrosis 04/03/2023 Iron deficiency anemia 03/11/2023 Sacroiliitis 10/03/2022 04/30/2023 Sinusitis, chronic 01/08/2022 Dysphagia 09/05/2021 Overview (09/05/2021): Added automatically from request for surgery [id number] Parotid mass 08/14/2021 Sinus tachycardia 08/03/2021 Palpitations 08/03/2021 History of 2019 novel coronavirus disease (COVID -19) 08/03/2021 Low serum adrenocorticotropic hormone (ACTH) 04/30/2023 RA (rheumatoid arthritis) 09/05/2020 Anxiety 09/05/2020 Colitis 08/23/2020 Overview (08/23/2020): Added automatically from request for surgery [id number] Gastroesophageal reflux disease 08/16/2020 Overview (08/16/2020): Added automatically from request for surgery [id number] Gastroesophageal reflux disease without esophagi tis 08/02/2020 [...] on file 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 Gender Identity Not on file Sexual Orientation Straight 05/15/2020 12 :32 PM CDT Last Filed Vital Signs Vital Sign Reading Time Taken Comments Blood Pressure 123/80 04/04/2025 8:50 AM CDT Pulse 57 04/04/2025 8:50 AM CDT Temperature 36.5 C (97.7 F) 04/04/2025 8:50 AM CDT Respiratory Rate 16 09/17/2024 1:40 PM CDT Oxygen Saturation 97% 03/30/2025 3:00 PM CDT Inhaled Oxygen Concentration - - Weight 75.8 kg (167 lb) 04/04/2025 8:50 AM CDT Height 162.6 cm (5' 4) 04/04/2025 8:50 AM CDT Body Mass Index 28.67 04/04/2025 8:50 AM CDT Plan of Treatment Not on file Medical Devices Implanted Type Area Senior Application Software Engineer Device Identifier Shelf Expiration Date Model / Serial / Lot [employer] Substitute Bone Graft Tactoset Kit Prefilled [place] Syringe [place] [id number] - [id number] Implanted:Qty: 1 on 06/09/2023 by Yolande Rubio MD at [facility] Right: Hip [employer] 03/17/2025 [id number] / / [id number] Description:Times are estima keven [employer] Substitute Bone Graft Tactoset Kit Prefilled Mix Syringe Ll [id number] - [id number] Implanted:Qty: 1 on 06/09/2023 by Yolande Rubio MD at [facility] Left: Hip [employer] 03/17/2025 [id number] / / [id number] Description:Times are estima keven Procedures Procedure Name Priority Date/Time Associated Diagnosis Comments MRI PELVIS SI JOINTS W WO CONTRAST Schedule Routine, Read Routine (OP Routine) 04/23/2025 8:46 AM CDT Arthropathic psoriasis, unspecified (HCC) POCT LIPID PANEL Routine 03/30/2025 3:02 PM CDT Lipid screening HEPATITIS C ANTIBODY Routine 02/25/2023 Immunosuppression from Last 3 Months or Most Recently Relevant to Health Maintenance Results * MRI Pelvis SI Joints W WO Contrast (04/23/2025 8:46 AM CDT) Anatomical Region Laterality Modality Pelvis N/A Magnetic Resonan ce 04/23/2025 11:5 1 AM CDT Impressions 04/24/2025 4:28 PM CDT 1. Normal MR examination of the sacroiliac joints. 2. Unchanged bilateral femoral head osteonecrosis status post bilateral core decompression without subchondral collapse or significant chondrosis. Dictated by: Javad Phililps M.D. The radiology attending physician has personally reviewed this study, and had reviewed and/or edited this written report and agrees with it. Electronically signed by: MD Erin Guzman 04/24/2025 4:28 PM CDT EXAMINATION: MRI PELVIS SI JOINTS W WO CONTRAST HISTORY: Back pain. History of psoriatic arthritis. Technique: Multiplanar multisequence MR examination of the pelvis was performed before and after the administration of 14 mL of Dotarem intravenous contrast according to sacroiliac joint protocol. FINDINGS: Comparison is made to bilateral hip MRI 09/07/2024, CT 08/21/2020 and sacroiliac joint radiographs 08/02/2024. The sacroiliac joints are normal and symmetric without sclerosis, erosions, effusion or synovitis, or ankylosis. Unchanged bilateral femoral head osteonecrosis with changes of prior bilateral core decompression better characterized on prior MRI where there was less than 30% right and more than 30% left involvement of the femoral head articular surfaces. No subchondral collapse or significant chondrosis or subchondral edema. No hip joint effusion. Imaged portions of the lumbar spine are normal. Pubic symphysis is normal. The iliopsoas, gluteal tendons and hamstring origins are normal. No bursitis. Muscles are normal in bulk and signal. Sciatic neurovascular bundles are normal. No pelvic lymphadenopathy. Intrauterine contraceptive device in place 4 cm right adnexal cyst noted. Procedure Note Brian Pickett MD - 04/24/2025 EXAMINATION: MRI PELVIS SI JOINTS W WO CONTRAST HISTORY: Back pain. History of psoriatic arthritis. Technique: Multiplanar multisequence MR examination of the pelvis was performed before and after the administration of 14 mL of Dotarem intravenous contrast according to sacroiliac joint protocol. FINDINGS: Comparison is made to bilateral hip MRI 09/07/2024, CT 08/21/2020 and sacroiliac joint radiographs 08/02/2024. The sacroiliac joints are normal and symmetric without sclerosis, erosions, effusion or synovitis, or ankylosis. Unchanged bilateral femoral head osteonecrosis with changes of prior bilateral core decompression better characterized on prior MRI where there was less than 30% right and more than 30% left involvement of the femoral head articular surfaces. No subchondral collapse or significant chondrosis or subchondral edema. No hip joint effusion. Imaged portions of the lumbar spine are normal. Pubic symphysis is normal. The iliopsoas, gluteal tendons and hamstring origins are normal. No bursitis. Muscles are normal in bulk and signal. Sciatic neurovascular bundles are normal. No pelvic lymphadenopathy. Intrauterine contraceptive device in place 4 cm right adnexal cyst noted. IMPRESSION: 1. Normal MR examination of the sacroiliac joints. 2. Unchanged bilateral femoral head osteonecrosis status post bilateral core decompression without subchondral collapse or significant chondrosis. Dictated by: Javad Phillips M.D. The radiology attending physician has personally reviewed this study, and had reviewed and/or edited this written report and agrees with it. Electronically signed by: Brian Pickett MD us Alicia Ramos MD [facility] PROCEDURES Final Res ult * (ABNORMAL) POCT lipid panel (03/30/2025 3:02 PM CDT) Cholesterol, POC 221 <200 MG/DL HDL, POC 49 >=40 mg/dL Triglycerides, POC 174(A) <=149 mg/dL LDL Cholesterol POC 137(A) <=129 mg/dL Chol/HDL Ratio, POC 2.8 NONE Non-HDL Cholesterol, POC 172 NONE mg/dL Cholesterol Total, POC 221(A) 30 - 199 mg/dL Capillary blood 03/30/2025 3 :02 PM CDT us Mani Mayorga MD POINT OF CARE TEST ORDERA BLES Final Result * Hepatitis C antibody (02/25/2023) SCRIBED HCV ab Nonreactive EXTERNAL LAB Blood 02/25/2023 us Alicia Ramos MD LAB MICROBIOLOGY - GENERAL O RDERABLES Final Result EXTERNAL LAB from Last 3 Months or Most Recently Relevant to Health Maintenance Insurance [facility] ANTHEM ACCESS Advance Directives For more information, please contact: [phone] * Full Code (Latest Code Status on File) Date Activated Date Inactivated Comments 11/09/2020 10:46 AM 11/09/2020 6:17 PM * Full Code Date Activated Date Inactivated Comments 09/04/2020 1:08 PM 09/05/2020 5:23 PM * Full Code Date Activated Date Inactivated Comments 08/30/2020 11:18 AM 08/30/2020 5:39 PM Care Teams Whipped Topping Supervisor Relationship Specialty Start Date End Date Edwin Siu MD [address] [place] [address] PCP - General 09/11/12 Alicia Ramos MD [address] [place] [address] Consulting Physician Internal Medicine 05/01/23
--- OUTSIDE RECORDS SUMMARY | 2025-05-19 11:00 | XMS_ITS | Encounter Summary ---
Author Organization 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
--- OUTSIDE RECORDS SUMMARY | 2025-05-19 11:00 | XMS_ITS | Clinical Summary ---
Author Organization [facility] Address [address] [place] [address] Care Team Providers Care Putty Mixer Name Role Phone Edwin Siu MD Primary Care Provider + [phone] Alicia Ramos MD Unavailable [phone] Allergies Active Allergy Reactions Criticality Noted Date [...] (09/05/2021): Added automatically from request for surgery [id number] Parotid mass 08/14/2021 Sinus tachycardia 08/03/2021 Palpitations 08/03/2021 History of 2019 novel coronavirus disease (COVID -19) 08/03/2021 Low serum adrenocorticotropic hormone (ACTH) 04/30/2023 RA (rheumatoid arthritis) 09/05/2020 Anxiety 09/05/2020 Colitis 08/23/2020 Overview (08/23/2020): Added automatically from request for surgery [id number] Gastroesophageal reflux disease 08/16/2020 Overview (08/16/2020): Added automatically from request for surgery [id number] Gastroesophageal reflux disease without esophagi tis 08/02/2020 Other chest pain 08/02/2020 Uveitis 02/07/2020 Dysuria 05/27/2016 Habitual aborter, antepartum 05/27/2016 Threatened miscarriage 05/27/2016 Possible , not yet confirmed 05/21/2016 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 12/28/2015 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 Encounters Date Type Department Care Team Description 04/25/2025 Telephone [facility] Cardiology [address] [place] [address] Mani Mayorga MD Med Refill 04/23/2025 6:51 AM CDT - 04/23/2025 11:59 PM CDT Hospital Encounter [facility] Radiology [address] [facility] [place] [address] Arthropathic psoriasis, unspecified (HCC) Discharge Disposition: Discharge to home or self care 04/04/2025 9:00 AM CDT Office Visit [facility] Rheumatology [facility] [facility] 5th [place] [address] [place] [address] Alicia Ramos MD High risk medication use (Primary Dx); Arthropathic psoriasis, unspecified (HCC); Psoriasis; Immunosuppression 03/30/2025 3:15 PM CDT Office Visit [facility] Cardiology [address] [place] [address] Mani Mayorga MD Lipid screening (Primary Dx); Sinus tachycardia; Palpitations; Mixed hyperlipidemia; Rheumatoid arthritis, involving unspecified site, unspecified whether rheumatoid factor present (HCC) from Last 3 Months Immunizations Immunization Administration Dates Next Due Influenza, [...] disease) Hiatal hernia Gastritis PONV (postoperative nausea and vomiting) Avascular necrosis (HCC) Anemia Anxiety Autoimmune disease Colitis 08/23/2020 Tachycardia-bradycardia syndrome (HCC) 12/29/2023 Mixed hyperlipidemia 03/30/2025 Family History Medical History Relation Name Comments [...] on file 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 Gender Identity Not on file Sexual Orientation [...] 04/04/2025 8:50 AM CDT Plan of Treatment Health Maintenance Due Date Last Done Comments Cervical Cancer Screening 1989 Depression Screening 1989 DTaP/Tdap/Td Vaccine (1 - Tdap) 2000 Varicella Vaccines (1 of 2 - 13+ 2-dose series) 2002 Regular Well Visit/Exam 18-64 2007 Pneumococcal vaccine <65 (1 of 2 - PCV) 2008 Zoster Vaccine (2 of 2) 02/23/2024 12/29/2023 Covid-19 Vaccine (4 - 2023-2 5 season) 2024 07/10/2021, 11/24/2020, 11/03/2020 Influenza Vaccine (Season Ended) 2025 08/29/2020 Hepatitis B Screening Completed 02/25/2023 Hepatitis C Screening Completed 02/25/2023 HPV Vaccines Aged Out No longer eligi ble based on patient's age to complete this topic Medical Devices Implanted Type Area Pipe Recovery Specialist Device Identifier Shelf Expiration Date Model / Serial / Lot [employer] Substitute Bone Graft Tactoset Kit Prefilled Mix Syringe Ll [id number] - [id number] Implanted:Qty: 1 on 06/09/2023 by Yolande Rubio MD at [facility] Right: Hip [employer] 03/17/2025 [id number] / / [id number] Description:Times are roxanne baca [employer] Substitute Bone Graft Tactoset Kit Prefilled Mix Syringe Ll [id number] - [id number] Implanted:Qty: 1 on 06/09/2023 by Yolande Rubio MD at [facility] Left: Hip [employer] 03/17/2025 [id number] / / [id number] Description:Times are estima keven Procedures Procedure Name [...] Brian Pickett MD us Alicia Ramos MD [facility] MRI PROCEDURES Final Res ult * (ABNORMAL) [...] Most Recently Relevant to Health Maintenance Insurance [facility] ANTHEM ACCESS Advance Directives For more information, please contact: [phone] * Full Code (Latest Code Status on File) Date Activated Date Inactivated Comments 11/09/2020 10:46 AM 11/09/2020 6:17 PM * Full Code Date Activated Date Inactivated Comments 09/04/2020 1:08 PM 09/05/2020 5:23 PM * Full Code Date Activated Date Inactivated Comments 08/30/2020 11:18 AM 08/30/2020 5:39 PM Care Teams Putty Mixer Relationship Specialty Start Date End Date Edwin Siu MD [address] [place] [id number] PCP - General 09/11/12 Alicia Ramos MD [address] [place] [address] Consulting Physician Internal Medicine 05/01/23
--- OUTSIDE RECORDS SUMMARY | 2025-05-19 11:00 | XMS_ITS | Encounter Summary ---
Author Organization [facility] Address [address] [place] [address] Care Team Providers Care Risk Management Specialist Name Role Phone Edwin Siu MD Primary Care Provider [phone] Encounter Details Date Type Department Care Team (Late st Contact Info) Description 09/20/2024 Telephone [facility] - MEDICAL RECRUITER [address] [place] [address] Rima Siu MD [address] [facility] [address] [place] [address] Social History Tobacco Use Types [...] AM CDT Legal Sex Female 5:34 AM FRAME STRIPPER Gender Identity Female 03/02/2024 7:17 AM CDT Sexual Orientation Straight 03/02/2024 7: 17 AM CDT documented as of this encounter Miscellaneous Notes * Telephone Encounter - James Pradhan - 09/20/2024 1:27 PM CST Patient would like to schedule her yearly WWE and her TVUS for the same day. Please advise. E STRIPPER documented in this encounter Plan of Treatment Not on file documented as of this encounter Visit Diagnoses Diagnosis Abnormal uterine bleeding (AUB)- Primary documented in this encounter Care Teams Risk Management Specialist Relationship Specialty Start Date End Date Edwin Siu MD PCP - General 02/25/12 documented as of this encounter
[2025-05-19 11:26] LABS: Hematocrit 38.5 % (35.0-49.0); Hemoglobin 12.0 g/dL (12.0-15.0); Immature Reticulocyte Fraction 6.9 % (2.0-16.52); Mean Corpuscular HGB Conc 31.2 g/dL (32-36); Mean Corpuscular Hemoglobin 26.0 pg (27.0-31.0); Mean Corpuscular Volume 83.5 fL (78.0-102.0); Platelet Count Result 304 K/mm3 (150-420); Red Blood Count 4.61 M/mm3 (4.20-5.40); Reticulocyte Hemoglobin Conten 30.9 pg (28.0-35.0); Reticulocytes Absolute 0.03 M/mm3 (0.02-0.10); White Blood Count 6.1 K/mm3 (4.8-10.8)
[2025-05-19 11:45] LABS: Cholesterol 242 mg/dL (0-200); HDL Direct 59 mg/dL; Iron 75 ug/dL (37-170); Triglycerides 146 mg/dL (<150)
[2025-05-19 12:21] LABS: Ferritin 15.30 ng/mL (6.24-137)
[2025-05-19 12:36] LABS: Vitamin B12. 816.0 pg/mL (239-931)
== END 2025-05-19 10:55 | disposition home or self-care (01) ==
LOC: CHSLAB 10:56
PROVIDERS: PCP Internal Medicine; Visit Provider Internal Medicine
DX: E78.00 Pure hypercholesterolemia, unspecified (principal); M81.0 Age-related osteoporosis without current pathological fracture; D64.9 Anemia, unspecified; E04.1 Nontoxic single thyroid nodule
CPT/HCPCS: 36415; 80061; 82306; 82607; 82728; 83540; 85027; 85046

== ENCOUNTER 2025-06-07 11:48 | Outpatient (CLI) | payer BC, SELFPAY ==
--- OUTSIDE RECORDS SUMMARY | 2025-06-07 11:53 | XMS_ITS | Clinical Summary ---
Author Organization [facility] Address [address] [place] [address] Care Team Providers Care Vegetable Sorter Name Role Phone Edwin Siu MD Primary Care Provider + [phone] Alicia Ramos MD Unavailable [phone] Allergies Active Allergy Reactions Criticality Noted Date Comments Ciprofloxacin Hives Medium Sodium Ferric Gluconat-Sucrose Hives Medium 06/16 Metronidazole Hives Medium Nitrofurantoin Hives,Rash,Urticaria Medium 05/15/2023 Medications traZODone (DESYREL) 150 mg tabletIndications:in somnia associated with depression Take 1 tablet (150 mg total) by mouth nightly 020 Active sertraline (ZOLOFT) 100 mg tablet 023 Active cetirizine (ZyrTEC) 5 mg tablet Take 1 tablet (5 mg total) by mouth daily Active pantoprazole DR (PROTONIX) 40 mg EC tablet TAKE 1 TABLET BY MOUTH TWICE DAILY ON AN EMPTY STOMACH AND EAT 30-60 MINUTES LATER 180 tablet 1 024 Active celecoxib (CeleBREX) 100 mg capsuleIndications:N 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 TAKE 2 CAPSULES (200 MG TOTAL) BY MOUTH 2 (TWO) TIMES A DAY NEEDED FOR PAIN 120 capsule 5 025 Active lamoTRIgine (LaMICtal) 100 mg tablet TAKE 1 AND 1/2 TABLETS BY MOUTH EVERY DAY AT BEDTIME 025 Active Stelara injection INJECT 0.5 ML (45 MG TOTAL) UNDER THE SKIN EVERY 3 (THREE) MONTHS 0.5 mL 1 025 Active metoprolol XL (TOPROL-XL) 25 mg extended release tabletIndications:Si nus tachycardia Take 1 tablet (25 mg total) by mouth every morning 90 tablet 3 025 Active leflunomide (ARAVA) 10 mg tabletIndications:Ar thropathic psoriasis, unspecified (HCC),Psoriasis, unspecified TAKE 1 TABLET BY MOUTH EVERY DAY 60 tablet 025 Active leflunomide (ARAVA) 10 mg tabletIndications:Ar thropathic psoriasis, unspecified (HCC),Psoriasis, unspecified TAKE 1 TABLET BY MOUTH EVERY DAY 90 tablet 025 2024 Discontinued Active Problems Problem Noted Date Diagnosed Date Mixed hyperlipidemia 03/30/2025 Lipid screening 03/30/2025 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 Hiatal hernia 06/03/2023 Thyroid nodule 04/30/2023 04/30/2023 Avascular necrosis 04/03/2023 Iron deficiency anemia 03/11/2023 Sacroiliitis 10/03/2022 04/30/2023 Sinusitis, chronic 01/08/2022 Dysphagia 09/05/2021 Overview (09/05/2021): Added automatically from request for surgery [id number] Parotid mass 08/14/2021 Sinus tachycardia 08/03/2021 Palpitations 08/03/2021 History of 2019 novel coronavirus disease (COVID -19) 08/03/2021 Low serum adrenocorticotropic hormone (ACTH) 04/30/2023 RA (rheumatoid arthritis) 09/05/2020 Anxiety 09/05/2020 Colitis 08/23/2020 Overview (08/23/2020): Added automatically from request for surgery [id number] Gastroesophageal reflux disease 08/16/2020 Overview (08/16/2020): Added automatically from request for surgery [id number] Gastroesophageal reflux disease without esophagi tis 08/02/2020 Other chest pain 08/02/2020 Uveitis 02/07/2020 Dysuria 05/27/2016 Habitual aborter, antepartum 05/27/2016 Threatened miscarriage 05/27/2016 Possible , not yet confirmed 05/21/2016 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 12/28/2015 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 [place] [address] Arthropathic psoriasis, unspecified (HCC) Discharge Disposition: Discharge to home or self care 04/04/2025 9:00 AM CDT Office Visit [facility] 5th [place] [address] [place] [address] Alicia Ramos MD High risk medication use (Primary Dx); Arthropathic psoriasis, unspecified (HCC); Psoriasis; Immunosuppression 03/30/2025 3:15 PM CDT Office Visit [facility] Medical [facility] Cardiology [address] [place] [address] Mani Mayorga MD Lipid screening (Primary Dx); [...] on file 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 Gender Identity Not on file Sexual Orientation [...] 2024 07/10/2021, 11/24/2020, 11/03/2020 Influenza Vaccine (#1) 2025 08/29/2020 Hepatitis B Screening Completed 02/25/2023 Hepatitis C Screening Completed 02/25/2023 HPV Vaccines Aged Out No longer eligi ble based on patient's age to complete this topic Medical Devices Implanted Type Area Telesales Specialist Device Identifier Shelf Expiration Date Model / Serial / Lot [employer] Substitute Bone Graft Tactoset Kit Prefilled [place]ringe [place] [id number] - [id number] Implanted:Qty: 1 on 06/09/2023 by Yolande Rubio MD at [facility] Right: Hip [employer] 03/17/2025 [id number] / / [id number] Description:Times are roxanne baca [employer] Substitute Bone Graft Tactoset Kit Prefilled Mix Syringe [place] [id number] - [id number] Implanted:Qty: 1 on 06/09/2023 by Yolande Rubio MD at [facility] Left: Hip [employer] 03/17/2025 [id number] / / [id number] Description:Times are estima keven Procedures Procedure Name [...] Brian Pickett MD us Alicia Ramos MD IM MRI PROCEDURES Final Res ult * (ABNORMAL) [...] Most Recently Relevant to Health Maintenance Insurance [facility] ACCESS Advance Directives For more information, please contact: [phone] * Full Code (Latest Code Status on File) Date Activated Date Inactivated Comments 11/09/2020 10:46 AM 11/09/2020 6:17 PM * Full Code Date Activated Date Inactivated Comments 09/04/2020 1:08 PM 09/05/2020 5:23 PM * Full Code Date Activated Date Inactivated Comments 08/30/2020 11:18 AM 08/30/2020 5:39 PM Care Teams Vegetable Sorter Relationship Specialty Start Date End Date Edwin Siu MD [address] [place] [address] PCP - General 09/11/12 Alicia Ramos MD [address] [place], [place] [address] Consulting Physician Internal Medicine 05/01/23
--- OUTSIDE RECORDS SUMMARY | 2025-06-07 11:53 | XMS_ITS | Encounter Summary ---
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
--- OUTSIDE RECORDS SUMMARY | 2025-06-07 11:53 | XMS_ITS | Patient Health Record ---
Author Organization [facility] Address [address] [place] [address] Care Team Providers Care Central Processing Technician Name Role Phone Edwin Siu MD Primary Care Provider UnavailRedd Wheeler Unavailable [phone] Sharla Newby Unavailable [phone] Allergies Allergen (clinical drug ingredient) Drug/Non Drug Allergy documented on EMR Reaction Allergy Type Onset Date Status Ciprofloxacin Unknown Drug Allergy 02/18/2024 Ac tive metronidazole Flagyl Unknown Drug Allergy 02/18/2024 Ac tive Results Component Value Reference Range Notes PRESCRIBED DRUGS, medMATCH(R ) ([id number]) Reviewed date:01/19/2025 08:17:59 AM Interpretation: Performing Lab:[facility] FRANCISCO-[id number] Huma Solorzano, [id number] Jose Manuel Aguiar MD Notes/Report: FASTING: NO medMATCH Summary Prescribed Prescribed Not Prescribed Consistent Inconsistent Inconsistent Clonazepam Prescribed Drug 1 Clonazepam DRUG MONITOR, BENZO, QN, UR INE ([id number]) Reviewed date:01/19/2025 08:17:58 AM Interpretation: Performing Lab:[facility] DALTON-Aki Oteroe[address] MitteAki [id number] Sánchez Berry, Director - [address] Huma Gill-[place] Notes/Report: FASTING: NO Alphahydroxyalprazolam NEGATIVE <25 ng/mL [...] analytical performance characteristics have been determined by [facility]. It has not been cleared or approved by the FDA. This assay has been validated pursuant to the CLIA regulations and is used for clinical purposes. medMATCH(R) enables providers to identify if drug use is consistent or inconsistent with a corresponding prescribed medication(s) list. Healthcare Providers needing Interpretation assistance, please contact us at [phone] ( ) M-F, 8am to 10pm EST UDT Reviewed date:01/10/2025 04:37:18 PM Interpretation: Performing Lab: Notes/Report: THC N 0 - 50 ng/ml Cocaine N 0 - 300 ng/ml Amphetamine N 0 - 1000 ng/ml Buprenorphine (BUP) N 0 - 10 ng/ml Secobarbital (Bar) N 0 - 300 ng/ml Oxazepam (BZO) N 0 - 300 ng/ml 8-adpvbhwlvy-6,1-cggtlsyo-2, 3-diphen ylpyrrolidine (EDDP) N 0 - 300 ng/ml Methamphetamine (MET) N 0 - 1000 ng/ml Methylenedioxymethamphetamine (MDMA) N 0 - 500 ng/ml Morphine (MOP 300/HWQ6257) N 0 - 300 ng/ml Methadone (MTD) N 0 - 300 ng/ml Phencyclidine (PCP) N 0 - 25 ng/ml Nortriptyline (TCA) N 0 - 1000 ng/ml Oxycodone N 0 - 300 ng/ml x N 0 - 300 ng/ml UDT Reviewed date:09/17/2024 10:22:41 AM Interpretation: Performing Lab: Notes/Report: THC N 0 - 50 ng/ml Cocaine N 0 - 300 ng/ml Amphetamine N 0 - 1000 ng/ml Buprenorphine (BUP) N 0 - 10 ng/ml Secobarbital (Bar) N 0 - 300 ng/ml Oxazepam (BZO) N 0 - 300 ng/ml 7-tmdordrqqu-2,4-duiwffen-0, 3-diphen ylpyrrolidine (EDDP) N 0 - 300 ng/ml Methamphetamine (MET) N 0 - 1000 ng/ml Methylenedioxymethamphetamine (MDMA) N 0 - 500 ng/ml Morphine (MOP 300/VPV8315) N 0 - 300 ng/ml Methadone (MTD) [...] Status Risk Notes Problem Generalized anxiety disorder (29903059) Generalized anxiety disorder (F41.1) 02/18/20 24 Active confirmed Problem Anxiety disorder (014083297) Other specified anxiety disorders (F41.8) 02/18/20 24 Active confirmed Problem Primary insomnia (6793866) Primary insomnia (F51.01) 02/18/20 24 Active confirmed Problem Major depression in remission (62944760) Major depression in remission (F32.5) Active confirmed Problem Iron deficiency anemia (12809443) Iron deficiency anemia (D50.9) 05/30/20 23 Active confirmed Problem Gastroesophageal reflux disease (949796554) GERD (gastroesophag eal reflux disease) (K21.9) 02/21/20 21 Active confirmed Problem Rheumatoid arthritis (19523469) RA (rheumatoid arthritis) (M06.9) 02/21/20 21 Active confirmed Problem Avascular necrosis (41125566) Avascular necrosis (M87.00) 05/30/20 23 Active confirmed Problem Sinus node dysfunction (11414013) 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) 12/29/19 24 Active confirmed Vital Signs Heart Rate 77 /min 01/10/2025 Height-cm 165.10 cm 01/10/2025 Blood pressure diastolic 74 mm Hg 01/10/2025 Weight-kg 75.75 kg 01/10/2025 Height 65.00 in 01/10/2025 Blood pressure systolic 112 mm Hg 01/10/2025 Weight 167 lbs 01/10/2025 BMI 27.79 kg/m2 01/10/2025 Encounters Encounter Location Date Provider Diagnosis [facility] [address] [facility] [address] [place] [address] 09/09/2024 Redd Canales [facility] [address] [facility] [address] [place] [address] 09/17/2024 Redd Canales Generalized anxiety disorder F41.1 ; Major depression in remission F32.5 and Primary insomnia F51.01 [facility] [address] [facility] [address] [place] [address] 01/10/2025 Redd Canales Generalized anxiety disorder F41.1 ; Major depression in remission F32.5 and Primary insomnia F51.01 [facility] [address] [place] [address] 08/29/2024 Redd Canales Major depression in remission F32.5 [place] [address] [facility] [address] [place] [address] 09/22/2024 Redd Canales Generalized anxiety disorder F41.1 [...] increasing the dose. - Consider discussing with design printing machine setter or primary care physician about increasing metoprolol [...] - Encourage patient to follow up with state auditor for further evaluation and management of hip [...] increasing the dose. - Consider discussing with design printing machine setter or primary care physician about increasing metoprolol [...] - Encourage patient to follow up with state auditor for further evaluation and management of hip [...] increasing the dose. - Consider discussing with design printing machine setter or primary care physician about increasing metoprolol [...] - Encourage patient to follow up with state auditor for further evaluation and management of hip [...] the next appointment. - Send prescriptions to [facility] in [place]. Plan Of Treatment Next Appt Details Provider Name:Reddsparkle Canales , 07/08/2025 08:30:00 AM, [address] [facility] [address] [facility] [address], [place], [address], Insurance Providers Payer Name Payer Address Payer Phone Subscriber Number Group Number Insured Name Patient Relationship to Insured Coverage Start Date Coverage End Date [facility] [address] [place] [address] [id number] ALYSON FRIAS Self - patient is the insured Medical (General) History Medical History History ICD Code Problems: Bipolar affective disorder, cu rrent episode mixed Generalized anxiety disorder Mixed anxiety and depressive disorder Primary insomnia , Surgical History Surgery Date(Month/Year) Myringotomy tube placement 11/17/1992 Tonsilectomy/adenoids 11/17/2000 Sinus surgery 11/17/2006 Removal of gallbladder (70642) 6
--- OUTSIDE RECORDS SUMMARY | 2025-06-07 11:53 | XMS_ITS | Clinical Summary ---
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 Gender Identity Not on file Sexual Orientation Not on file Plan of Treatment Health Maintenance Due Date Last Done Comments Cervical Cancer Screening Pa p Smear (Age 30 to 64) Every 3 Years 1989 Annual Physical 1992 Hepatitis C 2007 DTaP, Tdap and Td Vaccines ( 1 - Tdap) 2008 Hepatitis B Vaccines (1 of 3 - 19+ 3-dose series) 2008 HPV Vaccines (1 - 3-dose SCD M series) 2016 Cervical Cancer Screening Pa p with HPV Testing (Age 30 to 64) Every 5 Years 2019 Cervical Cancer Screening with HPV 2019 COVID-19 Vaccine ( - 2023-2 5 season) 2024 Meningococcal B Vaccine Aged Out No l [...] age to complete this topic Care Teams Arabic Professor Relationship Specialty Start Date End Date Edwin Siu MD PCP - General INTERNAL MEDICINE 03/23/21
--- OUTSIDE RECORDS SUMMARY | 2025-06-07 11:53 | XMS_ITS | Encounter Summary ---
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
--- OUTSIDE RECORDS SUMMARY | 2025-06-07 11:53 | XMS_ITS | Encounter Summary ---
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
--- OUTSIDE RECORDS SUMMARY | 2025-06-07 11:53 | XMS_ITS | Encounter Summary ---
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 Gender Identity Female 03/02/2024 7:17 AM CDT Sexual Orientation Straight 03/02/2024 7: 17 AM CDT documented as of this encounter Plan of Treatment Upcoming Encounters Date Type Department Care Team (Late Contact Info) Description 07/26/2025 9:30 AM CDT Procedure visit [facility] [place] [address] [facility] [address] [place] [address] documented as of this encounter Visit Diagnoses Not on filedocumented in this encounter Care Teams Pressurization Mechanic Relationship Specialty Start Date End Date Edwin Siu MD PCP - General 02/25/12 documented as of this encounter
--- OUTSIDE RECORDS SUMMARY | 2025-06-07 11:53 | XMS_ITS | Encounter Summary ---
Author Organization 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
--- OUTSIDE RECORDS SUMMARY | 2025-06-07 11:54 | XMS_ITS | Encounter Summary ---
Author Organization [facility] Address [address] [place] [address] Care Team Providers Care Gravity Meter Operator Name Role Phone Edwin Siu MD Primary Care Provider [phone] Encounter Details Date Type Department Care Team (Late st Contact Info) Description 09/20/2024 Telephone [facility] - DEVELOPMENT WRITER [address] [facility] [address] [place] [address] Rima Siu MD [address] [facility] [address] [place] [address] Social History Tobacco Use Types [...] AM CDT Legal Sex Female 5:34 AM GEOTHERMAL POWERPLANT SUPERVISOR Gender Identity Female 03/02/2024 7:17 AM CDT Sexual Orientation Straight 03/02/2024 7: 17 AM CDT documented as of this encounter Miscellaneous Notes * Telephone Encounter - James Pradhan - 09/20/2024 1:27 PM CST Patient would like to schedule her yearly WWE and her TVUS for the same day. Please advise. HERMAL POWERPLANT SUPERVISOR documented in this encounter Plan of Treatment Upcoming Encounters Date Type Department Care Team (Late st Contact Info) Description 07/26/2025 9:30 AM CDT Procedure visit [facility] - DEVELOPMENT WRITER [address] [facility] [address] [place] [address] documented as of this encounter Visit Diagnoses Diagnosis Abnormal uterine bleeding (AUB)- Primary documented in this encounter Care Teams Gravity Meter Operator Relationship Specialty Start Date End Date Edwin Siu MD PCP - General 02/25/12 documented as of this encounter
--- OUTSIDE RECORDS SUMMARY | 2025-06-07 11:54 | XMS_ITS | Clinical Summary ---
Author Organization [facility] Address [address] [place] [address] Care Team Providers Care Naval Gunfire Spotter Name Role Phone Edwin Siu MD Primary Care Provider [phone] Source Comments [facility],non-owned Affiliates and Associated Physician Practices is amultiple site organization consisting of ambulatory clinics and hospital sitesin [place], [place], [place] and [place]. This disclosure is being madepursuant to the Care Everywhere program and may not contain all information available regarding this patient. 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 Thyroid nodule GERD (gastroesophageal reflux disease) Encounters Date Type Department Care Team Description 05/18/2025 Orders Only [facility] - LINE UP EXAMINER [address] [facility] [address] [place] [address] Rima Siu MD Adnexal mass 05/12/2025 Telephone [facility] - Centralized Scheduling [address] [place] [address] Rima Siu MD Appointment from Last 3 Months Immunizations Immunization Administration Dates Next Due Covid Pfizer primary [...] AM CDT Legal Sex Female 5:34 AM 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 PREVENTION AND SAFETY MANAGER Gender Identity Female 03/02/2024 7:17 AM CDT Sexual Orientation Straight 03/02/2024 7: 17 AM CDT Last Filed Vital Signs Vital Sign Reading Time Taken Comments Blood Pressure 112/70 02/25/2025 1:39 PM CDT Pulse 91 10/20/2024 11:24 AM LOSS PREVENTION AND SAFETY MANAGER Temperature 36.9 C (98.4 F) 10/20/2024 10:54 AM LOSS PREVENTION AND SAFETY MANAGER Respiratory Rate 16 10/20/2024 11:2 4 AM LOSS PREVENTION AND SAFETY MANAGER Oxygen Saturation 96% 10/20/2024 11: 24 AM LOSS PREVENTION AND SAFETY MANAGER Inhaled Oxygen Concentration - - Weight 75.7 kg (166 lb 12.8 oz) 02/25/2025 1:39 PM CDT Height 165.1 cm (5' 5) 02/25/2025 1:39 PM CDT Body Mass Index 27.76 02/25/2025 1:39 PM CDT Plan of Treatment Upcoming Encounters Date Type Department Care Team (Late st Contact Info) Description 07/26/2025 9:30 AM CDT Procedure visit [facility] - LINE UP EXAMINER [address] [facility] [address] [place] [address] Health Maintenance Due Date Last Done Comments HIV SCREENING 2004 HEPATITIS C SCREENING 11/09/2007 DTAP/TDAP/TD VACCINES (1 - Tdap) 2008 HEPATITIS B VACCINE (1 of 3 - 19+ 3-dose series) 2008 PAP SMEAR 2010 HPV VACCINE (1 - 3-dose SCDM series) 2016 COVID-19 VACCINE ( season) 2024 09/17/2023, 03/31/2023, [...] this topic Medical Devices Implanted Type Area Neuro Intensivist Physician Device Identifier Shelf Expiration Date Model / Serial / Lot Mirena Levonorgestrel- Releasing Intrauterine System Implanted:Qty: 1 on 10/20/2024 by Yajaira Man MD at [facility] N/A: Uterus Cory Jake 01/14/2027 [id number] / [id number] / [id number] Insurance ANTHEM Care Teams Naval Gunfire Spotter Relationship Specialty Start Date End Date Edwin Siu MD PCP - General 02/25/12
--- OUTSIDE RECORDS SUMMARY | 2025-06-07 11:54 | XMS_ITS | Encounter Summary ---
Author Organization [facility] Address [address] [facility] [place] [address] Care Team Providers Care Concrete Pavement Installer Name Role Phone Edwin Siu MD Primary Care Provider [phone] Reason for Visit * Reason Onset Date Comments MEDICATION REFILL 10/13/2024 Encounter Details Date Type Department Care Team (Late Contact Info) Description 10/13/2024 Refill [facility] - PILATES COORDINATOR [address] [facility] [address] [place] [address] Rima Siu MD [address] [facility] [address] [place], [place] [id number] MEDICATION REFILL Social History Tobacco Use Types [...] AM CDT 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 Gender Identity Female 03/02/2024 7:17 AM CDT Sexual Orientation Straight 03/02/2024 7: 17 AM CDT documented as of this encounter Plan of Treatment Upcoming Encounters Date Type Department Care Team (Late Contact Info) Description 07/26/2025 9:30 AM CDT Procedure visit [facility] - PILATES COORDINATOR [address] [facility] [address] [place] [address] documented as of this encounter Visit Diagnoses Not on filedocumented in this encounter Care Teams Concrete Pavement Installer Relationship Specialty Start Date End Date Edwin Siu MD PCP - General 02/25/12 documented as of this encounter
--- OUTSIDE RECORDS SUMMARY | 2025-06-07 11:54 | XMS_ITS | Encounter Summary ---
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
--- OUTSIDE RECORDS SUMMARY | 2025-06-07 11:54 | XMS_ITS | Encounter Summary ---
Author Organization [facility] Address [address] [place] [address] Phone Care Team Providers Care Bridal Gown Fitter Name Role Phone Edwin Siu MD Primary Care Provider + [phone] Alicia Ramos MD Unavailable [phone] Encounter Details Date Type Department Care Team [...] on filedocumented in this encounter Care Teams Bridal Gown Fitter Relationship Specialty Start Date End Date Edwin Siu MD [address] [place], [place] [address] PCP - General 09/11/12 Alicia Ramos MD [address] [place], [place] [address] Consulting Physician Internal Medicine 05/01/23 documented as of this encounter
--- OUTSIDE RECORDS SUMMARY | 2025-06-07 11:54 | XMS_ITS | Referral Summary ---
Author Organization [facility] Address [address] [place] [address] Care Team Providers Care Vocational Rehabilitation Teacher Name Role Phone Edwin Siu MD Primary Care Provider Alicia Ramos MD Unavailable [phone] Encounters Date Type Department Care Team Description 04/25/2025 Telephone [facility] Cardiology [address] [facility] [address] [place] [address] Mani Mayorga MD Med Refill 04/23/2025 6:51 AM CDT - 04/23/2025 11:59 PM CDT Hospital Encounter [facility] Radiology [address] [place] [address] Arthropathic psoriasis, unspecified (HCC) Discharge Disposition: Discharge to home or self care 04/04/2025 9:00 AM CDT Office Visit [facility] Rheumatology [facility] [facility] 5th [place] [address] [place] [address] Alicia Ramos MD High risk medication use (Primary Dx); Arthropathic psoriasis, unspecified (HCC); Psoriasis; Immunosuppression 03/30/2025 3:15 PM CDT Office Visit [facility] Cardiology [address] [facility] [address] [place] [phone] Mani Mayorga MD Lipid screening (Primary Dx); [...] (09/05/2021): Added automatically from request for surgery [id number] Parotid mass 08/14/2021 Sinus tachycardia 08/03/2021 Palpitations 08/03/2021 History of 2019 novel coronavirus disease (COVID -19) 08/03/2021 Low serum adrenocorticotropic hormone (ACTH) 04/30/2023 RA (rheumatoid arthritis) 09/05/2020 Anxiety 09/05/2020 Colitis 08/23/2020 Overview (08/23/2020): Added automatically from request for surgery [id number] Gastroesophageal reflux disease 08/16/2020 Overview (08/16/2020): Added automatically from request for surgery [id number] Gastroesophageal reflux disease without esophagi tis 08/02/2020 [...] on file Legal Sex Female 1:19 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 Gender Identity Not on file Sexual [...] on file Medical Devices Implanted Type Area Grout Machine Tender Device Identifier Shelf Expiration Date Model / Serial / Lot [employer] Substitute Bone Graft Tactoset Kit Prefilled Mix Syringe [place] [id number] - [id number] Implanted:Qty: 1 on 06/09/2023 by Yolande Rubio MD at [facility] Right: Hip [employer] 03/17/2025 [id number] / / [id number] Description:Times are estima keven [employer] Substitute Bone Graft Tactoset Kit Prefilled Mix Syringe [place] [id number] - [id number] Implanted:Qty: 1 on 06/09/2023 by Yolande Rubio MD at [facility] Left: Hip [employer] 03/17/2025 [id number] / / [id number] Description:Times are estima keven Procedures Procedure Name [...] Most Recently Relevant to Health Maintenance Insurance [facility] ANTHEM ACCESS Advance Directives For more information, please contact: [phone] * Full Code (Latest Code Status on File) Date Activated Date Inactivated Comments 11/09/2020 10:46 AM 11/09/2020 6:17 PM * Full Code Date Activated Date Inactivated Comments 09/04/2020 1:08 PM 09/05/2020 5:23 PM * Full Code Date Activated Date Inactivated Comments 08/30/2020 11:18 AM 08/30/2020 5:39 PM Care Teams Vocational Rehabilitation Teacher Relationship Specialty Start Date End Date Edwin Siu MD [address] [place] [address] PCP - General 09/11/12 Alicia Ramos MD [address] [place] [address] Consulting Physician Internal Medicine 05/01/23
[2025-06-07 12:22] LABS: Hematocrit 35.8 % (37.0-47.0); Hemoglobin 11.1 g/dL (12.0-15.0); Immature Granulocyte Percent A 0.3 % (0-0.5); Lymphocytes Absolute Auto 1.93 K/mm3 (0.9-3.2); Mean Corpuscular HGB Conc 31.0 g/dl (32-36); Mean Corpuscular Hemoglobin 25.9 pg (26-34); Mean Corpuscular Volume 83.4 fl (80-100); Nucleated Red Blood Cells Absolute Auto 0.000 K/mm3 (0.0-0.012); Nucleated Red Blood Cells Perc 0.0 % (0.0-0.2); Platelet Count Result 312 k/mm3 (150-375); Red Blood Count 4.29 M/mm3 (4.2-5.4); White Blood Count 6.0 K/mm3 (4.5-10.0)
[2025-06-07 12:38] LABS: Alanine Aminotransferase 14 U/L (6-35); Albumin Level 4.7 g/dL (3.5-5.1); Alkaline Phosphatase 60 U/L (38-126); Anion Gap 8 mmol/L (4-12); Aspartate Amino Transferase 25 U/L (14-36); Bilirubin,Total 0.4 mg/dL (0.2-1.3); Blood Urea Nitrogen 15 mg/dL (7-17); Calcium 9.5 mg/dL (8.4-10.2); Carbon Dioxide 27 mmol/L (22-30); Chloride 103 mmol/L (98-107); Estimated Glomerular Filt Rate > 60; Glucose 86 mg/dL (65-110); Potassium 4.4 mmol/L (3.4-5.0); Sodium 138 mmol/L (137-145); Total Protein 7.6 g/dL (6.3-8.2)
[2025-06-08 07:09] LABS: Measles Antibodies, IgG 79.3 AU/mL (Immune >16.4)
== END 2025-06-07 11:49 | disposition home or self-care (01) ==
LOC: ANHLAB 11:51
PROVIDERS: PCP Internal Medicine; Visit Provider Internal Medicine Rheumatology
DX: D84.9 Immunodeficiency, unspecified (principal); Z79.899 Other long term (current) drug therapy
CPT/HCPCS: 36415; 80053; 85025; 86765

== ENCOUNTER 2025-06-16 13:03 | Outpatient (CLI) | payer BC, SELFPAY ==
--- OUTSIDE RECORDS SUMMARY | 2025-06-16 13:10 | XMS_ITS | Encounter Summary ---
Author Organization 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
--- OUTSIDE RECORDS SUMMARY | 2025-06-16 13:10 | XMS_ITS | Encounter Summary ---
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
--- OUTSIDE RECORDS SUMMARY | 2025-06-16 13:10 | XMS_ITS | Encounter Summary ---
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
--- OUTSIDE RECORDS SUMMARY | 2025-06-16 13:10 | XMS_ITS | Encounter Summary ---
Author Organization [facility] Address [address] [facility] [place] [address] Care Team Providers Care Deputy Bailiff Name Role Phone Edwin Siu MD Primary Care Provider [phone] Reason for Visit * Reason Onset Date Comments MEDICATION REFILL 04/01/2022 Encounter Details Date Type Department Care Team (Late st Contact Info) Description 04/01/2022 Refill [facility] [address] [place] [address] Gerson Guajardo MD [address] [place] [address] MEDICATION REFILL Social History Tobacco Use Types [...] AM CDT Legal Sex Female 5:34 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 Gender Identity Female 03/02/2024 7:17 AM CDT Sexual Orientation Straight 03/02/2024 7: 17 AM CDT documented as of this encounter Plan of Treatment Upcoming Encounters Date Type Department Care Team (Late Contact Info) Description 07/26/2025 9:30 AM CDT Procedure visit [facility] - CARDIOVASCULAR OR NURSE [address] [facility] [address] [place] [address] documented as of this encounter Visit Diagnoses Not on filedocumented in this encounter Care Teams Deputy Bailiff Relationship Specialty Start Date End Date Edwin Siu MD PCP - General 02/25/12 documented as of this encounter
--- OUTSIDE RECORDS SUMMARY | 2025-06-16 13:10 | XMS_ITS | Clinical Summary ---
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
--- OUTSIDE RECORDS SUMMARY | 2025-06-16 13:10 | XMS_ITS | Clinical Summary ---
Author Organization [facility] [address] Address [address] [facility] [address] [place] [address] Phone Care Team Providers Care Keyboard Specialist Name Role Phone Edwin Siu MD [...] Health Maintenance Due Date Last Done Comments HPV VACCINES (1 - 3-dose series) 2004 DTAP/TDAP/TD VACCINES (1 - Tdap) 2008 HEPATITIS B VACCINES (1 of 3 - 19+ 3-dose series) 10/18 HPV/Cotest (21-29) 2010 CERVICAL CANCER SCREENING 2019 HPV/Cotest (30-65) 2019 PAP SMEAR 2019 INFLUENZA VACCINE (#1) 2025 Care Teams Keyboard Specialist Relationship Specialty Start Date End Date Edwin Siu MD [address] [place] [address] PCP - General Internal Medicine 09/18/15
--- OUTSIDE RECORDS SUMMARY | 2025-06-16 13:10 | XMS_ITS | Encounter Summary ---
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
--- OUTSIDE RECORDS SUMMARY | 2025-06-16 13:10 | XMS_ITS | Patient Health Record ---
Author Organization [facility] [employer] Address [address] [place] [address] Care Team Providers Care Christian Counselor Name Role Phone Edwin Siu MD Primary Care Provider Unavaila Redd Chacon Unavailable [phone] Sharla Newby Unavailable [phone] Allergies Allergen (clinical drug ingredient) Drug/Non Drug [...] Oxazepam (BZO) N 0 - 300 ng/ml 8-bzhshzzeal-7,3-fxvsjxmq-6, 3-diphen ylpyrrolidine (EDDP) N 0 - 300 ng/ml Methamphetamine (MET) N 0 - 1000 ng/ml Methylenedioxymethamphetamine (MDMA) N 0 - 500 ng/ml Morphine (MOP 300/WVR6159) N 0 - 300 ng/ml Methadone (MTD) N 0 - 300 ng/ml Phencyclidine (PCP) N 0 - 25 ng/ml Nortriptyline (TCA) N 0 - 1000 ng/ml Oxycodone N 0 - 300 ng/ml x N 0 - 300 ng/ml UDT Reviewed date:01/10/2025 04:37:18 PM Interpretation: Performing Lab: Notes/Report: THC N 0 - 50 ng/ml Cocaine N 0 - 300 ng/ml Amphetamine N 0 - 1000 ng/ml Buprenorphine (BUP) N 0 - 10 ng/ml Secobarbital (Bar) N 0 - 300 ng/ml Oxazepam (BZO) N 0 - 300 ng/ml 5-qrtthyfazb-9,2-gpidbsnf-5, 3-diphen ylpyrrolidine (EDDP) N 0 - 300 ng/ml Methamphetamine (MET) N 0 - 1000 ng/ml Methylenedioxymethamphetamine (MDMA) N 0 - 500 ng/ml Morphine (MOP 300/VJR4193) N 0 - 300 ng/ml Methadone (MTD) N 0 - 300 ng/ml Phencyclidine (PCP) N 0 - 25 ng/ml Nortriptyline (TCA) N 0 - 1000 ng/ml Oxycodone N 0 - 300 ng/ml x N 0 - 300 ng/ml DRUG MONITOR, BENZO, QN, URI NE ([id number]) Reviewed date:01/19/2025 08:17:58 AM Interpretation: Performing Lab:SHA, [employer] [facility] [address] [facility], [facility] HospitalSaonUS[address] Sánchez Berry, Director - [address] [facility] Notes/Report: FASTING: NO Alphahydroxyalprazolam NEGATIVE <25 ng/mL [...] analytical performance characteristics have been determined by [employer]. It has not been cleared or approved by the FDA. This assay has been validated pursuant to the CLIA regulations and is used for clinical purposes. medMATCH(R) enables providers to identify if drug use is consistent or inconsistent with a corresponding prescribed medication(s) list. Healthcare Providers needing Interpretation assistance, please contact us at [phone] ( ) M-F, 8am to 10pm EST PRESCRIBED DRUGS, medMATCH(R ) ([id number]) Reviewed date:01/19/2025 08:17:59 AM Interpretation: Performing Lab:NOLAN, [id number] Huma Solorzano, [id number] Petra-Carlita Aguiar MD Notes/Report: FASTING: NO medMATCH Summary Prescribed Prescribed Not Prescribed Consistent Inconsistent Inconsistent Clonazepam Prescribed Drug 1 Clonazepam Reason For Referral No Information Medications Medication [...] Status Risk Notes Problem Generalized anxiety disorder (30019638) Generalized anxiety disorder (F41.1) 02/18/20 24 Active confirmed Problem Anxiety disorder (259701234) Other specified anxiety disorders (F41.8) 02/18/20 24 Active confirmed Problem Primary insomnia (3666732) Primary insomnia (F51.01) 02/18/20 24 Active confirmed Problem Major depression in remission (50202251) Major depression in remission (F32.5) Active confirmed Problem Iron deficiency anemia (62118650) Iron deficiency anemia (D50.9) 05/30/20 23 Active confirmed Problem Gastroesophageal reflux disease (715805923) GERD (gastroesophag eal reflux disease) (K21.9) 02/21/20 21 Active confirmed Problem Rheumatoid arthritis (05247076) RA (rheumatoid arthritis) (M06.9) 02/21/20 21 Active confirmed Problem Avascular necrosis (13837672) Avascular necrosis (M87.00) 05/30/20 23 Active confirmed Problem Sinus node dysfunction (91270007) 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) 12/29/19 24 Active confirmed Vital Signs Heart Rate 77 /min 01/10/2025 Height-cm 165.10 cm 01/10/2025 Blood pressure diastolic 74 mm Hg 01/10/2025 Weight-kg 75.75 kg 01/10/2025 Height 65.00 in 01/10/2025 Blood pressure systolic 112 mm Hg 01/10/2025 Weight 167 lbs 01/10/2025 BMI 27.79 kg/m2 01/10/2025 Encounters Encounter Location Date Provider Diagnosis [facility] Truckily [facility] [address] [facility] [address] [place] [address] 09/09/2024 Redd Canales [facility] [employer] [facility] [address] [facility] [address] [place] [address] 09/17/2024 Redd Canales Generalized anxiety disorder F41.1 ; Major depression in remission F32.5 and Primary insomnia F51.01 [facility] [address] [place] [address] 01/10/2025 Redd Canales Generalized anxiety disorder F41.1 ; Major depression in remission F32.5 and Primary insomnia F51.01 [facility] [address] [place] [address] 08/29/2024 Rded Canales Major depression in remission F32.5 [place] [address] [place] [address] 09/22/2024 Redd Canales Generalized anxiety disorder F41.1 [...] increasing the dose. - Consider discussing with tower helper or primary care physician about increasing metoprolol [...] - Encourage patient to follow up with formula weigher for further evaluation and management of hip [...] increasing the dose. - Consider discussing with tower helper or primary care physician about increasing metoprolol [...] - Encourage patient to follow up with formula weigher for further evaluation and management of hip [...] increasing the dose. - Consider discussing with tower helper or primary care physician about increasing metoprolol [...] - Encourage patient to follow up with formula weigher for further evaluation and management of hip [...] the next appointment. - Send prescriptions to [facility] in [place]. Plan Of Treatment Next Appt Details Provider Name:Reddsparkle Canales , 07/08/2025 08:30:00 AM, [address] [facility] [address] [facility] [address], [place], [address], Insurance Providers Payer Name Payer Address Payer Phone Subscriber Number Group Number Insured Name Patient Relationship to Insured Coverage Start Date Coverage End Date [facility] [address] [place] [address] [id number] ALYSON FRIAS Self - patient is the insured Medical (General) History Medical History History ICD Code Problems: Bipolar affective disorder, cu rrent episode mixed Generalized anxiety disorder Mixed anxiety and depressive disorder Primary insomnia , Surgical History Surgery Date(Month/Year) Myringotomy tube placement 11/17/1992 Tonsilectomy/adenoids 11/17/2000 Sinus surgery 11/17/2006 Removal of gallbladder (16601) 6
--- OUTSIDE RECORDS SUMMARY | 2025-06-16 13:11 | XMS_ITS | Encounter Summary ---
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
--- OUTSIDE RECORDS SUMMARY | 2025-06-16 13:11 | XMS_ITS | Encounter Summary ---
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 Please advise. FURNACE INSTALLER documented in this encounter Plan of Treatment Upcoming Encounters Date Type Department Care Team (Late st Contact Info) Description 07/26/2025 9:30 AM CDT Procedure visit [facility] - UNIT CONTROLLER [address] [facility] [address] [place] [address] documented as of this encounter Visit Diagnoses Diagnosis Abnormal uterine bleeding (AUB)- Primary documented in this encounter Care Teams Operations Developer Relationship Specialty Start Date End Date Edwin Siu MD PCP - General 02/25/12 documented as of this encounter
--- OUTSIDE RECORDS SUMMARY | 2025-06-16 13:11 | XMS_ITS | Encounter Summary ---
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
--- OUTSIDE RECORDS SUMMARY | 2025-06-16 13:11 | XMS_ITS | Encounter Summary ---
Author Organization [facility] Address [address] [place] [address] Care Team Providers Care Sales Estimator Name Role Phone Edwin Siu MD Primary Care Provider [phone] Reason for Visit * Reason Onset Date Comments MEDICATION REFILL 10/13/2024 Encounter Details Date Type Department Care Team (Late Contact Info) Description 10/13/2024 Refill [facility] - [facility]RIANGULATION SPECIALIST [address] [facility] [address] [place] [address] Rima Siu MD [address] [facility] [address] [place], [place] [id number] MEDICATION REFILL Social History Tobacco Use Types [...] AM CDT 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 Gender Identity Female 03/02/2024 7:17 AM CDT Sexual Orientation Straight 03/02/2024 7: 17 AM CDT documented as of this encounter Plan of Treatment Upcoming Encounters Date Type Department Care Team (Late Contact Info) Description 07/26/2025 9:30 AM CDT Procedure visit [facility] - AEROTRIANGULATION SPECIALIST [address] [facility] [address] [place] [address] documented as of this encounter Visit Diagnoses Not on filedocumented in this encounter Care Teams Sales Estimator Relationship Specialty Start Date End Date Edwin Siu MD PCP - General 02/25/12 documented as of this encounter
--- OUTSIDE RECORDS SUMMARY | 2025-06-16 13:11 | XMS_ITS | Clinical Summary ---
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/30/2023 RA (rheumatoid arthritis) 09/05/2020 Anxiety 09/05/2020 Colitis 08/23/2020 Overview (08/23/2020): Added automatically from request for surgery [id number] Gastroesophageal reflux disease 08/16/2020 Overview (08/16/2020): Added automatically from request for surgery [id number] Gastroesophageal reflux disease without esophagi tis 08/02/2020 Other chest pain 08/02/2020 Uveitis 02/07/2020 Dysuria 05/27/2016 Habitual aborter, antepartum 05/27/2016 Threatened miscarriage 05/27/2016 Possible , not yet confirmed 05/21/2016 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 12/28/2015 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 Gender Identity Not on file Sexual Orientation [...] <65 (1 of 2 - PCV) 2008 HPV Vaccines (1 - 3-dose SCDM series) 2016 Zoster Vaccine (2 of 2) 02/23/2024 12/29/2023 Covid-19 Vaccine (4 - season) 2024 07/10/2021, 11/24/2020, 11/03/2020 Influenza Vaccine (#1) 2025 08/29/2020 Hepatitis B Screening Completed 02/25/2023 Hepatitis C Screening Completed 02/25/2023 Medical Devices Implanted Type Area Mounter Automatic Device Identifier Shelf Expiration Date Model / Serial / Lot [employer] Substitute Bone Graft Tactoset Kit Prefilled Mix Syringe [place] [id number] - [id number] Implanted:Qty: 1 on 06/09/2023 by Yolande Rubio MD at [facility] Right: Hip [employer] 03/17/2025 [id number] / / [id number] Description:Times are estima keven [employer] Substitute Bone Graft Tactoset Kit Prefilled Mix Syringe Ll [id number] - [id number] Implanted:Qty: 1 on 06/09/2023 by Yolande Rubio MD at [facility] Left: Hip [employer] 03/17/2025 [id number] / / [id number] Description:Times are estima keven Procedures Procedure Name [...] Brian Pickett MD us Alicia Ramos MD [facility] MRI PROCEDURES Final Res ult * (ABNORMAL) [...] Most Recently Relevant to Health Maintenance Insurance [facility] AN[employer]M ACCESS Advance Directives For more information, please contact: [phone] * Full Code (Latest Code Status on File) Date Activated Date Inactivated Comments 11/09/2020 10:46 AM 11/09/2020 6:17 PM * Full Code Date Activated Date Inactivated Comments 09/04/2020 1:08 PM 09/05/2020 5:23 PM * Full Code Date Activated Date Inactivated Comments 08/30/2020 11:18 AM 08/30/2020 5:39 PM Care Teams Electronics Engineering Technologist Relationship Specialty Start Date End Date Edwin Siu MD [address] [place] [address] PCP - General 09/11/12 Alicia Ramos MD [address] [place] [address] Consulting Physician Internal Medicine 05/01/23
--- OUTSIDE RECORDS SUMMARY | 2025-06-16 13:11 | XMS_ITS | Referral Summary ---
Author Organization [facility] Address [address] [place] [address] Care Team Providers Care Travel Guide Name Role Phone Edwin Siu MD Primary Care Provider Alicia Ramos MD Unavailable [phone] Encounters Date Type Department Care Team Description 04/25/2025 Telephone [facility] Cardiology [address] [facility] [address] [place] [address] Mani Mayorga MD Med Refill 04/23/2025 6:51 AM CDT - 04/23/2025 11:59 PM CDT Hospital Encounter Radiology [address] [place] [address] Arthropathic psoriasis, unspecified (HCC) Discharge Disposition: Discharge to home or self care 04/04/2025 9:00 AM CDT Office Visit [facility] Rheumatology [facility] [facility] 5th [place] [address] [place] [address] Alicia Ramos MD High risk medication use (Primary Dx); Arthropathic psoriasis, unspecified (HCC); Psoriasis; Immunosuppression 03/30/2025 3:15 PM CDT Office Visit [facility] Cardiology [address] [facility] [address] [place] [phone] Mani Mayorga MD Lipid screening (Primary Dx); [...] (09/05/2021): Added automatically from request for surgery [id number] Parotid mass 08/14/2021 Sinus tachycardia 08/03/2021 Palpitations 08/03/2021 History of 2019 novel coronavirus disease (COVID -19) 08/03/2021 Low serum adrenocorticotropic hormone (ACTH) 04/30/2023 RA (rheumatoid arthritis) 09/05/2020 Anxiety 09/05/2020 Colitis 08/23/2020 Overview (08/23/2020): Added automatically from request for surgery [id number] Gastroesophageal reflux disease 08/16/2020 Overview (08/16/2020): Added automatically from request for surgery [id number] Gastroesophageal reflux disease without esophagi tis 08/02/2020 [...] on file Legal 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 Gender Identity Not on file Sexual Orientation [...] on file Medical Devices Implanted Type Area Artillery Officer Device Identifier Shelf Expiration Date Model / Serial / Lot [employer] Substitute Bone Graft Tactoset Kit Prefilled Mix Syringe Ll [id number] - [id number] Implanted:Qty: 1 on 06/09/2023 by Yolande Rubio MD at [facility] Right: Hip [employer] 03/17/2025 [id number] / / [id number] Description:Times are estima keven [employer] Substitute Bone Graft Tactoset Kit Prefilled Mix Syringe Ll [id number] - [id number] Implanted:Qty: 1 on 06/09/2023 by Yolande Rubio MD at [facility] Left: Hip [employer] 03/17/2025 [id number] / / [id number] Description:Times are estima keven Procedures Procedure Name [...] Most Recently Relevant to Health Maintenance Insurance [facility] HMO/PPO Address: [address] [address] [place] [address] ANTHEM ACCESS Advance Directives For more information, please contact: [phone] * Full Code (Latest Code Status on File) Date Activated Date Inactivated Comments 11/09/2020 10:46 AM 11/09/2020 6:17 PM * Full Code Date Activated Date Inactivated Comments 09/04/2020 1:08 PM 09/05/2020 5:23 PM * Full Code Date Activated Date Inactivated Comments 08/30/2020 11:18 AM 08/30/2020 5:39 PM Care Teams Travel Guide Relationship Specialty Start Date End Date Edwin Siu MD [address] [place] [address] PCP - General 09/11/12 Alicia Ramos MD [address] [place] [address] Consulting Physician Internal Medicine 05/01/23
--- OUTSIDE RECORDS SUMMARY | 2025-06-16 13:11 | XMS_ITS | Clinical Summary ---
Author Organization [facility] Address [address] [place] [address] Care Team Providers Care Load Blocker Name Role Phone Edwin Siu MD Primary Care Provider [phone] Source Comments [facility],non-owned Affiliates and Associated Physician Practices is amultiple site organization consisting of ambulatory clinics and hospital sitesin [place], [place], [place]. This disclosure is being madepursuant to the Care Everywhere program and may not contain all information available regarding this patient. 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 Thyroid nodule GERD (gastroesophageal reflux disease) Encounters Date Type Department Care Team Description 05/18/2025 Orders Only [facility] - SYSTEMS MANAGEMENT CONSULTANT [address] [place] [address] Rima Siu MD Adnexal mass 05/12/2025 Telephone [facility] - Centralized Scheduling [address] [place] [address] Rima Siu MD Appointment from [...] AM CDT Legal Sex Female 5:34 AM FIRE SUPPRESSION CAPTAIN Gender Identity Female 03/02/2024 7:17 AM CDT Sexual Orientation Straight 03/02/2024 7: 17 AM CDT Last Filed Vital Signs Vital Sign Reading Time Taken Comments Blood Pressure 112/70 02/25/2025 1:39 PM CDT Pulse 91 10/20/2024 11:24 AM FIRE SUPPRESSION CAPTAIN Temperature 36.9 C (98.4 F) 10/20/2024 10:54 AM FIRE SUPPRESSION CAPTAIN Respiratory Rate 16 10/20/2024 11:2 4 AM FIRE SUPPRESSION CAPTAIN Oxygen Saturation 96% 10/20/2024 11: 24 AM FIRE SUPPRESSION CAPTAIN Inhaled Oxygen Concentration - - Weight 75.7 kg (166 lb 12.8 oz) 02/25/2025 1:39 PM CDT Height 165.1 cm (5' 5) 02/25/2025 1:39 PM CDT Body Mass Index 27.76 02/25/2025 1:39 PM CDT Plan of Treatment Upcoming Encounters Date Type Department Care Team (Late st Contact Info) Description 07/26/2025 9:30 AM CDT Procedure visit [facility] - SYSTEMS MANAGEMENT CONSULTANT [address] [facility] [address] [place] [address] Health Maintenance Due Date Last [...] this topic Medical Devices Implanted Type Area Rolling Attendant Device Identifier Shelf Expiration Date Model / Serial / Lot Mirena Levonorgestrel- Releasing Intrauterine System Implanted:Qty: 1 on 10/20/2024 by Yajaira Man MD at [facility] N/A: Uterus Cory Jake 01/14/2027 [id number] / [id number] / [id number] Insurance ANTHEM Care Teams Load Blocker Relationship Specialty Start Date End Date Edwin Siu MD PCP - General 02/25/12
[2025-06-16 13:55] LABS: Add Urine Microscopic? NO; Appearance Urine Clear (Clear); Glucose Urine UA Negative (Negative); Leukocyte Esterase Ur Negative LEU/UL (Negative); Nitrate Urine Negative (Negative); Specific Grav Ur 1.020 (1.001-1.035)
== END 2025-06-16 13:04 | disposition home or self-care (01) ==
LOC: ANHLAB 13:05
PROVIDERS: PCP Internal Medicine; Visit Provider Internal Medicine
DX: N39.0 Urinary tract infection, site not specified (principal)
CPT/HCPCS: 81003; 87086